=== PATIENT | female | born 1940 | race Caucasian/White ===

== ENCOUNTER 2018-02-08 08:47 | Inpatient (IN) | payer MEDICARE ==
[~2018-02-08] VITALS: Ht 157.5 cm; Wt 78.5 kg
--- NOTE | 2018-02-08 09:11 | EKG ---
[address] [address] Test Date: 2018-02-08 Test Time: 09:04:34 Pat Name: ZAKI EGAN Department: Room: Gender: F [employer] Machine Operator: : [id number] Requested By: GERARD MCCLELLAND Order Number: [id number] Reading MD: Merritt Adam MD Measurements Intervals [place] Rate: 75 P: [place]: QRS: 18 QRSD: 86 T: 48 QT: 402 QTc: 452 Interpretive Statements SR NON-SPECIFIC ST/T CHANGES INFERIOR INFARCT Electronically Signed On 02-11-2018 11:39:59 CDT by Merritt Adam MD
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
[2018-02-08 09:49] LABS: BASO % 0 % (0-3); EOS # 0.1 x10^3/uL (0.0-0.7); EOS % 1 % (0-3); HEMATOCRIT 45.3 % (36.0-47.0); HEMOGLOBIN 15.2 g/dL (12.0-15.5); LYMPH # 1.4 x10^3/uL (1.0-4.8); LYMPH % 15 % (24-48); MEAN CORPUSCULAR HEMOGLOBIN 31 pg (25-35); MEAN CORPUSCULAR HGB CONC 34 g/dL (31-37); MEAN CORPUSCULAR VOLUME 92 fL (79-100); MONO # 0.6 x10^3/uL (0.0-1.1); MONO % 6 % (0-9); NEUT # 7.4 x10^3uL (1.8-7.7); NEUT % 78 % (31-73); PLATELET COUNT 235 x10^3/uL (140-400); RED BLOOD COUNT 4.95 x10^6/uL (3.50-5.40); RED CELL DISTRIBUTION WIDTH 13.4 % (11.5-14.5); WHITE BLOOD COUNT 9.4 x10^3/uL (4.0-11.0)
[2018-02-08 09:57] LABS: ALBUMIN 3.4 g/dL (3.4-5.0); ALBUMIN/GLOBULIN RATIO 0.9 (1.0-1.7); CALCIUM 9.3 mg/dL (8.5-10.1); CREATININE 1.1 mg/dL (0.6-1.0); GFR 48.3; MAGNESIUM 1.9 mg/dL (1.8-2.4); POTASSIUM 3.1 mmol/L (3.5-5.1); TOTAL BILIRUBIN 0.4 mg/dL (0.2-1.0); TOTAL PROTEIN 7.3 g/dL (6.4-8.2)
[2018-02-08 10:08] LABS: AMORPHOUS SEDIMENT,UR PRESENT /HPF; BACTERIA,URINE FEW /HPF (0-FEW); BILIRUBIN,URINE NEG (NEG); CLARITY,URINE CLEAR; COLOR,URINE YELLOW; GLUCOSE,URINE NEG (NEG); NITRITE,URINE NEG (NEG); RBC,URINE OCC /HPF (0-2); SQUAMOUS EPITHELIAL CELL,UR OCC /LPF; UROBILINOGEN,URINE 0.2 mg/dL (0.2 mg/dL); WBC,URINE 0 /HPF (0-4)
[2018-02-08] MEDS ORDERED: POTASSIUM CHLORIDE 20 MEQ TABLET.ER. PO ONE (10:15)
[2018-02-08 11:33] VITALS: BP 124/63
[2018-02-08] MEDS ORDERED: POTA10TA10 PO (13:50)
[2018-02-08] MEDS ORDERED: DULO20CA50 PO (13:50)
[2018-02-08] MEDS ORDERED: ASPI81TA50 PO (13:50)
[2018-02-08] MEDS ORDERED: DONE10TA7 PO (13:50)
[2018-02-08] MEDS ORDERED: FURO40TA4 PO (13:50)
[2018-02-08] MEDS ORDERED: ZINC56CR2 TP ×2 (13:50)
[2018-02-08] MEDS ORDERED: ATOR20TA58 PO (13:50)
[2018-02-08] MEDS ORDERED: MEMA10TA PO (13:50)
[2018-02-08] MEDS ORDERED: HYDR12.58 PO (13:50)
[2018-02-08] MEDS ORDERED: ACET325T9 PO (13:50)
[2018-02-08] MEDS ORDERED: ACET500T68 PO ×2 (13:50→14:20)
[2018-02-08] MEDS ORDERED: RANI150C PO (13:50)
[2018-02-08] MEDS ORDERED: METO50TA29 PO (13:50)
[2018-02-08] MEDS ORDERED: CETI10TA16 PO (13:50)
[2018-02-08] MEDS ORDERED: SERT50TA PO (13:50)
[2018-02-08] MEDS ORDERED: ACETAMINOPHEN 325 MG TABLET PO PRN (14:30)
[2018-02-08] MEDS ORDERED: MAG HYDROX/AL HYDROX/SIMETH 30 ML ORAL.SUSP PO PRN (14:30)
[2018-02-08] MEDS ORDERED: METHYL SALICYLATE/MENTHOL TOPICAL OINTMENT 29GM TUBE. TP PRN (14:30)
[2018-02-08] MEDS ORDERED: ACETAMINOPHEN 500 MG TABLET PO PRN (15:00)
[2018-02-08] MEDS ORDERED: ZINC OXIDE TP PRN (15:00)
[2018-02-08 16:37] VITALS: BP 132/66
--- NOTE | 2018-02-08 18:59 | PDOC ---
Exam Note: Kobe Note: Please also refer to the separate dictated note~for this date of service dictated separately.~Patient seen individually. Discussed the patient with Nursing staff reviewed the chart.~Reviewed interim history and current functioning. Reviewed vital signs,~Labs/ Radiology~and current medications noted below. Continue current treatment with the changes noted in the dictated addendum note Assessment: Vital Signs: Vital Signs Date Time Temp Pulse Resp B/P (MAP) Pulse Ox O2 Delivery O2 Flow Rate FiO2 02/08/18 16:37 97.3 67 20 132/66 (88) 95 Room Air Labs: Laboratory Tests Test 02/08/18 09:25 02/08/18 09:40 White Blood Count 9.4 x10^3/uL (4.0-11.0) Red Blood Count 4.95 x10^6/uL (3.50-5.40) Hemoglobin 15.2 g/dL (12.0-15.5) Hematocrit 45.3 % (36.0-47.0) Mean Corpuscular Volume 92 fL (79-100) Mean Corpuscular Hemoglobin 31 pg (25-35) Mean Corpuscular Hemoglobin Concent 34 g/dL (31-37) Red Cell Distribution Width 13.4 % (11.5-14.5) Platelet Count 235 x10^3/uL (140-400) Neutrophils (%) (Auto) 78 % (31-73) H Lymphocytes (%) (Auto) 15 % (24-48) L Monocytes (%) (Auto) 6 % (0-9) Eosinophils (%) (Auto) 1 % (0-3) Basophils (%) (Auto) 0 % (0-3) Neutrophils # (Auto) 7.4 x10^3uL (1.8-7.7) Lymphocytes # (Auto) 1.4 x10^3/uL (1.0-4.8) Monocytes # (Auto) 0.6 x10^3/uL (0.0-1.1) Eosinophils # (Auto) 0.1 x10^3/uL (0.0-0.7) Basophils # (Auto) 0.0 x10^3/uL (0.0-0.2) Sodium Level 143 mmol/L (136-145) Potassium Level 3.1 mmol/L (3.5-5.1) L Chloride Level 104 mmol/L (98-107) Carbon Dioxide Level 29 mmol/L (21-32) Anion Gap 10 (6-14) Blood Urea Nitrogen 23 mg/dL (7-20) H Creatinine 1.1 mg/dL (0.6-1.0) H Estimated GFR (Cockcroft-Gault) 48.3 BUN/Creatinine Ratio 21 (6-20) H Glucose Level 111 mg/dL (70-99) H Calcium Level 9.3 mg/dL (8.5-10.1) Magnesium Level 1.9 mg/dL (1.8-2.4) Iron Level 66 ug/dL (50-170) Total Iron Binding Capacity 314 ug/dL (250-450) Iron Saturation 21 % (15-34) Total Bilirubin 0.4 mg/dL (0.2-1.0) Aspartate Amino Transferase (AST) 19 U/L (15-37) Alanine Aminotransferase (ALT) 21 U/L (14-59) Alkaline Phosphatase 132 U/L (46-116) H Total Protein 7.3 g/dL (6.4-8.2) Albumin 3.4 g/dL (3.4-5.0) Albumin/Globulin Ratio 0.9 (1.0-1.7) L Vitamin B12 Level 291 pg/mL (247-911) Urine Collection Type U cath Urine Color Yellow Urine Clarity Clear Urine pH 7.0 Urine Specific [place] 1.020 Urine Protein 30 mg/dl (NEG-TRACE) Urine Glucose (UA) Neg mg/dL (NEG) Urine Ketones (Stick) Trace mg/dL (NEG) Urine Blood Neg (NEG) Urine Nitrite Neg (NEG) Urine Bilirubin Neg (NEG) Urine Urobilinogen Dipstick 0.2 mg/dL (0.2 mg/dL) Urine Leukocyte Esterase Neg (NEG) Urine RBC Occ /HPF (0-2) Urine WBC 0 /HPF (0-4) Urine Squamous Epithelial Cells Occ /LPF Urine Amorphous Sediment Present /HPF Urine Bacteria Few /HPF (0-FEW) Urine Mucus Mod /LPF Current Medications: Meds: Current Medications Potassium Chloride (Klor-Con) 40 meq 1X ONCE PO Last administered on at 10:13; Start 02/08/18 at 10:15; Stop 02/08/18 at 10:16; Status DC Acetaminophen (Tylenol) 650 mg PRN Q6HRS PRN PO PAIN / TEMP; Start 02/08/18 at 14:30; Status Cancel Multi-Ingredient Ointment (Analgesic [place]) 1 savanah PRN QID PRN TP MUSCLE PAIN; Start 02/08/18 at 14:30 Al Hydroxide/Mg Hydroxide (Mylanta Plus Xs) 15 ml PRN AFTMEALHC PRN PO DYSPEPSIA; Start 02/08/18 at 14:30 Magnesium Hydroxide (Milk Of Magnesia) 2,400 mg PRN QHS PRN PO CONSTIPATION; Start 02/08/18 at 14:30 Atorvastatin Calcium (Lipitor) 20 mg QHS PO ; Start 02/08/18 at 21:00 Sertraline HCl (Zoloft) 50 mg DAILY PO ; Start 02/09/18 at 09:00 Acetaminophen (Tylenol) 500 mg BID PO ; Start 02/08/18 at 21:00 Acetaminophen (Tylenol) 500 mg PRN Q8HRS PRN PO PAIN / TEMP; Start 02/08/18 at 15:00 Aspirin (Aspirin Enteric Coated) 81 mg DAILY PO ; Start 02/09/18 at 09:00 Cetirizine HCl (ZyrTEC) 10 mg DAILY PO ; Start 02/09/18 at 09:00 Donepezil HCl (Aricept) 10 mg DAILY PO ; Start 02/09/18 at 09:00 Duloxetine HCl (Cymbalta) 20 mg DAILY PO ; Start 02/09/18 at 09:00 Furosemide (Lasix) 40 mg PRN DAILY PRN PO FOR EDEMA; Start 02/09/18 at 09:00 Hydrochlorothiazide (Microzide) 12.5 mg DAILY PO ; Start 02/09/18 at 09:00 Memantine (Namenda) 10 mg DAILY PO ; Start 02/09/18 at 09:00 Metoprolol Succinate (Toprol Xl) 50 mg DAILY PO ; Start 02/09/18 at 09:00 Potassium Chloride (Klor-Con) 10 meq DAILY PO ; Start 02/09/18 at 09:00 Famotidine (Pepcid) 20 mg QHS PO ; Start 02/08/18 at 21:00 Zinc Oxide (Desitin Diaper Rash 40%) 1 savanah BID TP ; Start 02/08/18 at 21:00 Non-Formulary Medication (Zinc Oxide (Desitin)) 1 applic PRN PRN TP irritation; Start 02/08/18 at 15:00; Status UNV Active Scripts Active Reported Acetaminophen 500 Mg Tablet 500 Mg PO BID Desitin (Zinc Oxide) 57 Gm Cream..g. 1 Applic TP PRN PRN Acetaminophen 500 Mg Tablet 500 Mg PO PRN Q8HRS PRN Furosemide 40 Mg Tablet 40 Mg PO PRN DAILY PRN Zoloft (Sertraline Hcl) 50 Mg Tablet 50 Mg PO DAILY Ranitidine Hcl 150 Mg Capsule 150 Mg PO HS Potassium Chloride 10 Meq Tablet.er 10 Meq PO DAILY Metoprolol Succinate ( Xl ) (Metoprolol Succinate) 50 Mg Tab.er.24h 50 Mg PO DAILY Namenda (Memantine Hcl) 10 Mg Tablet 10 Mg PO DAILY Hydrochlorothiazide Tablet (Hydrochlorothiazide) 12.5 Mg Tablet 12.5 Mg PO DAILY Cymbalta (Duloxetine Hcl) 20 Mg Capsule.dr 20 Mg PO DAILY 26 Days Donepezil Hcl 10 Mg Tablet 10 Mg PO DAILY Desitin (Zinc Oxide) 57 Gm Cream..g. 1 Appful TP BID Cetirizine Hcl 10 Mg Tablet 10 Mg PO DAILY Atorvastatin Calcium 20 Mg Tablet 20 Mg PO QHS Aspir-Low (Aspirin) 81 Mg Tablet. 81 Mg PO DAILY I have reviewed the current psychotropics carefully including drug interactions. Risk benefit ratio favors no change other than as noted in my dictated progress note. Diagnosis: Problems: (1) Anxiety disorder (2) Dementia in Alzheimer's disease with delusions (3) Dementia in Alzheimer's disease with depression (4) Impulse control disorder (5) Dementia, vascular, with delusions (6) Dementia, vascular, with depression (7) Dementia with behavioral disturbance LIANA MCKENZIE MD Feb 08, 2018 18:59
[2018-02-08] MEDS: FAMOTIDINE 20 MG TABLET PO SCH (20:32)
[2018-02-08] MEDS: ATORVASTATIN CALCIUM 20 MG TABLET PO SCH (20:32)
[2018-02-08] MEDS: ACETAMINOPHEN 500 MG TABLET PO SCH (20:32)
[2018-02-08] MEDS: ZINC OXIDE/COD LIVER OIL 40% TOPICAL OINTMENT 56GM TUBE. TP SCH (20:51)
--- NOTE | 2018-02-08 22:30 | PDOC ---
Exam Note: Kobe Note: Please also refer to the separate dictated note~for this date of service dictated separately.~Patient seen individually. Discussed the patient with Nursing staff reviewed the chart.~Reviewed interim history and current functioning. Reviewed vital signs,~Labs/ Radiology~and current medications noted below. Continue current treatment with the changes noted in the dictated addendum note Assessment: Vital Signs: Vital Signs Date Time Temp Pulse Resp B/P (MAP) Pulse Ox O2 Delivery O2 Flow Rate FiO2 02/08/18 16:37 97.3 67 20 132/66 (88) 95 Room Air Labs: Laboratory Tests Test 02/08/18 09:25 02/08/18 09:40 White Blood Count 9.4 x10^3/uL (4.0-11.0) Red Blood Count 4.95 x10^6/uL (3.50-5.40) Hemoglobin 15.2 g/dL (12.0-15.5) Hematocrit 45.3 % (36.0-47.0) Mean Corpuscular Volume 92 fL (79-100) Mean Corpuscular Hemoglobin 31 pg (25-35) Mean Corpuscular Hemoglobin Concent 34 g/dL (31-37) Red Cell Distribution Width 13.4 % (11.5-14.5) Platelet Count 235 x10^3/uL (140-400) Neutrophils (%) (Auto) 78 % (31-73) H Lymphocytes (%) (Auto) 15 % (24-48) L Monocytes (%) (Auto) 6 % (0-9) Eosinophils (%) (Auto) 1 % (0-3) Basophils (%) (Auto) 0 % (0-3) Neutrophils # (Auto) 7.4 x10^3uL (1.8-7.7) Lymphocytes # (Auto) 1.4 x10^3/uL (1.0-4.8) Monocytes # (Auto) 0.6 x10^3/uL (0.0-1.1) Eosinophils # (Auto) 0.1 x10^3/uL (0.0-0.7) Basophils # (Auto) 0.0 x10^3/uL (0.0-0.2) Sodium Level 143 mmol/L (136-145) Potassium Level 3.1 mmol/L (3.5-5.1) L Chloride Level 104 mmol/L (98-107) Carbon Dioxide Level 29 mmol/L (21-32) Anion Gap 10 (6-14) Blood Urea Nitrogen 23 mg/dL (7-20) H Creatinine 1.1 mg/dL (0.6-1.0) H Estimated GFR (Cockcroft-Gault) 48.3 BUN/Creatinine Ratio 21 (6-20) H Glucose Level 111 mg/dL (70-99) H Calcium Level 9.3 mg/dL (8.5-10.1) Magnesium Level 1.9 mg/dL (1.8-2.4) Iron Level 66 ug/dL (50-170) Total Iron Binding Capacity 314 ug/dL (250-450) Iron Saturation 21 % (15-34) Total Bilirubin 0.4 mg/dL (0.2-1.0) Aspartate Amino Transferase (AST) 19 U/L (15-37) Alanine Aminotransferase (ALT) 21 U/L (14-59) Alkaline Phosphatase 132 U/L (46-116) H Total Protein 7.3 g/dL (6.4-8.2) Albumin 3.4 g/dL (3.4-5.0) Albumin/Globulin Ratio 0.9 (1.0-1.7) L Vitamin B12 Level 291 pg/mL (247-911) Urine Collection Type U cath Urine Color Yellow Urine Clarity Clear Urine pH 7.0 Urine Specific [place] 1.020 Urine Protein 30 mg/dl (NEG-TRACE) Urine Glucose (UA) Neg mg/dL (NEG) Urine Ketones (Stick) Trace mg/dL (NEG) Urine Blood Neg (NEG) Urine Nitrite Neg (NEG) Urine Bilirubin Neg (NEG) Urine Urobilinogen Dipstick 0.2 mg/dL (0.2 mg/dL) Urine Leukocyte Esterase Neg (NEG) Urine RBC Occ /HPF (0-2) Urine WBC 0 /HPF (0-4) Urine Squamous Epithelial Cells Occ /LPF Urine Amorphous Sediment Present /HPF Urine Bacteria Few /HPF (0-FEW) Urine Mucus Mod /LPF Current Medications: Meds: Current Medications Potassium Chloride (Klor-Con) 40 meq 1X ONCE PO Last administered on at 10:13; Start 02/08/18 at 10:15; Stop 02/08/18 at 10:16; Status DC Acetaminophen (Tylenol) 650 mg PRN Q6HRS PRN PO PAIN / TEMP; Start 02/08/18 at 14:30; Status Cancel Multi-Ingredient Ointment (Analgesic [place]) 1 savanah PRN QID PRN TP MUSCLE PAIN; Start 02/08/18 at 14:30 Al Hydroxide/Mg Hydroxide (Mylanta Plus Xs) 15 ml PRN AFTMEALHC PRN PO DYSPEPSIA; Start 02/08/18 at 14:30 Magnesium Hydroxide (Milk Of Magnesia) 2,400 mg PRN QHS PRN PO CONSTIPATION; Start 02/08/18 at 14:30 Atorvastatin Calcium (Lipitor) 20 mg QHS PO Last administered on 02/08/18at 20: 32; Start 02/08/18 at 21:00 Sertraline HCl (Zoloft) 50 mg DAILY PO ; Start 02/09/18 at 09:00; Stop 02/09/18 at 09:00; Status DC Acetaminophen (Tylenol) 500 mg BID PO Last administered on 02/08/18at 20:32; Start 02/08/18 at 21:00 Acetaminophen (Tylenol) 500 mg PRN Q8HRS PRN PO PAIN / TEMP; Start 02/08/18 at 15:00 Aspirin (Aspirin Enteric Coated) 81 mg DAILY PO ; Start 02/09/18 at 09:00 Cetirizine HCl (ZyrTEC) 10 mg DAILY PO ; Start 02/09/18 at 09:00 Donepezil HCl (Aricept) 10 mg DAILY PO ; Start 02/09/18 at 09:00 Duloxetine HCl (Cymbalta) 20 mg DAILY PO ; Start 02/09/18 at 09:00; Stop at 09:00; Status DC Furosemide (Lasix) 40 mg PRN DAILY PRN PO FOR EDEMA; Start 02/09/18 at 09:00 Hydrochlorothiazide (Microzide) 12.5 mg DAILY PO ; Start 02/09/18 at 09:00 Memantine (Namenda) 10 mg DAILY PO ; Start 02/09/18 at 09:00 Metoprolol Succinate (Toprol Xl) 50 mg DAILY PO ; Start 02/09/18 at 09:00 Potassium Chloride (Klor-Con) 10 meq DAILY PO ; Start 02/09/18 at 09:00 Famotidine (Pepcid) 20 mg QHS PO Last administered on 02/08/18at 20:32; Start at 21:00 Zinc Oxide (Desitin Diaper Rash 40%) 1 savanah BID TP ; Start 02/08/18 at 21:00 Non-Formulary Medication (Zinc Oxide (Desitin)) 1 applic PRN PRN TP irritation; Start 02/08/18 at 15:00; Status UNV Sertraline HCl (Zoloft) 75 mg DAILY PO ; Start 02/09/18 at 09:00 Trazodone HCl (Desyrel) 25 mg PRN QHS PRN PO INSOMNIA, MAY REPEAT X2; Start at 19:30 Active Scripts Active Reported Acetaminophen 500 Mg Tablet 500 Mg PO BID Desitin (Zinc Oxide) 57 Gm Cream..g. 1 Applic TP PRN PRN Acetaminophen 500 Mg Tablet 500 Mg PO PRN Q8HRS PRN Furosemide 40 Mg Tablet 40 Mg PO PRN DAILY PRN Zoloft (Sertraline Hcl) 50 Mg Tablet 50 Mg PO DAILY Ranitidine Hcl 150 Mg Capsule 150 Mg PO HS Potassium Chloride 10 Meq Tablet.er 10 Meq PO DAILY Metoprolol Succinate ( Xl ) (Metoprolol Succinate) 50 Mg Tab.er.24h 50 Mg PO DAILY Namenda (Memantine Hcl) 10 Mg Tablet 10 Mg PO DAILY Hydrochlorothiazide Tablet (Hydrochlorothiazide) 12.5 Mg Tablet 12.5 Mg PO DAILY Cymbalta (Duloxetine Hcl) 20 Mg Capsule.dr 20 Mg PO DAILY 26 Days Donepezil Hcl 10 Mg Tablet 10 Mg PO DAILY Desitin (Zinc Oxide) 57 Gm Cream..g. 1 Appful TP BID Cetirizine Hcl 10 Mg Tablet 10 Mg PO DAILY Atorvastatin Calcium 20 Mg Tablet 20 Mg PO QHS Aspir-Low (Aspirin) 81 Mg Tablet.dr 81 Mg PO DAILY I have reviewed the current psychotropics carefully including drug interactions. Risk benefit ratio favors no change other than as noted in my dictated progress note. Diagnosis: Problems: (1) Anxiety disorder (2) Impulse control disorder (3) Dementia, vascular, with depression (4) Dementia, vascular, with delusions (5) Dementia with behavioral disturbance (6) Dementia in Alzheimer's disease with depression (7) Dementia in Alzheimer's disease with delusions LIANA MCKENZIE MD Feb 08, 2018 22:30
[2018-02-09 00:09] LABS: HEMOGLOBIN A1C 5.2 % (4.8-5.6); THYROXINE 6.9 ug/dL (4.5-12.0)
[2018-02-09 06:35] VITALS: BP 125/43
[2018-02-09] MEDS: ASPIRIN ENTERIC COATED 81 MG TABLET.DR. PO SCH (07:42)
[2018-02-09] MEDS: MEMANTINE 10 MG TABLET. PO SCH (07:42)
[2018-02-09] MEDS: DONEPEZIL HCL 10 MG TABLET PO SCH (07:42)
[2018-02-09] MEDS: CETIRIZINE HCL 10 MG TABLET PO SCH (07:43)
[2018-02-09] MEDS: ACETAMINOPHEN 500 MG TABLET PO SCH ×2 (07:43→19:47)
[2018-02-09] MEDS: SERTRALINE 50 MG TABLET. PO SCH (07:50)
[2018-02-09] MEDS: ZINC OXIDE/COD LIVER OIL 40% TOPICAL OINTMENT 56GM TUBE. TP SCH ×2 (07:51→19:48)
[2018-02-09] MEDS: METOPROLOL SUCC 24HR ER 50 MG TAB.ER.24H. PO SCH (07:59)
[2018-02-09] MEDS ORDERED: hydroCHLOROthiazide 12.5 MG CAPSULE PO SCH (09:00)
[2018-02-09] MEDS ORDERED: POTASSIUM CHLORIDE 10 MEQ TABLET.ER. PO SCH (09:00)
[2018-02-09] MEDS ORDERED: SERTRALINE 50 MG TABLET. PO SCH (09:00)
[2018-02-09] MEDS ORDERED: DULoxetine HCL 20 MG CAPSULE.DR PO SCH (09:00)
[2018-02-09] MEDS ORDERED: FUROSEMIDE 40 MG TABLET PO PRN (09:00)
[2018-02-09 10:54] LABS: THYROID STIM HORMONE (TSH) 4.548 uIU/mL (0.358-3.740)
[2018-02-09 16:16] VITALS: BP 121/82
[2018-02-09] MEDS ORDERED: POTASSIUM CHLORIDE 20 MEQ TABLET.ER. PO ONE (16:30)
--- NOTE | 2018-02-09 18:51 | HP ---
ADMIT DATE: 02/08/2018 PSYCHIATRIC ADMISSION HISTORY/EVALUATION This is a late entry, date of service 02/08/2018, covers elements, not covered in my initial note of 02/08/2018. The patient is being admitted by her DPOA. I met with the patient evening of 02/08/2018. Discussed with nursing staff and previously discussed with nursing staff on 2 or 3 occasions including prior to the patient's admission to review her history and referral information from [facility] and the patient's primary care physician referring for inpatient psychiatric stabilization. IDENTIFYING DATA: The patient is a 78-year-old female referred from [facility] by her primary care physician on account of refusing to walk, lying herself on the floor, refusing ADLs, combative with cares, slapping and pinching staff and others around her. The patient is severely demented, increasingly paranoid, agitated. She had failed outpatient psychiatric interventions resulting in this referral for inpatient psychiatric stabilization. CHIEF COMPLAINT: "No." The patient is in her wheelchair, smiling, oriented just to herself. HISTORY OF PRESENT ILLNESS: The patient has a history of dementia, Alzheimer's vascular type. She has been residing at the [facility] for some time, but over the last several days, she has been increasingly paranoid, psychotic, agitated, having sleep and appetite changes. She has been extremely aggressive, disruptive as noted above, slapping and punching staff, lying herself on the floor, deemed a potential danger to herself and others around her, unmanageable at the [facility], resulting in this referral. No clear history of bipolar disorder. PAST PSYCHIATRIC HISTORY: As above for progressive dementia with delusions, behavioral disturbance. PAST MEDICAL HISTORY: Positive for hypertension, atherosclerotic heart disease, hyperlipidemia, GERD. ACCU-CHEKS: None. DIET: Regular. CURRENT PSYCHOTROPICS: Aricept 10 mg a day, Cymbalta 30 mg a day, Namenda 10 mg daily, Zoloft 50 mg a day. FAMILY HISTORY: Noncontributory. SOCIAL HISTORY: No history of alcohol, drug abuse, physical, sexual or elder abuse. She is not known to be a perpetrator. REACTION TO HOSPITALIZATION: The patient is oblivious of this. ASSETS: Supportive living at the [facility], supportive family. MENTAL STATUS EXAM: The patient was seen individually evening of 02/08/2018. She has been in a wheelchair, oriented to herself, pleasant, smiling, but irritable, labile at other times. Insight, judgment, recent and remote memory, attention, concentration, fund of knowledge poor, consistent with her diagnosis. She is quite disorganized, does respond to her name, but unaware of anything else around her. LABORATORY DATA: Reviewed. IMPRESSION: Major neurocognitive disorder, Alzheimer, vascular with delusion, depression, behavioral disturbance; anxiety disorder, unspecified; impulse control disorder, unspecified. Rest as above. PLAN: Admit to geropsychiatry unit at [facility]. I will see the patient daily individually from a psychiatric standpoint, medical followup per Dr. Sun/Dr. Richards. The patient is on 2 antidepressants, Cymbalta and Zoloft, it is best not to combine the 2 and we will go ahead and stop the Cymbalta. Increase the Zoloft to 75 mg a day. Add trazodone 25 mg at bedtime p.r.n., may repeat x 2 for her insomnia, which has been quite problematic. Estimated length of stay 10-12 days. DISCHARGE DISPOSITION: Back to [facility]. LIANA MCKENZIE MD DR: REMINGTON/brad JOB#: [id number] / [id number]
[2018-02-09] MEDS: ATORVASTATIN CALCIUM 20 MG TABLET PO SCH (19:47)
[2018-02-09] MEDS: FAMOTIDINE 20 MG TABLET PO SCH (19:47)
[2018-02-09] MEDS: POTASSIUM CHLORIDE 10 MEQ TABLET.ER. PO SCH (19:49)
--- NOTE | 2018-02-09 22:33 | PDOC ---
Exam Note: Kobe Note: Please also refer to the separate dictated note~for this date of service dictated separately.~Patient seen individually. Discussed the patient with Nursing staff reviewed the chart.~Reviewed interim history and current functioning. Reviewed vital signs,~Labs/ Radiology~and current medications noted below. Continue current treatment with the changes noted in the dictated addendum note Assessment: Vital Signs: Vital Signs Date Time Temp Pulse Resp B/P (MAP) Pulse Ox O2 Delivery O2 Flow Rate FiO2 02/09/18 16:16 98.3 82 20 121/82 (95) 94 Room Air I&O Intake and Output 02/09/18 07:01 Intake Total 0 ml Balance 0 ml Intake Oral 0 ml # Bowel Movements 1 Current Medications: Meds: Current Medications Potassium Chloride (Klor-Con) 40 meq 1X ONCE PO Last administered on at 10:13; Start 02/08/18 at 10:15; Stop 02/08/18 at 10:16; Status DC Acetaminophen (Tylenol) 650 mg PRN Q6HRS PRN PO PAIN / TEMP; Start 02/08/18 at 14:30; Status Cancel Multi-Ingredient Ointment (Analgesic [place]) 1 savanah PRN QID PRN TP MUSCLE PAIN; Start 02/08/18 at 14:30 Al Hydroxide/Mg Hydroxide (Mylanta Plus Xs) 15 ml PRN AFTMEALHC PRN PO DYSPEPSIA; Start 02/08/18 at 14:30 Magnesium Hydroxide (Milk Of Magnesia) 2,400 mg PRN QHS PRN PO CONSTIPATION; Start 02/08/18 at 14:30 Atorvastatin Calcium (Lipitor) 20 mg QHS PO Last administered on 02/09/18at 19: 47; Start 02/08/18 at 21:00 Sertraline HCl (Zoloft) 50 mg DAILY PO ; Start 02/09/18 at 09:00; Stop 02/09/18 at 09:00; Status DC Acetaminophen (Tylenol) 500 mg BID PO Last administered on 02/09/18at 19:47; Start 02/08/18 at 21:00 Acetaminophen (Tylenol) 500 mg PRN Q8HRS PRN PO PAIN / TEMP; Start 02/08/18 at 15:00 Aspirin (Aspirin Enteric Coated) 81 mg DAILY PO Last administered on 02/09/18at 07:42; Start 02/09/18 at 09:00 Cetirizine HCl (ZyrTEC) 10 mg DAILY PO Last administered on 02/09/18at 07:43; Start 02/09/18 at 09:00 Donepezil HCl (Aricept) 10 mg DAILY PO Last administered on 02/09/18at 07:42; Start 02/09/18 at 09:00 Duloxetine HCl (Cymbalta) 20 mg DAILY PO ; Start 02/09/18 at 09:00; Stop at 09:00; Status DC Furosemide (Lasix) 40 mg PRN DAILY PRN PO FOR EDEMA; Start 02/09/18 at 09:00; Stop 02/09/18 at 16:07; Status DC Hydrochlorothiazide (Microzide) 12.5 mg DAILY PO Last administered on at 07:50; Start 02/09/18 at 09:00; Stop 02/09/18 at 16:03; Status DC Memantine (Namenda) 10 mg DAILY PO Last administered on 02/09/18at 07:42; Start 02/09/18 at 09:00 Metoprolol Succinate (Toprol Xl) 50 mg DAILY PO Last administered on 02/09/18at 07:59; Start 02/09/18 at 09:00 Potassium Chloride (Klor-Con) 10 meq DAILY PO Last administered on 02/09/18at 07 :43; Start 02/09/18 at 09:00; Stop 02/09/18 at 16:07; Status DC Famotidine (Pepcid) 20 mg QHS PO Last administered on 02/09/18at 19:47; Start at 21:00 Zinc Oxide (Desitin Diaper Rash 40%) 1 savanah BID TP Last administered on at 19:48; Start 02/08/18 at 21:00 Non-Formulary Medication (Zinc Oxide (Desitin)) 1 applic PRN PRN TP irritation; Start 02/08/18 at 15:00; Status UNV Sertraline HCl (Zoloft) 75 mg DAILY PO Last administered on 02/09/18at 07:50; Start 02/09/18 at 09:00 Trazodone HCl (Desyrel) 25 mg PRN QHS PRN PO INSOMNIA, MAY REPEAT X2; Start at 19:30 Potassium Chloride (Klor-Con) 40 meq 1X ONCE PO Last administered on at 17:50; Start 02/09/18 at 16:30; Stop 02/09/18 at 16:31; Status DC Furosemide (Lasix) 40 mg DAILY PO ; Start 02/10/18 at 09:00 Potassium Chloride (Klor-Con) 20 meq BID PO Last administered on 02/09/18at 19: 49; Start 02/09/18 at 21:00 Active Scripts Active Reported Acetaminophen 500 Mg Tablet 500 Mg PO BID Desitin (Zinc Oxide) 57 Gm Cream..g. 1 Applic TP PRN PRN Acetaminophen 500 Mg Tablet 500 Mg PO PRN Q8HRS PRN Furosemide 40 Mg Tablet 40 Mg PO PRN DAILY PRN Zoloft (Sertraline Hcl) 50 Mg Tablet 50 Mg PO DAILY Ranitidine Hcl 150 Mg Capsule 150 Mg PO HS Potassium Chloride 10 Meq Tablet.er 10 Meq PO DAILY Metoprolol Succinate ( Xl ) (Metoprolol Succinate) 50 Mg Tab.er.24h 50 Mg PO DAILY Namenda (Memantine Hcl) 10 Mg Tablet 10 Mg PO DAILY Hydrochlorothiazide Tablet (Hydrochlorothiazide) 12.5 Mg Tablet 12.5 Mg PO DAILY Cymbalta (Duloxetine Hcl) 20 Mg Capsule.dr 20 Mg PO DAILY 26 Days Donepezil Hcl 10 Mg Tablet 10 Mg PO DAILY Desitin (Zinc Oxide) 57 Gm Cream..g. 1 Appful TP BID Cetirizine Hcl 10 Mg Tablet 10 Mg PO DAILY Atorvastatin Calcium 20 Mg Tablet 20 Mg PO QHS Aspir-Low (Aspirin) 81 Mg Tablet.dr 81 Mg PO DAILY I have reviewed the current psychotropics carefully including drug interactions. Risk benefit ratio favors no change other than as noted in my dictated progress note. Diagnosis: Problems: (1) Anxiety disorder (2) Impulse control disorder (3) Dementia, vascular, with depression (4) Dementia, vascular, with delusions (5) Dementia with behavioral disturbance (6) Dementia in Alzheimer's disease with depression (7) Dementia in Alzheimer's disease with delusions LIANA MCKENZIE MD Feb 09, 2018 22:33
[2018-02-10 06:19] VITALS: BP 105/67
[2018-02-10] MEDS: SERTRALINE 50 MG TABLET. PO SCH (07:44)
[2018-02-10] MEDS: MEMANTINE 10 MG TABLET. PO SCH (07:44)
[2018-02-10] MEDS: ASPIRIN ENTERIC COATED 81 MG TABLET.DR. PO SCH (07:44)
[2018-02-10] MEDS: DONEPEZIL HCL 10 MG TABLET PO SCH (07:44)
[2018-02-10] MEDS: POTASSIUM CHLORIDE 10 MEQ TABLET.ER. PO SCH ×2 (07:44→19:37)
[2018-02-10] MEDS: ACETAMINOPHEN 500 MG TABLET PO SCH ×2 (07:44→19:37)
[2018-02-10] MEDS: METOPROLOL SUCC 24HR ER 50 MG TAB.ER.24H. PO SCH (07:45)
[2018-02-10] MEDS: CETIRIZINE HCL 10 MG TABLET PO SCH (07:45)
[2018-02-10] MEDS: ZINC OXIDE/COD LIVER OIL 40% TOPICAL OINTMENT 56GM TUBE. TP SCH (07:45)
[2018-02-10] MEDS: FUROSEMIDE 40 MG TABLET PO SCH (07:46)
[2018-02-10] MEDS: NYSTATIN TOPICAL POWDER 15GM BOTTLE. TP SCH ×2 (09:00→19:37)
--- NOTE | 2018-02-10 13:04 | CONS ---
DATE OF CONSULTATION: 02/08/2018 REASON FOR CONSULTATION: Medical management. HISTORY OF PRESENT ILLNESS: The patient is a 78-year-old female patient, resident at [facility], who was admitted on the account of refusing to walk, lying self on the floor, refusing ADL, combative with care, slapping and pinching. All this in a background of dementia with depression. PAST MEDICAL HISTORY: Significant for hypertension, atherosclerotic heart disease, hyperlipidemia, gastroesophageal reflux disease. PAST PSYCHIATRIC HISTORY: Significant for dementia and depression. PAST SURGICAL HISTORY: Significant for breast cancer surgery without mastectomy. ALLERGIES: She is allergic to TETANUS VACCINE, TOXOID, PNEUMOCOCCAL VACCINE, ZOSTER VACCINE. MEDICATIONS: She is currently on following medications: She is on cetirizine 10 mg once a day, Aricept 10 mg once a day, atorvastatin calcium 20 mg at bedtime, metoprolol succinate 50 mg once a day, aspirin 81 mg once a day, Tylenol 650 mg every 8 hours, duloxetine for Cymbalta 20 mg daily, sertraline 50 mg daily, Namenda 10 mg once a day, potassium chloride 10 mEq once a day, furosemide 40 mg once a day and hydrochlorothiazide 12.5 mg once a day, ranitidine 150 mg once a day, zinc oxide applied topically as needed for irritation. FAMILY HISTORY: Unremarkable. SOCIAL HISTORY: She is a resident at [facility]. She claims that she has never smoked, does not drink alcohol or recreational drugs. 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 REVIEW OF SYSTEMS: As per history of present illness. PHYSICAL EXAMINATION GENERAL: When I examined her, she was sitting in her wheelchair comfortably, in no apparent distress. No pallor, jaundice, cyanosis, or thyromegaly. No jugular venous distension. No lower limb edema. VITAL SIGNS: Her heart rate was 93, blood pressure 125/43, temperature was 97.7, respiratory rate was 16, and oxygen saturation was 95%. HEAD, EYES, EARS, NOSE AND THROAT: Showed normocephalic, atraumatic. NECK: Supple. HEART: Showed normal first and second heart sounds with no gallop, rub or murmur. CHEST: Clear to auscultation. No crepitation or rhonchi. ABDOMEN: Distended, soft, nontender. NEUROLOGIC: She was awake, alert, responding appropriately at times. All her cranial nerves intact. EXTREMITIES: She moves upper extremities to much good extent and lower extremities. She is mostly bedbound, although typically she is able to walk. LABORATORY DATA: Showed a white cell count of 9400, hemoglobin 15, hematocrit 45, MCV 92, and platelet count 235,000 with normal manual differential. Her chemistry showed a serum sodium 143, potassium 3.1, chloride 104, bicarbonate 29, anion gap of 23, BUN 23, creatinine 1.1, estimated GFR was 48 mL per minute. Her glucose was 111, calcium was 9.3, magnesium was 1.9. Serum iron was 66, TIBC was 314 and iron saturation was 21. Total bilirubin, AST, ALT normal. Alkaline phosphatase slightly elevated. Total protein was 7.3, albumin 3.4. Her hemoglobin A1c was 5.2%. Vitamin B12 was 291 pg/mL. A 25-hydroxy vitamin D was 31.8. TSH was slightly elevated at 4.548. Her T4 was 6.9 and total T3 was 122. Her serum triglycerides were 224. Total cholesterol was 191, LDL cholesterol was 95, VLDL was 44, HDL was 52 and the ratio was 3. Urinalysis was unremarkable and her treponema pallidum antibodies were nonreactive. IMPRESSION: In summary, this is a 78-year-old female patient, who was admitted on account of refusing to walk, lying self on the floor, refusing ADLs, combative with care, slapping and pinching. This is in the background of dementia with depression and behavioral disturbances. Medically, she seems to be stable. She carries a diagnosis of hypertension, hyperlipidemia, gastroesophageal reflux disease. Her vital signs are within acceptable range. Her blood count was normal. She has compensated hypothyroidism. TSH was slightly elevated. The total T4 and total T3 were normal. She has evidence of iron deficiency, although her hemoglobin and hematocrit was 15 and 45. All in all, she seemed to be stable medically. Thank you, Dr. Garcia for allowing me to participate in the care of this patient. ANDREEA RAMIRES MD DR: LUCHO/brad JOB#: [id number] / [id number]
[2018-02-10 15:53] VITALS: BP 131/78
[2018-02-10] MEDS: FAMOTIDINE 20 MG TABLET PO SCH (19:37)
[2018-02-10] MEDS: ATORVASTATIN CALCIUM 20 MG TABLET PO SCH (19:37)
--- NOTE | 2018-02-10 21:04 | PDOC ---
Exam Note: Kobe Note: Please also refer to the separate dictated note~for this date of service dictated separately.~Patient seen individually. Discussed the patient with Nursing staff reviewed the chart.~Reviewed interim history and current functioning. Reviewed vital signs,~Labs/ Radiology~and current medications noted below. Continue current treatment with the changes noted in the dictated addendum note Assessment: Vital Signs: Vital Signs Date Time Temp Pulse Resp B/P (MAP) Pulse Ox O2 Delivery O2 Flow Rate FiO2 02/10/18 15:53 97.6 73 18 131/78 (95) 92 02/09/18 16:16 Room Air I&O Intake and Output 02/10/18 07:01 Intake Total 725 ml Balance 725 ml Intake Oral 725 ml # Bowel Movements 1 Current Medications: Meds: Current Medications Potassium Chloride (Klor-Con) 40 meq 1X ONCE PO Last administered on at 10:13; Start 02/08/18 at 10:15; Stop 02/08/18 at 10:16; Status DC Acetaminophen (Tylenol) 650 mg PRN Q6HRS PRN PO PAIN / TEMP; Start 02/08/18 at 14:30; Status Cancel Multi-Ingredient Ointment (Analgesic [place]) 1 savanah PRN QID PRN TP MUSCLE PAIN; Start 02/08/18 at 14:30 Al Hydroxide/Mg Hydroxide (Mylanta Plus Xs) 15 ml PRN AFTMEALHC PRN PO DYSPEPSIA; Start 02/08/18 at 14:30 Magnesium Hydroxide (Milk Of Magnesia) 2,400 mg PRN QHS PRN PO CONSTIPATION; Start 02/08/18 at 14:30 Atorvastatin Calcium (Lipitor) 20 mg QHS PO Last administered on 02/10/18at 19: 37; Start 02/08/18 at 21:00 Sertraline HCl (Zoloft) 50 mg DAILY PO ; Start 02/09/18 at 09:00; Stop 02/09/18 at 09:00; Status DC Acetaminophen (Tylenol) 500 mg BID PO Last administered on 02/10/18at 19:37; Start 02/08/18 at 21:00 Acetaminophen (Tylenol) 500 mg PRN Q8HRS PRN PO PAIN / TEMP; Start 02/08/18 at 15:00 Aspirin (Aspirin Enteric Coated) 81 mg DAILY PO Last administered on 02/10/18at 07:44; Start 02/09/18 at 09:00 Cetirizine HCl (ZyrTEC) 10 mg DAILY PO Last administered on 02/10/18at 07:45; Start 02/09/18 at 09:00 Donepezil HCl (Aricept) 10 mg DAILY PO Last administered on 02/10/18at 07:44; Start 02/09/18 at 09:00 Duloxetine HCl (Cymbalta) 20 mg DAILY PO ; Start 02/09/18 at 09:00; Stop at 09:00; Status DC Furosemide (Lasix) 40 mg PRN DAILY PRN PO FOR EDEMA; Start 02/09/18 at 09:00; Stop 02/09/18 at 16:07; Status DC Hydrochlorothiazide (Microzide) 12.5 mg DAILY PO Last administered on at 07:50; Start 02/09/18 at 09:00; Stop 02/09/18 at 16:03; Status DC Memantine (Namenda) 10 mg DAILY PO Last administered on 02/10/18at 07:44; Start 02/09/18 at 09:00 Metoprolol Succinate (Toprol Xl) 50 mg DAILY PO Last administered on 02/10/18at 07:45; Start 02/09/18 at 09:00 Potassium Chloride (Klor-Con) 10 meq DAILY PO Last administered on 02/09/18at 07 :43; Start 02/09/18 at 09:00; Stop 02/09/18 at 16:07; Status DC Famotidine (Pepcid) 20 mg QHS PO Last administered on 02/10/18at 19:37; Start at 21:00 Zinc Oxide (Desitin Diaper Rash 40%) 1 savanah BID TP Last administered on at 19:48; Start 02/08/18 at 21:00; Stop 02/10/18 at 07:47; Status DC Non-Formulary Medication (Zinc Oxide (Desitin)) 1 applic PRN PRN TP irritation; Start 02/08/18 at 15:00; Status UNV Sertraline HCl (Zoloft) 75 mg DAILY PO Last administered on 02/10/18at 07:44; Start 02/09/18 at 09:00 Trazodone HCl (Desyrel) 25 mg PRN QHS PRN PO INSOMNIA, MAY REPEAT X2; Start at 19:30 Potassium Chloride (Klor-Con) 40 meq 1X ONCE PO Last administered on at 17:50; Start 02/09/18 at 16:30; Stop 02/09/18 at 16:31; Status DC Furosemide (Lasix) 40 mg DAILY PO Last administered on 02/10/18at 07:46; Start 02/10/18 at 09:00 Potassium Chloride (Klor-Con) 20 meq BID PO Last administered on 02/10/18at 19: 37; Start 02/09/18 at 21:00 Nystatin (Nystop) 1 savanah BID TP Last administered on 02/10/18at 19:37; Start at 09:00 Active Scripts Active Reported Acetaminophen 500 Mg Tablet 500 Mg PO BID Desitin (Zinc Oxide) 57 Gm Cream..g. 1 Applic TP PRN PRN Acetaminophen 500 Mg Tablet 500 Mg PO PRN Q8HRS PRN Furosemide 40 Mg Tablet 40 Mg PO PRN DAILY PRN Zoloft (Sertraline Hcl) 50 Mg Tablet 50 Mg PO DAILY Ranitidine Hcl 150 Mg Capsule 150 Mg PO HS Potassium Chloride 10 Meq Tablet.er 10 Meq PO DAILY Metoprolol Succinate ( Xl ) (Metoprolol Succinate) 50 Mg Tab.er.24h 50 Mg PO DAILY Namenda (Memantine Hcl) 10 Mg Tablet 10 Mg PO DAILY Hydrochlorothiazide Tablet (Hydrochlorothiazide) 12.5 Mg Tablet 12.5 Mg PO DAILY Cymbalta (Duloxetine Hcl) 20 Mg Capsule.dr 20 Mg PO DAILY 26 Days Donepezil Hcl 10 Mg Tablet 10 Mg PO DAILY Desitin (Zinc Oxide) 57 Gm Cream..g. 1 Appful TP BID Cetirizine Hcl 10 Mg Tablet 10 Mg PO DAILY Atorvastatin Calcium 20 Mg Tablet 20 Mg PO QHS Aspir-Low (Aspirin) 81 Mg Tablet. 81 Mg PO DAILY I have reviewed the current psychotropics carefully including drug interactions. Risk benefit ratio favors no change other than as noted in my dictated progress note. Diagnosis: Problems: (1) Anxiety disorder (2) Impulse control disorder (3) Dementia, vascular, with depression (4) Dementia, vascular, with delusions (5) Dementia with behavioral disturbance (6) Dementia in Alzheimer's disease with depression (7) Dementia in Alzheimer's disease with delusions LIANA MCKENZIE MD Feb 10, 2018 21:04
--- NOTE | 2018-02-11 02:38 | PN ---
DATE: 02/08/2018 NO DICTATION. MAN Tracie MCKENZIE MD DR: Krystal JOB#: [id number] / [id number]
[2018-02-11 06:25] VITALS: BP 143/69
[2018-02-11] MEDS: ACETAMINOPHEN 500 MG TABLET PO SCH ×2 (07:54→20:17)
[2018-02-11] MEDS: MEMANTINE 10 MG TABLET. PO SCH (07:54)
[2018-02-11] MEDS: CETIRIZINE HCL 10 MG TABLET PO SCH (07:54)
[2018-02-11] MEDS: FUROSEMIDE 40 MG TABLET PO SCH (07:54)
[2018-02-11] MEDS: DONEPEZIL HCL 10 MG TABLET PO SCH (07:54)
[2018-02-11] MEDS: SERTRALINE 50 MG TABLET. PO SCH (07:54)
[2018-02-11] MEDS: METOPROLOL SUCC 24HR ER 50 MG TAB.ER.24H. PO SCH (07:54)
[2018-02-11] MEDS: ASPIRIN ENTERIC COATED 81 MG TABLET.DR. PO SCH (07:55)
[2018-02-11] MEDS: POTASSIUM CHLORIDE 10 MEQ TABLET.ER. PO SCH ×2 (07:55→20:17)
[2018-02-11] MEDS: NYSTATIN TOPICAL POWDER 15GM BOTTLE. TP SCH ×2 (10:15→20:17)
[2018-02-11 16:21] VITALS: BP 147/77
[2018-02-11] MEDS: ATORVASTATIN CALCIUM 20 MG TABLET PO SCH (20:17)
[2018-02-11] MEDS: FAMOTIDINE 20 MG TABLET PO SCH (20:17)
--- NOTE | 2018-02-11 21:06 | PDOC ---
Exam Note: Kobe Note: Please also refer to the separate dictated note~for this date of service dictated separately.~Patient seen individually. Discussed the patient with Nursing staff reviewed the chart.~Reviewed interim history and current functioning. Reviewed vital signs,~Labs/ Radiology~and current medications noted below. Continue current treatment with the changes noted in the dictated addendum note Assessment: Vital Signs: Vital Signs Date Time Temp Pulse Resp B/P (MAP) Pulse Ox O2 Delivery O2 Flow Rate FiO2 02/11/18 16:21 98.2 92 16 147/77 (100) 94 Room Air I&O Intake and Output 02/11/18 07:01 Intake Total 720 ml Balance 720 ml Intake Oral 720 ml # Bowel Movements 1 Current Medications: Meds: Current Medications Potassium Chloride (Klor-Con) 40 meq 1X ONCE PO Last administered on at 10:13; Start 02/08/18 at 10:15; Stop 02/08/18 at 10:16; Status DC Acetaminophen (Tylenol) 650 mg PRN Q6HRS PRN PO PAIN / TEMP; Start 02/08/18 at 14:30; Status Cancel Multi-Ingredient Ointment (Analgesic [place]) 1 savanah PRN QID PRN TP MUSCLE PAIN; Start 02/08/18 at 14:30 Al Hydroxide/Mg Hydroxide (Mylanta Plus Xs) 15 ml PRN AFTMEALHC PRN PO DYSPEPSIA; Start 02/08/18 at 14:30 Magnesium Hydroxide (Milk Of Magnesia) 2,400 mg PRN QHS PRN PO CONSTIPATION; Start 02/08/18 at 14:30 Atorvastatin Calcium (Lipitor) 20 mg QHS PO Last administered on 02/11/18at 20: 17; Start 02/08/18 at 21:00 Sertraline HCl (Zoloft) 50 mg DAILY PO ; Start 02/09/18 at 09:00; Stop 02/09/18 at 09:00; Status DC Acetaminophen (Tylenol) 500 mg BID PO Last administered on 02/11/18at 20:17; Start 02/08/18 at 21:00 Acetaminophen (Tylenol) 500 mg PRN Q8HRS PRN PO PAIN / TEMP; Start 02/08/18 at 15:00 Aspirin (Aspirin Enteric Coated) 81 mg DAILY PO Last administered on 02/11/18at 07:55; Start 02/09/18 at 09:00 Cetirizine HCl (ZyrTEC) 10 mg DAILY PO Last administered on 02/11/18at 07:54; Start 02/09/18 at 09:00 Donepezil HCl (Aricept) 10 mg DAILY PO Last administered on 02/11/18at 07:54; Start 02/09/18 at 09:00 Duloxetine HCl (Cymbalta) 20 mg DAILY PO ; Start 02/09/18 at 09:00; Stop at 09:00; Status DC Furosemide (Lasix) 40 mg PRN DAILY PRN PO FOR EDEMA; Start 02/09/18 at 09:00; Stop 02/09/18 at 16:07; Status DC Hydrochlorothiazide (Microzide) 12.5 mg DAILY PO Last administered on at 07:50; Start 02/09/18 at 09:00; Stop 02/09/18 at 16:03; Status DC Memantine (Namenda) 10 mg DAILY PO Last administered on 02/11/18at 07:54; Start 02/09/18 at 09:00 Metoprolol Succinate (Toprol Xl) 50 mg DAILY PO Last administered on 02/11/18at 07:54; Start 02/09/18 at 09:00 Potassium Chloride (Klor-Con) 10 meq DAILY PO Last administered on 02/09/18at 07 :43; Start 02/09/18 at 09:00; Stop 02/09/18 at 16:07; Status DC Famotidine (Pepcid) 20 mg QHS PO Last administered on 02/11/18at 20:17; Start at 21:00 Zinc Oxide (Desitin Diaper Rash 40%) 1 savanah BID TP Last administered on at 19:48; Start 02/08/18 at 21:00; Stop 02/10/18 at 07:47; Status DC Non-Formulary Medication (Zinc Oxide (Desitin)) 1 applic PRN PRN TP irritation; Start 02/08/18 at 15:00; Status UNV Sertraline HCl (Zoloft) 75 mg DAILY PO Last administered on 02/11/18at 07:54; Start 02/09/18 at 09:00; Stop 02/13/18 at 21:00 Trazodone HCl (Desyrel) 25 mg PRN QHS PRN PO INSOMNIA, MAY REPEAT X2; Start at 19:30 Potassium Chloride (Klor-Con) 40 meq 1X ONCE PO Last administered on at 17:50; Start 02/09/18 at 16:30; Stop 02/09/18 at 16:31; Status DC Furosemide (Lasix) 40 mg DAILY PO Last administered on 02/11/18at 07:54; Start 02/10/18 at 09:00 Potassium Chloride (Klor-Con) 20 meq BID PO Last administered on 02/11/18at 20: 17; Start 02/09/18 at 21:00 Nystatin (Nystop) 1 savanah BID TP Last administered on 02/11/18at 20:17; Start at 09:00 Sertraline HCl (Zoloft) 100 mg DAILY PO ; Start 02/14/18 at 09:00 Active Scripts Active Reported Acetaminophen 500 Mg Tablet 500 Mg PO BID Desitin (Zinc Oxide) 57 Gm Cream..g. 1 Applic TP PRN PRN Acetaminophen 500 Mg Tablet 500 Mg PO PRN Q8HRS PRN Furosemide 40 Mg Tablet 40 Mg PO PRN DAILY PRN Zoloft (Sertraline Hcl) 50 Mg Tablet 50 Mg PO DAILY Ranitidine Hcl 150 Mg Capsule 150 Mg PO HS Potassium Chloride 10 Meq Tablet.er 10 Meq PO DAILY Metoprolol Succinate ( Xl ) (Metoprolol Succinate) 50 Mg Tab.er.24h 50 Mg PO DAILY Namenda (Memantine Hcl) 10 Mg Tablet 10 Mg PO DAILY Hydrochlorothiazide Tablet (Hydrochlorothiazide) 12.5 Mg Tablet 12.5 Mg PO DAILY Cymbalta (Duloxetine Hcl) 20 Mg Capsule.dr 20 Mg PO DAILY 26 Days Donepezil Hcl 10 Mg Tablet 10 Mg PO DAILY Desitin (Zinc Oxide) 57 Gm Cream..g. 1 Appful TP BID Cetirizine Hcl 10 Mg Tablet 10 Mg PO DAILY Atorvastatin Calcium 20 Mg Tablet 20 Mg PO QHS Aspir-Low (Aspirin) 81 Mg Tablet.dr 81 Mg PO DAILY I have reviewed the current psychotropics carefully including drug interactions. Risk benefit ratio favors no change other than as noted in my dictated progress note. Diagnosis: Problems: (1) Anxiety disorder (2) Impulse control disorder (3) Dementia, vascular, with depression (4) Dementia, vascular, with delusions (5) Dementia with behavioral disturbance (6) Dementia in Alzheimer's disease with depression (7) Dementia in Alzheimer's disease with delusions LIANA MCKENZIE MD Feb 11, 2018 21:06
[2018-02-12 06:09] VITALS: BP 141/75
[2018-02-12] MEDS: ASPIRIN ENTERIC COATED 81 MG TABLET.DR. PO SCH (08:00)
[2018-02-12] MEDS: CETIRIZINE HCL 10 MG TABLET PO SCH (08:00)
[2018-02-12] MEDS: DONEPEZIL HCL 10 MG TABLET PO SCH (08:00)
[2018-02-12] MEDS: METOPROLOL SUCC 24HR ER 50 MG TAB.ER.24H. PO SCH (08:01)
[2018-02-12] MEDS: POTASSIUM CHLORIDE 10 MEQ TABLET.ER. PO SCH ×2 (08:02→20:00)
[2018-02-12] MEDS: FUROSEMIDE 40 MG TABLET PO SCH (08:02)
[2018-02-12] MEDS: MEMANTINE 10 MG TABLET. PO SCH ×2 (08:03→20:01)
[2018-02-12] MEDS: SERTRALINE 50 MG TABLET. PO SCH (08:03)
[2018-02-12] MEDS: NYSTATIN TOPICAL POWDER 15GM BOTTLE. TP SCH ×2 (08:07→20:01)
[2018-02-12] MEDS: ACETAMINOPHEN 500 MG TABLET PO SCH ×2 (08:07→20:00)
--- NOTE | 2018-02-12 08:13 | PN ---
DATE: 02/10/2018 PSYCHIATRIC PROGRESS NOTE This late entry 02/10/2018 covers elements, not covered in my initial note. SUBJECTIVE: I met with the patient in the evening. Overall, the patient remains quite confused, slept 6-3/4 hours previous evening, which is quite an improvement for her. She acts helpless, but can do more for herself. Noncompliant with medications. REVIEW OF SYSTEMS: Ambulation impaired, in wheelchair. No CV, , pulmonary, eye, ENT system symptoms on review. Reliability poor. MENTAL STATUS EXAMINATION: Oriented to herself. Insight, judgment, recent and remote memory, attention, concentration, fund of knowledge poor, consistent with her diagnosis mentioned in my initial note. IMPRESSION: Major neurocognitive disorder, Alzheimer, vascular with delusion, depression, behavioral disturbance; anxiety disorder, unspecified; impulse control disorder, unspecified. PLAN: Continue current psychotropics with the increased Zoloft and trazodone, latter for insomnia, Namenda and Aricept. Adjust further as clinically indicated. MAN Tracie MCKENZIE MD DR: REMINGTON/brad JOB#: [id number] / [id number]
--- NOTE | 2018-02-12 08:31 | PN ---
DATE: 02/09/2018 PSYCHIATRIC PROGRESS NOTE This is a late entry for 02/09/2018, covers elements not covered in my initial note of 02/09/2018. SUBJECTIVE: I met with the patient in the evening. The patient remains quite confused, anxious, slides herself onto the floor at times. No injury noted. REVIEW OF SYSTEMS: Ambulation impaired, in wheelchair. No CV, , pulmonary, eye, ENT system symptoms on review. Reliability poor. MENTAL STATUS EXAMINATION: Oriented to herself. Insight, judgment, recent and remote memory, attention, concentration, fund of knowledge poor, consistent with her diagnosis. IMPRESSION: Major neurocognitive disorder, Alzheimer, vascular with delusion, depression, behavioral disturbance; anxiety disorder, unspecified; impulse control disorder, unspecified. PLAN: The patient slept better with the trazodone and is tolerating the increased Zoloft 75 mg a day and Cymbalta was stopped. Continue current psychotropics with the changes noted along with the trazodone. Adjust further as clinically indicated. MAN Tracie MCKENZIE MD DR: REMINGTON/brad JOB#: [id number] / [id number]
[2018-02-12 13:20] LABS: BASO # 0.1 x10^3/uL (0.0-0.2); BASO % 1 % (0-3); EOS # 0.2 x10^3/uL (0.0-0.7); EOS % 3 % (0-3); HEMOGLOBIN 15.8 g/dL (12.0-15.5); LYMPH # 1.5 x10^3/uL (1.0-4.8); LYMPH % 21 % (24-48); MEAN CORPUSCULAR HEMOGLOBIN 31 pg (25-35); MEAN CORPUSCULAR HGB CONC 34 g/dL (31-37); MEAN CORPUSCULAR VOLUME 93 fL (79-100); MONO # 0.5 x10^3/uL (0.0-1.1); MONO % 8 % (0-9); NEUT # 4.7 x10^3uL (1.8-7.7); NEUT % 67 % (31-73); PLATELET COUNT 239 x10^3/uL (140-400); RED BLOOD COUNT 5.05 x10^6/uL (3.50-5.40); RED CELL DISTRIBUTION WIDTH 13.7 % (11.5-14.5)
[2018-02-12 13:34] LABS: ALBUMIN 3.6 g/dL (3.4-5.0); ALBUMIN/GLOBULIN RATIO 0.9 (1.0-1.7); CREATININE 0.8 mg/dL (0.6-1.0); GFR 69.7; POTASSIUM 5.1 mmol/L (3.5-5.1); TOTAL BILIRUBIN 0.4 mg/dL (0.2-1.0); TOTAL PROTEIN 7.6 g/dL (6.4-8.2)
--- NOTE | 2018-02-12 15:45 | RAD ---
EXAM: Abdomen, single view. HISTORY: Pain and distention. COMPARISON: None. FINDINGS: Frontal views of the abdomen and pelvis are obtained. There is gas within nondistended loops of bowel throughout the abdomen. There is a small amount of colonic stool. There is no evidence of bowel obstruction. IMPRESSION: Nonspecific bowel gas pattern, without evidence of obstruction. Electronically signed by: Cathy Hammond MD (02/12/2018 3:41 PM) [facility]
[2018-02-12 15:54] VITALS: BP 125/69
[2018-02-12] MEDS: ATORVASTATIN CALCIUM 20 MG TABLET PO SCH (20:00)
[2018-02-12] MEDS: FAMOTIDINE 20 MG TABLET PO SCH (20:00)
--- NOTE | 2018-02-12 21:05 | PDOC ---
Exam Note: Kobe Note: Please also refer to the separate dictated note~for this date of service dictated separately.~Patient seen individually. Discussed the patient with Nursing staff reviewed the chart.~Reviewed interim history and current functioning. Reviewed vital signs,~Labs/ Radiology~and current medications noted below. Continue current treatment with the changes noted in the dictated addendum note Assessment: Vital Signs: Vital Signs Date Time Temp Pulse Resp B/P (MAP) Pulse Ox O2 Delivery O2 Flow Rate FiO2 02/12/18 15:54 97.6 84 19 125/69 (87) 94 02/11/18 16:21 Room Air I&O Intake and Output 02/12/18 07:00 Intake Total 720 ml Balance 720 ml Intake Oral 720 ml Labs: Laboratory Tests Test 02/12/18 13:12 White Blood Count 7.0 x10^3/uL (4.0-11.0) Red Blood Count 5.05 x10^6/uL (3.50-5.40) Hemoglobin 15.8 g/dL (12.0-15.5) H Hematocrit 47.0 % (36.0-47.0) Mean Corpuscular Volume 93 fL (79-100) Mean Corpuscular Hemoglobin 31 pg (25-35) Mean Corpuscular Hemoglobin Concent 34 g/dL (31-37) Red Cell Distribution Width 13.7 % (11.5-14.5) Platelet Count 239 x10^3/uL (140-400) Neutrophils (%) (Auto) 67 % (31-73) Lymphocytes (%) (Auto) 21 % (24-48) L Monocytes (%) (Auto) 8 % (0-9) Eosinophils (%) (Auto) 3 % (0-3) Basophils (%) (Auto) 1 % (0-3) Neutrophils # (Auto) 4.7 x10^3uL (1.8-7.7) Lymphocytes # (Auto) 1.5 x10^3/uL (1.0-4.8) Monocytes # (Auto) 0.5 x10^3/uL (0.0-1.1) Eosinophils # (Auto) 0.2 x10^3/uL (0.0-0.7) Basophils # (Auto) 0.1 x10^3/uL (0.0-0.2) Sodium Level 146 mmol/L (136-145) H Potassium Level 5.1 mmol/L (3.5-5.1) Chloride Level 107 mmol/L (98-107) Carbon Dioxide Level 25 mmol/L (21-32) Anion Gap 14 (6-14) Blood Urea Nitrogen 30 mg/dL (7-20) H Creatinine 0.8 mg/dL (0.6-1.0) Estimated GFR (Cockcroft-Gault) 69.7 BUN/Creatinine Ratio 38 (6-20) H Glucose Level 100 mg/dL (70-99) H Calcium Level 10.0 mg/dL (8.5-10.1) Total Bilirubin 0.4 mg/dL (0.2-1.0) Aspartate Amino Transferase (AST) 30 U/L (15-37) Alanine Aminotransferase (ALT) 28 U/L (14-59) Alkaline Phosphatase 139 U/L (46-116) H Lactate Dehydrogenase 317 U/L (81-234) H Total Protein 7.6 g/dL (6.4-8.2) Albumin 3.6 g/dL (3.4-5.0) Albumin/Globulin Ratio 0.9 (1.0-1.7) L Lipase 162 U/L (73-393) Current Medications: Meds: Current Medications Potassium Chloride (Klor-Con) 40 meq 1X ONCE PO Last administered on at 10:13; Start 02/08/18 at 10:15; Stop 02/08/18 at 10:16; Status DC Acetaminophen (Tylenol) 650 mg PRN Q6HRS PRN PO PAIN / TEMP; Start 02/08/18 at 14:30; Status Cancel Multi-Ingredient Ointment (Analgesic [place]) 1 savanah PRN QID PRN TP MUSCLE PAIN; Start 02/08/18 at 14:30 Al Hydroxide/Mg Hydroxide (Mylanta Plus Xs) 15 ml PRN AFTMEALHC PRN PO DYSPEPSIA; Start 02/08/18 at 14:30 Magnesium Hydroxide (Milk Of Magnesia) 2,400 mg PRN QHS PRN PO CONSTIPATION; Start 02/08/18 at 14:30 Atorvastatin Calcium (Lipitor) 20 mg QHS PO Last administered on 02/12/18at 20: 00; Start 02/08/18 at 21:00 Sertraline HCl (Zoloft) 50 mg DAILY PO ; Start 02/09/18 at 09:00; Stop 02/09/18 at 09:00; Status DC Acetaminophen (Tylenol) 500 mg BID PO Last administered on 02/12/18at 20:00; Start 02/08/18 at 21:00 Acetaminophen (Tylenol) 500 mg PRN Q8HRS PRN PO PAIN / TEMP; Start 02/08/18 at 15:00 Aspirin (Aspirin Enteric Coated) 81 mg DAILY PO Last administered on 02/12/18at 08:00; Start 02/09/18 at 09:00 Cetirizine HCl (ZyrTEC) 10 mg DAILY PO Last administered on 02/12/18at 08:00; Start 02/09/18 at 09:00 Donepezil HCl (Aricept) 10 mg DAILY PO Last administered on 02/12/18at 08:00; Start 02/09/18 at 09:00 Duloxetine HCl (Cymbalta) 20 mg DAILY PO ; Start 02/09/18 at 09:00; Stop at 09:00; Status DC Furosemide (Lasix) 40 mg PRN DAILY PRN PO FOR EDEMA; Start 02/09/18 at 09:00; Stop 02/09/18 at 16:07; Status DC Hydrochlorothiazide (Microzide) 12.5 mg DAILY PO Last administered on at 07:50; Start 02/09/18 at 09:00; Stop 02/09/18 at 16:03; Status DC Memantine (Namenda) 10 mg DAILY PO Last administered on 02/12/18at 08:03; Start 02/09/18 at 09:00; Stop 02/12/18 at 18:40; Status DC Metoprolol Succinate (Toprol Xl) 50 mg DAILY PO Last administered on 02/12/18at 08:01; Start 02/09/18 at 09:00 Potassium Chloride (Klor-Con) 10 meq DAILY PO Last administered on 02/09/18at 07 :43; Start 02/09/18 at 09:00; Stop 02/09/18 at 16:07; Status DC Famotidine (Pepcid) 20 mg QHS PO Last administered on 02/12/18at 20:00; Start at 21:00 Zinc Oxide (Desitin Diaper Rash 40%) 1 savanah BID TP Last administered on at 19:48; Start 02/08/18 at 21:00; Stop 02/10/18 at 07:47; Status DC Non-Formulary Medication (Zinc Oxide (Desitin)) 1 applic PRN PRN TP irritation; Start 02/08/18 at 15:00; Status UNV Sertraline HCl (Zoloft) 75 mg DAILY PO Last administered on 02/12/18at 08:03; Start 02/09/18 at 09:00; Stop 02/12/18 at 18:40; Status DC Trazodone HCl (Desyrel) 25 mg PRN QHS PRN PO INSOMNIA, MAY REPEAT X2; Start at 19:30 Potassium Chloride (Klor-Con) 40 meq 1X ONCE PO Last administered on at 17:50; Start 02/09/18 at 16:30; Stop 02/09/18 at 16:31; Status DC Furosemide (Lasix) 40 mg DAILY PO Last administered on 02/12/18at 08:02; Start 02/10/18 at 09:00 Potassium Chloride (Klor-Con) 20 meq BID PO Last administered on 02/12/18at 20: 00; Start 02/09/18 at 21:00 Nystatin (Nystop) 1 savanah BID TP Last administered on 02/12/18at 20:01; Start at 09:00 Sertraline HCl (Zoloft) 100 mg DAILY PO ; Start 02/14/18 at 09:00; Stop at 09:00; Status DC Memantine (Namenda) 10 mg HS PO Last administered on 02/12/18at 20:01; Start at 21:00 Sertraline HCl (Zoloft) 100 mg DAILY10 PO ; Start 02/14/18 at 10:00 Sertraline HCl (Zoloft) 75 mg DAILY10 PO ; Start 02/13/18 at 10:00; Stop at 11:00 Memantine (Namenda) 5 mg DAILY PO ; Start 02/13/18 at 09:00 Active Scripts Active Reported Acetaminophen 500 Mg Tablet 500 Mg PO BID Desitin (Zinc Oxide) 57 Gm Cream..g. 1 Applic TP PRN PRN Acetaminophen 500 Mg Tablet 500 Mg PO PRN Q8HRS PRN Furosemide 40 Mg Tablet 40 Mg PO PRN DAILY PRN Zoloft (Sertraline Hcl) 50 Mg Tablet 50 Mg PO DAILY Ranitidine Hcl 150 Mg Capsule 150 Mg PO HS Potassium Chloride 10 Meq Tablet.er 10 Meq PO DAILY Metoprolol Succinate ( Xl ) (Metoprolol Succinate) 50 Mg Tab.er.24h 50 Mg PO DAILY Namenda (Memantine Hcl) 10 Mg Tablet 10 Mg PO DAILY Hydrochlorothiazide Tablet (Hydrochlorothiazide) 12.5 Mg Tablet 12.5 Mg PO DAILY Cymbalta (Duloxetine Hcl) 20 Mg Capsule.dr 20 Mg PO DAILY 26 Days Donepezil Hcl 10 Mg Tablet 10 Mg PO DAILY Desitin (Zinc Oxide) 57 Gm Cream..g. 1 Appful TP BID Cetirizine Hcl 10 Mg Tablet 10 Mg PO DAILY Atorvastatin Calcium 20 Mg Tablet 20 Mg PO QHS Aspir-Low (Aspirin) 81 Mg Tablet.dr 81 Mg PO DAILY I have reviewed the current psychotropics carefully including drug interactions. Risk benefit ratio favors no change other than as noted in my dictated progress note. Diagnosis: Problems: (1) Anxiety disorder (2) Impulse control disorder (3) Dementia, vascular, with depression (4) Dementia, vascular, with delusions (5) Dementia with behavioral disturbance (6) Dementia in Alzheimer's disease with depression (7) Dementia in Alzheimer's disease with delusions LIANA MCKENZIE MD Feb 12, 2018 21:04
--- NOTE | 2018-02-12 21:06 | PN ---
DATE: 02/11/2018 PSYCHIATRIC PROGRESS NOTE This is a late entry 02/11/2018, covers elements not covered in my initial note. SUBJECTIVE: I met with the patient in the evening. The patient remains confused, compliant with her medications, not aggressive. REVIEW OF SYSTEMS: No sliding out of the wheelchair, which is an improvement. REVIEW OF SYSTEMS: No CV, , pulmonary, eye, ENT system symptoms on review. Reliability poor. MENTAL STATUS EXAM: Oriented to herself. Insight, judgment, recent and remote memory, attention, concentration, fund of knowledge poor, consistent with her diagnoses mentioned in my initial note. PLAN: Increase Zoloft from 75 mg a day up to 100 mg a day after she has been on 75 for 5 days. Continue rest unchanged Namenda, Aricept along with trazodone p.r.n. MAN Tracie MCKENZIE MD DR: REMINGTON/brad JOB#: [id number] / [id number]
[2018-02-13 06:07] VITALS: BP 136/77
[2018-02-13] MEDS: METOPROLOL SUCC 24HR ER 50 MG TAB.ER.24H. PO SCH (09:37)
[2018-02-13] MEDS: ACETAMINOPHEN 500 MG TABLET PO SCH ×2 (09:38→19:50)
[2018-02-13] MEDS: DONEPEZIL HCL 10 MG TABLET PO SCH (09:38)
[2018-02-13] MEDS: CETIRIZINE HCL 10 MG TABLET PO SCH (09:38)
[2018-02-13] MEDS: FUROSEMIDE 40 MG TABLET PO SCH (09:38)
[2018-02-13] MEDS: POTASSIUM CHLORIDE 10 MEQ TABLET.ER. PO SCH ×2 (09:38→19:49)
[2018-02-13] MEDS: ASPIRIN ENTERIC COATED 81 MG TABLET.DR. PO SCH (09:39)
[2018-02-13] MEDS: MEMANTINE 5 MG TABLET. PO SCH (09:41)
[2018-02-13] MEDS ORDERED: SERTRALINE 50 MG TABLET. PO SCH (10:00)
[2018-02-13] MEDS: NYSTATIN TOPICAL POWDER 15GM BOTTLE. TP SCH ×2 (10:59→19:50)
--- NOTE | 2018-02-13 13:59 | PN ---
DATE: 02/12/2018 PSYCHIATRIC PROGRESS NOTE This is a late entry 02/12/2018, covers elements not covered in my initial note. SUBJECTIVE: I met with the patient in the evening. The patient slept 7-1/4 hours previous evening. Apparently, she is able to ambulate, but does not do so and prefers to stay in the wheelchair. She has been somewhat withdrawn, ate nothing for breakfast and lunch. Complains of GI symptoms . Dr. Sun evaluated this. Labs are unremarkable. KUB has been done. REVIEW OF SYSTEMS: Ambulation impaired, in wheelchair. No CV, , pulmonary, eye system symptoms on review. MENTAL STATUS EXAM: Oriented to herself. Insight, judgment, recent and remote memory, attention, concentration, fund of knowledge poor, consistent with her diagnoses. She has not been lying herself on the floor. LABORATORY DATA: Reviewed. IMPRESSION: Unchanged from initial note. PLAN: Currently she is on Namenda 10 mg daily, we will increase to 5 mg in the a.m., 10 mg in the p.m., get the Zoloft after breakfast, so that she has some food in her stomach before she takes it. Maintain Aricept along with trazodone. Adjust further as clinically indicated. LINAA MCKENZIE MD DR: REMINGTON/brad JOB#: [id number] / [id number]
[2018-02-13 17:12] VITALS: BP 110/71
[2018-02-13] MEDS: ATORVASTATIN CALCIUM 20 MG TABLET PO SCH (19:49)
[2018-02-13] MEDS: MEMANTINE 10 MG TABLET. PO SCH (19:49)
[2018-02-13] MEDS: FAMOTIDINE 20 MG TABLET PO SCH (19:50)
--- NOTE | 2018-02-13 20:54 | PDOC ---
Exam Note: Kobe Note: Please also refer to the separate dictated note~for this date of service dictated separately.~Patient seen individually. Discussed the patient with Nursing staff reviewed the chart.~Reviewed interim history and current functioning. Reviewed vital signs,~Labs/ Radiology~and current medications noted below. Continue current treatment with the changes noted in the dictated addendum note Assessment: Vital Signs: Vital Signs Date Time Temp Pulse Resp B/P (MAP) Pulse Ox O2 Delivery O2 Flow Rate FiO2 02/13/18 17:12 97.2 89 20 110/71 (84) 96 02/11/18 16:21 Room Air I&O Intake and Output 02/13/18 07:00 Intake Total 300 ml Balance 300 ml Intake Oral 300 ml # Voids 1 Current Medications: Meds: Current Medications Potassium Chloride (Klor-Con) 40 meq 1X ONCE PO Last administered on at 10:13; Start 02/08/18 at 10:15; Stop 02/08/18 at 10:16; Status DC Acetaminophen (Tylenol) 650 mg PRN Q6HRS PRN PO PAIN / TEMP; Start 02/08/18 at 14:30; Status Cancel Multi-Ingredient Ointment (Analgesic [place]) 1 savanah PRN QID PRN TP MUSCLE PAIN; Start 02/08/18 at 14:30 Al Hydroxide/Mg Hydroxide (Mylanta Plus Xs) 15 ml PRN AFTMEALHC PRN PO DYSPEPSIA; Start 02/08/18 at 14:30 Magnesium Hydroxide (Milk Of Magnesia) 2,400 mg PRN QHS PRN PO CONSTIPATION; Start 02/08/18 at 14:30 Atorvastatin Calcium (Lipitor) 20 mg QHS PO Last administered on 02/13/18at 19: 49; Start 02/08/18 at 21:00 Sertraline HCl (Zoloft) 50 mg DAILY PO ; Start 02/09/18 at 09:00; Stop 02/09/18 at 09:00; Status DC Acetaminophen (Tylenol) 500 mg BID PO Last administered on 02/13/18at 19:50; Start 02/08/18 at 21:00 Acetaminophen (Tylenol) 500 mg PRN Q8HRS PRN PO PAIN / TEMP; Start 02/08/18 at 15:00 Aspirin (Aspirin Enteric Coated) 81 mg DAILY PO Last administered on 02/13/18at 09:39; Start 02/09/18 at 09:00 Cetirizine HCl (ZyrTEC) 10 mg DAILY PO Last administered on 02/13/18at 09:38; Start 02/09/18 at 09:00 Donepezil HCl (Aricept) 10 mg DAILY PO Last administered on 02/13/18at 09:38; Start 02/09/18 at 09:00 Duloxetine HCl (Cymbalta) 20 mg DAILY PO ; Start 02/09/18 at 09:00; Stop at 09:00; Status DC Furosemide (Lasix) 40 mg PRN DAILY PRN PO FOR EDEMA; Start 02/09/18 at 09:00; Stop 02/09/18 at 16:07; Status DC Hydrochlorothiazide (Microzide) 12.5 mg DAILY PO Last administered on at 07:50; Start 02/09/18 at 09:00; Stop 02/09/18 at 16:03; Status DC Memantine (Namenda) 10 mg DAILY PO Last administered on 02/12/18at 08:03; Start 02/09/18 at 09:00; Stop 02/12/18 at 18:40; Status DC Metoprolol Succinate (Toprol Xl) 50 mg DAILY PO Last administered on 02/13/18at 09:37; Start 02/09/18 at 09:00 Potassium Chloride (Klor-Con) 10 meq DAILY PO Last administered on 02/09/18at 07 :43; Start 02/09/18 at 09:00; Stop 02/09/18 at 16:07; Status DC Famotidine (Pepcid) 20 mg QHS PO Last administered on 02/13/18at 19:50; Start at 21:00 Zinc Oxide (Desitin Diaper Rash 40%) 1 savanah BID TP Last administered on at 19:48; Start 02/08/18 at 21:00; Stop 02/10/18 at 07:47; Status DC Non-Formulary Medication (Zinc Oxide (Desitin)) 1 applic PRN PRN TP irritation; Start 02/08/18 at 15:00; Status UNV Sertraline HCl (Zoloft) 75 mg DAILY PO Last administered on 02/12/18at 08:03; Start 02/09/18 at 09:00; Stop 02/12/18 at 18:40; Status DC Trazodone HCl (Desyrel) 25 mg PRN QHS PRN PO INSOMNIA, MAY REPEAT X2; Start at 19:30 Potassium Chloride (Klor-Con) 40 meq 1X ONCE PO Last administered on at 17:50; Start 02/09/18 at 16:30; Stop 02/09/18 at 16:31; Status DC Furosemide (Lasix) 40 mg DAILY PO Last administered on 02/13/18at 09:38; Start 02/10/18 at 09:00 Potassium Chloride (Klor-Con) 20 meq BID PO Last administered on 02/13/18at 19: 49; Start 02/09/18 at 21:00 Nystatin (Nystop) 1 savanah BID TP Last administered on 02/13/18at 19:50; Start at 09:00 Sertraline HCl (Zoloft) 100 mg DAILY PO ; Start 02/14/18 at 09:00; Stop at 09:00; Status DC Memantine (Namenda) 10 mg HS PO Last administered on 02/13/18at 19:49; Start at 21:00 Sertraline HCl (Zoloft) 100 mg DAILY10 PO ; Start 02/14/18 at 10:00 Sertraline HCl (Zoloft) 75 mg DAILY10 PO Last administered on 02/13/18at 10:58; Start 02/13/18 at 10:00; Stop 02/13/18 at 11:00; Status DC Memantine (Namenda) 5 mg DAILY PO Last administered on 02/13/18at 09:41; Start 02/13/18 at 09:00 Active Scripts Active Reported Acetaminophen 500 Mg Tablet 500 Mg PO BID Desitin (Zinc Oxide) 57 Gm Cream..g. 1 Applic TP PRN PRN Acetaminophen 500 Mg Tablet 500 Mg PO PRN Q8HRS PRN Furosemide 40 Mg Tablet 40 Mg PO PRN DAILY PRN Zoloft (Sertraline Hcl) 50 Mg Tablet 50 Mg PO DAILY Ranitidine Hcl 150 Mg Capsule 150 Mg PO HS Potassium Chloride 10 Meq Tablet.er 10 Meq PO DAILY Metoprolol Succinate ( Xl ) (Metoprolol Succinate) 50 Mg Tab.er.24h 50 Mg PO DAILY Namenda (Memantine Hcl) 10 Mg Tablet 10 Mg PO DAILY Hydrochlorothiazide Tablet (Hydrochlorothiazide) 12.5 Mg Tablet 12.5 Mg PO DAILY Cymbalta (Duloxetine Hcl) 20 Mg Capsule.dr 20 Mg PO DAILY 26 Days Donepezil Hcl 10 Mg Tablet 10 Mg PO DAILY Desitin (Zinc Oxide) 57 Gm Cream..g. 1 Appful TP BID Cetirizine Hcl 10 Mg Tablet 10 Mg PO DAILY Atorvastatin Calcium 20 Mg Tablet 20 Mg PO QHS Aspir-Low (Aspirin) 81 Mg Tablet.dr 81 Mg PO DAILY I have reviewed the current psychotropics carefully including drug interactions. Risk benefit ratio favors no change other than as noted in my dictated progress note. Diagnosis: Problems: (1) Anxiety disorder (2) Impulse control disorder (3) Dementia, vascular, with depression (4) Dementia, vascular, with delusions (5) Dementia with behavioral disturbance (6) Dementia in Alzheimer's disease with depression (7) Dementia in Alzheimer's disease with delusions LIANA MCKENZIE MD Feb 13, 2018 20:54
[2018-02-14 05:58] VITALS: BP 123/62
[2018-02-14] MEDS: FUROSEMIDE 40 MG TABLET PO SCH (08:32)
[2018-02-14] MEDS: ACETAMINOPHEN 500 MG TABLET PO SCH ×2 (08:32→19:54)
[2018-02-14] MEDS: DONEPEZIL HCL 10 MG TABLET PO SCH (08:32)
[2018-02-14] MEDS: CETIRIZINE HCL 10 MG TABLET PO SCH (08:32)
[2018-02-14] MEDS: METOPROLOL SUCC 24HR ER 50 MG TAB.ER.24H. PO SCH (08:32)
[2018-02-14] MEDS: NYSTATIN TOPICAL POWDER 15GM BOTTLE. TP SCH ×2 (08:33→19:54)
[2018-02-14] MEDS: MEMANTINE 5 MG TABLET. PO SCH (08:33)
[2018-02-14] MEDS: POTASSIUM CHLORIDE 10 MEQ TABLET.ER. PO SCH ×2 (08:33→19:54)
[2018-02-14] MEDS: ASPIRIN ENTERIC COATED 81 MG TABLET.DR. PO SCH (08:33)
[2018-02-14] MEDS ORDERED: SERTRALINE 100 MG TABLET. PO SCH (09:00)
[2018-02-14] MEDS: SERTRALINE 100 MG TABLET. PO SCH (10:56)
[2018-02-14 16:07] VITALS: BP 119/83
[2018-02-14] MEDS: FAMOTIDINE 20 MG TABLET PO SCH (19:53)
[2018-02-14] MEDS: MEMANTINE 10 MG TABLET. PO SCH (19:53)
[2018-02-14] MEDS: ATORVASTATIN CALCIUM 20 MG TABLET PO SCH (19:53)
--- NOTE | 2018-02-14 20:53 | PDOC ---
Exam Note: Kobe Note: Please also refer to the separate dictated note~for this date of service dictated separately.~Patient seen individually. Discussed the patient with Nursing staff reviewed the chart.~Reviewed interim history and current functioning. Reviewed vital signs,~Labs/ Radiology~and current medications noted below. Continue current treatment with the changes noted in the dictated addendum note Assessment: Vital Signs: Vital Signs Date Time Temp Pulse Resp B/P (MAP) Pulse Ox O2 Delivery O2 Flow Rate FiO2 02/14/18 16:07 97.8 73 20 119/83 (95) 95 02/11/18 16:21 Room Air I&O Intake and Output 02/14/18 07:00 Intake Total 330 ml Balance 330 ml Intake Oral 330 ml Current Medications: Meds: Current Medications Potassium Chloride (Klor-Con) 40 meq 1X ONCE PO Last administered on at 10:13; Start 02/08/18 at 10:15; Stop 02/08/18 at 10:16; Status DC Acetaminophen (Tylenol) 650 mg PRN Q6HRS PRN PO PAIN / TEMP; Start 02/08/18 at 14:30; Status Cancel Multi-Ingredient Ointment (Analgesic [place]) 1 savanah PRN QID PRN TP MUSCLE PAIN; Start 02/08/18 at 14:30 Al Hydroxide/Mg Hydroxide (Mylanta Plus Xs) 15 ml PRN AFTMEALHC PRN PO DYSPEPSIA; Start 02/08/18 at 14:30 Magnesium Hydroxide (Milk Of Magnesia) 2,400 mg PRN QHS PRN PO CONSTIPATION; Start 02/08/18 at 14:30 Atorvastatin Calcium (Lipitor) 20 mg QHS PO Last administered on 02/14/18at 19: 53; Start 02/08/18 at 21:00 Sertraline HCl (Zoloft) 50 mg DAILY PO ; Start 02/09/18 at 09:00; Stop 02/09/18 at 09:00; Status DC Acetaminophen (Tylenol) 500 mg BID PO Last administered on 02/14/18at 19:54; Start 02/08/18 at 21:00 Acetaminophen (Tylenol) 500 mg PRN Q8HRS PRN PO PAIN / TEMP; Start 02/08/18 at 15:00 Aspirin (Aspirin Enteric Coated) 81 mg DAILY PO Last administered on 02/14/18at 08:33; Start 02/09/18 at 09:00 Cetirizine HCl (ZyrTEC) 10 mg DAILY PO Last administered on 02/14/18at 08:32; Start 02/09/18 at 09:00 Donepezil HCl (Aricept) 10 mg DAILY PO Last administered on 02/14/18at 08:32; Start 02/09/18 at 09:00 Duloxetine HCl (Cymbalta) 20 mg DAILY PO ; Start 02/09/18 at 09:00; Stop at 09:00; Status DC Furosemide (Lasix) 40 mg PRN DAILY PRN PO FOR EDEMA; Start 02/09/18 at 09:00; Stop 02/09/18 at 16:07; Status DC Hydrochlorothiazide (Microzide) 12.5 mg DAILY PO Last administered on at 07:50; Start 02/09/18 at 09:00; Stop 02/09/18 at 16:03; Status DC Memantine (Namenda) 10 mg DAILY PO Last administered on 02/12/18at 08:03; Start 02/09/18 at 09:00; Stop 02/12/18 at 18:40; Status DC Metoprolol Succinate (Toprol Xl) 50 mg DAILY PO Last administered on 02/14/18at 08:32; Start 02/09/18 at 09:00 Potassium Chloride (Klor-Con) 10 meq DAILY PO Last administered on 02/09/18at 07 :43; Start 02/09/18 at 09:00; Stop 02/09/18 at 16:07; Status DC Famotidine (Pepcid) 20 mg QHS PO Last administered on 02/14/18at 19:53; Start at 21:00 Zinc Oxide (Desitin Diaper Rash 40%) 1 savanah BID TP Last administered on 19:48; Start 02/08/18 at 21:00; Stop 02/10/18 at 07:47; Status DC Non-Formulary Medication (Zinc Oxide (Desitin)) 1 applic PRN PRN TP irritation; Start 02/08/18 at 15:00; Status UNV Sertraline HCl (Zoloft) 75 mg DAILY PO Last administered on 02/12/18at 08:03; Start 02/09/18 at 09:00; Stop 02/12/18 at 18:40; Status DC Trazodone HCl (Desyrel) 25 mg PRN QHS PRN PO INSOMNIA, MAY REPEAT X2; Start at 19:30 Potassium Chloride (Klor-Con) 40 meq 1X ONCE PO Last administered on at 17:50; Start 02/09/18 at 16:30; Stop 02/09/18 at 16:31; Status DC Furosemide (Lasix) 40 mg DAILY PO Last administered on 02/14/18at 08:32; Start 02/10/18 at 09:00 Potassium Chloride (Klor-Con) 20 meq BID PO Last administered on 02/14/18at 19: 54; Start 02/09/18 at 21:00 Nystatin (Nystop) 1 savanah BID TP Last administered on 02/14/18at 19:54; Start at 09:00 Sertraline HCl (Zoloft) 100 mg DAILY PO ; Start 02/14/18 at 09:00; Stop at 09:00; Status DC Memantine (Namenda) 10 mg HS PO Last administered on 02/14/18at 19:53; Start at 21:00 Sertraline HCl (Zoloft) 100 mg DAILY10 PO Last administered on 02/14/18at 10:56 ; Start 02/14/18 at 10:00 Sertraline HCl (Zoloft) 75 mg DAILY10 PO Last administered on 02/13/18at 10:58; Start 02/13/18 at 10:00; Stop 02/13/18 at 11:00; Status DC Memantine (Namenda) 5 mg DAILY PO Last administered on 02/14/18at 08:33; Start 02/13/18 at 09:00 Bupropion HCl (Wellbutrin Xl) 150 mg DAILY PO ; Start 02/15/18 at 09:00 Active Scripts Active Reported Acetaminophen 500 Mg Tablet 500 Mg PO BID Desitin (Zinc Oxide) 57 Gm Cream..g. 1 Applic TP PRN PRN Acetaminophen 500 Mg Tablet 500 Mg PO PRN Q8HRS PRN Furosemide 40 Mg Tablet 40 Mg PO PRN DAILY PRN Zoloft (Sertraline Hcl) 50 Mg Tablet 50 Mg PO DAILY Ranitidine Hcl 150 Mg Capsule 150 Mg PO HS Potassium Chloride 10 Meq Tablet.er 10 Meq PO DAILY Metoprolol Succinate ( Xl ) (Metoprolol Succinate) 50 Mg Tab.er.24h 50 Mg PO DAILY Namenda (Memantine Hcl) 10 Mg Tablet 10 Mg PO DAILY Hydrochlorothiazide Tablet (Hydrochlorothiazide) 12.5 Mg Tablet 12.5 Mg PO DAILY Cymbalta (Duloxetine Hcl) 20 Mg Capsule.dr 20 Mg PO DAILY 26 Days Donepezil Hcl 10 Mg Tablet 10 Mg PO DAILY Desitin (Zinc Oxide) 57 Gm Cream..g. 1 Appful TP BID Cetirizine Hcl 10 Mg Tablet 10 Mg PO DAILY Atorvastatin Calcium 20 Mg Tablet 20 Mg PO QHS Aspir-Low (Aspirin) 81 Mg Tablet.dr 81 Mg PO DAILY I have reviewed the current psychotropics carefully including drug interactions. Risk benefit ratio favors no change other than as noted in my dictated progress note. Diagnosis: Problems: (1) Anxiety disorder (2) Impulse control disorder (3) Dementia, vascular, with depression (4) Dementia, vascular, with delusions (5) Dementia with behavioral disturbance (6) Dementia in Alzheimer's disease with depression (7) Dementia in Alzheimer's disease with delusions LIANA MCKENZIE MD Feb 14, 2018 20:53
[2018-02-15 05:52] VITALS: BP 134/68
[2018-02-15] MEDS: FUROSEMIDE 40 MG TABLET PO SCH (07:32)
[2018-02-15] MEDS: ACETAMINOPHEN 500 MG TABLET PO SCH ×2 (07:32→20:13)
[2018-02-15] MEDS: METOPROLOL SUCC 24HR ER 50 MG TAB.ER.24H. PO SCH (07:32)
[2018-02-15] MEDS: POTASSIUM CHLORIDE 10 MEQ TABLET.ER. PO SCH ×2 (07:32→20:13)
[2018-02-15] MEDS: DONEPEZIL HCL 10 MG TABLET PO SCH (07:33)
[2018-02-15] MEDS: MEMANTINE 5 MG TABLET. PO SCH (07:33)
[2018-02-15] MEDS: ASPIRIN ENTERIC COATED 81 MG TABLET.DR. PO SCH (07:33)
[2018-02-15] MEDS: CETIRIZINE HCL 10 MG TABLET PO SCH (07:33)
[2018-02-15] MEDS: buPROPion XL 150 MG TAB.ER.24H PO SCH (07:35)
[2018-02-15] MEDS: SERTRALINE 100 MG TABLET. PO SCH (07:36)
[2018-02-15] MEDS: NYSTATIN TOPICAL POWDER 15GM BOTTLE. TP SCH ×2 (07:36→20:13)
[2018-02-15 16:16] VITALS: BP 117/72
--- NOTE | 2018-02-15 18:45 | PN ---
DATE: 02/14/2018 PSYCHIATRIC PROGRESS NOTE This is a late entry, 02/14/2018, covers elements not covered in my initial note of 02/14/2018. SUBJECTIVE: I met with the patient in the evening. The patient slept 7-3/4 hours previous night. She often refuses to do things for herself that she can do. She was evaluated by Physical Therapy and Occupational Therapy and they have advised she needs to propels herself in the wheelchair and feed herself. Nursing staff encouraging her to do this. REVIEW OF SYSTEMS: Ambulation impaired, in wheelchair. No CV, , pulmonary, eye, ENT system symptoms on review. MENTAL STATUS EXAM: Oriented to herself. Insight, judgment, recent and remote memory, attention, concentration, fund of knowledge poor, consistent with her diagnosis mentioned in my initial note. PLAN: Start Wellbutrin-XL 150 mg in the morning, rest unchanged. Hopefully, the augmentation with Wellbutrin will help her mood symptoms and help her do more for herself including the ambulation and feeding herself and with the irritability. MAN Tracie MCKENZIE MD DR: REMINGTON/brad JOB#: [id number] / [id number]
[2018-02-15] MEDS: ATORVASTATIN CALCIUM 20 MG TABLET PO SCH (20:01)
[2018-02-15] MEDS: MEMANTINE 10 MG TABLET. PO SCH (20:12)
[2018-02-15] MEDS: FAMOTIDINE 20 MG TABLET PO SCH (20:12)
[2018-02-15] MEDS: traZODone 50 MG TABLET. PO PRN (20:13)
--- NOTE | 2018-02-15 20:53 | PDOC ---
Exam Note: Kobe Note: Please also refer to the separate dictated note~for this date of service dictated separately.~Patient seen individually. Discussed the patient with Nursing staff reviewed the chart.~Reviewed interim history and current functioning. Reviewed vital signs,~Labs/ Radiology~and current medications noted below. Continue current treatment with the changes noted in the dictated addendum note Assessment: Vital Signs: Vital Signs Date Time Temp Pulse Resp B/P (MAP) Pulse Ox O2 Delivery O2 Flow Rate FiO2 02/15/18 16:16 97.5 68 22 117/72 (87) 98 02/11/18 16:21 Room Air I&O Intake and Output 02/15/18 07:00 Intake Total 800 ml Balance 800 ml Intake Oral 800 ml Current Medications: Meds: Current Medications Potassium Chloride (Klor-Con) 40 meq 1X ONCE PO Last administered on at 10:13; Start 02/08/18 at 10:15; Stop 02/08/18 at 10:16; Status DC Acetaminophen (Tylenol) 650 mg PRN Q6HRS PRN PO PAIN / TEMP; Start 02/08/18 at 14:30; Status Cancel Multi-Ingredient Ointment (Analgesic [place]) 1 savanah PRN QID PRN TP MUSCLE PAIN; Start 02/08/18 at 14:30 Al Hydroxide/Mg Hydroxide (Mylanta Plus Xs) 15 ml PRN AFTMEALHC PRN PO DYSPEPSIA; Start 02/08/18 at 14:30 Magnesium Hydroxide (Milk Of Magnesia) 2,400 mg PRN QHS PRN PO CONSTIPATION; Start 02/08/18 at 14:30 Atorvastatin Calcium (Lipitor) 20 mg QHS PO Last administered on 02/15/18at 20: 01; Start 02/08/18 at 21:00 Sertraline HCl (Zoloft) 50 mg DAILY PO ; Start 02/09/18 at 09:00; Stop 02/09/18 at 09:00; Status DC Acetaminophen (Tylenol) 500 mg BID PO Last administered on 02/15/18at 20:13; Start 02/08/18 at 21:00 Acetaminophen (Tylenol) 500 mg PRN Q8HRS PRN PO PAIN / TEMP; Start 02/08/18 at 15:00 Aspirin (Aspirin Enteric Coated) 81 mg DAILY PO Last administered on 02/15/18at 07:33; Start 02/09/18 at 09:00 Cetirizine HCl (ZyrTEC) 10 mg DAILY PO Last administered on 02/15/18at 07:33; Start 02/09/18 at 09:00 Donepezil HCl (Aricept) 10 mg DAILY PO Last administered on 02/15/18at 07:33; Start 02/09/18 at 09:00 Duloxetine HCl (Cymbalta) 20 mg DAILY PO ; Start 02/09/18 at 09:00; Stop at 09:00; Status DC Furosemide (Lasix) 40 mg PRN DAILY PRN PO FOR EDEMA; Start 02/09/18 at 09:00; Stop 02/09/18 at 16:07; Status DC Hydrochlorothiazide (Microzide) 12.5 mg DAILY PO Last administered on at 07:50; Start 02/09/18 at 09:00; Stop 02/09/18 at 16:03; Status DC Memantine (Namenda) 10 mg DAILY PO Last administered on 02/12/18at 08:03; Start 02/09/18 at 09:00; Stop 02/12/18 at 18:40; Status DC Metoprolol Succinate (Toprol Xl) 50 mg DAILY PO Last administered on 02/15/18at 07:32; Start 02/09/18 at 09:00 Potassium Chloride (Klor-Con) 10 meq DAILY PO Last administered on 02/09/18at 07 :43; Start 02/09/18 at 09:00; Stop 02/09/18 at 16:07; Status DC Famotidine (Pepcid) 20 mg QHS PO Last administered on 02/15/18at 20:12; Start at 21:00 Zinc Oxide (Desitin Diaper Rash 40%) 1 savanah BID TP Last administered on 19:48; Start 02/08/18 at 21:00; Stop 02/10/18 at 07:47; Status DC Non-Formulary Medication (Zinc Oxide (Desitin)) 1 applic PRN PRN TP irritation; Start 02/08/18 at 15:00; Status UNV Sertraline HCl (Zoloft) 75 mg DAILY PO Last administered on 02/12/18at 08:03; Start 02/09/18 at 09:00; Stop 02/12/18 at 18:40; Status DC Trazodone HCl (Desyrel) 25 mg PRN QHS PRN PO INSOMNIA, MAY REPEAT X2 Last administered on 02/15/18at 20:13; Start 02/08/18 at 19:30 Potassium Chloride (Klor-Con) 40 meq 1X ONCE PO Last administered on at 17:50; Start 02/09/18 at 16:30; Stop 02/09/18 at 16:31; Status DC Furosemide (Lasix) 40 mg DAILY PO Last administered on 02/15/18at 07:32; Start 02/10/18 at 09:00 Potassium Chloride (Klor-Con) 20 meq BID PO Last administered on 02/15/18at 20: 13; Start 02/09/18 at 21:00 Nystatin (Nystop) 1 savanah BID TP Last administered on 02/15/18at 20:13; Start at 09:00 Sertraline HCl (Zoloft) 100 mg DAILY PO ; Start 02/14/18 at 09:00; Stop at 09:00; Status DC Memantine (Namenda) 10 mg HS PO Last administered on 02/15/18at 20:12; Start at 21:00 Sertraline HCl (Zoloft) 100 mg DAILY10 PO Last administered on 02/15/18at 07:36 ; Start 02/14/18 at 10:00 Sertraline HCl (Zoloft) 75 mg DAILY10 PO Last administered on 02/13/18at 10:58; Start 02/13/18 at 10:00; Stop 02/13/18 at 11:00; Status DC Memantine (Namenda) 5 mg DAILY PO Last administered on 02/15/18at 07:33; Start 02/13/18 at 09:00 Bupropion HCl (Wellbutrin Xl) 150 mg DAILY PO Last administered on 02/15/18at 07 :35; Start 02/15/18 at 09:00 Active Scripts Active Reported Acetaminophen 500 Mg Tablet 500 Mg PO BID Desitin (Zinc Oxide) 57 Gm Cream..g. 1 Applic TP PRN PRN Acetaminophen 500 Mg Tablet 500 Mg PO PRN Q8HRS PRN Furosemide 40 Mg Tablet 40 Mg PO PRN DAILY PRN Zoloft (Sertraline Hcl) 50 Mg Tablet 50 Mg PO DAILY Ranitidine Hcl 150 Mg Capsule 150 Mg PO HS Potassium Chloride 10 Meq Tablet.er 10 Meq PO DAILY Metoprolol Succinate ( Xl ) (Metoprolol Succinate) 50 Mg Tab.er.24h 50 Mg PO DAILY Namenda (Memantine Hcl) 10 Mg Tablet 10 Mg PO DAILY Hydrochlorothiazide Tablet (Hydrochlorothiazide) 12.5 Mg Tablet 12.5 Mg PO DAILY Cymbalta (Duloxetine Hcl) 20 Mg Capsule.dr 20 Mg PO DAILY 26 Days Donepezil Hcl 10 Mg Tablet 10 Mg PO DAILY Desitin (Zinc Oxide) 57 Gm Cream..g. 1 Appful TP BID Cetirizine Hcl 10 Mg Tablet 10 Mg PO DAILY Atorvastatin Calcium 20 Mg Tablet 20 Mg PO QHS Aspir-Low (Aspirin) 81 Mg Tablet.dr 81 Mg PO DAILY I have reviewed the current psychotropics carefully including drug interactions. Risk benefit ratio favors no change other than as noted in my dictated progress note. Diagnosis: Problems: (1) Anxiety disorder (2) Impulse control disorder (3) Dementia, vascular, with depression (4) Dementia, vascular, with delusions (5) Dementia with behavioral disturbance (6) Dementia in Alzheimer's disease with depression (7) Dementia in Alzheimer's disease with delusions LIANA MCKENZIE MD Feb 15, 2018 20:53
--- NOTE | 2018-02-16 02:08 | PN ---
DATE: 02/13/2018 PSYCHIATRIC PROGRESS NOTE This is a late entry 02/13/2018, covers the elements not covered in my initial note. SUBJECTIVE: I met with the patient in the evening, staffed at a treatment team meeting with the entire team in the afternoon. The patient's daughter, Luis Antonio, attended the conference. The patient is sleeping about 6-1/2 hours. Appetite is 50%, takes her meds and pudding, anxious, swatting and hitting out at staff. KUB is positive, we will defer to Dr. Sun. She has been quite irritable with staff members. Daughter remarked that the patient has been noted to ambulate in the past, even though during the day at times, she said she cannot ambulate whatsoever, remained in a wheelchair and then was walking by herself at night. We will have a physical therapy evaluation for this. REVIEW OF SYSTEMS: Ambulation impaired, in wheelchair. No CV, , pulmonary, eye system symptoms on review. Reliability poor. MENTAL STATUS EXAM: Oriented to herself. Insight, judgment, recent and remote memory, attention, concentration, fund of knowledge poor, consistent with her diagnosis mentioned in my initial note. PLAN: Continue current psychotropics from initial note. Adjust further as clinically indicated. LIANA MCKENZIE MD DR: REMINGTON/brad JOB#: [id number] / [id number]
[2018-02-16] MEDS: buPROPion XL 150 MG TAB.ER.24H PO SCH (07:07)
[2018-02-16] MEDS: METOPROLOL SUCC 24HR ER 50 MG TAB.ER.24H. PO SCH (07:07)
[2018-02-16] MEDS: FUROSEMIDE 40 MG TABLET PO SCH (07:07)
[2018-02-16] MEDS: ACETAMINOPHEN 500 MG TABLET PO SCH ×2 (07:07→18:32)
[2018-02-16] MEDS: ASPIRIN ENTERIC COATED 81 MG TABLET.DR. PO SCH (07:08)
[2018-02-16] MEDS: MEMANTINE 5 MG TABLET. PO SCH (07:08)
[2018-02-16] MEDS: CETIRIZINE HCL 10 MG TABLET PO SCH (07:08)
[2018-02-16] MEDS: POTASSIUM CHLORIDE 10 MEQ TABLET.ER. PO SCH ×2 (07:08→18:33)
[2018-02-16] MEDS: DONEPEZIL HCL 10 MG TABLET PO SCH (07:08)
[2018-02-16] MEDS: NYSTATIN TOPICAL POWDER 15GM BOTTLE. TP SCH ×2 (07:10→18:33)
[2018-02-16] MEDS: SERTRALINE 100 MG TABLET. PO SCH (07:14)
[2018-02-16 16:03] VITALS: BP 114/65
[2018-02-16] MEDS: MEMANTINE 10 MG TABLET. PO SCH (18:32)
[2018-02-16] MEDS: FAMOTIDINE 20 MG TABLET PO SCH (18:32)
[2018-02-16] MEDS: traZODone 50 MG TABLET. PO PRN (18:32)
[2018-02-16] MEDS: ATORVASTATIN CALCIUM 20 MG TABLET PO SCH (18:33)
--- NOTE | 2018-02-16 22:51 | PDOC ---
Exam Note: Kobe Note: Please also refer to the separate dictated note~for this date of service dictated separately.~Patient seen individually. Discussed the patient with Nursing staff reviewed the chart.~Reviewed interim history and current functioning. Reviewed vital signs,~Labs/ Radiology~and current medications noted below. Continue current treatment with the changes noted in the dictated addendum note Assessment: Vital Signs: Vital Signs Date Time Temp Pulse Resp B/P (MAP) Pulse Ox O2 Delivery O2 Flow Rate FiO2 02/16/18 16:03 97.9 76 20 114/65 (81) 97 02/11/18 16:21 Room Air I&O Intake and Output 02/16/18 07:00 Intake Total 300 ml Balance 300 ml Intake Oral 300 ml Current Medications: Meds: Current Medications Potassium Chloride (Klor-Con) 40 meq 1X ONCE PO Last administered on at 10:13; Start 02/08/18 at 10:15; Stop 02/08/18 at 10:16; Status DC Acetaminophen (Tylenol) 650 mg PRN Q6HRS PRN PO PAIN / TEMP; Start 02/08/18 at 14:30; Status Cancel Multi-Ingredient Ointment (Analgesic [place]) 1 savanah PRN QID PRN TP MUSCLE PAIN; Start 02/08/18 at 14:30 Al Hydroxide/Mg Hydroxide (Mylanta Plus Xs) 15 ml PRN AFTMEALHC PRN PO DYSPEPSIA; Start 02/08/18 at 14:30 Magnesium Hydroxide (Milk Of Magnesia) 2,400 mg PRN QHS PRN PO CONSTIPATION; Start 02/08/18 at 14:30 Atorvastatin Calcium (Lipitor) 20 mg QHS PO Last administered on 02/16/18at 18: 33; Start 02/08/18 at 21:00 Sertraline HCl (Zoloft) 50 mg DAILY PO ; Start 02/09/18 at 09:00; Stop 02/09/18 at 09:00; Status DC Acetaminophen (Tylenol) 500 mg BID PO Last administered on 02/16/18at 18:32; Start 02/08/18 at 21:00 Acetaminophen (Tylenol) 500 mg PRN Q8HRS PRN PO PAIN / TEMP; Start 02/08/18 at 15:00 Aspirin (Aspirin Enteric Coated) 81 mg DAILY PO Last administered on 6/23/18at 07:08; Start 02/09/18 at 09:00 Cetirizine HCl (ZyrTEC) 10 mg DAILY PO Last administered on 02/16/18 07:08; Start 02/09/18 at 09:00 Donepezil HCl (Aricept) 10 mg DAILY PO Last administered on 02/16/18at 07:08; Start 02/09/18 at 09:00 Duloxetine HCl (Cymbalta) 20 mg DAILY PO ; Start 02/09/18 at 09:00; Stop at 09:00; Status DC Furosemide (Lasix) 40 mg PRN DAILY PRN PO FOR EDEMA; Start 02/09/18 at 09:00; Stop 02/09/18 at 16:07; Status DC Hydrochlorothiazide (Microzide) 12.5 mg DAILY PO Last administered on at 07:50; Start 02/09/18 at 09:00; Stop 02/09/18 at 16:03; Status DC Memantine (Namenda) 10 mg DAILY PO Last administered on 02/12/18at 08:03; Start 02/09/18 at 09:00; Stop 02/12/18 at 18:40; Status DC Metoprolol Succinate (Toprol Xl) 50 mg DAILY PO Last administered on 02/16/18at 07:07; Start 02/09/18 at 09:00 Potassium Chloride (Klor-Con) 10 meq DAILY PO Last administered on 02/09/18at 07 :43; Start 02/09/18 at 09:00; Stop 02/09/18 at 16:07; Status DC Famotidine (Pepcid) 20 mg QHS PO Last administered on 02/16/18at 18:32; Start at 21:00 Zinc Oxide (Desitin Diaper Rash 40%) 1 savanah BID TP Last administered on 19:48; Start 02/08/18 at 21:00; Stop 02/10/18 at 07:47; Status DC Non-Formulary Medication (Zinc Oxide (Desitin)) 1 applic PRN PRN TP irritation; Start 02/08/18 at 15:00; Status UNV Sertraline HCl (Zoloft) 75 mg DAILY PO Last administered on 02/12/18at 08:03; Start 02/09/18 at 09:00; Stop 02/12/18 at 18:40; Status DC Trazodone HCl (Desyrel) 25 mg PRN QHS PRN PO INSOMNIA, MAY REPEAT X2 Last administered on 02/16/18at 18:32; Start 02/08/18 at 19:30 Potassium Chloride (Klor-Con) 40 meq 1X ONCE PO Last administered on at 17:50; Start 02/09/18 at 16:30; Stop 02/09/18 at 16:31; Status DC Furosemide (Lasix) 40 mg DAILY PO Last administered on 02/16/18 07:07; Start 02/10/18 at 09:00 Potassium Chloride (Klor-Con) 20 meq BID PO Last administered on 02/16/18 18: 33; Start 02/09/18 at 21:00 Nystatin (Nystop) 1 savanah BID TP Last administered on 02/16/18 18:33; Start at 09:00 Sertraline HCl (Zoloft) 100 mg DAILY PO ; Start 02/14/18 at 09:00; Stop at 09:00; Status DC Memantine (Namenda) 10 mg HS PO Last administered on 02/16/18at 18:32; Start at 21:00 Sertraline HCl (Zoloft) 100 mg DAILY10 PO Last administered on 02/16/18at 07:14 ; Start 02/14/18 at 10:00; Stop 02/16/18 at 07:16; Status DC Sertraline HCl (Zoloft) 75 mg DAILY10 PO Last administered on 02/13/18at 10:58; Start 02/13/18 at 10:00; Stop 02/13/18 at 11:00; Status DC Memantine (Namenda) 5 mg DAILY PO Last administered on 02/16/18at 07:08; Start 02/13/18 at 09:00 Bupropion HCl (Wellbutrin Xl) 150 mg DAILY PO Last administered on 02/16/18at 07 :07; Start 02/15/18 at 09:00 Sertraline HCl (Zoloft) 100 mg DAILY PO ; Start 02/17/18 at 09:00 Active Scripts Active Reported Acetaminophen 500 Mg Tablet 500 Mg PO BID Desitin (Zinc Oxide) 57 Gm Cream..g. 1 Applic TP PRN PRN Acetaminophen 500 Mg Tablet 500 Mg PO PRN Q8HRS PRN Furosemide 40 Mg Tablet 40 Mg PO PRN DAILY PRN Zoloft (Sertraline Hcl) 50 Mg Tablet 50 Mg PO DAILY Ranitidine Hcl 150 Mg Capsule 150 Mg PO HS Potassium Chloride 10 Meq Tablet.er 10 Meq PO DAILY Metoprolol Succinate ( Xl ) (Metoprolol Succinate) 50 Mg Tab.er.24h 50 Mg PO DAILY Namenda (Memantine Hcl) 10 Mg Tablet 10 Mg PO DAILY Hydrochlorothiazide Tablet (Hydrochlorothiazide) 12.5 Mg Tablet 12.5 Mg PO DAILY Cymbalta (Duloxetine Hcl) 20 Mg Capsule.dr 20 Mg PO DAILY 26 Days Donepezil Hcl 10 Mg Tablet 10 Mg PO DAILY Desitin (Zinc Oxide) 57 Gm Cream..g. 1 Appful TP BID Cetirizine Hcl 10 Mg Tablet 10 Mg PO DAILY Atorvastatin Calcium 20 Mg Tablet 20 Mg PO QHS Aspir-Low (Aspirin) 81 Mg Tablet.dr 81 Mg PO DAILY I have reviewed the current psychotropics carefully including drug interactions. Risk benefit ratio favors no change other than as noted in my dictated progress note. Diagnosis: Problems: (1) Anxiety disorder (2) Impulse control disorder (3) Dementia, vascular, with depression (4) Dementia, vascular, with delusions (5) Dementia with behavioral disturbance (6) Dementia in Alzheimer's disease with depression (7) Dementia in Alzheimer's disease with delusions LIANA MCKENZIE MD Feb 16, 2018 22:50
[2018-02-17 06:50] VITALS: BP 118/56
[2018-02-17] MEDS: DONEPEZIL HCL 10 MG TABLET PO SCH (07:18)
[2018-02-17] MEDS: METOPROLOL SUCC 24HR ER 50 MG TAB.ER.24H. PO SCH (07:18)
[2018-02-17] MEDS: NYSTATIN TOPICAL POWDER 15GM BOTTLE. TP SCH ×2 (07:18→21:00)
[2018-02-17] MEDS: CETIRIZINE HCL 10 MG TABLET PO SCH (07:20)
[2018-02-17] MEDS: ACETAMINOPHEN 500 MG TABLET PO SCH ×2 (07:21→20:51)
[2018-02-17] MEDS: POTASSIUM CHLORIDE 10 MEQ TABLET.ER. PO SCH ×2 (07:21→20:49)
[2018-02-17] MEDS: MEMANTINE 5 MG TABLET. PO SCH (07:21)
[2018-02-17] MEDS: buPROPion XL 150 MG TAB.ER.24H PO SCH (07:21)
[2018-02-17] MEDS: FUROSEMIDE 40 MG TABLET PO SCH (07:21)
[2018-02-17] MEDS: ASPIRIN ENTERIC COATED 81 MG TABLET.DR. PO SCH (07:21)
[2018-02-17] MEDS: SERTRALINE 25 MG TABLET. PO SCH (07:44)
[2018-02-17] MEDS: SERTRALINE 100 MG TABLET. PO SCH (07:44)
[2018-02-17] MEDS ORDERED: SERTRALINE 100 MG TABLET. PO SCH (09:00)
[2018-02-17 16:19] VITALS: BP 114/75
[2018-02-17] MEDS: traZODone 50 MG TABLET. PO PRN (20:49)
[2018-02-17] MEDS: MEMANTINE 10 MG TABLET. PO SCH (20:50)
[2018-02-17] MEDS: FAMOTIDINE 20 MG TABLET PO SCH (20:51)
--- NOTE | 2018-02-17 20:59 | PDOC ---
Exam Note: Kobe Note: Please also refer to the separate dictated note~for this date of service dictated separately.~Patient seen individually. Discussed the patient with Nursing staff reviewed the chart.~Reviewed interim history and current functioning. Reviewed vital signs,~Labs/ Radiology~and current medications noted below. Continue current treatment with the changes noted in the dictated addendum note Assessment: Vital Signs: Vital Signs Date Time Temp Pulse Resp B/P (MAP) Pulse Ox O2 Delivery O2 Flow Rate FiO2 02/17/18 16:19 97.4 84 20 114/75 (88) 96 02/11/18 16:21 Room Air I&O Intake and Output 02/17/18 07:00 Intake Total 260 ml Balance 260 ml Intake Oral 260 ml # Voids 1 Current Medications: Meds: Current Medications Potassium Chloride (Klor-Con) 40 meq 1X ONCE PO Last administered on at 10:13; Start 02/08/18 at 10:15; Stop 02/08/18 at 10:16; Status DC Acetaminophen (Tylenol) 650 mg PRN Q6HRS PRN PO PAIN / TEMP; Start 02/08/18 at 14:30; Status Cancel Multi-Ingredient Ointment (Analgesic [place]) 1 savanah PRN QID PRN TP MUSCLE PAIN; Start 02/08/18 at 14:30 Al Hydroxide/Mg Hydroxide (Mylanta Plus Xs) 15 ml PRN AFTMEALHC PRN PO DYSPEPSIA; Start 02/08/18 at 14:30 Magnesium Hydroxide (Milk Of Magnesia) 2,400 mg PRN QHS PRN PO CONSTIPATION; Start 02/08/18 at 14:30 Atorvastatin Calcium (Lipitor) 20 mg QHS PO Last administered on 02/16/18at 18: 33; Start 02/08/18 at 21:00 Sertraline HCl (Zoloft) 50 mg DAILY PO ; Start 02/09/18 at 09:00; Stop 02/09/18 at 09:00; Status DC Acetaminophen (Tylenol) 500 mg BID PO Last administered on 02/17/18at 20:51; Start 02/08/18 at 21:00 Acetaminophen (Tylenol) 500 mg PRN Q8HRS PRN PO PAIN / TEMP; Start 02/08/18 at 15:00 Aspirin (Aspirin Enteric Coated) 81 mg DAILY PO Last administered on 02/17/18at 07:21; Start 02/09/18 at 09:00 Cetirizine HCl (ZyrTEC) 10 mg DAILY PO Last administered on 02/17/18at 07:20; Start 02/09/18 at 09:00 Donepezil HCl (Aricept) 10 mg DAILY PO Last administered on 02/17/18at 07:18; Start 02/09/18 at 09:00 Duloxetine HCl (Cymbalta) 20 mg DAILY PO ; Start 02/09/18 at 09:00; Stop at 09:00; Status DC Furosemide (Lasix) 40 mg PRN DAILY PRN PO FOR EDEMA; Start 02/09/18 at 09:00; Stop 02/09/18 at 16:07; Status DC Hydrochlorothiazide (Microzide) 12.5 mg DAILY PO Last administered on at 07:50; Start 02/09/18 at 09:00; Stop 02/09/18 at 16:03; Status DC Memantine (Namenda) 10 mg DAILY PO Last administered on 02/12/18at 08:03; Start 02/09/18 at 09:00; Stop 02/12/18 at 18:40; Status DC Metoprolol Succinate (Toprol Xl) 50 mg DAILY PO Last administered on 02/17/18at 07:18; Start 02/09/18 at 09:00 Potassium Chloride (Klor-Con) 10 meq DAILY PO Last administered on 02/09/18at 07 :43; Start 02/09/18 at 09:00; Stop 02/09/18 at 16:07; Status DC Famotidine (Pepcid) 20 mg QHS PO Last administered on 02/17/18at 20:51; Start at 21:00 Zinc Oxide (Desitin Diaper Rash 40%) 1 savanah BID TP Last administered on at 19:48; Start 02/08/18 at 21:00; Stop 02/10/18 at 07:47; Status DC Non-Formulary Medication (Zinc Oxide (Desitin)) 1 applic PRN PRN TP irritation; Start 02/08/18 at 15:00; Status UNV Sertraline HCl (Zoloft) 75 mg DAILY PO Last administered on 02/12/18at 08:03; Start 02/09/18 at 09:00; Stop 02/12/18 at 18:40; Status DC Trazodone HCl (Desyrel) 25 mg PRN QHS PRN PO INSOMNIA, MAY REPEAT X2 Last administered on 02/17/18at 20:49; Start 02/08/18 at 19:30 Potassium Chloride (Klor-Con) 40 meq 1X ONCE PO Last administered on at 17:50; Start 02/09/18 at 16:30; Stop 02/09/18 at 16:31; Status DC Furosemide (Lasix) 40 mg DAILY PO Last administered on 02/17/18at 07:21; Start 02/10/18 at 09:00 Potassium Chloride (Klor-Con) 20 meq BID PO Last administered on 02/17/18at 07: 21; Start 02/09/18 at 21:00 Nystatin (Nystop) 1 savanah BID TP Last administered on 02/17/18at 07:18; Start at 09:00 Sertraline HCl (Zoloft) 100 mg DAILY PO ; Start 02/14/18 at 09:00; Stop at 09:00; Status DC Memantine (Namenda) 10 mg HS PO Last administered on 02/17/18at 20:50; Start at 21:00 Sertraline HCl (Zoloft) 100 mg DAILY10 PO Last administered on 02/16/18at 07:14 ; Start 02/14/18 at 10:00; Stop 02/16/18 at 07:16; Status DC Sertraline HCl (Zoloft) 75 mg DAILY10 PO Last administered on 02/13/18at 10:58; Start 02/13/18 at 10:00; Stop 02/13/18 at 11:00; Status DC Memantine (Namenda) 5 mg DAILY PO Last administered on 02/17/18at 07:21; Start 02/13/18 at 09:00 Bupropion HCl (Wellbutrin Xl) 150 mg DAILY PO Last administered on 02/17/18at 07 :21; Start 02/15/18 at 09:00 Sertraline HCl (Zoloft) 100 mg DAILY PO ; Start 02/17/18 at 09:00; Stop at 09:00; Status DC Sertraline HCl (Zoloft) 100 mg DAILY PO Last administered on 02/17/18at 07:44; Start 02/17/18 at 09:00 Sertraline HCl (Zoloft) 25 mg DAILY PO Last administered on 02/17/18at 07:44; Start 02/17/18 at 09:00 Active Scripts Active Reported Acetaminophen 500 Mg Tablet 500 Mg PO BID Desitin (Zinc Oxide) 57 Gm Cream..g. 1 Applic TP PRN PRN Acetaminophen 500 Mg Tablet 500 Mg PO PRN Q8HRS PRN Furosemide 40 Mg Tablet 40 Mg PO PRN DAILY PRN Zoloft (Sertraline Hcl) 50 Mg Tablet 50 Mg PO DAILY Ranitidine Hcl 150 Mg Capsule 150 Mg PO HS Potassium Chloride 10 Meq Tablet.er 10 Meq PO DAILY Metoprolol Succinate ( Xl ) (Metoprolol Succinate) 50 Mg Tab.er.24h 50 Mg PO DAILY Namenda (Memantine Hcl) 10 Mg Tablet 10 Mg PO DAILY Hydrochlorothiazide Tablet (Hydrochlorothiazide) 12.5 Mg Tablet 12.5 Mg PO DAILY Cymbalta (Duloxetine Hcl) 20 Mg Capsule.dr 20 Mg PO DAILY 26 Days Donepezil Hcl 10 Mg Tablet 10 Mg PO DAILY Desitin (Zinc Oxide) 57 Gm Cream..g. 1 Appful TP BID Cetirizine Hcl 10 Mg Tablet 10 Mg PO DAILY Atorvastatin Calcium 20 Mg Tablet 20 Mg PO QHS Aspir-Low (Aspirin) 81 Mg Tablet.dr 81 Mg PO DAILY I have reviewed the current psychotropics carefully including drug interactions. Risk benefit ratio favors no change other than as noted in my dictated progress note. Diagnosis: Problems: (1) Anxiety disorder (2) Impulse control disorder (3) Dementia, vascular, with depression (4) Dementia, vascular, with delusions (5) Dementia with behavioral disturbance (6) Dementia in Alzheimer's disease with depression (7) Dementia in Alzheimer's disease with delusions LIANA MCKENZIE MD Feb 17, 2018 20:59
[2018-02-17] MEDS: ATORVASTATIN CALCIUM 20 MG TABLET PO SCH (22:41)
--- NOTE | 2018-02-17 22:57 | PN ---
DATE: 02/16/2018 This is a late entry 02/16/2018 covers elements not covered in my initial note. SUBJECTIVE: I met with the patient in the evening. Overall, the patient was aggressive with showers previous night, grabbing at the private parts of the female and male nursing staff, quite labile, impulsive, explosive. REVIEW OF SYSTEMS: No CV, , pulmonary, eye, ENT system symptoms on review. Gait unsteady, in wheelchair. MENTAL STATUS EXAM: Oriented to herself. Insight, judgment, recent and remote memory, attention, concentration, fund of knowledge poor, consistent with her diagnosis from initial note. PLAN: Increase Zoloft to 125 mg a day. Rest unchanged from initial note. MAN Tracie MCKENZIE MD DR: REMINGTON/brad JOB#: [id number] / [id number]
--- NOTE | 2018-02-18 01:41 | PN ---
DATE: 02/15/2018 This is a late entry, 02/15/2018, covers the elements not covered in my initial note. SUBJECTIVE: I met with the patient in the evening. The patient slept 6 hours, takes her medications in Boost. Resistive to medications. However, she is not putting herself on the floor, but not wheeling herself in the wheelchair or attempting to ambulate like she is able to. REVIEW OF SYSTEMS: No CV, , pulmonary, eye, ENT system symptoms on review. Reliability poor. MENTAL STATUS EXAM: Oriented to herself. Insight, judgment, recent and remote memory, attention, concentration, fund of knowledge poor, consistent with her diagnosis as mentioned in my initial note. PLAN: Continue psychotropics from my initial note. MAN Tracie MCKENZIE MD DR: REMINGTON/brad JOB#: [id number] / [id number]
--- NOTE | 2018-02-18 04:29 | PN ---
DATE: 02/17/2018 PSYCHIATRIC PROGRESS NOTE This late entry 02/17/2018 covers elements, not covered in my initial note. SUBJECTIVE: I met with the patient in the evening. The patient slept 8 hours previous evening. REVIEW OF SYSTEMS: No CV, , pulmonary, eye, ENT system symptoms on review. Reliability poor. MENTAL STATUS EXAM: Oriented to herself. Insight, judgment, recent and remote memory, attention, concentration, fund of knowledge poor, consistent with her diagnosis. She is in a wheelchair. Does not try to propel herself or makes no effort to walk even though she was ambulating in the recent past. PLAN: Continue current psychotropics. MAN Tracie MCKENZIE MD DR: REMINGTON/brad JOB#: [id number] / [id number]
[2018-02-18 06:05] VITALS: BP 99/59
[2018-02-18] MEDS: buPROPion XL 150 MG TAB.ER.24H PO SCH (08:44)
[2018-02-18] MEDS: ACETAMINOPHEN 500 MG TABLET PO SCH ×2 (08:44→20:26)
[2018-02-18] MEDS: POTASSIUM CHLORIDE 10 MEQ TABLET.ER. PO SCH ×2 (08:44→20:25)
[2018-02-18] MEDS: FUROSEMIDE 40 MG TABLET PO SCH (08:45)
[2018-02-18] MEDS: SERTRALINE 25 MG TABLET. PO SCH (08:45)
[2018-02-18] MEDS: MEMANTINE 5 MG TABLET. PO SCH (08:45)
[2018-02-18] MEDS: METOPROLOL SUCC 24HR ER 50 MG TAB.ER.24H. PO SCH (08:45)
[2018-02-18] MEDS: SERTRALINE 100 MG TABLET. PO SCH (08:45)
[2018-02-18] MEDS: CETIRIZINE HCL 10 MG TABLET PO SCH (08:46)
[2018-02-18] MEDS: DONEPEZIL HCL 10 MG TABLET PO SCH (08:46)
[2018-02-18] MEDS: ASPIRIN ENTERIC COATED 81 MG TABLET.DR. PO SCH (08:46)
[2018-02-18] MEDS: NYSTATIN TOPICAL POWDER 15GM BOTTLE. TP SCH ×2 (08:50→20:26)
[2018-02-18 09:21] LABS: ALBUMIN 3.5 g/dL (3.4-5.0); ALBUMIN/GLOBULIN RATIO 0.9 (1.0-1.7); CALCIUM 9.8 mg/dL (8.5-10.1); CREATININE 1.2 mg/dL (0.6-1.0); GFR 43.7; POTASSIUM 4.1 mmol/L (3.5-5.1); TOTAL BILIRUBIN 0.4 mg/dL (0.2-1.0); TOTAL PROTEIN 7.6 g/dL (6.4-8.2)
[2018-02-18 16:29] VITALS: BP 102/76
[2018-02-18] MEDS: FAMOTIDINE 20 MG TABLET PO SCH (20:25)
[2018-02-18] MEDS: ATORVASTATIN CALCIUM 20 MG TABLET PO SCH (20:25)
[2018-02-18] MEDS: MEMANTINE 10 MG TABLET. PO SCH (20:26)
--- NOTE | 2018-02-18 20:56 | PDOC ---
Exam Note: Kobe Note: Please also refer to the separate dictated note~for this date of service dictated separately.~Patient seen individually. Discussed the patient with Nursing staff reviewed the chart.~Reviewed interim history and current functioning. Reviewed vital signs,~Labs/ Radiology~and current medications noted below. Continue current treatment with the changes noted in the dictated addendum note Assessment: Vital Signs: Vital Signs Date Time Temp Pulse Resp B/P (MAP) Pulse Ox O2 Delivery O2 Flow Rate FiO2 02/18/18 16:29 97.6 83 18 102/76 (85) 98 Room Air I&O Intake and Output 02/18/18 07:01 Intake Total 580 ml Balance 580 ml Intake Oral 580 ml # Bowel Movements 2 Labs: Laboratory Tests Test 02/18/18 08:57 Sodium Level 143 mmol/L (136-145) Potassium Level 4.1 mmol/L (3.5-5.1) Chloride Level 108 mmol/L (98-107) H Carbon Dioxide Level 29 mmol/L (21-32) Anion Gap 6 (6-14) Blood Urea Nitrogen 27 mg/dL (7-20) H Creatinine 1.2 mg/dL (0.6-1.0) H Estimated GFR (Cockcroft-Gault) 43.7 BUN/Creatinine Ratio 23 (6-20) H Glucose Level 105 mg/dL (70-99) H Calcium Level 9.8 mg/dL (8.5-10.1) Total Bilirubin 0.4 mg/dL (0.2-1.0) Aspartate Amino Transferase (AST) 22 U/L (15-37) Alanine Aminotransferase (ALT) 29 U/L (14-59) Alkaline Phosphatase 140 U/L (46-116) H Total Protein 7.6 g/dL (6.4-8.2) Albumin 3.5 g/dL (3.4-5.0) Albumin/Globulin Ratio 0.9 (1.0-1.7) L Current Medications: Meds: Current Medications Potassium Chloride (Klor-Con) 40 meq 1X ONCE PO Last administered on at 10:13; Start 02/08/18 at 10:15; Stop 02/08/18 at 10:16; Status DC Acetaminophen (Tylenol) 650 mg PRN Q6HRS PRN PO PAIN / TEMP; Start 02/08/18 at 14:30; Status Cancel Multi-Ingredient Ointment (Analgesic [place]) 1 savanah PRN QID PRN TP MUSCLE PAIN; Start 02/08/18 at 14:30 Al Hydroxide/Mg Hydroxide (Mylanta Plus Xs) 15 ml PRN AFTMEALHC PRN PO DYSPEPSIA; Start 02/08/18 at 14:30 Magnesium Hydroxide (Milk Of Magnesia) 2,400 mg PRN QHS PRN PO CONSTIPATION; Start 02/08/18 at 14:30 Atorvastatin Calcium (Lipitor) 20 mg QHS PO Last administered on 02/18/18at 20: 25; Start 02/08/18 at 21:00 Sertraline HCl (Zoloft) 50 mg DAILY PO ; Start 02/09/18 at 09:00; Stop 02/09/18 at 09:00; Status DC Acetaminophen (Tylenol) 500 mg BID PO Last administered on 02/18/18at 20:26; Start 02/08/18 at 21:00 Acetaminophen (Tylenol) 500 mg PRN Q8HRS PRN PO PAIN / TEMP; Start 02/08/18 at 15:00 Aspirin (Aspirin Enteric Coated) 81 mg DAILY PO Last administered on 02/18/18at 08:46; Start 02/09/18 at 09:00 Cetirizine HCl (ZyrTEC) 10 mg DAILY PO Last administered on 02/18/18at 08:46; Start 02/09/18 at 09:00 Donepezil HCl (Aricept) 10 mg DAILY PO Last administered on 02/18/18at 08:46; Start 02/09/18 at 09:00 Duloxetine HCl (Cymbalta) 20 mg DAILY PO ; Start 02/09/18 at 09:00; Stop at 09:00; Status DC Furosemide (Lasix) 40 mg PRN DAILY PRN PO FOR EDEMA; Start 02/09/18 at 09:00; Stop 02/09/18 at 16:07; Status DC Hydrochlorothiazide (Microzide) 12.5 mg DAILY PO Last administered on at 07:50; Start 02/09/18 at 09:00; Stop 02/09/18 at 16:03; Status DC Memantine (Namenda) 10 mg DAILY PO Last administered on 02/12/18at 08:03; Start 02/09/18 at 09:00; Stop 02/12/18 at 18:40; Status DC Metoprolol Succinate (Toprol Xl) 50 mg DAILY PO Last administered on 02/18/18 08:45; Start 02/09/18 at 09:00 Potassium Chloride (Klor-Con) 10 meq DAILY PO Last administered on 02/09/18at 07 :43; Start 02/09/18 at 09:00; Stop 02/09/18 at 16:07; Status DC Famotidine (Pepcid) 20 mg QHS PO Last administered on 02/18/18 20:25; Start at 21:00 Zinc Oxide (Desitin Diaper Rash 40%) 1 savanah BID TP Last administered on 19:48; Start 02/08/18 at 21:00; Stop 02/10/18 at 07:47; Status DC Non-Formulary Medication (Zinc Oxide (Desitin)) 1 applic PRN PRN TP irritation; Start 02/08/18 at 15:00; Status UNV Sertraline HCl (Zoloft) 75 mg DAILY PO Last administered on 02/12/18 08:03; Start 02/09/18 at 09:00; Stop 02/12/18 at 18:40; Status DC Trazodone HCl (Desyrel) 25 mg PRN QHS PRN PO INSOMNIA, MAY REPEAT X2 Last administered on 02/17/18at 20:49; Start 02/08/18 at 19:30 Potassium Chloride (Klor-Con) 40 meq 1X ONCE PO Last administered on at 17:50; Start 02/09/18 at 16:30; Stop 02/09/18 at 16:31; Status DC Furosemide (Lasix) 40 mg DAILY PO Last administered on 02/18/18 08:45; Start 02/10/18 at 09:00 Potassium Chloride (Klor-Con) 20 meq BID PO Last administered on 02/18/18at 20: 25; Start 02/09/18 at 21:00 Nystatin (Nystop) 1 savanah BID TP Last administered on 02/18/18 20:26; Start at 09:00 Sertraline HCl (Zoloft) 100 mg DAILY PO ; Start 02/14/18 at 09:00; Stop at 09:00; Status DC Memantine (Namenda) 10 mg HS PO Last administered on 02/18/18at 20:26; Start at 21:00 Sertraline HCl (Zoloft) 100 mg DAILY10 PO Last administered on 02/16/18at 07:14 ; Start 02/14/18 at 10:00; Stop 02/16/18 at 07:16; Status DC Sertraline HCl (Zoloft) 75 mg DAILY10 PO Last administered on 02/13/18at 10:58; Start 02/13/18 at 10:00; Stop 02/13/18 at 11:00; Status DC Memantine (Namenda) 5 mg DAILY PO Last administered on 02/18/18at 08:45; Start 02/13/18 at 09:00; Stop 02/18/18 at 18:43; Status DC Bupropion HCl (Wellbutrin Xl) 150 mg DAILY PO Last administered on 02/18/18at 08 :44; Start 02/15/18 at 09:00; Stop 02/18/18 at 18:43; Status DC Sertraline HCl (Zoloft) 100 mg DAILY PO ; Start 02/17/18 at 09:00; Stop at 09:00; Status DC Sertraline HCl (Zoloft) 100 mg DAILY PO Last administered on 02/18/18at 08:45; Start 02/17/18 at 09:00; Stop 02/18/18 at 18:43; Status DC Sertraline HCl (Zoloft) 25 mg DAILY PO Last administered on 02/18/18at 08:45; Start 02/17/18 at 09:00; Stop 02/18/18 at 18:43; Status DC Bupropion HCl (Wellbutrin Xl) 300 mg DAILY PO ; Start 02/19/18 at 09:00 Memantine (Namenda) 10 mg DAILY PO ; Start 02/19/18 at 09:00 Sertraline HCl (Zoloft) 100 mg DAILYWSUP PO ; Start 02/19/18 at 17:00 Active Scripts Active Reported Acetaminophen 500 Mg Tablet 500 Mg PO BID Desitin (Zinc Oxide) 57 Gm Cream..g. 1 Applic TP PRN PRN Acetaminophen 500 Mg Tablet 500 Mg PO PRN Q8HRS PRN Furosemide 40 Mg Tablet 40 Mg PO PRN DAILY PRN Zoloft (Sertraline Hcl) 50 Mg Tablet 50 Mg PO DAILY Ranitidine Hcl 150 Mg Capsule 150 Mg PO HS Potassium Chloride 10 Meq Tablet.er 10 Meq PO DAILY Metoprolol Succinate ( Xl ) (Metoprolol Succinate) 50 Mg Tab.er.24h 50 Mg PO DAILY Namenda (Memantine Hcl) 10 Mg Tablet 10 Mg PO DAILY Hydrochlorothiazide Tablet (Hydrochlorothiazide) 12.5 Mg Tablet 12.5 Mg PO DAILY Cymbalta (Duloxetine Hcl) 20 Mg Capsule.dr 20 Mg PO DAILY 26 Days Donepezil Hcl 10 Mg Tablet 10 Mg PO DAILY Desitin (Zinc Oxide) 57 Gm Cream..g. 1 Appful TP BID Cetirizine Hcl 10 Mg Tablet 10 Mg PO DAILY Atorvastatin Calcium 20 Mg Tablet 20 Mg PO QHS Aspir-Low (Aspirin) 81 Mg Tablet.dr 81 Mg PO DAILY I have reviewed the current psychotropics carefully including drug interactions. Risk benefit ratio favors no change other than as noted in my dictated progress note. Diagnosis: Problems: (1) Anxiety disorder (2) Impulse control disorder (3) Dementia, vascular, with depression (4) Dementia, vascular, with delusions (5) Dementia with behavioral disturbance (6) Dementia in Alzheimer's disease with depression (7) Dementia in Alzheimer's disease with delusions LIANA MCKENZIE MD Feb 18, 2018 20:56
[2018-02-19] MEDS: ASPIRIN ENTERIC COATED 81 MG TABLET.DR. PO SCH (08:50)
[2018-02-19] MEDS: POTASSIUM CHLORIDE 10 MEQ TABLET.ER. PO SCH ×2 (08:50→20:24)
[2018-02-19] MEDS: FUROSEMIDE 40 MG TABLET PO SCH (08:50)
[2018-02-19] MEDS: METOPROLOL SUCC 24HR ER 50 MG TAB.ER.24H. PO SCH (08:50)
[2018-02-19] MEDS: NYSTATIN TOPICAL POWDER 15GM BOTTLE. TP SCH ×2 (08:51→20:24)
[2018-02-19] MEDS: CETIRIZINE HCL 10 MG TABLET PO SCH (08:51)
[2018-02-19] MEDS: ACETAMINOPHEN 500 MG TABLET PO SCH ×2 (08:51→20:24)
[2018-02-19] MEDS: DONEPEZIL HCL 10 MG TABLET PO SCH (08:51)
[2018-02-19] MEDS: buPROPion XL 300 MG TAB.ER.24H. PO SCH (08:53)
[2018-02-19] MEDS: MEMANTINE 10 MG TABLET. PO SCH ×2 (08:54→20:24)
[2018-02-19 16:41] VITALS: BP 109/64
[2018-02-19] MEDS: SERTRALINE 100 MG TABLET. PO SCH (16:58)
[2018-02-19] MEDS ORDERED: SERTRALINE 100 MG TABLET. PO SCH (17:00)
--- NOTE | 2018-02-19 20:16 | PN ---
DATE: 02/18/2018 This is a late entry for 02/18/2018 and covers the elements not covered in my initial note. SUBJECTIVE: I met with the patient in the evening of 02/18/2018. She slept 7 hours previous evening, has been somewhat sedated, withdrawn, slept all day per nursing report. Creatinine 1.2. She refused to eat, has some hand tremors, anxious at times. REVIEW OF SYSTEMS: Ambulation impaired, in wheelchair. No CV, , pulmonary, eye, ENT system symptoms on review. Reliability poor. MENTAL STATUS EXAM: Oriented to herself. Insight, judgment, recent and remote memory, attention, concentration, fund of knowledge poor, consistent with her diagnosis mentioned in my initial note. PLAN: Reduce Zoloft to 100 mg a day and increase the Wellbutrin-XL to 300 mg in the morning to help with her tiredness and wakefulness and an augmentation of Zoloft with the Wellbutrin. Increase Namenda to 10 mg twice a day. Continue rest unchanged. MAN Tracie MCKENZIE MD DR: REMINGTON/brad JOB#: [id number] / [id number]
[2018-02-19] MEDS: FAMOTIDINE 20 MG TABLET PO SCH (20:23)
[2018-02-19] MEDS: ATORVASTATIN CALCIUM 20 MG TABLET PO SCH (20:24)
[2018-02-19] MEDS: QUEtiapine 25 MG TABLET. PO SCH (20:25)
[2018-02-20 05:40] VITALS: BP 136/78
[2018-02-20] MEDS: FUROSEMIDE 40 MG TABLET PO SCH (08:27)
[2018-02-20] MEDS: POTASSIUM CHLORIDE 10 MEQ TABLET.ER. PO SCH ×2 (08:27→19:50)
[2018-02-20] MEDS: METOPROLOL SUCC 24HR ER 50 MG TAB.ER.24H. PO SCH (08:28)
[2018-02-20] MEDS: CETIRIZINE HCL 10 MG TABLET PO SCH (08:28)
[2018-02-20] MEDS: ACETAMINOPHEN 500 MG TABLET PO SCH ×2 (08:28→19:50)
[2018-02-20] MEDS: buPROPion XL 300 MG TAB.ER.24H. PO SCH (08:28)
[2018-02-20] MEDS: ASPIRIN ENTERIC COATED 81 MG TABLET.DR. PO SCH (08:29)
[2018-02-20] MEDS: QUEtiapine 25 MG TABLET. PO SCH ×2 (08:29→19:50)
[2018-02-20] MEDS: DONEPEZIL HCL 10 MG TABLET PO SCH (08:29)
[2018-02-20] MEDS: NYSTATIN TOPICAL POWDER 15GM BOTTLE. TP SCH ×2 (08:29→19:55)
[2018-02-20] MEDS: MEMANTINE 10 MG TABLET. PO SCH ×2 (08:29→19:51)
[2018-02-20 15:59] VITALS: BP 136/88
[2018-02-20] MEDS: SERTRALINE 100 MG TABLET. PO SCH (17:08)
[2018-02-20] MEDS: FAMOTIDINE 20 MG TABLET PO SCH (19:49)
[2018-02-20] MEDS: ATORVASTATIN CALCIUM 20 MG TABLET PO SCH (19:50)
--- NOTE | 2018-02-20 20:16 | PDOC ---
Exam Note: Kobe Note: Please also refer to the separate dictated note~for this date of service dictated separately.~Patient seen individually. Discussed the patient with Nursing staff reviewed the chart.~Reviewed interim history and current functioning. Reviewed vital signs,~Labs/ Radiology~and current medications noted below. Continue current treatment with the changes noted in the dictated addendum note Assessment: Vital Signs: Vital Signs Date Time Temp Pulse Resp B/P (MAP) Pulse Ox O2 Delivery O2 Flow Rate FiO2 02/20/18 15:59 98.0 79 16 136/88 (104) 93 Room Air I&O Intake and Output 02/20/18 07:00 Intake Total 480 ml Balance 480 ml Intake Oral 480 ml # Bowel Movements 1 Current Medications: Meds: Current Medications Potassium Chloride (Klor-Con) 40 meq 1X ONCE PO Last administered on at 10:13; Start 02/08/18 at 10:15; Stop 02/08/18 at 10:16; Status DC Acetaminophen (Tylenol) 650 mg PRN Q6HRS PRN PO PAIN / TEMP; Start 02/08/18 at 14:30; Status Cancel Multi-Ingredient Ointment (Analgesic [place]) 1 savanah PRN QID PRN TP MUSCLE PAIN; Start 02/08/18 at 14:30 Al Hydroxide/Mg Hydroxide (Mylanta Plus Xs) 15 ml PRN AFTMEALHC PRN PO DYSPEPSIA; Start 02/08/18 at 14:30 Magnesium Hydroxide (Milk Of Magnesia) 2,400 mg PRN QHS PRN PO CONSTIPATION; Start 02/08/18 at 14:30 Atorvastatin Calcium (Lipitor) 20 mg QHS PO Last administered on 02/20/18at 19: 50; Start 02/08/18 at 21:00 Sertraline HCl (Zoloft) 50 mg DAILY PO ; Start 02/09/18 at 09:00; Stop 02/09/18 at 09:00; Status DC Acetaminophen (Tylenol) 500 mg BID PO Last administered on 02/20/18at 19:50; Start 02/08/18 at 21:00 Acetaminophen (Tylenol) 500 mg PRN Q8HRS PRN PO PAIN / TEMP; Start 02/08/18 at 15:00 Aspirin (Aspirin Enteric Coated) 81 mg DAILY PO Last administered on 02/20/18at 08:29; Start 02/09/18 at 09:00 Cetirizine HCl (ZyrTEC) 10 mg DAILY PO Last administered on 02/20/18at 08:28; Start 02/09/18 at 09:00 Donepezil HCl (Aricept) 10 mg DAILY PO Last administered on 02/20/18at 08:29; Start 02/09/18 at 09:00 Duloxetine HCl (Cymbalta) 20 mg DAILY PO ; Start 02/09/18 at 09:00; Stop at 09:00; Status DC Furosemide (Lasix) 40 mg PRN DAILY PRN PO FOR EDEMA; Start 02/09/18 at 09:00; Stop 02/09/18 at 16:07; Status DC Hydrochlorothiazide (Microzide) 12.5 mg DAILY PO Last administered on at 07:50; Start 02/09/18 at 09:00; Stop 02/09/18 at 16:03; Status DC Memantine (Namenda) 10 mg DAILY PO Last administered on 02/12/18at 08:03; Start 02/09/18 at 09:00; Stop 02/12/18 at 18:40; Status DC Metoprolol Succinate (Toprol Xl) 50 mg DAILY PO Last administered on 02/20/18at 08:28; Start 02/09/18 at 09:00 Potassium Chloride (Klor-Con) 10 meq DAILY PO Last administered on 02/09/18at 07 :43; Start 02/09/18 at 09:00; Stop 02/09/18 at 16:07; Status DC Famotidine (Pepcid) 20 mg QHS PO Last administered on 02/20/18at 19:49; Start at 21:00 Zinc Oxide (Desitin Diaper Rash 40%) 1 savanah BID TP Last administered on 19:48; Start 02/08/18 at 21:00; Stop 02/10/18 at 07:47; Status DC Non-Formulary Medication (Zinc Oxide (Desitin)) 1 applic PRN PRN TP irritation; Start 02/08/18 at 15:00; Status UNV Sertraline HCl (Zoloft) 75 mg DAILY PO Last administered on 02/12/18at 08:03; Start 02/09/18 at 09:00; Stop 02/12/18 at 18:40; Status DC Trazodone HCl (Desyrel) 25 mg PRN QHS PRN PO INSOMNIA, MAY REPEAT X2 Last administered on 02/17/18at 20:49; Start 02/08/18 at 19:30 Potassium Chloride (Klor-Con) 40 meq 1X ONCE PO Last administered on at 17:50; Start 02/09/18 at 16:30; Stop 02/09/18 at 16:31; Status DC Furosemide (Lasix) 40 mg DAILY PO Last administered on 02/20/18at 08:27; Start 02/10/18 at 09:00 Potassium Chloride (Klor-Con) 20 meq BID PO Last administered on 02/20/18at 19: 50; Start 02/09/18 at 21:00 Nystatin (Nystop) 1 savanah BID TP Last administered on 02/20/18at 19:55; Start at 09:00 Sertraline HCl (Zoloft) 100 mg DAILY PO ; Start 02/14/18 at 09:00; Stop at 09:00; Status DC Memantine (Namenda) 10 mg HS PO Last administered on 02/20/18at 19:51; Start at 21:00 Sertraline HCl (Zoloft) 100 mg DAILY10 PO Last administered on 02/16/18at 07:14 ; Start 02/14/18 at 10:00; Stop 02/16/18 at 07:16; Status DC Sertraline HCl (Zoloft) 75 mg DAILY10 PO Last administered on 02/13/18at 10:58; Start 02/13/18 at 10:00; Stop 02/13/18 at 11:00; Status DC Memantine (Namenda) 5 mg DAILY PO Last administered on 02/18/18at 08:45; Start 02/13/18 at 09:00; Stop 02/18/18 at 18:43; Status DC Bupropion HCl (Wellbutrin Xl) 150 mg DAILY PO Last administered on 02/18/18at 08 :44; Start 02/15/18 at 09:00; Stop 02/18/18 at 18:43; Status DC Sertraline HCl (Zoloft) 100 mg DAILY PO ; Start 02/17/18 at 09:00; Stop at 09:00; Status DC Sertraline HCl (Zoloft) 100 mg DAILY PO Last administered on 02/18/18at 08:45; Start 02/17/18 at 09:00; Stop 02/18/18 at 18:43; Status DC Sertraline HCl (Zoloft) 25 mg DAILY PO Last administered on 02/18/18at 08:45; Start 02/17/18 at 09:00; Stop 02/18/18 at 18:43; Status DC Bupropion HCl (Wellbutrin Xl) 300 mg DAILY PO Last administered on 02/20/18at 08 :28; Start 02/19/18 at 09:00 Memantine (Namenda) 10 mg DAILY PO Last administered on 02/20/18at 08:29; Start 02/19/18 at 09:00 Sertraline HCl (Zoloft) 100 mg DAILYWSUP PO ; Start 02/19/18 at 17:00; Stop at 17:00; Status DC Sertraline HCl (Zoloft) 100 mg DAILYWSUP PO Last administered on 02/20/18at 17: 08; Start 02/19/18 at 17:00 Quetiapine Fumarate (SEROquel) 12.5 mg BID PO Last administered on 02/20/18at 19 :50; Start 02/19/18 at 21:00 Active Scripts Active Reported Acetaminophen 500 Mg Tablet 500 Mg PO BID Desitin (Zinc Oxide) 57 Gm Cream..g. 1 Applic TP PRN PRN Acetaminophen 500 Mg Tablet 500 Mg PO PRN Q8HRS PRN Furosemide 40 Mg Tablet 40 Mg PO PRN DAILY PRN Zoloft (Sertraline Hcl) 50 Mg Tablet 50 Mg PO DAILY Ranitidine Hcl 150 Mg Capsule 150 Mg PO HS Potassium Chloride 10 Meq Tablet.er 10 Meq PO DAILY Metoprolol Succinate ( Xl ) (Metoprolol Succinate) 50 Mg Tab.er.24h 50 Mg PO DAILY Namenda (Memantine Hcl) 10 Mg Tablet 10 Mg PO DAILY Hydrochlorothiazide Tablet (Hydrochlorothiazide) 12.5 Mg Tablet 12.5 Mg PO DAILY Cymbalta (Duloxetine Hcl) 20 Mg Capsule.dr 20 Mg PO DAILY 26 Days Donepezil Hcl 10 Mg Tablet 10 Mg PO DAILY Desitin (Zinc Oxide) 57 Gm Cream..g. 1 Appful TP BID Cetirizine Hcl 10 Mg Tablet 10 Mg PO DAILY Atorvastatin Calcium 20 Mg Tablet 20 Mg PO QHS Aspir-Low (Aspirin) 81 Mg Tablet.dr 81 Mg PO DAILY I have reviewed the current psychotropics carefully including drug interactions. Risk benefit ratio favors no change other than as noted in my dictated progress note. Diagnosis: Problems: (1) Anxiety disorder (2) Impulse control disorder (3) Dementia, vascular, with depression (4) Dementia, vascular, with delusions (5) Dementia with behavioral disturbance (6) Dementia in Alzheimer's disease with depression (7) Dementia in Alzheimer's disease with delusions LIANA MCKENZIE MD Feb 20, 2018 20:16
--- NOTE | 2018-02-20 20:16 | PDOC ---
Exam Note: Kobe Note: Late entry for date of service 19 February 2018. Please also refer to the separate dictated note~for this date of service dictated separately.~Patient seen individually. Discussed the patient with Nursing staff reviewed the chart.~ Reviewed interim history and current functioning. Reviewed vital signs,~Labs/ Radiology~and current medications noted below. Continue current treatment with the changes noted in the dictated addendum note Assessment: Vital Signs: VS - Last 72 Hours, by Label Date Time Temp Pulse Resp B/P (MAP) Pulse Ox O2 Delivery O2 Flow Rate FiO2 02/20/18 15:59 98.0 79 16 136/88 (104) 93 Room Air 02/20/18 08:28 82 136/78 02/20/18 05:40 98.2 82 22 136/78 (97) 93 Room Air 02/19/18 16:41 98.4 63 16 109/64 (79) 100 02/19/18 08:50 83 102/76 02/18/18 16:29 97.6 83 18 102/76 (85) 98 Room Air 02/18/18 08:45 66 99/59 02/18/18 06:05 98.1 66 24 99/59 (72) 91 Room Air Vital Signs Date Time Temp Pulse Resp B/P (MAP) Pulse Ox O2 Delivery O2 Flow Rate FiO2 02/20/18 15:59 98.0 79 16 136/88 (104) 93 Room Air I&O Intake and Output 02/20/18 07:00 Intake Total 480 ml Balance 480 ml Intake Oral 480 ml # Bowel Movements 1 Current Medications: Meds: Current Medications Potassium Chloride (Klor-Con) 40 meq 1X ONCE PO Last administered on at 10:13; Start 02/08/18 at 10:15; Stop 02/08/18 at 10:16; Status DC Acetaminophen (Tylenol) 650 mg PRN Q6HRS PRN PO PAIN / TEMP; Start 02/08/18 at 14:30; Status Cancel Multi-Ingredient Ointment (Analgesic [place]) 1 savanah PRN QID PRN TP MUSCLE PAIN; Start 02/08/18 at 14:30 Al Hydroxide/Mg Hydroxide (Mylanta Plus Xs) 15 ml PRN AFTMEALHC PRN PO DYSPEPSIA; Start 02/08/18 at 14:30 Magnesium Hydroxide (Milk Of Magnesia) 2,400 mg PRN QHS PRN PO CONSTIPATION; Start 02/08/18 at 14:30 Atorvastatin Calcium (Lipitor) 20 mg QHS PO Last administered on 02/20/18 19: 50; Start 02/08/18 at 21:00 Sertraline HCl (Zoloft) 50 mg DAILY PO ; Start 02/09/18 at 09:00; Stop 02/09/18 at 09:00; Status DC Acetaminophen (Tylenol) 500 mg BID PO Last administered on 02/20/18at 19:50; Start 02/08/18 at 21:00 Acetaminophen (Tylenol) 500 mg PRN Q8HRS PRN PO PAIN / TEMP; Start 02/08/18 at 15:00 Aspirin (Aspirin Enteric Coated) 81 mg DAILY PO Last administered on 02/20/18at 08:29; Start 02/09/18 at 09:00 Cetirizine HCl (ZyrTEC) 10 mg DAILY PO Last administered on 02/20/18at 08:28; Start 02/09/18 at 09:00 Donepezil HCl (Aricept) 10 mg DAILY PO Last administered on 02/20/18at 08:29; Start 02/09/18 at 09:00 Duloxetine HCl (Cymbalta) 20 mg DAILY PO ; Start 02/09/18 at 09:00; Stop at 09:00; Status DC Furosemide (Lasix) 40 mg PRN DAILY PRN PO FOR EDEMA; Start 02/09/18 at 09:00; Stop 02/09/18 at 16:07; Status DC Hydrochlorothiazide (Microzide) 12.5 mg DAILY PO Last administered on at 07:50; Start 02/09/18 at 09:00; Stop 02/09/18 at 16:03; Status DC Memantine (Namenda) 10 mg DAILY PO Last administered on 02/12/18at 08:03; Start 02/09/18 at 09:00; Stop 02/12/18 at 18:40; Status DC Metoprolol Succinate (Toprol Xl) 50 mg DAILY PO Last administered on 02/20/18at 08:28; Start 02/09/18 at 09:00 Potassium Chloride (Klor-Con) 10 meq DAILY PO Last administered on 02/09/18at 07 :43; Start 02/09/18 at 09:00; Stop 02/09/18 at 16:07; Status DC Famotidine (Pepcid) 20 mg QHS PO Last administered on 02/20/18 19:49; Start at 21:00 Zinc Oxide (Desitin Diaper Rash 40%) 1 savanah BID TP Last administered on 19:48; Start 02/08/18 at 21:00; Stop 02/10/18 at 07:47; Status DC Non-Formulary Medication (Zinc Oxide (Desitin)) 1 applic PRN PRN TP irritation; Start 02/08/18 at 15:00; Status UNV Sertraline HCl (Zoloft) 75 mg DAILY PO Last administered on 02/12/18 08:03; Start 02/09/18 at 09:00; Stop 02/12/18 at 18:40; Status DC Trazodone HCl (Desyrel) 25 mg PRN QHS PRN PO INSOMNIA, MAY REPEAT X2 Last administered on 02/17/18at 20:49; Start 02/08/18 at 19:30 Potassium Chloride (Klor-Con) 40 meq 1X ONCE PO Last administered on 17:50; Start 02/09/18 at 16:30; Stop 02/09/18 at 16:31; Status DC Furosemide (Lasix) 40 mg DAILY PO Last administered on 02/20/18at 08:27; Start 02/10/18 at 09:00 Potassium Chloride (Klor-Con) 20 meq BID PO Last administered on 02/20/18 19: 50; Start 02/09/18 at 21:00 Nystatin (Nystop) 1 savanah BID TP Last administered on 02/20/18 19:55; Start at 09:00 Sertraline HCl (Zoloft) 100 mg DAILY PO ; Start 02/14/18 at 09:00; Stop at 09:00; Status DC Memantine (Namenda) 10 mg HS PO Last administered on 02/20/18at 19:51; Start at 21:00 Sertraline HCl (Zoloft) 100 mg DAILY10 PO Last administered on 02/16/18at 07:14 ; Start 02/14/18 at 10:00; Stop 02/16/18 at 07:16; Status DC Sertraline HCl (Zoloft) 75 mg DAILY10 PO Last administered on 02/13/18at 10:58; Start 02/13/18 at 10:00; Stop 02/13/18 at 11:00; Status DC Memantine (Namenda) 5 mg DAILY PO Last administered on 02/18/18at 08:45; Start 02/13/18 at 09:00; Stop 02/18/18 at 18:43; Status DC Bupropion HCl (Wellbutrin Xl) 150 mg DAILY PO Last administered on 02/18/18at 08 :44; Start 02/15/18 at 09:00; Stop 02/18/18 at 18:43; Status DC Sertraline HCl (Zoloft) 100 mg DAILY PO ; Start 02/17/18 at 09:00; Stop at 09:00; Status DC Sertraline HCl (Zoloft) 100 mg DAILY PO Last administered on 02/18/18at 08:45; Start 02/17/18 at 09:00; Stop 02/18/18 at 18:43; Status DC Sertraline HCl (Zoloft) 25 mg DAILY PO Last administered on 02/18/18at 08:45; Start 02/17/18 at 09:00; Stop 02/18/18 at 18:43; Status DC Bupropion HCl (Wellbutrin Xl) 300 mg DAILY PO Last administered on 02/20/18at 08 :28; Start 02/19/18 at 09:00 Memantine (Namenda) 10 mg DAILY PO Last administered on 02/20/18at 08:29; Start 02/19/18 at 09:00 Sertraline HCl (Zoloft) 100 mg DAILYWSUP PO ; Start 02/19/18 at 17:00; Stop at 17:00; Status DC Sertraline HCl (Zoloft) 100 mg DAILYWSUP PO Last administered on 02/20/18at 17: 08; Start 02/19/18 at 17:00 Quetiapine Fumarate (SEROquel) 12.5 mg BID PO Last administered on 02/20/18at 19 :50; Start 6/26/18 at 21:00 Active Scripts Active Reported Acetaminophen 500 Mg Tablet 500 Mg PO BID Desitin (Zinc Oxide) 57 Gm Cream..g. 1 Applic TP PRN PRN Acetaminophen 500 Mg Tablet 500 Mg PO PRN Q8HRS PRN Furosemide 40 Mg Tablet 40 Mg PO PRN DAILY PRN Zoloft (Sertraline Hcl) 50 Mg Tablet 50 Mg PO DAILY Ranitidine Hcl 150 Mg Capsule 150 Mg PO HS Potassium Chloride 10 Meq Tablet.er 10 Meq PO DAILY Metoprolol Succinate ( Xl ) (Metoprolol Succinate) 50 Mg Tab.er.24h 50 Mg PO DAILY Namenda (Memantine Hcl) 10 Mg Tablet 10 Mg PO DAILY Hydrochlorothiazide Tablet (Hydrochlorothiazide) 12.5 Mg Tablet 12.5 Mg PO DAILY Cymbalta (Duloxetine Hcl) 20 Mg Capsule.dr 20 Mg PO DAILY 26 Days Donepezil Hcl 10 Mg Tablet 10 Mg PO DAILY Desitin (Zinc Oxide) 57 Gm Cream..g. 1 Appful TP BID Cetirizine Hcl 10 Mg Tablet 10 Mg PO DAILY Atorvastatin Calcium 20 Mg Tablet 20 Mg PO QHS Aspir-Low (Aspirin) 81 Mg Tablet.dr 81 Mg PO DAILY I have reviewed the current psychotropics carefully including drug interactions. Risk benefit ratio favors no change other than as noted in my dictated progress note. Diagnosis: Problems: (1) Anxiety disorder (2) Impulse control disorder (3) Dementia, vascular, with depression (4) Dementia, vascular, with delusions (5) Dementia with behavioral disturbance (6) Dementia in Alzheimer's disease with depression (7) Dementia in Alzheimer's disease with delusions LIANA MCKENZIE MD Feb 20, 2018 20:15
--- NOTE | 2018-02-20 22:35 | PN ---
DATE: 02/19/2018 This late entry of 02/19/2018 covers elements not covered in my initial note. SUBJECTIVE: I met with the patient in the evening. The patient remains confused, has some tremors that are quite impairing her from feeding herself and staff having to assist her. Appetite is poor. We will consult Dr. Young, Neurology, for this. REVIEW OF SYSTEMS: No CV, , pulmonary, eye system symptoms on review. Reliability poor. Gait unsteady, in wheelchair. MENTAL STATUS EXAM: Oriented to herself. Insight, judgment, recent and remote memory, attention, concentration, fund of knowledge poor, consistent with her diagnosis mentioned in my initial note. PLAN: Neurology consult as above. Start Seroquel 12.5 mg at 9:00 a.m. and at 1:00 p.m. Continue rest unchanged. MAN CarsonLevar MCKENZIE MD DR: REMINGTON/brad JOB#: [id number] / [id number]
[2018-02-21 05:34] VITALS: BP 126/76
[2018-02-21] MEDS: FUROSEMIDE 40 MG TABLET PO SCH (09:36)
[2018-02-21] MEDS: POTASSIUM CHLORIDE 10 MEQ TABLET.ER. PO SCH ×2 (09:36→19:30)
[2018-02-21] MEDS: ASPIRIN ENTERIC COATED 81 MG TABLET.DR. PO SCH (09:36)
[2018-02-21] MEDS: MEMANTINE 10 MG TABLET. PO SCH ×2 (09:36→19:29)
[2018-02-21] MEDS: METOPROLOL SUCC 24HR ER 50 MG TAB.ER.24H. PO SCH (09:36)
[2018-02-21] MEDS: ACETAMINOPHEN 500 MG TABLET PO SCH ×2 (09:37→19:31)
[2018-02-21] MEDS: QUEtiapine 25 MG TABLET. PO SCH (09:37)
[2018-02-21] MEDS: buPROPion XL 300 MG TAB.ER.24H. PO SCH (09:37)
[2018-02-21] MEDS: CETIRIZINE HCL 10 MG TABLET PO SCH (09:38)
[2018-02-21] MEDS: DONEPEZIL HCL 10 MG TABLET PO SCH (09:38)
[2018-02-21] MEDS: NYSTATIN TOPICAL POWDER 15GM BOTTLE. TP SCH ×2 (09:38→19:31)
[2018-02-21 16:04] VITALS: BP 129/86
[2018-02-21] MEDS: SERTRALINE 100 MG TABLET. PO SCH (16:52)
[2018-02-21] MEDS: ATORVASTATIN CALCIUM 20 MG TABLET PO SCH (19:29)
[2018-02-21] MEDS: FAMOTIDINE 20 MG TABLET PO SCH (19:30)
[2018-02-21] MEDS: PRIMIDONE 50 MG TABLET PO SCH (19:32)
--- NOTE | 2018-02-21 20:53 | PDOC ---
Exam Note: Kobe Note: Please also refer to the separate dictated note~for this date of service dictated separately.~Patient seen individually. Discussed the patient with Nursing staff reviewed the chart.~Reviewed interim history and current functioning. Reviewed vital signs,~Labs/ Radiology~and current medications noted below. Continue current treatment with the changes noted in the dictated addendum note Assessment: Vital Signs: Vital Signs Date Time Temp Pulse Resp B/P (MAP) Pulse Ox O2 Delivery O2 Flow Rate FiO2 02/21/18 16:04 97.8 84 16 129/86 (100) 94 Room Air I&O Intake and Output 02/21/18 06:59 Intake Total 360 ml Balance 360 ml Intake Oral 360 ml # Voids 1 Current Medications: Meds: Current Medications Potassium Chloride (Klor-Con) 40 meq 1X ONCE PO Last administered on at 10:13; Start 02/08/18 at 10:15; Stop 02/08/18 at 10:16; Status DC Acetaminophen (Tylenol) 650 mg PRN Q6HRS PRN PO PAIN / TEMP; Start 02/08/18 at 14:30; Status Cancel Multi-Ingredient Ointment (Analgesic [place]) 1 savanah PRN QID PRN TP MUSCLE PAIN; Start 02/08/18 at 14:30 Al Hydroxide/Mg Hydroxide (Mylanta Plus Xs) 15 ml PRN AFTMEALHC PRN PO DYSPEPSIA; Start 02/08/18 at 14:30 Magnesium Hydroxide (Milk Of Magnesia) 2,400 mg PRN QHS PRN PO CONSTIPATION; Start 02/08/18 at 14:30 Atorvastatin Calcium (Lipitor) 20 mg QHS PO Last administered on 02/21/18at 19: 29; Start 02/08/18 at 21:00 Sertraline HCl (Zoloft) 50 mg DAILY PO ; Start 02/09/18 at 09:00; Stop 02/09/18 at 09:00; Status DC Acetaminophen (Tylenol) 500 mg BID PO Last administered on 02/21/18at 19:31; Start 02/08/18 at 21:00 Acetaminophen (Tylenol) 500 mg PRN Q8HRS PRN PO PAIN / TEMP; Start 02/08/18 at 15:00 Aspirin (Aspirin Enteric Coated) 81 mg DAILY PO Last administered on 02/21/18at 09:36; Start 02/09/18 at 09:00 Cetirizine HCl (ZyrTEC) 10 mg DAILY PO Last administered on 02/21/18at 09:38; Start 02/09/18 at 09:00 Donepezil HCl (Aricept) 10 mg DAILY PO Last administered on 02/21/18at 09:38; Start 02/09/18 at 09:00 Duloxetine HCl (Cymbalta) 20 mg DAILY PO ; Start 02/09/18 at 09:00; Stop at 09:00; Status DC Furosemide (Lasix) 40 mg PRN DAILY PRN PO FOR EDEMA; Start 02/09/18 at 09:00; Stop 02/09/18 at 16:07; Status DC Hydrochlorothiazide (Microzide) 12.5 mg DAILY PO Last administered on at 07:50; Start 02/09/18 at 09:00; Stop 02/09/18 at 16:03; Status DC Memantine (Namenda) 10 mg DAILY PO Last administered on 02/12/18at 08:03; Start 02/09/18 at 09:00; Stop 02/12/18 at 18:40; Status DC Metoprolol Succinate (Toprol Xl) 50 mg DAILY PO Last administered on 02/21/18at 09:36; Start 02/09/18 at 09:00 Potassium Chloride (Klor-Con) 10 meq DAILY PO Last administered on 02/09/18at 07 :43; Start 02/09/18 at 09:00; Stop 02/09/18 at 16:07; Status DC Famotidine (Pepcid) 20 mg QHS PO Last administered on 02/21/18at 19:30; Start at 21:00 Zinc Oxide (Desitin Diaper Rash 40%) 1 savanah BID TP Last administered on 19:48; Start 02/08/18 at 21:00; Stop 02/10/18 at 07:47; Status DC Non-Formulary Medication (Zinc Oxide (Desitin)) 1 applic PRN PRN TP irritation; Start 02/08/18 at 15:00; Status UNV Sertraline HCl (Zoloft) 75 mg DAILY PO Last administered on 02/12/18at 08:03; Start 02/09/18 at 09:00; Stop 02/12/18 at 18:40; Status DC Trazodone HCl (Desyrel) 25 mg PRN QHS PRN PO INSOMNIA, MAY REPEAT X2 Last administered on 02/17/18at 20:49; Start 02/08/18 at 19:30 Potassium Chloride (Klor-Con) 40 meq 1X ONCE PO Last administered on at 17:50; Start 02/09/18 at 16:30; Stop 02/09/18 at 16:31; Status DC Furosemide (Lasix) 40 mg DAILY PO Last administered on 02/21/18at 09:36; Start 02/10/18 at 09:00 Potassium Chloride (Klor-Con) 20 meq BID PO Last administered on 02/21/18at 19: 30; Start 02/09/18 at 21:00 Nystatin (Nystop) 1 savanah BID TP Last administered on 02/21/18at 19:31; Start at 09:00 Sertraline HCl (Zoloft) 100 mg DAILY PO ; Start 02/14/18 at 09:00; Stop at 09:00; Status DC Memantine (Namenda) 10 mg HS PO Last administered on 02/21/18at 19:29; Start at 21:00 Sertraline HCl (Zoloft) 100 mg DAILY10 PO Last administered on 02/16/18at 07:14 ; Start 02/14/18 at 10:00; Stop 02/16/18 at 07:16; Status DC Sertraline HCl (Zoloft) 75 mg DAILY10 PO Last administered on 02/13/18at 10:58; Start 02/13/18 at 10:00; Stop 02/13/18 at 11:00; Status DC Memantine (Namenda) 5 mg DAILY PO Last administered on 02/18/18at 08:45; Start 02/13/18 at 09:00; Stop 02/18/18 at 18:43; Status DC Bupropion HCl (Wellbutrin Xl) 150 mg DAILY PO Last administered on 02/18/18at 08 :44; Start 02/15/18 at 09:00; Stop 02/18/18 at 18:43; Status DC Sertraline HCl (Zoloft) 100 mg DAILY PO ; Start 02/17/18 at 09:00; Stop at 09:00; Status DC Sertraline HCl (Zoloft) 100 mg DAILY PO Last administered on 02/18/18at 08:45; Start 02/17/18 at 09:00; Stop 02/18/18 at 18:43; Status DC Sertraline HCl (Zoloft) 25 mg DAILY PO Last administered on 02/18/18at 08:45; Start 02/17/18 at 09:00; Stop 02/18/18 at 18:43; Status DC Bupropion HCl (Wellbutrin Xl) 300 mg DAILY PO Last administered on 02/21/18at 09 :37; Start 02/19/18 at 09:00 Memantine (Namenda) 10 mg DAILY PO Last administered on 02/21/18at 09:36; Start 02/19/18 at 09:00 Sertraline HCl (Zoloft) 100 mg DAILYWSUP PO ; Start 02/19/18 at 17:00; Stop at 17:00; Status DC Sertraline HCl (Zoloft) 100 mg DAILYWSUP PO Last administered on 02/21/18at 16: 52; Start 02/19/18 at 17:00; Stop 02/21/18 at 18:33; Status DC Quetiapine Fumarate (SEROquel) 12.5 mg BID PO Last administered on 02/21/18at 09 :37; Start 02/19/18 at 21:00; Stop 02/21/18 at 18:33; Status DC Quetiapine Fumarate (SEROquel) 12.5 mg QHS PO Last administered on 02/21/18at 19 :29; Start 02/21/18 at 21:00 Sertraline HCl (Zoloft) 50 mg DAILYWSUP PO ; Start 02/22/18 at 17:00 Primidone (Mysoline) 25 mg QHS PO Last administered on 02/21/18at 19:32; Start 02/21/18 at 21:00 Active Scripts Active Reported Acetaminophen 500 Mg Tablet 500 Mg PO BID Desitin (Zinc Oxide) 57 Gm Cream..g. 1 Applic TP PRN PRN Acetaminophen 500 Mg Tablet 500 Mg PO PRN Q8HRS PRN Furosemide 40 Mg Tablet 40 Mg PO PRN DAILY PRN Zoloft (Sertraline Hcl) 50 Mg Tablet 50 Mg PO DAILY Ranitidine Hcl 150 Mg Capsule 150 Mg PO HS Potassium Chloride 10 Meq Tablet.er 10 Meq PO DAILY Metoprolol Succinate ( Xl ) (Metoprolol Succinate) 50 Mg Tab.er.24h 50 Mg PO DAILY Namenda (Memantine Hcl) 10 Mg Tablet 10 Mg PO DAILY Hydrochlorothiazide Tablet (Hydrochlorothiazide) 12.5 Mg Tablet 12.5 Mg PO DAILY Cymbalta (Duloxetine Hcl) 20 Mg Capsule.dr 20 Mg PO DAILY 26 Days Donepezil Hcl 10 Mg Tablet 10 Mg PO DAILY Desitin (Zinc Oxide) 57 Gm Cream..g. 1 Appful TP BID Cetirizine Hcl 10 Mg Tablet 10 Mg PO DAILY Atorvastatin Calcium 20 Mg Tablet 20 Mg PO QHS Aspir-Low (Aspirin) 81 Mg Tablet.dr 81 Mg PO DAILY I have reviewed the current psychotropics carefully including drug interactions. Risk benefit ratio favors no change other than as noted in my dictated progress note. Diagnosis: Problems: (1) Anxiety disorder (2) Impulse control disorder (3) Dementia, vascular, with depression (4) Dementia, vascular, with delusions (5) Dementia with behavioral disturbance (6) Dementia in Alzheimer's disease with depression (7) Dementia in Alzheimer's disease with delusions LIANA MCKENZIE MD Feb 21, 2018 20:53
[2018-02-21] MEDS ORDERED: QUEtiapine 25 MG TABLET. PO SCH (21:00)
[2018-02-22 05:54] VITALS: BP 122/69
[2018-02-22] MEDS: ACETAMINOPHEN 500 MG TABLET PO SCH ×2 (08:52→19:11)
[2018-02-22] MEDS: MEMANTINE 10 MG TABLET. PO SCH ×2 (08:53→19:11)
[2018-02-22] MEDS: METOPROLOL SUCC 24HR ER 50 MG TAB.ER.24H. PO SCH (08:53)
[2018-02-22] MEDS: ASPIRIN ENTERIC COATED 81 MG TABLET.DR. PO SCH (08:53)
[2018-02-22] MEDS: FUROSEMIDE 40 MG TABLET PO SCH (08:53)
[2018-02-22] MEDS: buPROPion XL 300 MG TAB.ER.24H. PO SCH (08:53)
[2018-02-22] MEDS: DONEPEZIL HCL 10 MG TABLET PO SCH (08:53)
[2018-02-22] MEDS: CETIRIZINE HCL 10 MG TABLET PO SCH (08:53)
[2018-02-22] MEDS: POTASSIUM CHLORIDE 10 MEQ TABLET.ER. PO SCH ×2 (08:54→19:11)
[2018-02-22] MEDS: NYSTATIN TOPICAL POWDER 15GM BOTTLE. TP SCH (09:00)
--- NOTE | 2018-02-22 14:26 | PN ---
DATE: 02/20/2018 SUBJECTIVE: The patient continues to have a mild resting, but more postural and kinetic tremors, more prominent when she uses her upper extremity during feeding herself. She denies any new neurological complaints. OBJECTIVE: GENERAL: Well-developed, well-nourished white female, not in acute distress. VITAL SIGNS: Blood pressure 136/88, respiratory rate 16, pulse is 79, temperature 98, oxygen saturation 93% on room air. HEENT: Normocephalic, atraumatic, otherwise unremarkable. NECK: Supple. Negative for carotid bruit, lymphadenopathy or thyromegaly. LUNGS: Clear to A and P. CARDIOVASCULAR: Regular rhythm, normal S1, S2. ABDOMEN: Soft. Bowel sounds positive. EXTREMITIES: Negative for cyanosis, clubbing, or pitting edema. NEUROLOGICAL EXAM: Mental Status: The patient is alert to herself. She is disoriented to time and place. Speech is fluent. There is no language dysfunction. Memory, judgment, and abstract thinking are fair. The patient denies hallucination or delusion. Cranial nerves are grossly intact. Motor Examination: No focal muscle bulk was seen. The tone is normal. The strength is 4/5 throughout. The patient continues to have postural and kinetic tremors of the upper extremities, more prominent on the right side. Sensory examination: Normal pinprick and light touch senses throughout. Deep tendon reflexes were symmetric and hypoactive with absent Achilles responses. Gait: The patient is confined to wheelchair and unable to stand and walk. IMPRESSION: 1. Postural and kinetic tremors of the upper extremity, more prominent on the right side, probably multifactorial; however, anxiety may aggravate the symptoms. 2. Multiple psychiatric problems including anxiety disorders, depressions, dementia, and intermittent violent behavior disturbances. 3. Multiple medical problems include hypertension, hyperlipidemia and GERD. RECOMMENDATIONS: 1. If the patient continues to have tremor, we will start the patient on primidone at 25 mg at bedtime and increase it gradually as needed. 2. We will continue with current medical and psychiatric care. M Candelaria DEAN MD DR: BELEM/brad JOB#: [id number] / [id number]
[2018-02-22 15:56] VITALS: BP 120/60
[2018-02-22] MEDS: SERTRALINE 50 MG TABLET. PO SCH (18:00)
[2018-02-22] MEDS: ATORVASTATIN CALCIUM 20 MG TABLET PO SCH (19:11)
[2018-02-22] MEDS: FAMOTIDINE 20 MG TABLET PO SCH (19:11)
[2018-02-22] MEDS: PRIMIDONE 50 MG TABLET PO SCH (19:12)
--- NOTE | 2018-02-22 20:00 | PDOC ---
Exam Note: Kobe Note: Please also refer to the separate dictated note~for this date of service dictated separately.~Patient seen individually. Discussed the patient with Nursing staff reviewed the chart.~Reviewed interim history and current functioning. Reviewed vital signs,~Labs/ Radiology~and current medications noted below. Continue current treatment with the changes noted in the dictated addendum note Assessment: Vital Signs: Vital Signs Date Time Temp Pulse Resp B/P (MAP) Pulse Ox O2 Delivery O2 Flow Rate FiO2 02/22/18 15:56 97.8 90 16 120/60 (80) 93 02/21/18 16:04 Room Air I&O Intake and Output 02/22/18 06:59 Intake Total 85 ml Balance 85 ml Intake Oral 85 ml Current Medications: Meds: Current Medications Potassium Chloride (Klor-Con) 40 meq 1X ONCE PO Last administered on at 10:13; Start 02/08/18 at 10:15; Stop 02/08/18 at 10:16; Status DC Acetaminophen (Tylenol) 650 mg PRN Q6HRS PRN PO PAIN / TEMP; Start 02/08/18 at 14:30; Status Cancel Multi-Ingredient Ointment (Analgesic [place]) 1 savanah PRN QID PRN TP MUSCLE PAIN; Start 02/08/18 at 14:30 Al Hydroxide/Mg Hydroxide (Mylanta Plus Xs) 15 ml PRN AFTMEALHC PRN PO DYSPEPSIA; Start 02/08/18 at 14:30 Magnesium Hydroxide (Milk Of Magnesia) 2,400 mg PRN QHS PRN PO CONSTIPATION; Start 02/08/18 at 14:30 Atorvastatin Calcium (Lipitor) 20 mg QHS PO Last administered on 02/22/18at 19: 11; Start 02/08/18 at 21:00 Sertraline HCl (Zoloft) 50 mg DAILY PO ; Start 02/09/18 at 09:00; Stop 02/09/18 at 09:00; Status DC Acetaminophen (Tylenol) 500 mg BID PO Last administered on 02/22/18at 19:11; Start 02/08/18 at 21:00 Acetaminophen (Tylenol) 500 mg PRN Q8HRS PRN PO PAIN / TEMP; Start 02/08/18 at 15:00 Aspirin (Aspirin Enteric Coated) 81 mg DAILY PO Last administered on 6/29/18at 08:53; Start 02/09/18 at 09:00 Cetirizine HCl (ZyrTEC) 10 mg DAILY PO Last administered on 02/22/18 08:53; Start 02/09/18 at 09:00 Donepezil HCl (Aricept) 10 mg DAILY PO Last administered on 02/22/18 08:53; Start 02/09/18 at 09:00 Duloxetine HCl (Cymbalta) 20 mg DAILY PO ; Start 02/09/18 at 09:00; Stop at 09:00; Status DC Furosemide (Lasix) 40 mg PRN DAILY PRN PO FOR EDEMA; Start 02/09/18 at 09:00; Stop 02/09/18 at 16:07; Status DC Hydrochlorothiazide (Microzide) 12.5 mg DAILY PO Last administered on at 07:50; Start 02/09/18 at 09:00; Stop 02/09/18 at 16:03; Status DC Memantine (Namenda) 10 mg DAILY PO Last administered on 02/12/18at 08:03; Start 02/09/18 at 09:00; Stop 02/12/18 at 18:40; Status DC Metoprolol Succinate (Toprol Xl) 50 mg DAILY PO Last administered on 02/22/18 08:53; Start 02/09/18 at 09:00 Potassium Chloride (Klor-Con) 10 meq DAILY PO Last administered on 02/09/18at 07 :43; Start 02/09/18 at 09:00; Stop 02/09/18 at 16:07; Status DC Famotidine (Pepcid) 20 mg QHS PO Last administered on 02/22/18 19:11; Start at 21:00 Zinc Oxide (Desitin Diaper Rash 40%) 1 savanah BID TP Last administered on 19:48; Start 02/08/18 at 21:00; Stop 02/10/18 at 07:47; Status DC Non-Formulary Medication (Zinc Oxide (Desitin)) 1 applic PRN PRN TP irritation; Start 02/08/18 at 15:00; Status UNV Sertraline HCl (Zoloft) 75 mg DAILY PO Last administered on 02/12/18at 08:03; Start 02/09/18 at 09:00; Stop 02/12/18 at 18:40; Status DC Trazodone HCl (Desyrel) 25 mg PRN QHS PRN PO INSOMNIA, MAY REPEAT X2 Last administered on 02/17/18at 20:49; Start 02/08/18 at 19:30 Potassium Chloride (Klor-Con) 40 meq 1X ONCE PO Last administered on at 17:50; Start 02/09/18 at 16:30; Stop 02/09/18 at 16:31; Status DC Furosemide (Lasix) 40 mg DAILY PO Last administered on 02/22/18at 08:53; Start 02/10/18 at 09:00 Potassium Chloride (Klor-Con) 20 meq BID PO Last administered on 02/22/18at 19: 11; Start 02/09/18 at 21:00 Nystatin (Nystop) 1 savanah BID TP Last administered on 02/22/18at 09:00; Start at 09:00 Sertraline HCl (Zoloft) 100 mg DAILY PO ; Start 02/14/18 at 09:00; Stop at 09:00; Status DC Memantine (Namenda) 10 mg HS PO Last administered on 02/22/18at 19:11; Start at 21:00 Sertraline HCl (Zoloft) 100 mg DAILY10 PO Last administered on 02/16/18at 07:14 ; Start 02/14/18 at 10:00; Stop 02/16/18 at 07:16; Status DC Sertraline HCl (Zoloft) 75 mg DAILY10 PO Last administered on 02/13/18at 10:58; Start 02/13/18 at 10:00; Stop 02/13/18 at 11:00; Status DC Memantine (Namenda) 5 mg DAILY PO Last administered on 02/18/18at 08:45; Start 02/13/18 at 09:00; Stop 02/18/18 at 18:43; Status DC Bupropion HCl (Wellbutrin Xl) 150 mg DAILY PO Last administered on 02/18/18at 08 :44; Start 02/15/18 at 09:00; Stop 02/18/18 at 18:43; Status DC Sertraline HCl (Zoloft) 100 mg DAILY PO ; Start 02/17/18 at 09:00; Stop at 09:00; Status DC Sertraline HCl (Zoloft) 100 mg DAILY PO Last administered on 02/18/18at 08:45; Start 02/17/18 at 09:00; Stop 02/18/18 at 18:43; Status DC Sertraline HCl (Zoloft) 25 mg DAILY PO Last administered on 02/18/18at 08:45; Start 02/17/18 at 09:00; Stop 02/18/18 at 18:43; Status DC Bupropion HCl (Wellbutrin Xl) 300 mg DAILY PO Last administered on 02/22/18at 08 :53; Start 02/19/18 at 09:00 Memantine (Namenda) 10 mg DAILY PO Last administered on 02/22/18at 08:53; Start 02/19/18 at 09:00 Sertraline HCl (Zoloft) 100 mg DAILYWSUP PO ; Start 02/19/18 at 17:00; Stop at 17:00; Status DC Sertraline HCl (Zoloft) 100 mg DAILYWSUP PO Last administered on 02/21/18at 16: 52; Start 02/19/18 at 17:00; Stop 02/21/18 at 18:33; Status DC Quetiapine Fumarate (SEROquel) 12.5 mg BID PO Last administered on 02/21/18at 09 :37; Start 02/19/18 at 21:00; Stop 02/21/18 at 18:33; Status DC Quetiapine Fumarate (SEROquel) 12.5 mg QHS PO Last administered on 02/21/18at 19 :29; Start 02/21/18 at 21:00; Stop 02/22/18 at 18:23; Status DC Sertraline HCl (Zoloft) 50 mg DAILYWSUP PO Last administered on 02/22/18at 18:00 ; Start 02/22/18 at 17:00 Primidone (Mysoline) 25 mg QHS PO Last administered on 02/22/18at 19:12; Start 02/21/18 at 21:00 Quetiapine Fumarate (SEROquel) 12.5 mg DAILY@1700 PO ; Start 02/23/18 at 17:00 Active Scripts Active Reported Acetaminophen 500 Mg Tablet 500 Mg PO BID Desitin (Zinc Oxide) 57 Gm Cream..g. 1 Applic TP PRN PRN Acetaminophen 500 Mg Tablet 500 Mg PO PRN Q8HRS PRN Furosemide 40 Mg Tablet 40 Mg PO PRN DAILY PRN Zoloft (Sertraline Hcl) 50 Mg Tablet 50 Mg PO DAILY Ranitidine Hcl 150 Mg Capsule 150 Mg PO HS Potassium Chloride 10 Meq Tablet.er 10 Meq PO DAILY Metoprolol Succinate ( Xl ) (Metoprolol Succinate) 50 Mg Tab.er.24h 50 Mg PO DAILY Namenda (Memantine Hcl) 10 Mg Tablet 10 Mg PO DAILY Hydrochlorothiazide Tablet (Hydrochlorothiazide) 12.5 Mg Tablet 12.5 Mg PO DAILY Cymbalta (Duloxetine Hcl) 20 Mg Capsule.dr 20 Mg PO DAILY 26 Days Donepezil Hcl 10 Mg Tablet 10 Mg PO DAILY Desitin (Zinc Oxide) 57 Gm Cream..g. 1 Appful TP BID Cetirizine Hcl 10 Mg Tablet 10 Mg PO DAILY Atorvastatin Calcium 20 Mg Tablet 20 Mg PO QHS Aspir-Low (Aspirin) 81 Mg Tablet.dr 81 Mg PO DAILY I have reviewed the current psychotropics carefully including drug interactions. Risk benefit ratio favors no change other than as noted in my dictated progress note. Diagnosis: Problems: (1) Anxiety disorder (2) Impulse control disorder (3) Dementia, vascular, with depression (4) Dementia, vascular, with delusions (5) Dementia with behavioral disturbance (6) Dementia in Alzheimer's disease with depression (7) Dementia in Alzheimer's disease with delusions LIANA MCKENZIE MD Feb 22, 2018 20:00
--- NOTE | 2018-02-23 00:04 | PN ---
DATE: 02/21/2018 PSYCHIATRIC PROGRESS NOTE This is a late entry 02/21/2018, covers elements not covered in my initial note. SUBJECTIVE: I met with the patient in the evening, staffed at treatment team meeting with the entire team in the morning and the patient's daughter, Luis Antonio attended this conference. Reviewed the patient's history, diagnoses, progress, attempts to encourage the patient to do things for herself including ambulation and feeding herself. She is withdrawn, sort of slumped in the chair, slept 7 hours. Appetite 25%, resistive to cares. REVIEW OF SYSTEMS: Ambulation impaired, in wheelchair. No CV, , pulmonary, eye, ENT system symptoms on review. MENTAL STATUS EXAM: Oriented to herself. Insight, judgment, recent and remote memory, attention, concentration, fund of knowledge poor, consistent with her diagnoses from initial note. PLAN: Discontinue the 12.5 mg Seroquel at 0900. Reduce the Zoloft from 100 mg a day down to 50 mg a day. Maintain Namenda 10 b.i.d., Aricept 10 mg a day, Wellbutrin-XL 300 mg a day. Continue rest unchanged from initial note. LIANA MCKENZIE MD DR: REMINGTON/brad JOB#: [id number] / [id number]
[2018-02-23] MEDS: NYSTATIN TOPICAL POWDER 15GM BOTTLE. TP SCH ×3 (04:30→20:10)
[2018-02-23 05:57] VITALS: BP 139/77
[2018-02-23 07:42] LABS: BASO # 0.1 x10^3/uL (0.0-0.2); BASO % 1 % (0-3); EOS % 0 % (0-3); HEMATOCRIT 47.2 % (36.0-47.0); HEMOGLOBIN 15.6 g/dL (12.0-15.5); LYMPH # 1.1 x10^3/uL (1.0-4.8); LYMPH % 8 % (24-48); MEAN CORPUSCULAR HEMOGLOBIN 31 pg (25-35); MEAN CORPUSCULAR HGB CONC 33 g/dL (31-37); MEAN CORPUSCULAR VOLUME 93 fL (79-100); MONO # 0.9 x10^3/uL (0.0-1.1); MONO % 6 % (0-9); NEUT # 11.6 x10^3uL (1.8-7.7); NEUT % 85 % (31-73); PLATELET COUNT 245 x10^3/uL (140-400); RED BLOOD COUNT 5.09 x10^6/uL (3.50-5.40); RED CELL DISTRIBUTION WIDTH 13.5 % (11.5-14.5); WHITE BLOOD COUNT 13.7 x10^3/uL (4.0-11.0)
[2018-02-23] MEDS: DONEPEZIL HCL 10 MG TABLET PO SCH (07:49)
[2018-02-23] MEDS: ASPIRIN ENTERIC COATED 81 MG TABLET.DR. PO SCH (07:49)
[2018-02-23] MEDS: ACETAMINOPHEN 500 MG TABLET PO SCH ×2 (07:49→20:08)
[2018-02-23] MEDS: POTASSIUM CHLORIDE 10 MEQ TABLET.ER. PO SCH (07:49)
[2018-02-23] MEDS: buPROPion XL 300 MG TAB.ER.24H. PO SCH (07:50)
[2018-02-23] MEDS: METOPROLOL SUCC 24HR ER 50 MG TAB.ER.24H. PO SCH (07:50)
[2018-02-23] MEDS: CETIRIZINE HCL 10 MG TABLET PO SCH (07:50)
[2018-02-23] MEDS: MEMANTINE 10 MG TABLET. PO SCH ×2 (07:50→20:08)
[2018-02-23] MEDS: FUROSEMIDE 40 MG TABLET PO SCH (07:50)
[2018-02-23 08:21] LABS: ALBUMIN 3.6 g/dL (3.4-5.0); ALBUMIN/GLOBULIN RATIO 0.8 (1.0-1.7); CREATININE 1.2 mg/dL (0.6-1.0); GFR 43.7; POTASSIUM 3.8 mmol/L (3.5-5.1); TOTAL BILIRUBIN 0.4 mg/dL (0.2-1.0); TOTAL PROTEIN 8.1 g/dL (6.4-8.2)
[2018-02-23 16:17] VITALS: BP 134/99
--- NOTE | 2018-02-23 16:25 | PN ---
DATE: 02/20/2018 PSYCHIATRIC PROGRESS NOTE This is a late entry 02/20/2018 covers elements not covered in my initial note. SUBJECTIVE: I met with the patient in the evening of 02/20/2018. The patient slept 7-1/2 hours, refused physical therapy, has to be forced to eat. Appetite is poor. REVIEW OF SYSTEMS: Ambulation impaired, in wheelchair, somewhat withdrawn, but anxiety and tremors are better since Seroquel was started. No CV, , pulmonary, eye system symptoms on review. Reliability poor. MENTAL STATUS EXAM: Oriented to herself. Insight, judgment, recent and remote memory, attention, concentration, fund of knowledge poor, consistent with her diagnosis mentioned in my initial note. She is in a wheelchair. PLAN: Continue psychotropics from my initial note. MAN Tracie MCKENZIE MD DR: REMINGTON/brad JOB#: [id number] / [id number]
[2018-02-23] MEDS: QUEtiapine 25 MG TABLET. PO SCH (18:35)
[2018-02-23] MEDS: SERTRALINE 50 MG TABLET. PO SCH (18:35)
[2018-02-23] MEDS: ATORVASTATIN CALCIUM 20 MG TABLET PO SCH (20:07)
[2018-02-23] MEDS: FAMOTIDINE 20 MG TABLET PO SCH (20:07)
[2018-02-23] MEDS: PRIMIDONE 50 MG TABLET PO SCH (20:08)
--- NOTE | 2018-02-23 22:28 | PDOC ---
Exam Note: Kobe Note: Please also refer to the separate dictated note~for this date of service dictated separately.~Patient seen individually. Discussed the patient with Nursing staff reviewed the chart.~Reviewed interim history and current functioning. Reviewed vital signs,~Labs/ Radiology~and current medications noted below. Continue current treatment with the changes noted in the dictated addendum note Assessment: Vital Signs: Vital Signs Date Time Temp Pulse Resp B/P (MAP) Pulse Ox O2 Delivery O2 Flow Rate FiO2 02/23/18 16:17 98.2 83 20 134/99 (111) 93 02/21/18 16:04 Room Air I&O Intake and Output 02/23/18 06:59 Intake Total 150 ml Balance 150 ml Intake Oral 150 ml Labs: Laboratory Tests Test 02/23/18 07:14 White Blood Count 13.7 x10^3/uL (4.0-11.0) H Red Blood Count 5.09 x10^6/uL (3.50-5.40) Hemoglobin 15.6 g/dL (12.0-15.5) H Hematocrit 47.2 % (36.0-47.0) H Mean Corpuscular Volume 93 fL (79-100) Mean Corpuscular Hemoglobin 31 pg (25-35) Mean Corpuscular Hemoglobin Concent 33 g/dL (31-37) Red Cell Distribution Width 13.5 % (11.5-14.5) Platelet Count 245 x10^3/uL (140-400) Neutrophils (%) (Auto) 85 % (31-73) H Lymphocytes (%) (Auto) 8 % (24-48) L Monocytes (%) (Auto) 6 % (0-9) Eosinophils (%) (Auto) 0 % (0-3) Basophils (%) (Auto) 1 % (0-3) Neutrophils # (Auto) 11.6 x10^3uL (1.8-7.7) H Lymphocytes # (Auto) 1.1 x10^3/uL (1.0-4.8) Monocytes # (Auto) 0.9 x10^3/uL (0.0-1.1) Eosinophils # (Auto) 0.0 x10^3/uL (0.0-0.7) Basophils # (Auto) 0.1 x10^3/uL (0.0-0.2) Sodium Level 150 mmol/L (136-145) H Potassium Level 3.8 mmol/L (3.5-5.1) Chloride Level 112 mmol/L (98-107) H Carbon Dioxide Level 29 mmol/L (21-32) Anion Gap 9 (6-14) Blood Urea Nitrogen 37 mg/dL (7-20) H Creatinine 1.2 mg/dL (0.6-1.0) H Estimated GFR (Cockcroft-Gault) 43.7 BUN/Creatinine Ratio 31 (6-20) H Glucose Level 107 mg/dL (70-99) H Calcium Level 10.0 mg/dL (8.5-10.1) Total Bilirubin 0.4 mg/dL (0.2-1.0) Aspartate Amino Transferase (AST) 19 U/L (15-37) Alanine Aminotransferase (ALT) 27 U/L (14-59) Alkaline Phosphatase 158 U/L (46-116) H Total Protein 8.1 g/dL (6.4-8.2) Albumin 3.6 g/dL (3.4-5.0) Albumin/Globulin Ratio 0.8 (1.0-1.7) L Current Medications: Meds: Current Medications Potassium Chloride (Klor-Con) 40 meq 1X ONCE PO Last administered on at 10:13; Start 02/08/18 at 10:15; Stop 02/08/18 at 10:16; Status DC Acetaminophen (Tylenol) 650 mg PRN Q6HRS PRN PO PAIN / TEMP; Start 02/08/18 at 14:30; Status Cancel Multi-Ingredient Ointment (Analgesic [place]) 1 savanah PRN QID PRN TP MUSCLE PAIN; Start 02/08/18 at 14:30 Al Hydroxide/Mg Hydroxide (Mylanta Plus Xs) 15 ml PRN AFTMEALHC PRN PO DYSPEPSIA; Start 02/08/18 at 14:30 Magnesium Hydroxide (Milk Of Magnesia) 2,400 mg PRN QHS PRN PO CONSTIPATION; Start 02/08/18 at 14:30 Atorvastatin Calcium (Lipitor) 20 mg QHS PO Last administered on 02/23/18at 20: 07; Start 02/08/18 at 21:00 Sertraline HCl (Zoloft) 50 mg DAILY PO ; Start 02/09/18 at 09:00; Stop 02/09/18 at 09:00; Status DC Acetaminophen (Tylenol) 500 mg BID PO Last administered on 02/23/18at 20:08; Start 02/08/18 at 21:00 Acetaminophen (Tylenol) 500 mg PRN Q8HRS PRN PO PAIN / TEMP; Start 02/08/18 at 15:00 Aspirin (Aspirin Enteric Coated) 81 mg DAILY PO Last administered on 02/23/18at 07:49; Start 02/09/18 at 09:00 Cetirizine HCl (ZyrTEC) 10 mg DAILY PO Last administered on 02/23/18at 07:50; Start 02/09/18 at 09:00 Donepezil HCl (Aricept) 10 mg DAILY PO Last administered on 02/23/18 07:49; Start 02/09/18 at 09:00 Duloxetine HCl (Cymbalta) 20 mg DAILY PO ; Start 02/09/18 at 09:00; Stop at 09:00; Status DC Furosemide (Lasix) 40 mg PRN DAILY PRN PO FOR EDEMA; Start 02/09/18 at 09:00; Stop 02/09/18 at 16:07; Status DC Hydrochlorothiazide (Microzide) 12.5 mg DAILY PO Last administered on at 07:50; Start 02/09/18 at 09:00; Stop 02/09/18 at 16:03; Status DC Memantine (Namenda) 10 mg DAILY PO Last administered on 02/12/18at 08:03; Start 02/09/18 at 09:00; Stop 02/12/18 at 18:40; Status DC Metoprolol Succinate (Toprol Xl) 50 mg DAILY PO Last administered on 02/23/18at 07:50; Start 02/09/18 at 09:00 Potassium Chloride (Klor-Con) 10 meq DAILY PO Last administered on 02/09/18at 07 :43; Start 02/09/18 at 09:00; Stop 02/09/18 at 16:07; Status DC Famotidine (Pepcid) 20 mg QHS PO Last administered on 02/23/18at 20:07; Start at 21:00 Zinc Oxide (Desitin Diaper Rash 40%) 1 savanah BID TP Last administered on at 19:48; Start 02/08/18 at 21:00; Stop 02/10/18 at 07:47; Status DC Non-Formulary Medication (Zinc Oxide (Desitin)) 1 applic PRN PRN TP irritation; Start 02/08/18 at 15:00; Status UNV Sertraline HCl (Zoloft) 75 mg DAILY PO Last administered on 02/12/18at 08:03; Start 02/09/18 at 09:00; Stop 02/12/18 at 18:40; Status DC Trazodone HCl (Desyrel) 25 mg PRN QHS PRN PO INSOMNIA, MAY REPEAT X2 Last administered on 02/17/18at 20:49; Start 02/08/18 at 19:30 Potassium Chloride (Klor-Con) 40 meq 1X ONCE PO Last administered on at 17:50; Start 02/09/18 at 16:30; Stop 02/09/18 at 16:31; Status DC Furosemide (Lasix) 40 mg DAILY PO Last administered on 02/23/18at 07:50; Start 02/10/18 at 09:00; Stop 02/23/18 at 13:24; Status DC Potassium Chloride (Klor-Con) 20 meq BID PO Last administered on 02/23/18at 07: 49; Start 02/09/18 at 21:00; Stop 02/23/18 at 13:24; Status DC Nystatin (Nystop) 1 savanah BID TP Last administered on 02/23/18at 20:10; Start at 09:00 Sertraline HCl (Zoloft) 100 mg DAILY PO ; Start 02/14/18 at 09:00; Stop at 09:00; Status DC Memantine (Namenda) 10 mg HS PO Last administered on 02/23/18at 20:08; Start at 21:00 Sertraline HCl (Zoloft) 100 mg DAILY10 PO Last administered on 02/16/18at 07:14 ; Start 02/14/18 at 10:00; Stop 02/16/18 at 07:16; Status DC Sertraline HCl (Zoloft) 75 mg DAILY10 PO Last administered on 02/13/18at 10:58; Start 02/13/18 at 10:00; Stop 02/13/18 at 11:00; Status DC Memantine (Namenda) 5 mg DAILY PO Last administered on 02/18/18at 08:45; Start 02/13/18 at 09:00; Stop 02/18/18 at 18:43; Status DC Bupropion HCl (Wellbutrin Xl) 150 mg DAILY PO Last administered on 02/18/18at 08 :44; Start 02/15/18 at 09:00; Stop 02/18/18 at 18:43; Status DC Sertraline HCl (Zoloft) 100 mg DAILY PO ; Start 02/17/18 at 09:00; Stop at 09:00; Status DC Sertraline HCl (Zoloft) 100 mg DAILY PO Last administered on 02/18/18at 08:45; Start 02/17/18 at 09:00; Stop 02/18/18 at 18:43; Status DC Sertraline HCl (Zoloft) 25 mg DAILY PO Last administered on 02/18/18at 08:45; Start 02/17/18 at 09:00; Stop 02/18/18 at 18:43; Status DC Bupropion HCl (Wellbutrin Xl) 300 mg DAILY PO Last administered on 02/23/18at 07 :50; Start 02/19/18 at 09:00 Memantine (Namenda) 10 mg DAILY PO Last administered on 02/23/18at 07:50; Start 02/19/18 at 09:00 Sertraline HCl (Zoloft) 100 mg DAILYWSUP PO ; Start 02/19/18 at 17:00; Stop at 17:00; Status DC Sertraline HCl (Zoloft) 100 mg DAILYWSUP PO Last administered on 02/21/18at 16: 52; Start 02/19/18 at 17:00; Stop 02/21/18 at 18:33; Status DC Quetiapine Fumarate (SEROquel) 12.5 mg BID PO Last administered on 02/21/18at 09 :37; Start 02/19/18 at 21:00; Stop 02/21/18 at 18:33; Status DC Quetiapine Fumarate (SEROquel) 12.5 mg QHS PO Last administered on 02/21/18at 19 :29; Start 02/21/18 at 21:00; Stop 02/22/18 at 18:23; Status DC Sertraline HCl (Zoloft) 50 mg DAILYWSUP PO Last administered on 02/23/18at 18:35 ; Start 02/22/18 at 17:00 Primidone (Mysoline) 25 mg QHS PO Last administered on 02/23/18at 20:08; Start 02/21/18 at 21:00 Quetiapine Fumarate (SEROquel) 12.5 mg DAILY@1700 PO Last administered on at 18:35; Start 02/23/18 at 17:00 Megestrol Acetate (Megace) 40 mg TIDAC PO ; Start 02/24/18 at 07:30 Active Scripts Active Reported Acetaminophen 500 Mg Tablet 500 Mg PO BID Desitin (Zinc Oxide) 57 Gm Cream..g. 1 Applic TP PRN PRN Acetaminophen 500 Mg Tablet 500 Mg PO PRN Q8HRS PRN Furosemide 40 Mg Tablet 40 Mg PO PRN DAILY PRN Zoloft (Sertraline Hcl) 50 Mg Tablet 50 Mg PO DAILY Ranitidine Hcl 150 Mg Capsule 150 Mg PO HS Potassium Chloride 10 Meq Tablet.er 10 Meq PO DAILY Metoprolol Succinate ( Xl ) (Metoprolol Succinate) 50 Mg Tab.er.24h 50 Mg PO DAILY Namenda (Memantine Hcl) 10 Mg Tablet 10 Mg PO DAILY Hydrochlorothiazide Tablet (Hydrochlorothiazide) 12.5 Mg Tablet 12.5 Mg PO DAILY Cymbalta (Duloxetine Hcl) 20 Mg Capsule. 20 Mg PO DAILY 26 Days Donepezil Hcl 10 Mg Tablet 10 Mg PO DAILY Desitin (Zinc Oxide) 57 Gm Cream..g. 1 Appful TP BID Cetirizine Hcl 10 Mg Tablet 10 Mg PO DAILY Atorvastatin Calcium 20 Mg Tablet 20 Mg PO QHS Aspir-Low (Aspirin) 81 Mg Tablet. 81 Mg PO DAILY I have reviewed the current psychotropics carefully including drug interactions. Risk benefit ratio favors no change other than as noted in my dictated progress note. Diagnosis: Problems: (1) Anxiety disorder (2) Impulse control disorder (3) Dementia, vascular, with depression (4) Dementia, vascular, with delusions (5) Dementia with behavioral disturbance (6) Dementia in Alzheimer's disease with depression (7) Dementia in Alzheimer's disease with delusions LIANA MCKENZIE MD Feb 23, 2018 22:28
[2018-02-24 06:43] VITALS: BP 140/91
[2018-02-24] MEDS: MEGESTROL 40 MG TABLET. PO SCH ×4 (07:30→16:30)
[2018-02-24] MEDS: CETIRIZINE HCL 10 MG TABLET PO SCH ×2 (07:34→08:44)
[2018-02-24] MEDS: ACETAMINOPHEN 500 MG TABLET PO SCH ×3 (07:34→21:40)
[2018-02-24] MEDS: DONEPEZIL HCL 10 MG TABLET PO SCH ×2 (07:34→08:42)
[2018-02-24] MEDS: ASPIRIN ENTERIC COATED 81 MG TABLET.DR. PO SCH ×2 (07:34→08:43)
[2018-02-24] MEDS: buPROPion XL 300 MG TAB.ER.24H. PO SCH ×2 (07:34→08:43)
[2018-02-24] MEDS: MEMANTINE 10 MG TABLET. PO SCH ×3 (07:34→21:00)
[2018-02-24] MEDS: METOPROLOL SUCC 24HR ER 50 MG TAB.ER.24H. PO SCH ×2 (07:34→08:43)
[2018-02-24] MEDS: NYSTATIN TOPICAL POWDER 15GM BOTTLE. TP SCH ×2 (07:35→21:00)
[2018-02-24] MEDS: IV DEXTROSE 5% 1,000 ML IV SCH ×2 (09:00→21:25)
[2018-02-24 15:01] LABS: BASO # 0.2 x10^3/uL (0.0-0.2); BASO % 1 % (0-3); EOS % 0 % (0-3); HEMATOCRIT 49.1 % (36.0-47.0); HEMOGLOBIN 16.2 g/dL (12.0-15.5); LYMPH # 1.5 x10^3/uL (1.0-4.8); LYMPH % 13 % (24-48); MEAN CORPUSCULAR HEMOGLOBIN 31 pg (25-35); MEAN CORPUSCULAR HGB CONC 33 g/dL (31-37); MEAN CORPUSCULAR VOLUME 93 fL (79-100); MONO # 0.9 x10^3/uL (0.0-1.1); MONO % 7 % (0-9); NEUT # 9.4 x10^3uL (1.8-7.7); NEUT % 78 % (31-73); PLATELET COUNT 265 x10^3/uL (140-400)
[2018-02-24 15:24] LABS: ALBUMIN 3.7 g/dL (3.4-5.0); ALBUMIN/GLOBULIN RATIO 0.8 (1.0-1.7); CALCIUM 10.2 mg/dL (8.5-10.1); CREATININE 1.5 mg/dL (0.6-1.0); GFR 33.8; POTASSIUM 3.8 mmol/L (3.5-5.1); TOTAL BILIRUBIN 0.5 mg/dL (0.2-1.0); TOTAL PROTEIN 8.5 g/dL (6.4-8.2)
--- NOTE | 2018-02-24 15:54 | PN ---
DATE: 02/24/2018 SUBJECTIVE: The patient was seen today at the request the nursing staff as the patient continued to have leukocytosis. She was dehydrated, her serum sodium has been trending upward. When I saw her this afternoon, she was sitting in her chair, clearly somewhat tachypneic, shivering, although there was a fan that blowing cold air on her. OBJECTIVE: GENERAL: When I examined her, she was pale, but no jaundice, cyanosis, lymphadenopathy or thyromegaly. No jugular venous distension. No lower limb edema. VITAL SIGNS: Her heart rate was 71, blood pressure was 140/91, temperature was 98.3, respiratory rate 20, and oxygen saturation was 93%. HEAD, EYES, EARS, NOSE AND THROAT: Normocephalic, atraumatic. NECK: Supple. HEART: Showed normal first and second heart sounds with no gallop, rub or murmur. CHEST: Shows central trachea, equally expansion, reduced air entry, vesicular breath sounds, few crepitation bilaterally posteriorly. I could not appreciate any rhonchi. ABDOMEN: Distended, soft, nontender. NEUROLOGIC: She is demented without any lateralizing sign. NEUROLOGIC: Cranial nerves intact. She moves extremities without difficulty, although she is mostly bed bound. Examination of the extremities showed no clubbing, cyanosis or edema. LABORATORY DATA: As of yesterday, her serum sodium was 150, potassium 3.8, chloride 112, bicarbonate 29, anion gap of 9, BUN 37, creatinine 1.2, estimated GFR was 44 mL per minute. Her glucose 107, calcium was 10. Total bilirubin, AST, ALT normal. Alkaline phosphatase slightly elevated and rising. Total protein was 8.1, albumin was 3.6. Serum lipase was 162 and vitamin B12 was 291 pg/mL. ASSESSMENT: The patient has leukocytosis. She is dehydrated, tachypneic, although the patient is known to have anxiety, I am concerned that she might be septic. PLAN: To repeat all her labs including CBC, CMP, lactic acid, urinalysis and urine for culture and sensitivity and a chest x-ray. Once the labs are available, we will decide on further management. Meanwhile, we will continue with D5W as she is clearly dehydrated with rising serum sodium. ANDREEA RAMIRES MD DR: LUCHO/brad JOB#: [id number] / [id number]
--- NOTE | 2018-02-24 16:20 | RAD ---
EXAM: Chest, single view. HISTORY: Leukocytosis. COMPARISON: None. FINDINGS: A frontal view of the chest is obtained. There is left lower lobe atelectasis or interstitial infiltrate. There is no pleural effusion or pneumothorax. The heart is normal in size. IMPRESSION: Left lower lobe atelectasis or interstitial infiltrate. Electronically signed by: Cathy Hammond MD (02/24/2018 4:17 PM) [facility]
[2018-02-24 16:21] VITALS: BP 97/54
[2018-02-24 16:55] LABS: CLARITY,URINE HAZY; COLOR,URINE STRAW
[2018-02-24 16:56] LABS: BACTERIA,URINE MANY /HPF (0-FEW); BILIRUBIN,URINE NEG (NEG); GLUCOSE,URINE NEG (NEG); NITRITE,URINE NEG (NEG); RBC,URINE OCC /HPF (0-2); SQUAMOUS EPITHELIAL CELL,UR FEW /LPF; UROBILINOGEN,URINE 0.2 mg/dL (0.2 mg/dL); WBC,URINE OCC /HPF (0-4)
[2018-02-24] MEDS: SERTRALINE 50 MG TABLET. PO SCH (17:00)
[2018-02-24] MEDS: QUEtiapine 25 MG TABLET. PO SCH (17:00)
[2018-02-24] MEDS: ATORVASTATIN CALCIUM 20 MG TABLET PO SCH (21:00)
[2018-02-24] MEDS: FAMOTIDINE 20 MG TABLET PO SCH (21:00)
--- NOTE | 2018-02-24 21:00 | PDOC ---
Exam Note: Kobe Note: Please also refer to the separate dictated note~for this date of service dictated separately.~Patient seen individually. Discussed the patient with Nursing staff reviewed the chart.~Reviewed interim history and current functioning. Reviewed vital signs,~Labs/ Radiology~and current medications noted below. Continue current treatment with the changes noted in the dictated addendum note Assessment: Vital Signs: Vital Signs Date Time Temp Pulse Resp B/P (MAP) Pulse Ox O2 Delivery O2 Flow Rate FiO2 02/24/18 16:21 97.6 105 18 97/54 (68) 96 02/21/18 16:04 Room Air I&O Intake and Output 02/24/18 07:00 Intake Total 120 ml Balance 120 ml Intake Oral 120 ml Labs: Laboratory Tests Test 02/24/18 14:50 02/24/18 15:50 02/24/18 19:00 White Blood Count 12.0 x10^3/uL (4.0-11.0) H Red Blood Count 5.30 x10^6/uL (3.50-5.40) Hemoglobin 16.2 g/dL (12.0-15.5) H Hematocrit 49.1 % (36.0-47.0) H Mean Corpuscular Volume 93 fL (79-100) Mean Corpuscular Hemoglobin 31 pg (25-35) Mean Corpuscular Hemoglobin Concent 33 g/dL (31-37) Red Cell Distribution Width 14.0 % (11.5-14.5) Platelet Count 265 x10^3/uL (140-400) Neutrophils (%) (Auto) 78 % (31-73) H Lymphocytes (%) (Auto) 13 % (24-48) L Monocytes (%) (Auto) 7 % (0-9) Eosinophils (%) (Auto) 0 % (0-3) Basophils (%) (Auto) 1 % (0-3) Neutrophils # (Auto) 9.4 x10^3uL (1.8-7.7) H Lymphocytes # (Auto) 1.5 x10^3/uL (1.0-4.8) Monocytes # (Auto) 0.9 x10^3/uL (0.0-1.1) Eosinophils # (Auto) 0.0 x10^3/uL (0.0-0.7) Basophils # (Auto) 0.2 x10^3/uL (0.0-0.2) Sodium Level 148 mmol/L (136-145) H Potassium Level 3.8 mmol/L (3.5-5.1) Chloride Level 110 mmol/L (98-107) H Carbon Dioxide Level 25 mmol/L (21-32) Anion Gap 13 (6-14) Blood Urea Nitrogen 41 mg/dL (7-20) H Creatinine 1.5 mg/dL (0.6-1.0) H Estimated GFR (Cockcroft-Gault) 33.8 BUN/Creatinine Ratio 27 (6-20) H Glucose Level 113 mg/dL (70-99) H Lactic Acid Level 2.7 mmol/L (0.4-2.0) H 1.5 mmol/L (0.4-2.0) Calcium Level 10.2 mg/dL (8.5-10.1) H Total Bilirubin 0.5 mg/dL (0.2-1.0) Aspartate Amino Transferase (AST) 23 U/L (15-37) Alanine Aminotransferase (ALT) 29 U/L (14-59) Alkaline Phosphatase 164 U/L (46-116) H Total Protein 8.5 g/dL (6.4-8.2) H Albumin 3.7 g/dL (3.4-5.0) Albumin/Globulin Ratio 0.8 (1.0-1.7) L Urine Collection Type U cath Urine Color Straw Urine Clarity Hazy Urine pH 5.5 Urine Specific [place] >=1.030 Urine Protein 30 mg/dl (NEG-TRACE) Urine Glucose (UA) Neg mg/dL (NEG) Urine Ketones (Stick) Trace mg/dL (NEG) Urine Blood Neg (NEG) Urine Nitrite Neg (NEG) Urine Bilirubin Neg (NEG) Urine Urobilinogen Dipstick 0.2 mg/dL (0.2 mg/dL) Urine Leukocyte Esterase Neg (NEG) Urine RBC Occ /HPF (0-2) Urine WBC Occ /HPF (0-4) Urine Squamous Epithelial Cells Few /LPF Urine Bacteria Many /HPF (0-FEW) Urine Mucus Slight /LPF Current Medications: Meds: Current Medications Potassium Chloride (Klor-Con) 40 meq 1X ONCE PO Last administered on at 10:13; Start 02/08/18 at 10:15; Stop 02/08/18 at 10:16; Status DC Acetaminophen (Tylenol) 650 mg PRN Q6HRS PRN PO PAIN / TEMP; Start 02/08/18 at 14:30; Status Cancel Multi-Ingredient Ointment (Analgesic [place]) 1 savanah PRN QID PRN TP MUSCLE PAIN; Start 02/08/18 at 14:30 Al Hydroxide/Mg Hydroxide (Mylanta Plus Xs) 15 ml PRN AFTMEALHC PRN PO DYSPEPSIA; Start 02/08/18 at 14:30 Magnesium Hydroxide (Milk Of Magnesia) 2,400 mg PRN QHS PRN PO CONSTIPATION; Start 02/08/18 at 14:30 Atorvastatin Calcium (Lipitor) 20 mg QHS PO Last administered on 02/23/18at 20: 07; Start 02/08/18 at 21:00 Sertraline HCl (Zoloft) 50 mg DAILY PO ; Start 02/09/18 at 09:00; Stop 02/09/18 at 09:00; Status DC Acetaminophen (Tylenol) 500 mg BID PO Last administered on 02/23/18at 20:08; Start 02/08/18 at 21:00 Acetaminophen (Tylenol) 500 mg PRN Q8HRS PRN PO PAIN / TEMP; Start 02/08/18 at 15:00 Aspirin (Aspirin Enteric Coated) 81 mg DAILY PO Last administered on 02/23/18at 07:49; Start 02/09/18 at 09:00 Cetirizine HCl (ZyrTEC) 10 mg DAILY PO Last administered on 02/23/18at 07:50; Start 02/09/18 at 09:00 Donepezil HCl (Aricept) 10 mg DAILY PO Last administered on 02/23/18at 07:49; Start 02/09/18 at 09:00 Duloxetine HCl (Cymbalta) 20 mg DAILY PO ; Start 02/09/18 at 09:00; Stop at 09:00; Status DC Furosemide (Lasix) 40 mg PRN DAILY PRN PO FOR EDEMA; Start 02/09/18 at 09:00; Stop 02/09/18 at 16:07; Status DC Hydrochlorothiazide (Microzide) 12.5 mg DAILY PO Last administered on at 07:50; Start 02/09/18 at 09:00; Stop 02/09/18 at 16:03; Status DC Memantine (Namenda) 10 mg DAILY PO Last administered on 02/12/18at 08:03; Start 02/09/18 at 09:00; Stop 02/12/18 at 18:40; Status DC Metoprolol Succinate (Toprol Xl) 50 mg DAILY PO Last administered on 02/23/18at 07:50; Start 02/09/18 at 09:00 Potassium Chloride (Klor-Con) 10 meq DAILY PO Last administered on 02/09/18at 07 :43; Start 02/09/18 at 09:00; Stop 02/09/18 at 16:07; Status DC Famotidine (Pepcid) 20 mg QHS PO Last administered on 02/23/18at 20:07; Start at 21:00 Zinc Oxide (Desitin Diaper Rash 40%) 1 savanah BID TP Last administered on at 19:48; Start 02/08/18 at 21:00; Stop 02/10/18 at 07:47; Status DC Non-Formulary Medication (Zinc Oxide (Desitin)) 1 applic PRN PRN TP irritation; Start 02/08/18 at 15:00; Status UNV Sertraline HCl (Zoloft) 75 mg DAILY PO Last administered on 02/12/18at 08:03; Start 02/09/18 at 09:00; Stop 02/12/18 at 18:40; Status DC Trazodone HCl (Desyrel) 25 mg PRN QHS PRN PO INSOMNIA, MAY REPEAT X2 Last administered on 02/17/18at 20:49; Start 02/08/18 at 19:30 Potassium Chloride (Klor-Con) 40 meq 1X ONCE PO Last administered on at 17:50; Start 02/09/18 at 16:30; Stop 02/09/18 at 16:31; Status DC Furosemide (Lasix) 40 mg DAILY PO Last administered on 02/23/18at 07:50; Start 02/10/18 at 09:00; Stop 02/23/18 at 13:24; Status DC Potassium Chloride (Klor-Con) 20 meq BID PO Last administered on 02/23/18 07: 49; Start 02/09/18 at 21:00; Stop 02/23/18 at 13:24; Status DC Nystatin (Nystop) 1 savanah BID TP Last administered on 02/24/18at 07:35; Start 02/10 at 09:00 Sertraline HCl (Zoloft) 100 mg DAILY PO ; Start 02/14/18 at 09:00; Stop at 09:00; Status DC Memantine (Namenda) 10 mg HS PO Last administered on 02/23/18at 20:08; Start at 21:00 Sertraline HCl (Zoloft) 100 mg DAILY10 PO Last administered on 02/16/18at 07:14 ; Start 02/14/18 at 10:00; Stop 02/16/18 at 07:16; Status DC Sertraline HCl (Zoloft) 75 mg DAILY10 PO Last administered on 02/13/18at 10:58; Start 02/13/18 at 10:00; Stop 02/13/18 at 11:00; Status DC Memantine (Namenda) 5 mg DAILY PO Last administered on 02/18/18at 08:45; Start 02/13/18 at 09:00; Stop 02/18/18 at 18:43; Status DC Bupropion HCl (Wellbutrin Xl) 150 mg DAILY PO Last administered on 02/18/18at 08 :44; Start 02/15/18 at 09:00; Stop 02/18/18 at 18:43; Status DC Sertraline HCl (Zoloft) 100 mg DAILY PO ; Start 02/17/18 at 09:00; Stop at 09:00; Status DC Sertraline HCl (Zoloft) 100 mg DAILY PO Last administered on 02/18/18at 08:45; Start 02/17/18 at 09:00; Stop 02/18/18 at 18:43; Status DC Sertraline HCl (Zoloft) 25 mg DAILY PO Last administered on 02/18/18at 08:45; Start 02/17/18 at 09:00; Stop 02/18/18 at 18:43; Status DC Bupropion HCl (Wellbutrin Xl) 300 mg DAILY PO Last administered on 02/23/18at 07 :50; Start 02/19/18 at 09:00 Memantine (Namenda) 10 mg DAILY PO Last administered on 02/23/18at 07:50; Start 02/19/18 at 09:00 Sertraline HCl (Zoloft) 100 mg DAILYWSUP PO ; Start 02/19/18 at 17:00; Stop at 17:00; Status DC Sertraline HCl (Zoloft) 100 mg DAILYWSUP PO Last administered on 02/21/18at 16: 52; Start 02/19/18 at 17:00; Stop 02/21/18 at 18:33; Status DC Quetiapine Fumarate (SEROquel) 12.5 mg BID PO Last administered on 02/21/18at 09 :37; Start 02/19/18 at 21:00; Stop 02/21/18 at 18:33; Status DC Quetiapine Fumarate (SEROquel) 12.5 mg QHS PO Last administered on 02/21/18at 19 :29; Start 02/21/18 at 21:00; Stop 02/22/18 at 18:23; Status DC Sertraline HCl (Zoloft) 50 mg DAILYWSUP PO Last administered on 02/23/18at 18:35 ; Start 02/22/18 at 17:00 Primidone (Mysoline) 25 mg QHS PO Last administered on 02/23/18at 20:08; Start 02/21/18 at 21:00; Stop 02/24/18 at 15:09; Status DC Quetiapine Fumarate (SEROquel) 12.5 mg DAILY@1700 PO Last administered on at 18:35; Start 02/23/18 at 17:00 Megestrol Acetate (Megace) 40 mg TIDAC PO Last administered on 02/24/18at 15:08; Start 02/24/18 at 07:30 Dextrose 1,000 ml @ 100 mls/hr Q10H IV Last administered on 02/24/18at 09:00; Start 02/24/18 at 09:00 Primidone (Mysoline) 50 mg QHS PO ; Start 02/24/18 at 21:00 Active Scripts Active Reported Acetaminophen 500 Mg Tablet 500 Mg PO BID Desitin (Zinc Oxide) 57 Gm Cream..g. 1 Applic TP PRN PRN Acetaminophen 500 Mg Tablet 500 Mg PO PRN Q8HRS PRN Furosemide 40 Mg Tablet 40 Mg PO PRN DAILY PRN Zoloft (Sertraline Hcl) 50 Mg Tablet 50 Mg PO DAILY Ranitidine Hcl 150 Mg Capsule 150 Mg PO HS Potassium Chloride 10 Meq Tablet.er 10 Meq PO DAILY Metoprolol Succinate ( Xl ) (Metoprolol Succinate) 50 Mg Tab.er.24h 50 Mg PO DAILY Namenda (Memantine Hcl) 10 Mg Tablet 10 Mg PO DAILY Hydrochlorothiazide Tablet (Hydrochlorothiazide) 12.5 Mg Tablet 12.5 Mg PO DAILY Cymbalta (Duloxetine Hcl) 20 Mg Capsule.dr 20 Mg PO DAILY 26 Days Donepezil Hcl 10 Mg Tablet 10 Mg PO DAILY Desitin (Zinc Oxide) 57 Gm Cream..g. 1 Appful TP BID Cetirizine Hcl 10 Mg Tablet 10 Mg PO DAILY Atorvastatin Calcium 20 Mg Tablet 20 Mg PO QHS Aspir-Low (Aspirin) 81 Mg Tablet.dr 81 Mg PO DAILY I have reviewed the current psychotropics carefully including drug interactions. Risk benefit ratio favors no change other than as noted in my dictated progress note. Diagnosis: Problems: (1) Anxiety disorder (2) Impulse control disorder (3) Dementia, vascular, with depression (4) Dementia, vascular, with delusions (5) Dementia with behavioral disturbance (6) Dementia in Alzheimer's disease with depression (7) Dementia in Alzheimer's disease with delusions LIANA MCKENZIE MD Feb 24, 2018 21:00
[2018-02-24] MEDS: PRIMIDONE 50 MG TABLET PO SCH (21:41)
--- NOTE | 2018-02-25 00:30 | PN ---
DATE: 02/22/2018 PSYCHIATRIC PROGRESS NOTE This late entry 02/22/2018 covers elements not covered in my initial note. SUBJECTIVE: Met with the patient in the evening of 02/22/2018. The patient slept 9 hours previous evening. She is resistive to medications. Oral intake is poor. REVIEW OF SYSTEMS: No CV, , pulmonary, eye, ENT system symptoms on review. Ambulation is impaired, in wheelchair. MENTAL STATUS EXAM: Oriented to herself. Insight, judgment, recent, remote memory, attention, concentration, fund of knowledge is poor, consistent with her diagnoses from initial note. PLAN: Continue current psychotropics mentioned in my initial note, encourage oral intake, otherwise she will need IV fluids. We will defer to Dr. Sun. MAN Tracie MCKENZIE MD DR: REMINGTON/brad JOB#: [id number] / [id number]
--- NOTE | 2018-02-25 00:34 | PN ---
DATE: 02/24/2018 PSYCHIATRIC PROGRESS NOTE This note covers elements not covered in my initial note of 02/24/2018. SUBJECTIVE: The patient is on IV fluids but has a possible upper lobe infiltrate versus atelectasis. Labs to be repeated in the morning. Lactic acid today is 2.7, to be repeated at 1900, deferred to Dr. Sun. She is on D5W at 100 mL. We have held her medications today since BP was low at 90/50. She has been resistive with cares, biting, pinching, kicking at times. REVIEW OF SYSTEMS: Ambulation is impaired, lying in bed with IV fluids. No CV, , pulmonary, eye, ENT system symptoms on review. Reliability is poor. MENTAL STATUS EXAM: Oriented to herself. Insight, judgment, recent, remote memory, attention, concentration, fund of knowledge is poor, consistent with her diagnoses mentioned in my initial note. PLAN: Continue current psychotropics and these are being held due to her general medical condition, defer IV fluids and medical management to Dr. Sun. MAN Tracie MCEKNZIE MD DR: REMINGTON/brad JOB#: [id number] / [id number]
--- NOTE | 2018-02-25 00:36 | PN ---
DATE: 02/23/2018 PSYCHIATRIC PROGRESS NOTE This note covers elements not covered in my initial note 02/23/2018. SUBJECTIVE: Per nursing report, the patient is somewhat dehydrated. Oral intake, fluid intake is poor. WBC has increased to 13. We will defer to Dr. Sun/ . REVIEW OF SYSTEMS: Ambulation impaired, in wheelchair. No CV, , pulmonary, eye, ENT system symptoms on review. MENTAL STATUS EXAM: Oriented to herself. Insight, judgment, recent and remote memory, attention, concentration, fund of knowledge poor, consistent with her diagnoses mentioned in my initial note. PLAN: Start Megace 40 mg t.i.d. a.c., defer rest medically to Dr. Sun. Continue Wellbutrin, Aricept and Zoloft together with trazodone and Seroquel 12.5 mg daily at 1700. Adjust further as clinically indicated. Consider IV fluids for dehydration. LIANA MCKENZIE MD DR: REMINGTON/brad JOB#: [id number] / [id number]
[2018-02-25 05:00] VITALS: BP 146/76
[2018-02-25 07:29] LABS: BASO # 0.1 x10^3/uL (0.0-0.2); BASO % 1 % (0-3); EOS # 0.1 x10^3/uL (0.0-0.7); EOS % 2 % (0-3); HEMATOCRIT 42.3 % (36.0-47.0); HEMOGLOBIN 14.3 g/dL (12.0-15.5); LYMPH # 1.2 x10^3/uL (1.0-4.8); LYMPH % 16 % (24-48); MEAN CORPUSCULAR HEMOGLOBIN 31 pg (25-35); MEAN CORPUSCULAR HGB CONC 34 g/dL (31-37); MEAN CORPUSCULAR VOLUME 92 fL (79-100); MONO # 0.9 x10^3/uL (0.0-1.1); MONO % 11 % (0-9); NEUT # 5.4 x10^3uL (1.8-7.7); NEUT % 71 % (31-73); PLATELET COUNT 204 x10^3/uL (140-400); RED BLOOD COUNT 4.59 x10^6/uL (3.50-5.40); RED CELL DISTRIBUTION WIDTH 13.4 % (11.5-14.5); WHITE BLOOD COUNT 7.7 x10^3/uL (4.0-11.0)
[2018-02-25 07:36] LABS: ALBUMIN 2.9 g/dL (3.4-5.0); ALBUMIN/GLOBULIN RATIO 0.7 (1.0-1.7); CALCIUM 9.1 mg/dL (8.5-10.1); CREATININE 1.1 mg/dL (0.6-1.0); GFR 48.3; POTASSIUM 3.1 mmol/L (3.5-5.1); TOTAL BILIRUBIN 0.5 mg/dL (0.2-1.0); TOTAL PROTEIN 6.9 g/dL (6.4-8.2)
[2018-02-25] MEDS: MEGESTROL 40 MG TABLET. PO SCH ×3 (08:15→16:53)
[2018-02-25] MEDS: MEMANTINE 10 MG TABLET. PO SCH ×2 (08:15→19:25)
[2018-02-25] MEDS: METOPROLOL SUCC 24HR ER 50 MG TAB.ER.24H. PO SCH (08:15)
[2018-02-25] MEDS: ACETAMINOPHEN 500 MG TABLET PO SCH ×2 (08:15→19:25)
[2018-02-25] MEDS: buPROPion XL 300 MG TAB.ER.24H. PO SCH (08:15)
[2018-02-25] MEDS: ASPIRIN ENTERIC COATED 81 MG TABLET.DR. PO SCH (08:16)
[2018-02-25] MEDS: CETIRIZINE HCL 10 MG TABLET PO SCH (08:16)
[2018-02-25] MEDS: NYSTATIN TOPICAL POWDER 15GM BOTTLE. TP SCH ×2 (08:16→21:00)
[2018-02-25] MEDS: DONEPEZIL HCL 10 MG TABLET PO SCH (08:16)
[2018-02-25] MEDS: MAGNESIUM HYDROXIDE 2,400 MG/30 ML ORAL.SUSP. PO PRN (08:26)
[2018-02-25] MEDS: IV DEXTROSE 5% 1,000 ML IV SCH (08:42)
[2018-02-25 16:04] VITALS: BP 134/91
[2018-02-25] MEDS: POTASSIUM CL 20MEQ IN D5W 1,000 ML IV SCH (16:50)
[2018-02-25] MEDS: QUEtiapine 25 MG TABLET. PO SCH (16:54)
[2018-02-25] MEDS: SERTRALINE 50 MG TABLET. PO SCH (16:54)
[2018-02-25] MEDS: ATORVASTATIN CALCIUM 20 MG TABLET PO SCH (19:24)
[2018-02-25] MEDS: PRIMIDONE 50 MG TABLET PO SCH (19:25)
[2018-02-25] MEDS: FAMOTIDINE 20 MG TABLET PO SCH (19:25)
[2018-02-25] MEDS: POTASSIUM CHLORIDE 20 MEQ TABLET.ER. PO SCH (19:32)
--- NOTE | 2018-02-25 21:02 | PDOC ---
Exam Note: Kobe Note: Please also refer to the separate dictated note~for this date of service dictated separately.~Patient seen individually. Discussed the patient with Nursing staff reviewed the chart.~Reviewed interim history and current functioning. Reviewed vital signs,~Labs/ Radiology~and current medications noted below. Continue current treatment with the changes noted in the dictated addendum note Assessment: Vital Signs: Vital Signs Date Time Temp Pulse Resp B/P (MAP) Pulse Ox O2 Delivery O2 Flow Rate FiO2 02/25/18 16:04 98.0 85 20 134/91 (105) 96 02/21/18 16:04 Room Air I&O Intake and Output 02/25/18 06:59 Intake Total 1265.23 ml Balance 1265.23 ml Intake Oral 120 ml IV Total 1145.23 ml Labs: Laboratory Tests Test 02/25/18 07:06 White Blood Count 7.7 x10^3/uL (4.0-11.0) Red Blood Count 4.59 x10^6/uL (3.50-5.40) Hemoglobin 14.3 g/dL (12.0-15.5) Hematocrit 42.3 % (36.0-47.0) Mean Corpuscular Volume 92 fL (79-100) Mean Corpuscular Hemoglobin 31 pg (25-35) Mean Corpuscular Hemoglobin Concent 34 g/dL (31-37) Red Cell Distribution Width 13.4 % (11.5-14.5) Platelet Count 204 x10^3/uL (140-400) Neutrophils (%) (Auto) 71 % (31-73) Lymphocytes (%) (Auto) 16 % (24-48) L Monocytes (%) (Auto) 11 % (0-9) H Eosinophils (%) (Auto) 2 % (0-3) Basophils (%) (Auto) 1 % (0-3) Neutrophils # (Auto) 5.4 x10^3uL (1.8-7.7) Lymphocytes # (Auto) 1.2 x10^3/uL (1.0-4.8) Monocytes # (Auto) 0.9 x10^3/uL (0.0-1.1) Eosinophils # (Auto) 0.1 x10^3/uL (0.0-0.7) Basophils # (Auto) 0.1 x10^3/uL (0.0-0.2) Sodium Level 141 mmol/L (136-145) Potassium Level 3.1 mmol/L (3.5-5.1) L Chloride Level 106 mmol/L (98-107) Carbon Dioxide Level 27 mmol/L (21-32) Anion Gap 8 (6-14) Blood Urea Nitrogen 33 mg/dL (7-20) H Creatinine 1.1 mg/dL (0.6-1.0) H Estimated GFR (Cockcroft-Gault) 48.3 BUN/Creatinine Ratio 30 (6-20) H Glucose Level 110 mg/dL (70-99) H Calcium Level 9.1 mg/dL (8.5-10.1) # Total Bilirubin 0.5 mg/dL (0.2-1.0) Aspartate Amino Transferase (AST) 21 U/L (15-37) Alanine Aminotransferase (ALT) 23 U/L (14-59) Alkaline Phosphatase 135 U/L (46-116) H Total Protein 6.9 g/dL (6.4-8.2) Albumin 2.9 g/dL (3.4-5.0) L Albumin/Globulin Ratio 0.7 (1.0-1.7) L Current Medications: Meds: Current Medications Potassium Chloride (Klor-Con) 40 meq 1X ONCE PO Last administered on at 10:13; Start 02/08/18 at 10:15; Stop 02/08/18 at 10:16; Status DC Acetaminophen (Tylenol) 650 mg PRN Q6HRS PRN PO PAIN / TEMP; Start 02/08/18 at 14:30; Status Cancel Multi-Ingredient Ointment (Analgesic [place]) 1 savanah PRN QID PRN TP MUSCLE PAIN; Start 02/08/18 at 14:30 Al Hydroxide/Mg Hydroxide (Mylanta Plus Xs) 15 ml PRN AFTMEALHC PRN PO DYSPEPSIA; Start 02/08/18 at 14:30 Magnesium Hydroxide (Milk Of Magnesia) 2,400 mg PRN QHS PRN PO CONSTIPATION Last administered on 02/25/18at 08:26; Start 02/08/18 at 14:30 Atorvastatin Calcium (Lipitor) 20 mg QHS PO Last administered on 02/25/18at 19:24 ; Start 02/08/18 at 21:00 Sertraline HCl (Zoloft) 50 mg DAILY PO ; Start 02/09/18 at 09:00; Stop 02/09/18 at 09:00; Status DC Acetaminophen (Tylenol) 500 mg BID PO Last administered on 02/25/18 19:25; Start 02/08/18 at 21:00 Acetaminophen (Tylenol) 500 mg PRN Q8HRS PRN PO PAIN / TEMP; Start 02/08/18 at 15:00 Aspirin (Aspirin Enteric Coated) 81 mg DAILY PO Last administered on 02/25/18at 08:16; Start 02/09/18 at 09:00 Cetirizine HCl (ZyrTEC) 10 mg DAILY PO Last administered on 02/25/18 08:16; Start 02/09/18 at 09:00 Donepezil HCl (Aricept) 10 mg DAILY PO Last administered on 02/25/18at 08:16; Start 02/09/18 at 09:00 Duloxetine HCl (Cymbalta) 20 mg DAILY PO ; Start 02/09/18 at 09:00; Stop at 09:00; Status DC Furosemide (Lasix) 40 mg PRN DAILY PRN PO FOR EDEMA; Start 02/09/18 at 09:00; Stop 02/09/18 at 16:07; Status DC Hydrochlorothiazide (Microzide) 12.5 mg DAILY PO Last administered on at 07:50; Start 02/09/18 at 09:00; Stop 02/09/18 at 16:03; Status DC Memantine (Namenda) 10 mg DAILY PO Last administered on 02/12/18at 08:03; Start 02/09/18 at 09:00; Stop 02/12/18 at 18:40; Status DC Metoprolol Succinate (Toprol Xl) 50 mg DAILY PO Last administered on 02/25/18 08:15; Start 02/09/18 at 09:00 Potassium Chloride (Klor-Con) 10 meq DAILY PO Last administered on 02/09/18at 07 :43; Start 02/09/18 at 09:00; Stop 02/09/18 at 16:07; Status DC Famotidine (Pepcid) 20 mg QHS PO Last administered on 7/2/18at 19:25; Start at 21:00 Zinc Oxide (Desitin Diaper Rash 40%) 1 savanah BID TP Last administered on at 19:48; Start 02/08/18 at 21:00; Stop 02/10/18 at 07:47; Status DC Non-Formulary Medication (Zinc Oxide (Desitin)) 1 applic PRN PRN TP irritation; Start 02/08/18 at 15:00; Status UNV Sertraline HCl (Zoloft) 75 mg DAILY PO Last administered on 02/12/18at 08:03; Start 02/09/18 at 09:00; Stop 02/12/18 at 18:40; Status DC Trazodone HCl (Desyrel) 25 mg PRN QHS PRN PO INSOMNIA, MAY REPEAT X2 Last administered on 02/17/18at 20:49; Start 02/08/18 at 19:30 Potassium Chloride (Klor-Con) 40 meq 1X ONCE PO Last administered on at 17:50; Start 02/09/18 at 16:30; Stop 02/09/18 at 16:31; Status DC Furosemide (Lasix) 40 mg DAILY PO Last administered on 02/23/18 07:50; Start 02/10/18 at 09:00; Stop 02/23/18 at 13:24; Status DC Potassium Chloride (Klor-Con) 20 meq BID PO Last administered on 02/23/18 07: 49; Start 02/09/18 at 21:00; Stop 02/23/18 at 13:24; Status DC Nystatin (Nystop) 1 savanah BID TP Last administered on 02/25/18at 08:16; Start 02/10 at 09:00 Sertraline HCl (Zoloft) 100 mg DAILY PO ; Start 02/14/18 at 09:00; Stop at 09:00; Status DC Memantine (Namenda) 10 mg HS PO Last administered on 02/25/18at 19:25; Start at 21:00 Sertraline HCl (Zoloft) 100 mg DAILY10 PO Last administered on 02/16/18at 07:14 ; Start 02/14/18 at 10:00; Stop 02/16/18 at 07:16; Status DC Sertraline HCl (Zoloft) 75 mg DAILY10 PO Last administered on 02/13/18at 10:58; Start 02/13/18 at 10:00; Stop 02/13/18 at 11:00; Status DC Memantine (Namenda) 5 mg DAILY PO Last administered on 02/18/18at 08:45; Start 02/13/18 at 09:00; Stop 02/18/18 at 18:43; Status DC Bupropion HCl (Wellbutrin Xl) 150 mg DAILY PO Last administered on 02/18/18at 08 :44; Start 02/15/18 at 09:00; Stop 02/18/18 at 18:43; Status DC Sertraline HCl (Zoloft) 100 mg DAILY PO ; Start 02/17/18 at 09:00; Stop at 09:00; Status DC Sertraline HCl (Zoloft) 100 mg DAILY PO Last administered on 02/18/18at 08:45; Start 02/17/18 at 09:00; Stop 02/18/18 at 18:43; Status DC Sertraline HCl (Zoloft) 25 mg DAILY PO Last administered on 02/18/18at 08:45; Start 02/17/18 at 09:00; Stop 02/18/18 at 18:43; Status DC Bupropion HCl (Wellbutrin Xl) 300 mg DAILY PO Last administered on 02/25/18at 08: 15; Start 02/19/18 at 09:00 Memantine (Namenda) 10 mg DAILY PO Last administered on 02/25/18at 08:15; Start 02/19/18 at 09:00 Sertraline HCl (Zoloft) 100 mg DAILYWSUP PO ; Start 02/19/18 at 17:00; Stop at 17:00; Status DC Sertraline HCl (Zoloft) 100 mg DAILYWSUP PO Last administered on 02/21/18at 16: 52; Start 02/19/18 at 17:00; Stop 02/21/18 at 18:33; Status DC Quetiapine Fumarate (SEROquel) 12.5 mg BID PO Last administered on 02/21/18at 09 :37; Start 02/19/18 at 21:00; Stop 02/21/18 at 18:33; Status DC Quetiapine Fumarate (SEROquel) 12.5 mg QHS PO Last administered on 02/21/18 19 :29; Start 02/21/18 at 21:00; Stop 02/22/18 at 18:23; Status DC Sertraline HCl (Zoloft) 50 mg DAILYWSUP PO Last administered on 02/25/18 16:54 ; Start 02/22/18 at 17:00 Primidone (Mysoline) 25 mg QHS PO Last administered on 02/23/18at 20:08; Start 02/21/18 at 21:00; Stop 02/24/18 at 15:09; Status DC Quetiapine Fumarate (SEROquel) 12.5 mg DAILY@1700 PO Last administered on 16:54; Start 02/23/18 at 17:00 Megestrol Acetate (Megace) 40 mg TIDAC PO Last administered on 02/25/18 16:53; Start 02/24/18 at 07:30 Dextrose 1,000 ml @ 100 mls/hr Q10H IV Last administered on 02/25/18at 08:42; Start 02/24/18 at 09:00; Stop 02/25/18 at 15:46; Status DC Primidone (Mysoline) 50 mg QHS PO Last administered on 02/25/18 19:25; Start at 21:00 Potassium Chloride/Dextrose 1,000 ml @ 100 mls/hr Q10H IV Last administered on 02/25/18at 16:50; Start 02/25/18 at 16:00 Potassium Chloride (Klor-Con) 20 meq TID PO Last administered on 02/25/18 19:32 ; Start 02/25/18 at 21:00 Active Scripts Active Reported Acetaminophen 500 Mg Tablet 500 Mg PO BID Desitin (Zinc Oxide) 57 Gm Cream..g. 1 Applic TP PRN PRN Acetaminophen 500 Mg Tablet 500 Mg PO PRN Q8HRS PRN Furosemide 40 Mg Tablet 40 Mg PO PRN DAILY PRN Zoloft (Sertraline Hcl) 50 Mg Tablet 50 Mg PO DAILY Ranitidine Hcl 150 Mg Capsule 150 Mg PO HS Potassium Chloride 10 Meq Tablet.er 10 Meq PO DAILY Metoprolol Succinate ( Xl ) (Metoprolol Succinate) 50 Mg Tab.er.24h 50 Mg PO DAILY Namenda (Memantine Hcl) 10 Mg Tablet 10 Mg PO DAILY Hydrochlorothiazide Tablet (Hydrochlorothiazide) 12.5 Mg Tablet 12.5 Mg PO DAILY Cymbalta (Duloxetine Hcl) 20 Mg Capsule.dr 20 Mg PO DAILY 26 Days Donepezil Hcl 10 Mg Tablet 10 Mg PO DAILY Desitin (Zinc Oxide) 57 Gm Cream..g. 1 Appful TP BID Cetirizine Hcl 10 Mg Tablet 10 Mg PO DAILY Atorvastatin Calcium 20 Mg Tablet 20 Mg PO QHS Aspir-Low (Aspirin) 81 Mg Tablet.dr 81 Mg PO DAILY I have reviewed the current psychotropics carefully including drug interactions. Risk benefit ratio favors no change other than as noted in my dictated progress note. Diagnosis: Problems: (1) Anxiety disorder (2) Impulse control disorder (3) Dementia, vascular, with depression (4) Dementia, vascular, with delusions (5) Dementia with behavioral disturbance (6) Dementia in Alzheimer's disease with depression (7) Dementia in Alzheimer's disease with delusions LIANA MCKENZIE MD Feb 25, 2018 21:02
[2018-02-26] MEDS: POTASSIUM CL 20MEQ IN D5W 1,000 ML IV SCH ×2 (03:09→12:31)
[2018-02-26 07:09] LABS: CALCIUM 9.1 mg/dL (8.5-10.1); CREATININE 1.1 mg/dL (0.6-1.0); GFR 48.3; POTASSIUM 4.2 mmol/L (3.5-5.1)
[2018-02-26 08:17] VITALS: BP 131/67
[2018-02-26] MEDS: MEMANTINE 10 MG TABLET. PO SCH ×2 (08:18→19:24)
[2018-02-26] MEDS: METOPROLOL SUCC 24HR ER 50 MG TAB.ER.24H. PO SCH (08:18)
[2018-02-26] MEDS: DONEPEZIL HCL 10 MG TABLET PO SCH (08:18)
[2018-02-26] MEDS: CETIRIZINE HCL 10 MG TABLET PO SCH (08:19)
[2018-02-26] MEDS: ASPIRIN ENTERIC COATED 81 MG TABLET.DR. PO SCH (08:19)
[2018-02-26] MEDS: MEGESTROL 40 MG TABLET. PO SCH ×3 (08:19→17:27)
[2018-02-26] MEDS: buPROPion XL 300 MG TAB.ER.24H. PO SCH (08:19)
[2018-02-26] MEDS: NYSTATIN TOPICAL POWDER 15GM BOTTLE. TP SCH (08:19)
[2018-02-26] MEDS: POTASSIUM CHLORIDE 20 MEQ TABLET.ER. PO SCH ×3 (08:19→19:25)
[2018-02-26] MEDS: ACETAMINOPHEN 500 MG TABLET PO SCH ×2 (08:19→19:24)
--- NOTE | 2018-02-26 09:30 | CONS ---
DATE OF CONSULTATION: 02/19/2018 NEUROLOGICAL CONSULTATION REFERRING PHYSICIAN: Dr. Garcia. REASON FOR CONSULTATION: Constant tremor of the arms and hands. HISTORY OF PRESENT ILLNESS: This is a 78-year-old right-handed female who was admitted on 02/08/2018 on account of mental status changes, refusing her medications, combative behaviors along with long history of dementia and depression. The patient was a resident at [facility]. A neuro consult was requested because the patient has had tremor of the upper extremities, which usually aggravated by using her extremities and if she is being under stress and severely anxious. The patient denies headaches, visual disturbances, chest pain, shortness of breath, or palpitation. She complains of unsteady gait and difficulty to walk. PAST MEDICAL HISTORY: Significant for gastroesophageal reflux disease, hypertension, hyperlipidemia. PAST SURGICAL HISTORY: Significant for breast cancer surgery. PAST PSYCHIATRIC HISTORY: Significant for anxiety, depressions, and dementia with intermittent behavior disturbances. SOCIAL HISTORY: The patient is a senior care resident. There is no history of smoking, alcohol drinking, or illicit drug use. CURRENT HOME MEDICATIONS: Aricept 10 mg daily, Lipitor 20 mg nightly, Tylenol p.r.n., Cymbalta 20 mg daily, Zoloft 50 mg daily, Namenda 10 mg once daily, potassium 10 mEq once daily, Lasix 40 mg daily, hydrochlorothiazide 12.5 mg daily, and ranitidine 150 mg daily. FAMILY HISTORY: None obtainable. REVIEW OF SYSTEMS: A 10-point review of system was performed and consistent with depression, anxiety, intermittent tremors of the upper extremities and behavior disturbances. PHYSICAL EXAMINATION: GENERAL: Well-developed, well-nourished female, not in acute distress. VITAL SIGNS: She weighs 171.5 pounds. Blood pressure 109/64, respiratory rate 16, pulse is 63, temperature is 98.4, oxygen saturation is 100% on room air. HEENT: Normocephalic, atraumatic, otherwise unremarkable. NECK: Supple. Negative for carotid bruit, lymphadenopathy, or thyromegaly. LUNGS: Clear to A and P. CARDIOVASCULAR: Regular rhythm, normal S1-S2. There is no S3, S4, or murmur. ABDOMEN: Soft. Bowel sounds positive. EXTREMITIES: Negative for cyanosis, clubbing, or pitting edema. NEUROLOGICAL EXAMINATION: 1. Mental Status: The patient is awake, but disoriented to time, place, and person. Speech is fluent. There are no apparent language dysfunctions. Memory, judgment, and abstract thinking are poor consistent with a diagnosis of dementia. 2. Cranial Nerves: The pupils are equal and reactive to light and accommodation. The extraocular movements are intact. There is no nystagmus. There is no facial motor or sensory deficit. Hearing is intact bilaterally. The palate is elevated symmetrically. Sternocleidomastoid muscles are powerful bilaterally. The patient shrugs her shoulders symmetrically and protrudes her tongue in the midline without fasciculation or atrophy. 3. Motor Examination: No focal muscle bulk was seen. The strength was 4/5 throughout. The patient has obvious postural and kinetic tremors of the upper extremities, more prominent on the right side. The tone is normal. 4. Sensory Examination: Revealed normal pinprick and light touch senses throughout. Deep tendon reflexes were symmetric and hypoactive with absent Achilles responses. 5. Gait: The patient has unsteady stance. She ambulates with a wheelchair. LABORATORY DATA: CBC from 02/12/2018 revealed white blood cells of 7000; hemoglobin 15.8; hematocrit 47; platelet count 239,000. Chemistry from 02/18/2018 revealed sodium of 143, potassium 4, chloride 108, CO2 of 29, BUN 27, creatinine 1.2, glucose 105, calcium 9.8. Liver enzymes are normal. Vitamin D is 31.8. Thyroid profile is normal. IMPRESSION: 1. Dementia, probably of Alzheimer's type. 2. Postural and kinetic tremors, may represent essential/senile tremor, aggravated by underlying anxiety. 3. Multiple psychiatric problems to include depression and anxiety disorders. 4. Multiple medical problems to include hypertension, hyperlipidemia, and gastroesophageal reflux disease. RECOMMENDATIONS: 1. We will check vitamin B12 as it is not available in the chart. 2. We will look for recent head CT scan. 3. Treat the underlying psychiatric problems with the help of Dr. Garcia who is going to adjust her psychiatric medications as needed. 4. If the patient continues to have progressive tremor of the upper extremity, we will start the patient on primidone 25 mg at bedtime and increasing gradually as needed. 5. Physical therapy evaluation. M F. HABIB, MD DR: BELEM/brad JOB#: [id number] / [id number]
[2018-02-26] MEDS: MAGNESIUM HYDROXIDE 2,400 MG/30 ML ORAL.SUSP. PO PRN (09:32)
[2018-02-26 16:26] VITALS: BP 104/63
[2018-02-26] MEDS: QUEtiapine 25 MG TABLET. PO SCH (17:27)
[2018-02-26] MEDS: SERTRALINE 50 MG TABLET. PO SCH (17:28)
[2018-02-26] MEDS: FAMOTIDINE 20 MG TABLET PO SCH (19:24)
[2018-02-26] MEDS: ATORVASTATIN CALCIUM 20 MG TABLET PO SCH (19:24)
[2018-02-26] MEDS: PRIMIDONE 50 MG TABLET PO SCH (19:24)
--- NOTE | 2018-02-26 20:42 | PDOC ---
Exam Note: Kobe Note: Please also refer to the separate dictated note~for this date of service dictated separately.~Patient seen individually. Discussed the patient with Nursing staff reviewed the chart.~Reviewed interim history and current functioning. Reviewed vital signs,~Labs/ Radiology~and current medications noted below. Continue current treatment with the changes noted in the dictated addendum note Assessment: Vital Signs: Vital Signs Date Time Temp Pulse Resp B/P (MAP) Pulse Ox O2 Delivery O2 Flow Rate FiO2 02/26/18 16:26 97.4 85 18 104/63 (77) 98 02/21/18 16:04 Room Air I&O Intake and Output 02/26/18 06:59 Intake Total 3800 ml Balance 3800 ml Intake Oral 240 ml IV Total 3560 ml Labs: Laboratory Tests Test 02/26/18 06:29 Sodium Level 136 mmol/L (136-145) Potassium Level 4.2 mmol/L (3.5-5.1) Chloride Level 101 mmol/L (98-107) Carbon Dioxide Level 28 mmol/L (21-32) Anion Gap 7 (6-14) Blood Urea Nitrogen 23 mg/dL (7-20) H Creatinine 1.1 mg/dL (0.6-1.0) H Estimated GFR (Cockcroft-Gault) 48.3 Glucose Level 90 mg/dL (70-99) Calcium Level 9.1 mg/dL (8.5-10.1) Current Medications: Meds: Current Medications Potassium Chloride (Klor-Con) 40 meq 1X ONCE PO Last administered on at 10:13; Start 02/08/18 at 10:15; Stop 02/08/18 at 10:16; Status DC Acetaminophen (Tylenol) 650 mg PRN Q6HRS PRN PO PAIN / TEMP; Start 02/08/18 at 14:30; Status Cancel Multi-Ingredient Ointment (Analgesic [place]) 1 savanah PRN QID PRN TP MUSCLE PAIN; Start 02/08/18 at 14:30 Al Hydroxide/Mg Hydroxide (Mylanta Plus Xs) 15 ml PRN AFTMEALHC PRN PO DYSPEPSIA; Start 02/08/18 at 14:30 Magnesium Hydroxide (Milk Of Magnesia) 2,400 mg PRN QHS PRN PO CONSTIPATION Last administered on 02/26/18at 09:32; Start 02/08/18 at 14:30 Atorvastatin Calcium (Lipitor) 20 mg QHS PO Last administered on 02/26/18 19:24 ; Start 02/08/18 at 21:00 Sertraline HCl (Zoloft) 50 mg DAILY PO ; Start 02/09/18 at 09:00; Stop 02/09/18 at 09:00; Status DC Acetaminophen (Tylenol) 500 mg BID PO Last administered on 02/26/18 19:24; Start 02/08/18 at 21:00 Acetaminophen (Tylenol) 500 mg PRN Q8HRS PRN PO PAIN / TEMP; Start 02/08/18 at 15:00 Aspirin (Aspirin Enteric Coated) 81 mg DAILY PO Last administered on 02/26/18 08:19; Start 02/09/18 at 09:00 Cetirizine HCl (ZyrTEC) 10 mg DAILY PO Last administered on 02/26/18 08:19; Start 02/09/18 at 09:00 Donepezil HCl (Aricept) 10 mg DAILY PO Last administered on 02/26/18 08:18; Start 02/09/18 at 09:00 Duloxetine HCl (Cymbalta) 20 mg DAILY PO ; Start 02/09/18 at 09:00; Stop at 09:00; Status DC Furosemide (Lasix) 40 mg PRN DAILY PRN PO FOR EDEMA; Start 02/09/18 at 09:00; Stop 02/09/18 at 16:07; Status DC Hydrochlorothiazide (Microzide) 12.5 mg DAILY PO Last administered on at 07:50; Start 02/09/18 at 09:00; Stop 02/09/18 at 16:03; Status DC Memantine (Namenda) 10 mg DAILY PO Last administered on 02/12/18at 08:03; Start 02/09/18 at 09:00; Stop 02/12/18 at 18:40; Status DC Metoprolol Succinate (Toprol Xl) 50 mg DAILY PO Last administered on 02/26/18at 08:18; Start 02/09/18 at 09:00 Potassium Chloride (Klor-Con) 10 meq DAILY PO Last administered on 02/09/18at 07 :43; Start 02/09/18 at 09:00; Stop 02/09/18 at 16:07; Status DC Famotidine (Pepcid) 20 mg QHS PO Last administered on 02/26/18 19:24; Start at 21:00 Zinc Oxide (Desitin Diaper Rash 40%) 1 savanah BID TP Last administered on at 19:48; Start 02/08/18 at 21:00; Stop 02/10/18 at 07:47; Status DC Non-Formulary Medication (Zinc Oxide (Desitin)) 1 applic PRN PRN TP irritation; Start 02/08/18 at 15:00; Status UNV Sertraline HCl (Zoloft) 75 mg DAILY PO Last administered on 02/12/18 08:03; Start 02/09/18 at 09:00; Stop 02/12/18 at 18:40; Status DC Trazodone HCl (Desyrel) 25 mg PRN QHS PRN PO INSOMNIA, MAY REPEAT X2 Last administered on 02/17/18at 20:49; Start 02/08/18 at 19:30 Potassium Chloride (Klor-Con) 40 meq 1X ONCE PO Last administered on at 17:50; Start 02/09/18 at 16:30; Stop 02/09/18 at 16:31; Status DC Furosemide (Lasix) 40 mg DAILY PO Last administered on 02/23/18 07:50; Start 02/10/18 at 09:00; Stop 02/23/18 at 13:24; Status DC Potassium Chloride (Klor-Con) 20 meq BID PO Last administered on 02/23/18at 07: 49; Start 02/09/18 at 21:00; Stop 02/23/18 at 13:24; Status DC Nystatin (Nystop) 1 savanah BID TP Last administered on 02/26/18 08:19; Start 02/10 at 09:00 Sertraline HCl (Zoloft) 100 mg DAILY PO ; Start 02/14/18 at 09:00; Stop at 09:00; Status DC Memantine (Namenda) 10 mg HS PO Last administered on 02/26/18 19:24; Start at 21:00 Sertraline HCl (Zoloft) 100 mg DAILY10 PO Last administered on 02/16/18at 07:14 ; Start 02/14/18 at 10:00; Stop 02/16/18 at 07:16; Status DC Sertraline HCl (Zoloft) 75 mg DAILY10 PO Last administered on 02/13/18at 10:58; Start 02/13/18 at 10:00; Stop 02/13/18 at 11:00; Status DC Memantine (Namenda) 5 mg DAILY PO Last administered on 02/18/18at 08:45; Start 02/13/18 at 09:00; Stop 02/18/18 at 18:43; Status DC Bupropion HCl (Wellbutrin Xl) 150 mg DAILY PO Last administered on 02/18/18at 08 :44; Start 02/15/18 at 09:00; Stop 02/18/18 at 18:43; Status DC Sertraline HCl (Zoloft) 100 mg DAILY PO ; Start 02/17/18 at 09:00; Stop at 09:00; Status DC Sertraline HCl (Zoloft) 100 mg DAILY PO Last administered on 02/18/18at 08:45; Start 02/17/18 at 09:00; Stop 02/18/18 at 18:43; Status DC Sertraline HCl (Zoloft) 25 mg DAILY PO Last administered on 02/18/18at 08:45; Start 02/17/18 at 09:00; Stop 02/18/18 at 18:43; Status DC Bupropion HCl (Wellbutrin Xl) 300 mg DAILY PO Last administered on 02/26/18at 08: 19; Start 02/19/18 at 09:00 Memantine (Namenda) 10 mg DAILY PO Last administered on 02/26/18at 08:18; Start 02/19/18 at 09:00 Sertraline HCl (Zoloft) 100 mg DAILYWSUP PO ; Start 02/19/18 at 17:00; Stop at 17:00; Status DC Sertraline HCl (Zoloft) 100 mg DAILYWSUP PO Last administered on 02/21/18at 16: 52; Start 02/19/18 at 17:00; Stop 02/21/18 at 18:33; Status DC Quetiapine Fumarate (SEROquel) 12.5 mg BID PO Last administered on 02/21/18 09 :37; Start 02/19/18 at 21:00; Stop 02/21/18 at 18:33; Status DC Quetiapine Fumarate (SEROquel) 12.5 mg QHS PO Last administered on 02/21/18 19 :29; Start 02/21/18 at 21:00; Stop 02/22/18 at 18:23; Status DC Sertraline HCl (Zoloft) 50 mg DAILYWSUP PO Last administered on 02/26/18 17:28 ; Start 02/22/18 at 17:00 Primidone (Mysoline) 25 mg QHS PO Last administered on 02/23/18 20:08; Start 02/21/18 at 21:00; Stop 02/24/18 at 15:09; Status DC Quetiapine Fumarate (SEROquel) 12.5 mg DAILY@1700 PO Last administered on 17:27; Start 02/23/18 at 17:00 Megestrol Acetate (Megace) 40 mg TIDAC PO Last administered on 02/26/18 17:27; Start 02/24/18 at 07:30 Dextrose 1,000 ml @ 100 mls/hr Q10H IV Last administered on 02/25/18at 08:42; Start 02/24/18 at 09:00; Stop 02/25/18 at 15:46; Status DC Primidone (Mysoline) 50 mg QHS PO Last administered on 02/26/18 19:24; Start at 21:00 Potassium Chloride/Dextrose 1,000 ml @ 100 mls/hr Q10H IV Last administered on 02/26/18 12:31; Start 02/25/18 at 16:00; Stop 02/26/18 at 14:32; Status DC Potassium Chloride (Klor-Con) 20 meq TID PO Last administered on 02/26/18 19:25 ; Start 02/25/18 at 21:00 Active Scripts Active Reported Acetaminophen 500 Mg Tablet 500 Mg PO BID Desitin (Zinc Oxide) 57 Gm Cream..g. 1 Applic TP PRN PRN Acetaminophen 500 Mg Tablet 500 Mg PO PRN Q8HRS PRN Furosemide 40 Mg Tablet 40 Mg PO PRN DAILY PRN Zoloft (Sertraline Hcl) 50 Mg Tablet 50 Mg PO DAILY Ranitidine Hcl 150 Mg Capsule 150 Mg PO HS Potassium Chloride 10 Meq Tablet.er 10 Meq PO DAILY Metoprolol Succinate ( Xl ) (Metoprolol Succinate) 50 Mg Tab.er.24h 50 Mg PO DAILY Namenda (Memantine Hcl) 10 Mg Tablet 10 Mg PO DAILY Hydrochlorothiazide Tablet (Hydrochlorothiazide) 12.5 Mg Tablet 12.5 Mg PO DAILY Cymbalta (Duloxetine Hcl) 20 Mg Capsule.dr 20 Mg PO DAILY 26 Days Donepezil Hcl 10 Mg Tablet 10 Mg PO DAILY Desitin (Zinc Oxide) 57 Gm Cream..g. 1 Appful TP BID Cetirizine Hcl 10 Mg Tablet 10 Mg PO DAILY Atorvastatin Calcium 20 Mg Tablet 20 Mg PO QHS Aspir-Low (Aspirin) 81 Mg Tablet.dr 81 Mg PO DAILY I have reviewed the current psychotropics carefully including drug interactions. Risk benefit ratio favors no change other than as noted in my dictated progress note. Diagnosis: Problems: (1) Anxiety disorder (2) Impulse control disorder (3) Dementia, vascular, with depression (4) Dementia, vascular, with delusions (5) Dementia with behavioral disturbance (6) Dementia in Alzheimer's disease with depression (7) Dementia in Alzheimer's disease with delusions LIANA MCKENZIE MD Feb 26, 2018 20:42
--- NOTE | 2018-02-26 21:42 | PN ---
DATE: 02/25/2018 This is a late entry for 02/25/2018 and covers the elements not covered in my initial note. SUBJECTIVE: I met with the patient in the evening. The patient slept 6-1/4 hours previous evening. She remains on IV fluids. Labs are improved. She is more "perked up" per nursing report. Appetite is better. REVIEW OF SYSTEMS: Ambulation impaired, in wheelchair. No CV, , pulmonary, eye, ENT system symptoms on review. Reliability poor. MENTAL STATUS EXAM: Oriented to herself. Insight, judgment, recent and remote memory, attention, concentration, fund of knowledge poor, consistent with her diagnosis mentioned in my initial note. PLAN: Continue psychotropics from initial note. Maintain IV fluids per Dr. Sun. MAN Tracie MCKENZIE MD DR: REMINGTON/brad JOB#: [id number] / [id number]
[2018-02-27] MEDS: NYSTATIN TOPICAL POWDER 15GM BOTTLE. TP SCH ×3 (04:15→21:00)
[2018-02-27 06:20] VITALS: BP 102/66
[2018-02-27] MEDS: CETIRIZINE HCL 10 MG TABLET PO SCH (07:45)
[2018-02-27] MEDS: ACETAMINOPHEN 500 MG TABLET PO SCH ×2 (07:45→20:18)
[2018-02-27] MEDS: ASPIRIN ENTERIC COATED 81 MG TABLET.DR. PO SCH (07:45)
[2018-02-27] MEDS: MEMANTINE 10 MG TABLET. PO SCH ×2 (07:45→20:17)
[2018-02-27] MEDS: DONEPEZIL HCL 10 MG TABLET PO SCH (07:46)
[2018-02-27] MEDS: buPROPion XL 300 MG TAB.ER.24H. PO SCH (07:46)
[2018-02-27] MEDS: MEGESTROL 40 MG TABLET. PO SCH ×3 (07:46→17:01)
[2018-02-27] MEDS: POTASSIUM CHLORIDE 20 MEQ TABLET.ER. PO SCH ×3 (07:46→20:17)
[2018-02-27 07:51] VITALS: BP 127/63
[2018-02-27] MEDS: METOPROLOL SUCC 24HR ER 50 MG TAB.ER.24H. PO SCH (07:51)
[2018-02-27 16:17] VITALS: BP 94/55
[2018-02-27] MEDS: QUEtiapine 25 MG TABLET. PO SCH (17:01)
[2018-02-27] MEDS: SERTRALINE 50 MG TABLET. PO SCH (17:01)
[2018-02-27] MEDS: PRIMIDONE 50 MG TABLET PO SCH (20:17)
[2018-02-27] MEDS: FAMOTIDINE 20 MG TABLET PO SCH (20:17)
[2018-02-27] MEDS: ATORVASTATIN CALCIUM 20 MG TABLET PO SCH (20:17)
--- NOTE | 2018-02-27 20:40 | PDOC ---
Exam Note: Kobe Note: Please also refer to the separate dictated note~for this date of service dictated separately.~Patient seen individually. Discussed the patient with Nursing staff reviewed the chart.~Reviewed interim history and current functioning. Reviewed vital signs,~Labs/ Radiology~and current medications noted below. Continue current treatment with the changes noted in the dictated addendum note Assessment: Vital Signs: Vital Signs Date Time Temp Pulse Resp B/P (MAP) Pulse Ox O2 Delivery O2 Flow Rate FiO2 02/27/18 16:17 97.9 80 18 94/55 (68) 96 02/21/18 16:04 Room Air I&O Intake and Output 02/27/18 07:00 Intake Total 720 ml Balance 720 ml Intake Oral 720 ml # Bowel Movements 2 Current Medications: Meds: Current Medications Potassium Chloride (Klor-Con) 40 meq 1X ONCE PO Last administered on at 10:13; Start 02/08/18 at 10:15; Stop 02/08/18 at 10:16; Status DC Acetaminophen (Tylenol) 650 mg PRN Q6HRS PRN PO PAIN / TEMP; Start 02/08/18 at 14:30; Status Cancel Multi-Ingredient Ointment (Analgesic [place]) 1 savanah PRN QID PRN TP MUSCLE PAIN; Start 02/08/18 at 14:30 Al Hydroxide/Mg Hydroxide (Mylanta Plus Xs) 15 ml PRN AFTMEALHC PRN PO DYSPEPSIA; Start 02/08/18 at 14:30 Magnesium Hydroxide (Milk Of Magnesia) 2,400 mg PRN QHS PRN PO CONSTIPATION Last administered on 02/26/18at 09:32; Start 02/08/18 at 14:30 Atorvastatin Calcium (Lipitor) 20 mg QHS PO Last administered on 02/27/18at 20:17 ; Start 02/08/18 at 21:00 Sertraline HCl (Zoloft) 50 mg DAILY PO ; Start 02/09/18 at 09:00; Stop 02/09/18 at 09:00; Status DC Acetaminophen (Tylenol) 500 mg BID PO Last administered on 02/27/18at 20:18; Start 02/08/18 at 21:00 Acetaminophen (Tylenol) 500 mg PRN Q8HRS PRN PO PAIN / TEMP; Start 02/08/18 at 15:00 Aspirin (Aspirin Enteric Coated) 81 mg DAILY PO Last administered on 02/27/18 07:45; Start 02/09/18 at 09:00 Cetirizine HCl (ZyrTEC) 10 mg DAILY PO Last administered on 02/27/18 07:45; Start 02/09/18 at 09:00 Donepezil HCl (Aricept) 10 mg DAILY PO Last administered on 02/27/18at 07:46; Start 02/09/18 at 09:00 Duloxetine HCl (Cymbalta) 20 mg DAILY PO ; Start 02/09/18 at 09:00; Stop at 09:00; Status DC Furosemide (Lasix) 40 mg PRN DAILY PRN PO FOR EDEMA; Start 02/09/18 at 09:00; Stop 02/09/18 at 16:07; Status DC Hydrochlorothiazide (Microzide) 12.5 mg DAILY PO Last administered on at 07:50; Start 02/09/18 at 09:00; Stop 02/09/18 at 16:03; Status DC Memantine (Namenda) 10 mg DAILY PO Last administered on 02/12/18at 08:03; Start 02/09/18 at 09:00; Stop 02/12/18 at 18:40; Status DC Metoprolol Succinate (Toprol Xl) 50 mg DAILY PO Last administered on 02/27/18at 07:51; Start 02/09/18 at 09:00 Potassium Chloride (Klor-Con) 10 meq DAILY PO Last administered on 02/09/18at 07 :43; Start 02/09/18 at 09:00; Stop 02/09/18 at 16:07; Status DC Famotidine (Pepcid) 20 mg QHS PO Last administered on 02/27/18 20:17; Start at 21:00 Zinc Oxide (Desitin Diaper Rash 40%) 1 savanah BID TP Last administered on at 19:48; Start 02/08/18 at 21:00; Stop 02/10/18 at 07:47; Status DC Non-Formulary Medication (Zinc Oxide (Desitin)) 1 applic PRN PRN TP irritation; Start 02/08/18 at 15:00; Status UNV Sertraline HCl (Zoloft) 75 mg DAILY PO Last administered on 02/12/18at 08:03; Start 02/09/18 at 09:00; Stop 02/12/18 at 18:40; Status DC Trazodone HCl (Desyrel) 25 mg PRN QHS PRN PO INSOMNIA, MAY REPEAT X2 Last administered on 02/17/18at 20:49; Start 02/08/18 at 19:30 Potassium Chloride (Klor-Con) 40 meq 1X ONCE PO Last administered on at 17:50; Start 02/09/18 at 16:30; Stop 02/09/18 at 16:31; Status DC Furosemide (Lasix) 40 mg DAILY PO Last administered on 02/23/18at 07:50; Start 02/10/18 at 09:00; Stop 02/23/18 at 13:24; Status DC Potassium Chloride (Klor-Con) 20 meq BID PO Last administered on 02/23/18at 07: 49; Start 02/09/18 at 21:00; Stop 02/23/18 at 13:24; Status DC Nystatin (Nystop) 1 savanah BID TP Last administered on 02/27/18at 07:46; Start 02/10 at 09:00 Sertraline HCl (Zoloft) 100 mg DAILY PO ; Start 02/14/18 at 09:00; Stop at 09:00; Status DC Memantine (Namenda) 10 mg HS PO Last administered on 02/27/18at 20:17; Start at 21:00 Sertraline HCl (Zoloft) 100 mg DAILY10 PO Last administered on 02/16/18at 07:14 ; Start 02/14/18 at 10:00; Stop 02/16/18 at 07:16; Status DC Sertraline HCl (Zoloft) 75 mg DAILY10 PO Last administered on 02/13/18at 10:58; Start 02/13/18 at 10:00; Stop 02/13/18 at 11:00; Status DC Memantine (Namenda) 5 mg DAILY PO Last administered on 02/18/18at 08:45; Start 02/13/18 at 09:00; Stop 02/18/18 at 18:43; Status DC Bupropion HCl (Wellbutrin Xl) 150 mg DAILY PO Last administered on 02/18/18at 08 :44; Start 02/15/18 at 09:00; Stop 02/18/18 at 18:43; Status DC Sertraline HCl (Zoloft) 100 mg DAILY PO ; Start 02/17/18 at 09:00; Stop at 09:00; Status DC Sertraline HCl (Zoloft) 100 mg DAILY PO Last administered on 02/18/18at 08:45; Start 02/17/18 at 09:00; Stop 02/18/18 at 18:43; Status DC Sertraline HCl (Zoloft) 25 mg DAILY PO Last administered on 02/18/18at 08:45; Start 02/17/18 at 09:00; Stop 02/18/18 at 18:43; Status DC Bupropion HCl (Wellbutrin Xl) 300 mg DAILY PO Last administered on 02/27/18at 07: 46; Start 02/19/18 at 09:00 Memantine (Namenda) 10 mg DAILY PO Last administered on 02/27/18at 07:45; Start 02/19/18 at 09:00 Sertraline HCl (Zoloft) 100 mg DAILYWSUP PO ; Start 02/19/18 at 17:00; Stop at 17:00; Status DC Sertraline HCl (Zoloft) 100 mg DAILYWSUP PO Last administered on 02/21/18at 16: 52; Start 02/19/18 at 17:00; Stop 02/21/18 at 18:33; Status DC Quetiapine Fumarate (SEROquel) 12.5 mg BID PO Last administered on 02/21/18at 09 :37; Start 02/19/18 at 21:00; Stop 02/21/18 at 18:33; Status DC Quetiapine Fumarate (SEROquel) 12.5 mg QHS PO Last administered on 02/21/18at 19 :29; Start 02/21/18 at 21:00; Stop 02/22/18 at 18:23; Status DC Sertraline HCl (Zoloft) 50 mg DAILYWSUP PO Last administered on 02/27/18at 17:01 ; Start 02/22/18 at 17:00 Primidone (Mysoline) 25 mg QHS PO Last administered on 02/23/18 20:08; Start 02/21/18 at 21:00; Stop 02/24/18 at 15:09; Status DC Quetiapine Fumarate (SEROquel) 12.5 mg DAILY@1700 PO Last administered on 17:01; Start 02/23/18 at 17:00 Megestrol Acetate (Megace) 40 mg TIDAC PO Last administered on 02/27/18 17:01; Start 02/24/18 at 07:30 Dextrose 1,000 ml @ 100 mls/hr Q10H IV Last administered on 02/25/18at 08:42; Start 02/24/18 at 09:00; Stop 02/25/18 at 15:46; Status DC Primidone (Mysoline) 50 mg QHS PO Last administered on 02/27/18 20:17; Start at 21:00 Potassium Chloride/Dextrose 1,000 ml @ 100 mls/hr Q10H IV Last administered on 02/26/18at 12:31; Start 02/25/18 at 16:00; Stop 02/26/18 at 14:32; Status DC Potassium Chloride (Klor-Con) 20 meq TID PO Last administered on 02/27/18 20:17 ; Start 02/25/18 at 21:00 Active Scripts Active Reported Acetaminophen 500 Mg Tablet 500 Mg PO BID Desitin (Zinc Oxide) 57 Gm Cream..g. 1 Applic TP PRN PRN Acetaminophen 500 Mg Tablet 500 Mg PO PRN Q8HRS PRN Furosemide 40 Mg Tablet 40 Mg PO PRN DAILY PRN Zoloft (Sertraline Hcl) 50 Mg Tablet 50 Mg PO DAILY Ranitidine Hcl 150 Mg Capsule 150 Mg PO HS Potassium Chloride 10 Meq Tablet.er 10 Meq PO DAILY Metoprolol Succinate ( Xl ) (Metoprolol Succinate) 50 Mg Tab.er.24h 50 Mg PO DAILY Namenda (Memantine Hcl) 10 Mg Tablet 10 Mg PO DAILY Hydrochlorothiazide Tablet (Hydrochlorothiazide) 12.5 Mg Tablet 12.5 Mg PO DAILY Cymbalta (Duloxetine Hcl) 20 Mg Capsule.dr 20 Mg PO DAILY 26 Days Donepezil Hcl 10 Mg Tablet 10 Mg PO DAILY Desitin (Zinc Oxide) 57 Gm Cream..g. 1 Appful TP BID Cetirizine Hcl 10 Mg Tablet 10 Mg PO DAILY Atorvastatin Calcium 20 Mg Tablet 20 Mg PO QHS Aspir-Low (Aspirin) 81 Mg Tablet. 81 Mg PO DAILY I have reviewed the current psychotropics carefully including drug interactions. Risk benefit ratio favors no change other than as noted in my dictated progress note. Diagnosis: Problems: (1) Anxiety disorder (2) Impulse control disorder (3) Dementia, vascular, with depression (4) Dementia, vascular, with delusions (5) Dementia with behavioral disturbance (6) Dementia in Alzheimer's disease with depression (7) Dementia in Alzheimer's disease with delusions LIANA MCKENZIE MD Feb 27, 2018 20:40
[2018-02-28 05:52] VITALS: BP 106/63
[2018-02-28] MEDS: MEMANTINE 10 MG TABLET. PO SCH ×2 (07:50→20:00)
[2018-02-28] MEDS: ACETAMINOPHEN 500 MG TABLET PO SCH ×2 (07:50→20:00)
[2018-02-28] MEDS: MEGESTROL 40 MG TABLET. PO SCH ×3 (07:51→17:17)
[2018-02-28] MEDS: DONEPEZIL HCL 10 MG TABLET PO SCH (07:51)
[2018-02-28] MEDS: POTASSIUM CHLORIDE 20 MEQ TABLET.ER. PO SCH ×3 (07:51→20:00)
[2018-02-28] MEDS: buPROPion XL 300 MG TAB.ER.24H. PO SCH (07:51)
[2018-02-28] MEDS: CETIRIZINE HCL 10 MG TABLET PO SCH (07:51)
[2018-02-28] MEDS: ASPIRIN ENTERIC COATED 81 MG TABLET.DR. PO SCH (07:51)
[2018-02-28] MEDS: NYSTATIN TOPICAL POWDER 15GM BOTTLE. TP SCH ×2 (07:52→20:00)
[2018-02-28] MEDS: METOPROLOL SUCC 24HR ER 50 MG TAB.ER.24H. PO SCH (07:53)
[2018-02-28 16:08] VITALS: BP 121/79
[2018-02-28] MEDS: SERTRALINE 50 MG TABLET. PO SCH (17:17)
[2018-02-28] MEDS: ATORVASTATIN CALCIUM 20 MG TABLET PO SCH (19:59)
[2018-02-28] MEDS: FAMOTIDINE 20 MG TABLET PO SCH (20:00)
[2018-02-28] MEDS: PRIMIDONE 50 MG TABLET PO SCH (20:00)
[2018-02-28] MEDS: LACTOBACILLUS RHAMNOSUS GG 1 CAPSULE. PO SCH (20:01)
[2018-02-28] MEDS: QUEtiapine 25 MG TABLET. PO SCH (20:02)
[2018-02-28] MEDS: AMOXICILLIN 250 MG CAPSULE PO SCH (20:02)
--- NOTE | 2018-02-28 20:59 | PDOC ---
Exam Note: Kobe Note: Please also refer to the separate dictated note~for this date of service dictated separately.~Patient seen individually. Discussed the patient with Nursing staff reviewed the chart.~Reviewed interim history and current functioning. Reviewed vital signs,~Labs/ Radiology~and current medications noted below. Continue current treatment with the changes noted in the dictated addendum note Assessment: Vital Signs: Vital Signs Date Time Temp Pulse Resp B/P (MAP) Pulse Ox O2 Delivery O2 Flow Rate FiO2 02/28/18 16:08 98.3 79 24 121/79 (93) 99 I&O Intake and Output 02/28/18 06:59 Intake Total 300 ml Balance 300 ml Intake Oral 300 ml Current Medications: Meds: Current Medications Potassium Chloride (Klor-Con) 40 meq 1X ONCE PO Last administered on at 10:13; Start 02/08/18 at 10:15; Stop 02/08/18 at 10:16; Status DC Acetaminophen (Tylenol) 650 mg PRN Q6HRS PRN PO PAIN / TEMP; Start 02/08/18 at 14:30; Status Cancel Multi-Ingredient Ointment (Analgesic [place]) 1 savanah PRN QID PRN TP MUSCLE PAIN; Start 02/08/18 at 14:30 Al Hydroxide/Mg Hydroxide (Mylanta Plus Xs) 15 ml PRN AFTMEALHC PRN PO DYSPEPSIA; Start 02/08/18 at 14:30 Magnesium Hydroxide (Milk Of Magnesia) 2,400 mg PRN QHS PRN PO CONSTIPATION Last administered on 02/26/18at 09:32; Start 02/08/18 at 14:30 Atorvastatin Calcium (Lipitor) 20 mg QHS PO Last administered on 02/28/18at 19:59 ; Start 02/08/18 at 21:00 Sertraline HCl (Zoloft) 50 mg DAILY PO ; Start 02/09/18 at 09:00; Stop 02/09/18 at 09:00; Status DC Acetaminophen (Tylenol) 500 mg BID PO Last administered on 02/28/18at 20:00; Start 02/08/18 at 21:00 Acetaminophen (Tylenol) 500 mg PRN Q8HRS PRN PO PAIN / TEMP; Start 02/08/18 at 15:00 Aspirin (Aspirin Enteric Coated) 81 mg DAILY PO Last administered on 02/28/18 07:51; Start 02/09/18 at 09:00 Cetirizine HCl (ZyrTEC) 10 mg DAILY PO Last administered on 02/28/18 07:51; Start 02/09/18 at 09:00 Donepezil HCl (Aricept) 10 mg DAILY PO Last administered on 02/28/18 07:51; Start 02/09/18 at 09:00 Duloxetine HCl (Cymbalta) 20 mg DAILY PO ; Start 02/09/18 at 09:00; Stop at 09:00; Status DC Furosemide (Lasix) 40 mg PRN DAILY PRN PO FOR EDEMA; Start 02/09/18 at 09:00; Stop 02/09/18 at 16:07; Status DC Hydrochlorothiazide (Microzide) 12.5 mg DAILY PO Last administered on 07:50; Start 02/09/18 at 09:00; Stop 02/09/18 at 16:03; Status DC Memantine (Namenda) 10 mg DAILY PO Last administered on 02/12/18at 08:03; Start 02/09/18 at 09:00; Stop 02/12/18 at 18:40; Status DC Metoprolol Succinate (Toprol Xl) 50 mg DAILY PO Last administered on 02/28/18 07:53; Start 02/09/18 at 09:00 Potassium Chloride (Klor-Con) 10 meq DAILY PO Last administered on 02/09/18at 07 :43; Start 02/09/18 at 09:00; Stop 02/09/18 at 16:07; Status DC Famotidine (Pepcid) 20 mg QHS PO Last administered on 02/28/18at 20:00; Start at 21:00 Zinc Oxide (Desitin Diaper Rash 40%) 1 savanah BID TP Last administered on 19:48; Start 02/08/18 at 21:00; Stop 02/10/18 at 07:47; Status DC Non-Formulary Medication (Zinc Oxide (Desitin)) 1 applic PRN PRN TP irritation; Start 02/08/18 at 15:00; Status UNV Sertraline HCl (Zoloft) 75 mg DAILY PO Last administered on 02/12/18at 08:03; Start 02/09/18 at 09:00; Stop 02/12/18 at 18:40; Status DC Trazodone HCl (Desyrel) 25 mg PRN QHS PRN PO INSOMNIA, MAY REPEAT X2 Last administered on 02/17/18at 20:49; Start 02/08/18 at 19:30 Potassium Chloride (Klor-Con) 40 meq 1X ONCE PO Last administered on 17:50; Start 02/09/18 at 16:30; Stop 02/09/18 at 16:31; Status DC Furosemide (Lasix) 40 mg DAILY PO Last administered on 02/23/18at 07:50; Start 02/10/18 at 09:00; Stop 02/23/18 at 13:24; Status DC Potassium Chloride (Klor-Con) 20 meq BID PO Last administered on 02/23/18 07: 49; Start 02/09/18 at 21:00; Stop 02/23/18 at 13:24; Status DC Nystatin (Nystop) 1 savanah BID TP Last administered on 02/28/18at 20:00; Start 02/10 at 09:00 Sertraline HCl (Zoloft) 100 mg DAILY PO ; Start 02/14/18 at 09:00; Stop at 09:00; Status DC Memantine (Namenda) 10 mg HS PO Last administered on 02/28/18at 20:00; Start at 21:00 Sertraline HCl (Zoloft) 100 mg DAILY10 PO Last administered on 02/16/18at 07:14 ; Start 02/14/18 at 10:00; Stop 02/16/18 at 07:16; Status DC Sertraline HCl (Zoloft) 75 mg DAILY10 PO Last administered on 02/13/18at 10:58; Start 02/13/18 at 10:00; Stop 02/13/18 at 11:00; Status DC Memantine (Namenda) 5 mg DAILY PO Last administered on 02/18/18at 08:45; Start 02/13/18 at 09:00; Stop 02/18/18 at 18:43; Status DC Bupropion HCl (Wellbutrin Xl) 150 mg DAILY PO Last administered on 02/18/18at 08 :44; Start 02/15/18 at 09:00; Stop 02/18/18 at 18:43; Status DC Sertraline HCl (Zoloft) 100 mg DAILY PO ; Start 02/17/18 at 09:00; Stop at 09:00; Status DC Sertraline HCl (Zoloft) 100 mg DAILY PO Last administered on 02/18/18at 08:45; Start 02/17/18 at 09:00; Stop 02/18/18 at 18:43; Status DC Sertraline HCl (Zoloft) 25 mg DAILY PO Last administered on 02/18/18at 08:45; Start 02/17/18 at 09:00; Stop 02/18/18 at 18:43; Status DC Bupropion HCl (Wellbutrin Xl) 300 mg DAILY PO Last administered on 02/28/18at 07: 51; Start 02/19/18 at 09:00 Memantine (Namenda) 10 mg DAILY PO Last administered on 02/28/18at 07:50; Start 02/19/18 at 09:00 Sertraline HCl (Zoloft) 100 mg DAILYWSUP PO ; Start 02/19/18 at 17:00; Stop at 17:00; Status DC Sertraline HCl (Zoloft) 100 mg DAILYWSUP PO Last administered on 02/21/18at 16: 52; Start 02/19/18 at 17:00; Stop 02/21/18 at 18:33; Status DC Quetiapine Fumarate (SEROquel) 12.5 mg BID PO Last administered on 02/21/18at 09 :37; Start 02/19/18 at 21:00; Stop 02/21/18 at 18:33; Status DC Quetiapine Fumarate (SEROquel) 12.5 mg QHS PO Last administered on 02/21/18at 19 :29; Start 02/21/18 at 21:00; Stop 02/22/18 at 18:23; Status DC Sertraline HCl (Zoloft) 50 mg DAILYWSUP PO Last administered on 02/28/18at 17:17 ; Start 02/22/18 at 17:00 Primidone (Mysoline) 25 mg QHS PO Last administered on 02/23/18at 20:08; Start 02/21/18 at 21:00; Stop 02/24/18 at 15:09; Status DC Quetiapine Fumarate (SEROquel) 12.5 mg DAILY@1700 PO Last administered on 17:01; Start 02/23/18 at 17:00; Stop 02/28/18 at 15:38; Status DC Megestrol Acetate (Megace) 40 mg TIDAC PO Last administered on 02/28/18 17:17; Start 02/24/18 at 07:30 Dextrose 1,000 ml @ 100 mls/hr Q10H IV Last administered on 02/25/18 08:42; Start 02/24/18 at 09:00; Stop 02/25/18 at 15:46; Status DC Primidone (Mysoline) 50 mg QHS PO Last administered on 02/28/18 20:00; Start at 21:00 Potassium Chloride/Dextrose 1,000 ml @ 100 mls/hr Q10H IV Last administered on 02/26/18 12:31; Start 02/25/18 at 16:00; Stop 02/26/18 at 14:32; Status DC Potassium Chloride (Klor-Con) 20 meq TID PO Last administered on 02/28/18 20:00 ; Start 02/25/18 at 21:00 Quetiapine Fumarate (SEROquel) 12.5 mg BID PO Last administered on 02/28/18 20: 02; Start 02/28/18 at 21:00 Amoxicillin (Amoxil) 250 mg [id number] PO ; Start 03/10/18 at 21:00; Stop 03/10/18 at 21:00; Status DC Amoxicillin (Amoxil) 250 mg [id number] PO Last administered on 02/28/18 20:02; Start 02/28/18 at 21:00; Stop 03/07/18 at 21:01 Lactobacillus Rhamnosus (Culturelle) 1 cap BID PO Last administered on 20:01; Start 02/28/18 at 21:00 Active Scripts Active Reported Acetaminophen 500 Mg Tablet 500 Mg PO BID Desitin (Zinc Oxide) 57 Gm Cream..g. 1 Applic TP PRN PRN Acetaminophen 500 Mg Tablet 500 Mg PO PRN Q8HRS PRN Furosemide 40 Mg Tablet 40 Mg PO PRN DAILY PRN Zoloft (Sertraline Hcl) 50 Mg Tablet 50 Mg PO DAILY Ranitidine Hcl 150 Mg Capsule 150 Mg PO HS Potassium Chloride 10 Meq Tablet.er 10 Meq PO DAILY Metoprolol Succinate ( Xl ) (Metoprolol Succinate) 50 Mg Tab.er.24h 50 Mg PO DAILY Namenda (Memantine Hcl) 10 Mg Tablet 10 Mg PO DAILY Hydrochlorothiazide Tablet (Hydrochlorothiazide) 12.5 Mg Tablet 12.5 Mg PO DAILY Cymbalta (Duloxetine Hcl) 20 Mg Capsule.dr 20 Mg PO DAILY 26 Days Donepezil Hcl 10 Mg Tablet 10 Mg PO DAILY Desitin (Zinc Oxide) 57 Gm Cream..g. 1 Appful TP BID Cetirizine Hcl 10 Mg Tablet 10 Mg PO DAILY Atorvastatin Calcium 20 Mg Tablet 20 Mg PO QHS Aspir-Low (Aspirin) 81 Mg Tablet.dr 81 Mg PO DAILY I have reviewed the current psychotropics carefully including drug interactions. Risk benefit ratio favors no change other than as noted in my dictated progress note. Diagnosis: Problems: (1) Anxiety disorder (2) Impulse control disorder (3) Dementia, vascular, with depression (4) Dementia, vascular, with delusions (5) Dementia with behavioral disturbance (6) Dementia in Alzheimer's disease with depression (7) Dementia in Alzheimer's disease with delusions LIANA MCKENZIE MD Feb 28, 2018 20:58
--- NOTE | 2018-02-28 22:15 | PN ---
DATE: 02/26/2018 PSYCHIATRIC PROGRESS NOTE This is a late entry 02/26/2018, covers elements not covered in my initial note. SUBJECTIVE: I met with the patient in the evening. The patient slept 6-3/4 hours. Appetite somewhat better. IV has been discontinued. REVIEW OF SYSTEMS: No CV, , pulmonary, eye, ENT system symptoms on review. Gait unsteady, in wheelchair. MENTAL STATUS EXAM: Oriented to herself. Insight, judgment, recent and remote memory, attention, concentration, fund of knowledge poor, consistent with her diagnoses mentioned in my initial note. PLAN: Continue psychotropics from initial note including Megace for appetite stimulation. LIANA MCKENZIE MD DR: REMINGTON/brad JOB#: [id number] / [id number]
[2018-03-01 05:54] VITALS: BP 126/66
--- NOTE | 2018-03-01 06:41 | PN ---
DATE: 02/27/2018 PSYCHIATRIC PROGRESS NOTE This is a late entry, date of service 02/27/2018, covers elements not covered in my initial note. SUBJECTIVE: I met with the patient in the afternoon. The patient slept 6-1/2 hours, remains withdrawn. Ambulation impaired, in wheelchair, resistive to medications previous night. Appetite better. REVIEW OF SYSTEMS: No CV, , pulmonary, eye, ENT system symptoms on review. Reliability poor. MENTAL STATUS EXAM: Oriented to herself. Insight, judgment, recent and remote memory, attention, concentration, fund of knowledge poor, consistent with her diagnosis from initial note. PLAN: Continue psychotropics from initial note. LIANA MCKENZIE MD DR: REMINGTON/brad JOB#: [id number] / [id number]
[2018-03-01] MEDS: CETIRIZINE HCL 10 MG TABLET PO SCH (07:47)
[2018-03-01] MEDS: DONEPEZIL HCL 10 MG TABLET PO SCH (07:48)
[2018-03-01] MEDS: ACETAMINOPHEN 500 MG TABLET PO SCH ×2 (07:48→20:08)
[2018-03-01] MEDS: ASPIRIN ENTERIC COATED 81 MG TABLET.DR. PO SCH (07:48)
[2018-03-01] MEDS: AMOXICILLIN 250 MG CAPSULE PO SCH ×3 (07:48→20:07)
[2018-03-01] MEDS: POTASSIUM CHLORIDE 20 MEQ TABLET.ER. PO SCH ×3 (07:49→20:08)
[2018-03-01] MEDS: LACTOBACILLUS RHAMNOSUS GG 1 CAPSULE. PO SCH ×2 (07:49→20:08)
[2018-03-01] MEDS: QUEtiapine 25 MG TABLET. PO SCH ×2 (07:49→20:07)
[2018-03-01] MEDS: METOPROLOL SUCC 24HR ER 50 MG TAB.ER.24H. PO SCH (07:50)
[2018-03-01] MEDS: buPROPion XL 300 MG TAB.ER.24H. PO SCH (07:50)
[2018-03-01] MEDS: NYSTATIN TOPICAL POWDER 15GM BOTTLE. TP SCH ×2 (07:51→20:11)
[2018-03-01] MEDS: MEGESTROL 40 MG TABLET. PO SCH ×3 (07:51→16:26)
[2018-03-01] MEDS: MEMANTINE 10 MG TABLET. PO SCH ×2 (07:51→20:08)
[2018-03-01] MEDS: SERTRALINE 50 MG TABLET. PO SCH (16:26)
[2018-03-01 16:40] VITALS: BP 126/74
[2018-03-01] MEDS: FAMOTIDINE 20 MG TABLET PO SCH (20:07)
[2018-03-01] MEDS: ATORVASTATIN CALCIUM 20 MG TABLET PO SCH (20:08)
[2018-03-01] MEDS: PRIMIDONE 50 MG TABLET PO SCH (20:08)
--- NOTE | 2018-03-01 23:07 | PDOC ---
Exam Note: Kobe Note: Please also refer to the separate dictated note~for this date of service dictated separately.~Patient seen individually. Discussed the patient with Nursing staff reviewed the chart.~Reviewed interim history and current functioning. Reviewed vital signs,~Labs/ Radiology~and current medications noted below. Continue current treatment with the changes noted in the dictated addendum note Assessment: Vital Signs: Vital Signs Date Time Temp Pulse Resp B/P (MAP) Pulse Ox O2 Delivery O2 Flow Rate FiO2 03/01/18 16:40 97.2 74 17 126/74 (91) 97 Room Air I&O Intake and Output 03/01/18 06:59 Intake Total 280 ml Balance 280 ml Intake Oral 280 ml # Bowel Movements 2 Current Medications: Meds: Current Medications Potassium Chloride (Klor-Con) 40 meq 1X ONCE PO Last administered on at 10:13; Start 02/08/18 at 10:15; Stop 02/08/18 at 10:16; Status DC Acetaminophen (Tylenol) 650 mg PRN Q6HRS PRN PO PAIN / TEMP; Start 02/08/18 at 14:30; Status Cancel Multi-Ingredient Ointment (Analgesic [place]) 1 savanah PRN QID PRN TP MUSCLE PAIN; Start 02/08/18 at 14:30 Al Hydroxide/Mg Hydroxide (Mylanta Plus Xs) 15 ml PRN AFTMEALHC PRN PO DYSPEPSIA; Start 02/08/18 at 14:30 Magnesium Hydroxide (Milk Of Magnesia) 2,400 mg PRN QHS PRN PO CONSTIPATION Last administered on 02/26/18at 09:32; Start 02/08/18 at 14:30 Atorvastatin Calcium (Lipitor) 20 mg QHS PO Last administered on 03/01/18at 20:08 ; Start 02/08/18 at 21:00 Sertraline HCl (Zoloft) 50 mg DAILY PO ; Start 02/09/18 at 09:00; Stop 02/09/18 at 09:00; Status DC Acetaminophen (Tylenol) 500 mg BID PO Last administered on 03/01/18at 20:08; Start 02/08/18 at 21:00 Acetaminophen (Tylenol) 500 mg PRN Q8HRS PRN PO PAIN / TEMP; Start 02/08/18 at 15:00 Aspirin (Aspirin Enteric Coated) 81 mg DAILY PO Last administered on 03/01/18 07:48; Start 02/09/18 at 09:00 Cetirizine HCl (ZyrTEC) 10 mg DAILY PO Last administered on 03/01/18 07:47; Start 02/09/18 at 09:00 Donepezil HCl (Aricept) 10 mg DAILY PO Last administered on 03/01/18 07:48; Start 02/09/18 at 09:00 Duloxetine HCl (Cymbalta) 20 mg DAILY PO ; Start 02/09/18 at 09:00; Stop at 09:00; Status DC Furosemide (Lasix) 40 mg PRN DAILY PRN PO FOR EDEMA; Start 02/09/18 at 09:00; Stop 02/09/18 at 16:07; Status DC Hydrochlorothiazide (Microzide) 12.5 mg DAILY PO Last administered on 07:50; Start 02/09/18 at 09:00; Stop 02/09/18 at 16:03; Status DC Memantine (Namenda) 10 mg DAILY PO Last administered on 02/12/18at 08:03; Start 02/09/18 at 09:00; Stop 02/12/18 at 18:40; Status DC Metoprolol Succinate (Toprol Xl) 50 mg DAILY PO Last administered on 03/01/18 07:50; Start 02/09/18 at 09:00 Potassium Chloride (Klor-Con) 10 meq DAILY PO Last administered on 02/09/18at 07 :43; Start 02/09/18 at 09:00; Stop 02/09/18 at 16:07; Status DC Famotidine (Pepcid) 20 mg QHS PO Last administered on 03/01/18 20:07; Start at 21:00 Zinc Oxide (Desitin Diaper Rash 40%) 1 savanah BID TP Last administered on 19:48; Start 02/08/18 at 21:00; Stop 02/10/18 at 07:47; Status DC Non-Formulary Medication (Zinc Oxide (Desitin)) 1 applic PRN PRN TP irritation; Start 02/08/18 at 15:00; Status UNV Sertraline HCl (Zoloft) 75 mg DAILY PO Last administered on 6/19/18at 08:03; Start 02/09/18 at 09:00; Stop 02/12/18 at 18:40; Status DC Trazodone HCl (Desyrel) 25 mg PRN QHS PRN PO INSOMNIA, MAY REPEAT X2 Last administered on 02/17/18at 20:49; Start 02/08/18 at 19:30 Potassium Chloride (Klor-Con) 40 meq 1X ONCE PO Last administered on at 17:50; Start 02/09/18 at 16:30; Stop 02/09/18 at 16:31; Status DC Furosemide (Lasix) 40 mg DAILY PO Last administered on 02/23/18at 07:50; Start 02/10/18 at 09:00; Stop 02/23/18 at 13:24; Status DC Potassium Chloride (Klor-Con) 20 meq BID PO Last administered on 02/23/18at 07: 49; Start 02/09/18 at 21:00; Stop 02/23/18 at 13:24; Status DC Nystatin (Nystop) 1 savanah BID TP Last administered on 03/01/18at 20:11; Start 02/10 at 09:00 Sertraline HCl (Zoloft) 100 mg DAILY PO ; Start 02/14/18 at 09:00; Stop at 09:00; Status DC Memantine (Namenda) 10 mg HS PO Last administered on 03/01/18at 20:08; Start at 21:00 Sertraline HCl (Zoloft) 100 mg DAILY10 PO Last administered on 02/16/18at 07:14 ; Start 02/14/18 at 10:00; Stop 02/16/18 at 07:16; Status DC Sertraline HCl (Zoloft) 75 mg DAILY10 PO Last administered on 02/13/18at 10:58; Start 02/13/18 at 10:00; Stop 02/13/18 at 11:00; Status DC Memantine (Namenda) 5 mg DAILY PO Last administered on 02/18/18at 08:45; Start 02/13/18 at 09:00; Stop 02/18/18 at 18:43; Status DC Bupropion HCl (Wellbutrin Xl) 150 mg DAILY PO Last administered on 6/25/18at 08 :44; Start 02/15/18 at 09:00; Stop 02/18/18 at 18:43; Status DC Sertraline HCl (Zoloft) 100 mg DAILY PO ; Start 02/17/18 at 09:00; Stop at 09:00; Status DC Sertraline HCl (Zoloft) 100 mg DAILY PO Last administered on 02/18/18at 08:45; Start 02/17/18 at 09:00; Stop 02/18/18 at 18:43; Status DC Sertraline HCl (Zoloft) 25 mg DAILY PO Last administered on 02/18/18at 08:45; Start 02/17/18 at 09:00; Stop 02/18/18 at 18:43; Status DC Bupropion HCl (Wellbutrin Xl) 300 mg DAILY PO Last administered on 03/01/18at 07: 50; Start 02/19/18 at 09:00 Memantine (Namenda) 10 mg DAILY PO Last administered on 03/01/18at 07:51; Start 02/19/18 at 09:00 Sertraline HCl (Zoloft) 100 mg DAILYWSUP PO ; Start 02/19/18 at 17:00; Stop at 17:00; Status DC Sertraline HCl (Zoloft) 100 mg DAILYWSUP PO Last administered on 02/21/18at 16: 52; Start 02/19/18 at 17:00; Stop 02/21/18 at 18:33; Status DC Quetiapine Fumarate (SEROquel) 12.5 mg BID PO Last administered on 02/21/18at 09 :37; Start 02/19/18 at 21:00; Stop 02/21/18 at 18:33; Status DC Quetiapine Fumarate (SEROquel) 12.5 mg QHS PO Last administered on 02/21/18at 19 :29; Start 02/21/18 at 21:00; Stop 02/22/18 at 18:23; Status DC Sertraline HCl (Zoloft) 50 mg DAILYWSUP PO Last administered on 02/28/18at 17:17 ; Start 02/22/18 at 17:00 Primidone (Mysoline) 25 mg QHS PO Last administered on 02/23/18at 20:08; Start 02/21/18 at 21:00; Stop 02/24/18 at 15:09; Status DC Quetiapine Fumarate (SEROquel) 12.5 mg DAILY@1700 PO Last administered on 17:01; Start 02/23/18 at 17:00; Stop 02/28/18 at 15:38; Status DC Megestrol Acetate (Megace) 40 mg TIDAC PO Last administered on 03/01/18 11:22; Start 02/24/18 at 07:30 Dextrose 1,000 ml @ 100 mls/hr Q10H IV Last administered on 02/25/18 08:42; Start 02/24/18 at 09:00; Stop 02/25/18 at 15:46; Status DC Primidone (Mysoline) 50 mg QHS PO Last administered on 03/01/18 20:08; Start at 21:00 Potassium Chloride/Dextrose 1,000 ml @ 100 mls/hr Q10H IV Last administered on 02/26/18 12:31; Start 02/25/18 at 16:00; Stop 02/26/18 at 14:32; Status DC Potassium Chloride (Klor-Con) 20 meq TID PO Last administered on 03/01/18 20:08 ; Start 02/25/18 at 21:00 Quetiapine Fumarate (SEROquel) 12.5 mg BID PO Last administered on 03/01/18 20: 07; Start 02/28/18 at 21:00 Amoxicillin (Amoxil) 250 mg [id number] PO ; Start 03/10/18 at 21:00; Stop 03/10/18 at 21:00; Status DC Amoxicillin (Amoxil) 250 mg [id number] PO Last administered on 03/01/18 20:07; Start 02/28/18 at 21:00; Stop 03/07/18 at 21:01 Lactobacillus Rhamnosus (Culturelle) 1 cap BID PO Last administered on 20:08; Start 02/28/18 at 21:00 Active Scripts Active Reported Acetaminophen 500 Mg Tablet 500 Mg PO BID Desitin (Zinc Oxide) 57 Gm Cream..g. 1 Applic TP PRN PRN Acetaminophen 500 Mg Tablet 500 Mg PO PRN Q8HRS PRN Furosemide 40 Mg Tablet 40 Mg PO PRN DAILY PRN Zoloft (Sertraline Hcl) 50 Mg Tablet 50 Mg PO DAILY Ranitidine Hcl 150 Mg Capsule 150 Mg PO HS Potassium Chloride 10 Meq Tablet.er 10 Meq PO DAILY Metoprolol Succinate ( Xl ) (Metoprolol Succinate) 50 Mg Tab.er.24h 50 Mg PO DAILY Namenda (Memantine Hcl) 10 Mg Tablet 10 Mg PO DAILY Hydrochlorothiazide Tablet (Hydrochlorothiazide) 12.5 Mg Tablet 12.5 Mg PO DAILY Cymbalta (Duloxetine Hcl) 20 Mg Capsule.dr 20 Mg PO DAILY 26 Days Donepezil Hcl 10 Mg Tablet 10 Mg PO DAILY Desitin (Zinc Oxide) 57 Gm Cream..g. 1 Appful TP BID Cetirizine Hcl 10 Mg Tablet 10 Mg PO DAILY Atorvastatin Calcium 20 Mg Tablet 20 Mg PO QHS Aspir-Low (Aspirin) 81 Mg Tablet.dr 81 Mg PO DAILY I have reviewed the current psychotropics carefully including drug interactions. Risk benefit ratio favors no change other than as noted in my dictated progress note. Diagnosis: Problems: (1) Anxiety disorder (2) Impulse control disorder (3) Dementia, vascular, with depression (4) Dementia, vascular, with delusions (5) Dementia with behavioral disturbance (6) Dementia in Alzheimer's disease with depression (7) Dementia in Alzheimer's disease with delusions LIANA MCKENZIE MD Mar 01, 2018 23:07
--- NOTE | 2018-03-02 05:56 | PN ---
DATE: 02/28/2018 PSYCHIATRIC PROGRESS NOTE This is a late entry for 02/28/2018, covers elements not covered in my initial note. SUBJECTIVE: I met with the patient in the evening, staffed at a treatment team meeting with the entire team in the morning. Reviewed the patient's history, diagnosis, discharge plans at length. The patient slept 7-1/4 hours, compliant with medications, confused, combative at times. She reviewed her living situation, which may be at the [facility]. REVIEW OF SYSTEMS: Ambulation impaired, in wheelchair. No CV, , pulmonary, eye, ENT system symptoms on review. MENTAL STATUS EXAM: Oriented to herself. Insight, judgment, recent and remote memory, attention, concentration, fund of knowledge poor, consistent with her diagnosis. She appears less tired. LABORATORY DATA: Reviewed. IMPRESSION: Unchanged from initial note. PLAN: Increase Seroquel to 12.5 mg at 1700 hours and at bedtime. Maintain rest of the psychotropics from initial note. MAN Tracie MCKENZIE MD DR: REMINGTON/brad JOB#: [id number] / [id number]
[2018-03-02 06:25] VITALS: BP 113/70
[2018-03-02] MEDS: buPROPion XL 300 MG TAB.ER.24H. PO SCH (07:52)
[2018-03-02] MEDS: MEGESTROL 40 MG TABLET. PO SCH ×3 (07:52→17:35)
[2018-03-02] MEDS: MEMANTINE 10 MG TABLET. PO SCH ×2 (07:52→20:04)
[2018-03-02] MEDS: AMOXICILLIN 250 MG CAPSULE PO SCH ×3 (07:52→20:03)
[2018-03-02] MEDS: METOPROLOL SUCC 24HR ER 50 MG TAB.ER.24H. PO SCH (07:52)
[2018-03-02] MEDS: ACETAMINOPHEN 500 MG TABLET PO SCH ×2 (07:53→20:03)
[2018-03-02] MEDS: LACTOBACILLUS RHAMNOSUS GG 1 CAPSULE. PO SCH ×2 (07:53→20:03)
[2018-03-02] MEDS: DONEPEZIL HCL 10 MG TABLET PO SCH (07:53)
[2018-03-02] MEDS: POTASSIUM CHLORIDE 20 MEQ TABLET.ER. PO SCH ×3 (07:53→20:03)
[2018-03-02] MEDS: CETIRIZINE HCL 10 MG TABLET PO SCH (07:53)
[2018-03-02] MEDS: ASPIRIN ENTERIC COATED 81 MG TABLET.DR. PO SCH (07:53)
[2018-03-02] MEDS: QUEtiapine 25 MG TABLET. PO SCH ×2 (07:53→20:05)
[2018-03-02] MEDS: NYSTATIN TOPICAL POWDER 15GM BOTTLE. TP SCH ×2 (07:56→20:05)
[2018-03-02 16:22] VITALS: BP 111/75
[2018-03-02] MEDS: SERTRALINE 50 MG TABLET. PO SCH (17:35)
[2018-03-02] MEDS: FAMOTIDINE 20 MG TABLET PO SCH (20:03)
[2018-03-02] MEDS: PRIMIDONE 50 MG TABLET PO SCH (20:04)
[2018-03-02] MEDS: ATORVASTATIN CALCIUM 20 MG TABLET PO SCH (20:04)
--- NOTE | 2018-03-02 22:38 | PDOC ---
Exam Note: Kobe Note: Please also refer to the separate dictated note~for this date of service dictated separately.~Patient seen individually. Discussed the patient with Nursing staff reviewed the chart.~Reviewed interim history and current functioning. Reviewed vital signs,~Labs/ Radiology~and current medications noted below. Continue current treatment with the changes noted in the dictated addendum note Assessment: Vital Signs: Vital Signs Date Time Temp Pulse Resp B/P (MAP) Pulse Ox O2 Delivery O2 Flow Rate FiO2 03/02/18 16:22 97.3 90 17 111/75 (87) 96 Room Air I&O Intake and Output 03/02/18 06:59 Intake Total 325 ml Balance 325 ml Intake Oral 325 ml # Voids 1 Current Medications: Meds: Current Medications Potassium Chloride (Klor-Con) 40 meq 1X ONCE PO Last administered on at 10:13; Start 02/08/18 at 10:15; Stop 02/08/18 at 10:16; Status DC Acetaminophen (Tylenol) 650 mg PRN Q6HRS PRN PO PAIN / TEMP; Start 02/08/18 at 14:30; Status Cancel Multi-Ingredient Ointment (Analgesic [place]) 1 savanah PRN QID PRN TP MUSCLE PAIN; Start 02/08/18 at 14:30 Al Hydroxide/Mg Hydroxide (Mylanta Plus Xs) 15 ml PRN AFTMEALHC PRN PO DYSPEPSIA; Start 02/08/18 at 14:30 Magnesium Hydroxide (Milk Of Magnesia) 2,400 mg PRN QHS PRN PO CONSTIPATION Last administered on 02/26/18at 09:32; Start 02/08/18 at 14:30 Atorvastatin Calcium (Lipitor) 20 mg QHS PO Last administered on 03/02/18at 20:04 ; Start 02/08/18 at 21:00 Sertraline HCl (Zoloft) 50 mg DAILY PO ; Start 02/09/18 at 09:00; Stop 02/09/18 at 09:00; Status DC Acetaminophen (Tylenol) 500 mg BID PO Last administered on 03/02/18at 20:03; Start 02/08/18 at 21:00 Acetaminophen (Tylenol) 500 mg PRN Q8HRS PRN PO PAIN / TEMP; Start 02/08/18 at 15:00 Aspirin (Aspirin Enteric Coated) 81 mg DAILY PO Last administered on 03/02/18 07:53; Start 02/09/18 at 09:00 Cetirizine HCl (ZyrTEC) 10 mg DAILY PO Last administered on 03/02/18 07:53; Start 02/09/18 at 09:00 Donepezil HCl (Aricept) 10 mg DAILY PO Last administered on 03/02/18 07:53; Start 02/09/18 at 09:00 Duloxetine HCl (Cymbalta) 20 mg DAILY PO ; Start 02/09/18 at 09:00; Stop at 09:00; Status DC Furosemide (Lasix) 40 mg PRN DAILY PRN PO FOR EDEMA; Start 02/09/18 at 09:00; Stop 02/09/18 at 16:07; Status DC Hydrochlorothiazide (Microzide) 12.5 mg DAILY PO Last administered on 07:50; Start 02/09/18 at 09:00; Stop 02/09/18 at 16:03; Status DC Memantine (Namenda) 10 mg DAILY PO Last administered on 02/12/18at 08:03; Start 02/09/18 at 09:00; Stop 02/12/18 at 18:40; Status DC Metoprolol Succinate (Toprol Xl) 50 mg DAILY PO Last administered on 03/02/18 07:52; Start 02/09/18 at 09:00 Potassium Chloride (Klor-Con) 10 meq DAILY PO Last administered on 02/09/18at 07 :43; Start 02/09/18 at 09:00; Stop 02/09/18 at 16:07; Status DC Famotidine (Pepcid) 20 mg QHS PO Last administered on 03/02/18 20:03; Start at 21:00 Zinc Oxide (Desitin Diaper Rash 40%) 1 savanah BID TP Last administered on 19:48; Start 02/08/18 at 21:00; Stop 02/10/18 at 07:47; Status DC Non-Formulary Medication (Zinc Oxide (Desitin)) 1 applic PRN PRN TP irritation; Start 02/08/18 at 15:00; Status UNV Sertraline HCl (Zoloft) 75 mg DAILY PO Last administered on 6/19/18at 08:03; Start 02/09/18 at 09:00; Stop 02/12/18 at 18:40; Status DC Trazodone HCl (Desyrel) 25 mg PRN QHS PRN PO INSOMNIA, MAY REPEAT X2 Last administered on 02/17/18at 20:49; Start 02/08/18 at 19:30 Potassium Chloride (Klor-Con) 40 meq 1X ONCE PO Last administered on at 17:50; Start 02/09/18 at 16:30; Stop 02/09/18 at 16:31; Status DC Furosemide (Lasix) 40 mg DAILY PO Last administered on 02/23/18at 07:50; Start 02/10/18 at 09:00; Stop 02/23/18 at 13:24; Status DC Potassium Chloride (Klor-Con) 20 meq BID PO Last administered on 02/23/18at 07: 49; Start 02/09/18 at 21:00; Stop 02/23/18 at 13:24; Status DC Nystatin (Nystop) 1 savanah BID TP Last administered on 03/02/18at 20:05; Start 02/10 at 09:00 Sertraline HCl (Zoloft) 100 mg DAILY PO ; Start 02/14/18 at 09:00; Stop at 09:00; Status DC Memantine (Namenda) 10 mg HS PO Last administered on 03/02/18at 20:04; Start at 21:00 Sertraline HCl (Zoloft) 100 mg DAILY10 PO Last administered on 02/16/18at 07:14 ; Start 02/14/18 at 10:00; Stop 02/16/18 at 07:16; Status DC Sertraline HCl (Zoloft) 75 mg DAILY10 PO Last administered on 02/13/18at 10:58; Start 02/13/18 at 10:00; Stop 02/13/18 at 11:00; Status DC Memantine (Namenda) 5 mg DAILY PO Last administered on 02/18/18at 08:45; Start 02/13/18 at 09:00; Stop 02/18/18 at 18:43; Status DC Bupropion HCl (Wellbutrin Xl) 150 mg DAILY PO Last administered on 6/25/18at 08 :44; Start 02/15/18 at 09:00; Stop 02/18/18 at 18:43; Status DC Sertraline HCl (Zoloft) 100 mg DAILY PO ; Start 02/17/18 at 09:00; Stop at 09:00; Status DC Sertraline HCl (Zoloft) 100 mg DAILY PO Last administered on 02/18/18at 08:45; Start 02/17/18 at 09:00; Stop 02/18/18 at 18:43; Status DC Sertraline HCl (Zoloft) 25 mg DAILY PO Last administered on 02/18/18at 08:45; Start 02/17/18 at 09:00; Stop 02/18/18 at 18:43; Status DC Bupropion HCl (Wellbutrin Xl) 300 mg DAILY PO Last administered on 03/02/18at 07: 52; Start 02/19/18 at 09:00 Memantine (Namenda) 10 mg DAILY PO Last administered on 03/02/18at 07:52; Start 02/19/18 at 09:00 Sertraline HCl (Zoloft) 100 mg DAILYWSUP PO ; Start 02/19/18 at 17:00; Stop at 17:00; Status DC Sertraline HCl (Zoloft) 100 mg DAILYWSUP PO Last administered on 02/21/18at 16: 52; Start 02/19/18 at 17:00; Stop 02/21/18 at 18:33; Status DC Quetiapine Fumarate (SEROquel) 12.5 mg BID PO Last administered on 02/21/18at 09 :37; Start 02/19/18 at 21:00; Stop 02/21/18 at 18:33; Status DC Quetiapine Fumarate (SEROquel) 12.5 mg QHS PO Last administered on 02/21/18at 19 :29; Start 02/21/18 at 21:00; Stop 02/22/18 at 18:23; Status DC Sertraline HCl (Zoloft) 50 mg DAILYWSUP PO Last administered on 03/02/18at 17:35 ; Start 02/22/18 at 17:00 Primidone (Mysoline) 25 mg QHS PO Last administered on 02/23/18at 20:08; Start 02/21/18 at 21:00; Stop 02/24/18 at 15:09; Status DC Quetiapine Fumarate (SEROquel) 12.5 mg DAILY@1700 PO Last administered on 17:01; Start 02/23/18 at 17:00; Stop 02/28/18 at 15:38; Status DC Megestrol Acetate (Megace) 40 mg TIDAC PO Last administered on 03/02/18 17:35; Start 02/24/18 at 07:30 Dextrose 1,000 ml @ 100 mls/hr Q10H IV Last administered on 02/25/18 08:42; Start 02/24/18 at 09:00; Stop 02/25/18 at 15:46; Status DC Primidone (Mysoline) 50 mg QHS PO Last administered on 03/02/18 20:04; Start at 21:00 Potassium Chloride/Dextrose 1,000 ml @ 100 mls/hr Q10H IV Last administered on 02/26/18 12:31; Start 02/25/18 at 16:00; Stop 02/26/18 at 14:32; Status DC Potassium Chloride (Klor-Con) 20 meq TID PO Last administered on 03/02/18 20:03 ; Start 02/25/18 at 21:00 Quetiapine Fumarate (SEROquel) 12.5 mg BID PO Last administered on 03/02/18 07: 53; Start 02/28/18 at 21:00; Stop 03/02/18 at 18:46; Status DC Amoxicillin (Amoxil) 250 mg [id number] PO ; Start 03/10/18 at 21:00; Stop 03/10/18 at 21:00; Status DC Amoxicillin (Amoxil) 250 mg [id number] PO Last administered on 03/02/18 20:03; Start 02/28/18 at 21:00; Stop 03/07/18 at 21:01 Lactobacillus Rhamnosus (Culturelle) 1 cap BID PO Last administered on 20:03; Start 02/28/18 at 21:00 Quetiapine Fumarate (SEROquel) 12.5 mg QHS PO Last administered on 03/02/18at 20: 05; Start 03/02/18 at 21:00 Active Scripts Active Reported Acetaminophen 500 Mg Tablet 500 Mg PO BID Desitin (Zinc Oxide) 57 Gm Cream..g. 1 Applic TP PRN PRN Acetaminophen 500 Mg Tablet 500 Mg PO PRN Q8HRS PRN Furosemide 40 Mg Tablet 40 Mg PO PRN DAILY PRN Zoloft (Sertraline Hcl) 50 Mg Tablet 50 Mg PO DAILY Ranitidine Hcl 150 Mg Capsule 150 Mg PO HS Potassium Chloride 10 Meq Tablet.er 10 Meq PO DAILY Metoprolol Succinate ( Xl ) (Metoprolol Succinate) 50 Mg Tab.er.24h 50 Mg PO DAILY Namenda (Memantine Hcl) 10 Mg Tablet 10 Mg PO DAILY Hydrochlorothiazide Tablet (Hydrochlorothiazide) 12.5 Mg Tablet 12.5 Mg PO DAILY Cymbalta (Duloxetine Hcl) 20 Mg Capsule.dr 20 Mg PO DAILY 26 Days Donepezil Hcl 10 Mg Tablet 10 Mg PO DAILY Desitin (Zinc Oxide) 57 Gm Cream..g. 1 Appful TP BID Cetirizine Hcl 10 Mg Tablet 10 Mg PO DAILY Atorvastatin Calcium 20 Mg Tablet 20 Mg PO QHS Aspir-Low (Aspirin) 81 Mg Tablet.dr 81 Mg PO DAILY I have reviewed the current psychotropics carefully including drug interactions. Risk benefit ratio favors no change other than as noted in my dictated progress note. Diagnosis: Problems: (1) Anxiety disorder (2) Impulse control disorder (3) Dementia, vascular, with depression (4) Dementia, vascular, with delusions (5) Dementia with behavioral disturbance (6) Dementia in Alzheimer's disease with depression (7) Dementia in Alzheimer's disease with delusions LIANA MCKENZIE MD Mar 02, 2018 22:38
[2018-03-03 06:12] VITALS: BP 114/66
[2018-03-03] MEDS: AMOXICILLIN 250 MG CAPSULE PO SCH ×3 (07:47→19:24)
[2018-03-03] MEDS: LACTOBACILLUS RHAMNOSUS GG 1 CAPSULE. PO SCH ×2 (07:48→19:26)
[2018-03-03] MEDS: POTASSIUM CHLORIDE 20 MEQ TABLET.ER. PO SCH ×3 (07:49→19:24)
[2018-03-03] MEDS: DONEPEZIL HCL 10 MG TABLET PO SCH (07:49)
[2018-03-03] MEDS: ACETAMINOPHEN 500 MG TABLET PO SCH ×2 (07:49→19:26)
[2018-03-03] MEDS: CETIRIZINE HCL 10 MG TABLET PO SCH (07:50)
[2018-03-03] MEDS: MEMANTINE 10 MG TABLET. PO SCH ×2 (07:50→19:26)
[2018-03-03] MEDS: ASPIRIN ENTERIC COATED 81 MG TABLET.DR. PO SCH (07:50)
[2018-03-03] MEDS: buPROPion XL 300 MG TAB.ER.24H. PO SCH (07:51)
[2018-03-03] MEDS: MEGESTROL 40 MG TABLET. PO SCH ×3 (07:57→16:23)
[2018-03-03] MEDS: METOPROLOL SUCC 24HR ER 50 MG TAB.ER.24H. PO SCH (07:57)
[2018-03-03 08:08] LABS: ALBUMIN/GLOBULIN RATIO 0.7 (1.0-1.7); CALCIUM 9.4 mg/dL (8.5-10.1); GFR 53.9; POTASSIUM 4.1 mmol/L (3.5-5.1); TOTAL BILIRUBIN 0.3 mg/dL (0.2-1.0); TOTAL PROTEIN 7.3 g/dL (6.4-8.2)
[2018-03-03 08:33] LABS: BASO % 0 % (0-3); EOS # 0.3 x10^3/uL (0.0-0.7); EOS % 3 % (0-3); HEMATOCRIT 43.1 % (36.0-47.0); HEMOGLOBIN 14.4 g/dL (12.0-15.5); LYMPH # 1.3 x10^3/uL (1.0-4.8); LYMPH % 15 % (24-48); MEAN CORPUSCULAR HEMOGLOBIN 31 pg (25-35); MEAN CORPUSCULAR HGB CONC 33 g/dL (31-37); MEAN CORPUSCULAR VOLUME 93 fL (79-100); MONO # 0.8 x10^3/uL (0.0-1.1); MONO % 9 % (0-9); NEUT # 6.3 x10^3uL (1.8-7.7); NEUT % 73 % (31-73); RED BLOOD COUNT 4.66 x10^6/uL (3.50-5.40); RED CELL DISTRIBUTION WIDTH 13.8 % (11.5-14.5); WHITE BLOOD COUNT 8.6 x10^3/uL (4.0-11.0)
[2018-03-03 09:15] LABS: PLATELET CLUMP PRESENT; PLT ESTIMATE ADEQUATE (ADEQUATE)
[2018-03-03] MEDS: NYSTATIN TOPICAL POWDER 15GM BOTTLE. TP SCH ×2 (09:50→19:27)
[2018-03-03 16:23] VITALS: BP 116/69
[2018-03-03] MEDS: SERTRALINE 50 MG TABLET. PO SCH (16:23)
[2018-03-03] MEDS: FAMOTIDINE 20 MG TABLET PO SCH (19:25)
[2018-03-03] MEDS: ATORVASTATIN CALCIUM 20 MG TABLET PO SCH (19:26)
[2018-03-03] MEDS: PRIMIDONE 50 MG TABLET PO SCH (19:26)
[2018-03-03] MEDS: QUEtiapine 25 MG TABLET. PO SCH (19:26)
--- NOTE | 2018-03-03 19:48 | PN ---
DATE: 03/02/2018 This late entry 03/02/2018 covers elements not covered in my initial note. SUBJECTIVE: I met with the patient in the evening. The patient slept 5-3/4 hours. We will check labs to check on dehydration. She did well in the morning, compliant with medications, withdrawn. Oral intake is poor and we will stop the a.m. Seroquel to help with the sedation. REVIEW OF SYSTEMS: No CV, , pulmonary, eye, ENT system symptoms on review. Reliability poor. Gait unsteady in wheelchair. MENTAL STATUS EXAM: Oriented to herself. Insight, judgment, recent and remote memory, attention, concentration, fund of knowledge poor, consistent with her diagnosis mentioned in my initial note. PLAN: No change from a psychiatric standpoint other than noted above. MAN Tracie MCKENZIE MD DR: REMINGTON/brad JOB#: [id number] / [id number]
--- NOTE | 2018-03-03 20:28 | PN ---
DATE: 03/01/2018 This is a late entry, 03/01/2018, covers the elements not covered in my initial note. SUBJECTIVE: I met with the patient in the evening. The patient slept 7-3/4 hours previous evening, sleeping much of the day, poor oral intake. REVIEW OF SYSTEMS: Ambulation impaired, in a wheelchair. No CV, , pulmonary, eye, ENT system symptoms on review. Reliability poor. MENTAL STATUS EXAM: Oriented to herself. Insight, judgment, recent and remote memory, attention, concentration, fund of knowledge poor, consistent with her diagnosis as mentioned in my initial note. PLAN: Continue current psychotropics. Encourage oral intake. LIANA MCKENZIE MD DR: REMINGTON/brad JOB#: [id number] / [id number]
--- NOTE | 2018-03-03 20:48 | PDOC ---
Exam Note: Kobe Note: Please also refer to the separate dictated note~for this date of service dictated separately.~Patient seen individually. Discussed the patient with Nursing staff reviewed the chart.~Reviewed interim history and current functioning. Reviewed vital signs,~Labs/ Radiology~and current medications noted below. Continue current treatment with the changes noted in the dictated addendum note Assessment: Vital Signs: Vital Signs Date Time Temp Pulse Resp B/P (MAP) Pulse Ox O2 Delivery O2 Flow Rate FiO2 03/03/18 16:23 97.7 81 18 116/69 (85) 95 03/03/18 06:12 Room Air I&O Intake and Output 03/03/18 06:59 Intake Total 815 ml Balance 815 ml Intake Oral 815 ml # Voids 1 # Bowel Movements 1 Labs: Laboratory Tests Test 03/03/18 07:32 White Blood Count 8.6 x10^3/uL (4.0-11.0) Red Blood Count 4.66 x10^6/uL (3.50-5.40) Hemoglobin 14.4 g/dL (12.0-15.5) Hematocrit 43.1 % (36.0-47.0) Mean Corpuscular Volume 93 fL (79-100) Mean Corpuscular Hemoglobin 31 pg (25-35) Mean Corpuscular Hemoglobin Concent 33 g/dL (31-37) Red Cell Distribution Width 13.8 % (11.5-14.5) Platelet Count x10^3/uL (140-400) Neutrophils (%) (Auto) 73 % (31-73) Lymphocytes (%) (Auto) 15 % (24-48) L Monocytes (%) (Auto) 9 % (0-9) Eosinophils (%) (Auto) 3 % (0-3) Basophils (%) (Auto) 0 % (0-3) Neutrophils # (Auto) 6.3 x10^3uL (1.8-7.7) Lymphocytes # (Auto) 1.3 x10^3/uL (1.0-4.8) Monocytes # (Auto) 0.8 x10^3/uL (0.0-1.1) Eosinophils # (Auto) 0.3 x10^3/uL (0.0-0.7) Basophils # (Auto) 0.0 x10^3/uL (0.0-0.2) Platelet Estimate Adequate (ADEQUATE) Platelet Clumps, EDTA Present Large Platelets Occ Sodium Level 142 mmol/L (136-145) Potassium Level 4.1 mmol/L (3.5-5.1) Chloride Level 110 mmol/L (98-107) H Carbon Dioxide Level 23 mmol/L (21-32) Anion Gap 9 (6-14) Blood Urea Nitrogen 23 mg/dL (7-20) H Creatinine 1.0 mg/dL (0.6-1.0) Estimated GFR (Cockcroft-Gault) 53.9 BUN/Creatinine Ratio 23 (6-20) H Glucose Level 92 mg/dL (70-99) Calcium Level 9.4 mg/dL (8.5-10.1) Total Bilirubin 0.3 mg/dL (0.2-1.0) Aspartate Amino Transferase (AST) 26 U/L (15-37) Alanine Aminotransferase (ALT) 30 U/L (14-59) Alkaline Phosphatase 136 U/L (46-116) H Total Protein 7.3 g/dL (6.4-8.2) Albumin 3.0 g/dL (3.4-5.0) L Albumin/Globulin Ratio 0.7 (1.0-1.7) L Current Medications: Meds: Current Medications Potassium Chloride (Klor-Con) 40 meq 1X ONCE PO Last administered on at 10:13; Start 02/08/18 at 10:15; Stop 02/08/18 at 10:16; Status DC Acetaminophen (Tylenol) 650 mg PRN Q6HRS PRN PO PAIN / TEMP; Start 02/08/18 at 14:30; Status Cancel Multi-Ingredient Ointment (Analgesic [place]) 1 savanah PRN QID PRN TP MUSCLE PAIN; Start 02/08/18 at 14:30 Al Hydroxide/Mg Hydroxide (Mylanta Plus Xs) 15 ml PRN AFTMEALHC PRN PO DYSPEPSIA; Start 02/08/18 at 14:30 Magnesium Hydroxide (Milk Of Magnesia) 2,400 mg PRN QHS PRN PO CONSTIPATION Last administered on 02/26/18at 09:32; Start 02/08/18 at 14:30 Atorvastatin Calcium (Lipitor) 20 mg QHS PO Last administered on 03/03/18at 19:26 ; Start 02/08/18 at 21:00 Sertraline HCl (Zoloft) 50 mg DAILY PO ; Start 02/09/18 at 09:00; Stop 02/09/18 at 09:00; Status DC Acetaminophen (Tylenol) 500 mg BID PO Last administered on 03/03/18 19:26; Start 02/08/18 at 21:00 Acetaminophen (Tylenol) 500 mg PRN Q8HRS PRN PO PAIN / TEMP; Start 02/08/18 at 15:00 Aspirin (Aspirin Enteric Coated) 81 mg DAILY PO Last administered on 03/03/18 07:50; Start 02/09/18 at 09:00 Cetirizine HCl (ZyrTEC) 10 mg DAILY PO Last administered on 03/03/18 07:50; Start 02/09/18 at 09:00 Donepezil HCl (Aricept) 10 mg DAILY PO Last administered on 03/03/18 07:49; Start 02/09/18 at 09:00 Duloxetine HCl (Cymbalta) 20 mg DAILY PO ; Start 02/09/18 at 09:00; Stop at 09:00; Status DC Furosemide (Lasix) 40 mg PRN DAILY PRN PO FOR EDEMA; Start 02/09/18 at 09:00; Stop 02/09/18 at 16:07; Status DC Hydrochlorothiazide (Microzide) 12.5 mg DAILY PO Last administered on at 07:50; Start 02/09/18 at 09:00; Stop 02/09/18 at 16:03; Status DC Memantine (Namenda) 10 mg DAILY PO Last administered on 02/12/18at 08:03; Start 02/09/18 at 09:00; Stop 02/12/18 at 18:40; Status DC Metoprolol Succinate (Toprol Xl) 50 mg DAILY PO Last administered on 03/03/18 07:57; Start 02/09/18 at 09:00 Potassium Chloride (Klor-Con) 10 meq DAILY PO Last administered on 02/09/18at 07 :43; Start 02/09/18 at 09:00; Stop 02/09/18 at 16:07; Status DC Famotidine (Pepcid) 20 mg QHS PO Last administered on 03/03/18 19:25; Start at 21:00 Zinc Oxide (Desitin Diaper Rash 40%) 1 savanah BID TP Last administered on at 19:48; Start 02/08/18 at 21:00; Stop 02/10/18 at 07:47; Status DC Non-Formulary Medication (Zinc Oxide (Desitin)) 1 applic PRN PRN TP irritation; Start 02/08/18 at 15:00; Status UNV Sertraline HCl (Zoloft) 75 mg DAILY PO Last administered on 02/12/18at 08:03; Start 02/09/18 at 09:00; Stop 02/12/18 at 18:40; Status DC Trazodone HCl (Desyrel) 25 mg PRN QHS PRN PO INSOMNIA, MAY REPEAT X2 Last administered on 02/17/18at 20:49; Start 02/08/18 at 19:30 Potassium Chloride (Klor-Con) 40 meq 1X ONCE PO Last administered on at 17:50; Start 02/09/18 at 16:30; Stop 02/09/18 at 16:31; Status DC Furosemide (Lasix) 40 mg DAILY PO Last administered on 02/23/18 07:50; Start 02/10/18 at 09:00; Stop 02/23/18 at 13:24; Status DC Potassium Chloride (Klor-Con) 20 meq BID PO Last administered on 02/23/18 07: 49; Start 02/09/18 at 21:00; Stop 02/23/18 at 13:24; Status DC Nystatin (Nystop) 1 savanah BID TP Last administered on 03/03/18at 19:27; Start 02/10 at 09:00 Sertraline HCl (Zoloft) 100 mg DAILY PO ; Start 02/14/18 at 09:00; Stop at 09:00; Status DC Memantine (Namenda) 10 mg HS PO Last administered on 03/03/18at 19:26; Start at 21:00 Sertraline HCl (Zoloft) 100 mg DAILY10 PO Last administered on 02/16/18at 07:14 ; Start 02/14/18 at 10:00; Stop 02/16/18 at 07:16; Status DC Sertraline HCl (Zoloft) 75 mg DAILY10 PO Last administered on 02/13/18at 10:58; Start 02/13/18 at 10:00; Stop 02/13/18 at 11:00; Status DC Memantine (Namenda) 5 mg DAILY PO Last administered on 02/18/18at 08:45; Start 02/13/18 at 09:00; Stop 02/18/18 at 18:43; Status DC Bupropion HCl (Wellbutrin Xl) 150 mg DAILY PO Last administered on 02/18/18at 08 :44; Start 02/15/18 at 09:00; Stop 02/18/18 at 18:43; Status DC Sertraline HCl (Zoloft) 100 mg DAILY PO ; Start 02/17/18 at 09:00; Stop at 09:00; Status DC Sertraline HCl (Zoloft) 100 mg DAILY PO Last administered on 02/18/18at 08:45; Start 02/17/18 at 09:00; Stop 02/18/18 at 18:43; Status DC Sertraline HCl (Zoloft) 25 mg DAILY PO Last administered on 02/18/18at 08:45; Start 02/17/18 at 09:00; Stop 02/18/18 at 18:43; Status DC Bupropion HCl (Wellbutrin Xl) 300 mg DAILY PO Last administered on 03/03/18at 07: 51; Start 02/19/18 at 09:00 Memantine (Namenda) 10 mg DAILY PO Last administered on 03/03/18at 07:50; Start 02/19/18 at 09:00 Sertraline HCl (Zoloft) 100 mg DAILYWSUP PO ; Start 02/19/18 at 17:00; Stop at 17:00; Status DC Sertraline HCl (Zoloft) 100 mg DAILYWSUP PO Last administered on 02/21/18at 16: 52; Start 02/19/18 at 17:00; Stop 02/21/18 at 18:33; Status DC Quetiapine Fumarate (SEROquel) 12.5 mg BID PO Last administered on 02/21/18at 09 :37; Start 02/19/18 at 21:00; Stop 02/21/18 at 18:33; Status DC Quetiapine Fumarate (SEROquel) 12.5 mg QHS PO Last administered on 02/21/18 19 :29; Start 02/21/18 at 21:00; Stop 02/22/18 at 18:23; Status DC Sertraline HCl (Zoloft) 50 mg DAILYWSUP PO Last administered on 03/03/18 16:23 ; Start 02/22/18 at 17:00 Primidone (Mysoline) 25 mg QHS PO Last administered on 02/23/18 20:08; Start 02/21/18 at 21:00; Stop 02/24/18 at 15:09; Status DC Quetiapine Fumarate (SEROquel) 12.5 mg DAILY@1700 PO Last administered on 17:01; Start 02/23/18 at 17:00; Stop 02/28/18 at 15:38; Status DC Megestrol Acetate (Megace) 40 mg TIDAC PO Last administered on 03/03/18 16:23; Start 02/24/18 at 07:30 Dextrose 1,000 ml @ 100 mls/hr Q10H IV Last administered on 02/25/18 08:42; Start 02/24/18 at 09:00; Stop 02/25/18 at 15:46; Status DC Primidone (Mysoline) 50 mg QHS PO Last administered on 03/03/18 19:26; Start at 21:00 Potassium Chloride/Dextrose 1,000 ml @ 100 mls/hr Q10H IV Last administered on 02/26/18 12:31; Start 02/25/18 at 16:00; Stop 02/26/18 at 14:32; Status DC Potassium Chloride (Klor-Con) 20 meq TID PO Last administered on 03/03/18 19:24 ; Start 02/25/18 at 21:00 Quetiapine Fumarate (SEROquel) 12.5 mg BID PO Last administered on 03/02/18 07: 53; Start 02/28/18 at 21:00; Stop 03/02/18 at 18:46; Status DC Amoxicillin (Amoxil) 250 mg [id number] PO ; Start 03/10/18 at 21:00; Stop 03/10/18 at 21:00; Status DC Amoxicillin (Amoxil) 250 mg [id number] PO Last administered on 03/03/18at 19:24; Start 02/28/18 at 21:00; Stop 03/07/18 at 21:01 Lactobacillus Rhamnosus (Culturelle) 1 cap BID PO Last administered on at 19:26; Start 02/28/18 at 21:00 Quetiapine Fumarate (SEROquel) 12.5 mg QHS PO Last administered on 03/03/18at 19: 26; Start 03/02/18 at 21:00 Active Scripts Active Reported Acetaminophen 500 Mg Tablet 500 Mg PO BID Desitin (Zinc Oxide) 57 Gm Cream..g. 1 Applic TP PRN PRN Acetaminophen 500 Mg Tablet 500 Mg PO PRN Q8HRS PRN Furosemide 40 Mg Tablet 40 Mg PO PRN DAILY PRN Zoloft (Sertraline Hcl) 50 Mg Tablet 50 Mg PO DAILY Ranitidine Hcl 150 Mg Capsule 150 Mg PO HS Potassium Chloride 10 Meq Tablet.er 10 Meq PO DAILY Metoprolol Succinate ( Xl ) (Metoprolol Succinate) 50 Mg Tab.er.24h 50 Mg PO DAILY Namenda (Memantine Hcl) 10 Mg Tablet 10 Mg PO DAILY Hydrochlorothiazide Tablet (Hydrochlorothiazide) 12.5 Mg Tablet 12.5 Mg PO DAILY Cymbalta (Duloxetine Hcl) 20 Mg Capsule.dr 20 Mg PO DAILY 26 Days Donepezil Hcl 10 Mg Tablet 10 Mg PO DAILY Desitin (Zinc Oxide) 57 Gm Cream..g. 1 Appful TP BID Cetirizine Hcl 10 Mg Tablet 10 Mg PO DAILY Atorvastatin Calcium 20 Mg Tablet 20 Mg PO QHS Aspir-Low (Aspirin) 81 Mg Tablet.dr 81 Mg PO DAILY I have reviewed the current psychotropics carefully including drug interactions. Risk benefit ratio favors no change other than as noted in my dictated progress note. Diagnosis: Problems: (1) Anxiety disorder (2) Impulse control disorder (3) Dementia, vascular, with depression (4) Dementia, vascular, with delusions (5) Dementia with behavioral disturbance (6) Dementia in Alzheimer's disease with depression (7) Dementia in Alzheimer's disease with delusions LIANA MCKENZIE MD Mar 03, 2018 20:48
--- NOTE | 2018-03-03 23:50 | PN ---
DATE: 02/22/2018 SUBJECTIVE: The patient denies any new medical or neurological complaints; however, she continues to have tremor of the hands induced by anxiety or by motion using both hands. The symptom is more prominent when she feeds herself. She has difficulty feeding herself without assistance. OBJECTIVE: GENERAL: Well-developed white female, not in acute distress. VITAL SIGNS: Blood pressure 120/60, respiratory rate 16, pulse is 90 and regular, temperature 97.8, oxygen saturation 93% on room air. HEENT: Normocephalic, atraumatic, otherwise unremarkable. NECK: Supple. Negative for carotid bruit, lymphadenopathy or thyromegaly. LUNGS: Clear to A and P. CARDIOVASCULAR: Regular rate and rhythm. Normal S1, S2. There is no S3, S4 or murmur. ABDOMEN: Soft. Bowel sounds positive. EXTREMITIES: Negative for cyanosis, clubbing, or pitting edema. NEUROLOGICAL: Mental Status: The patient is alert and oriented to herself. She is disoriented to time and place. Speech is fluent. There is no language dysfunction. Memory, judgment, and abstract thinking are fair. The patient denies hallucination or delusion. Cranial nerves are intact. Motor Examination: No focal muscle bulk was seen. The strength was 4/5 throughout. The patient has marking resting, postural and kinetic tremors of both hands. The tone is normal. Sensory examination: Normal pinprick and light touch senses throughout. Deep tendon reflexes were symmetric and hypoactive with absent Achilles responses. Gait: The patient cannot stand and she uses a wheelchair for ambulation. IMPRESSION: 1. Resting and postural and kinetic tremors of both upper extremities induced by anxiety and motion using both hands. 2. Multiple psychiatric problems include anxiety, depressions, behavior disturbances, and dementia. 3. Multiple medical problems include gastroesophageal reflux disease, hyperlipidemia and hypertension. RECOMMENDATIONS: 1. Continue with current management initiated by Dr. Garcia and Dr. Sun for underlying psychiatric and medical care. 2. We will increase primidone to 50 mg at bedtime. M Candelaria DEAN MD DR: BELEM/brad JOB#: [id number] / [id number]
[2018-03-04 06:11] VITALS: BP 110/68
[2018-03-04] MEDS: CETIRIZINE HCL 10 MG TABLET PO SCH (07:31)
[2018-03-04] MEDS: MEGESTROL 40 MG TABLET. PO SCH ×3 (07:32→16:47)
[2018-03-04] MEDS: buPROPion XL 300 MG TAB.ER.24H. PO SCH (07:32)
[2018-03-04] MEDS: LACTOBACILLUS RHAMNOSUS GG 1 CAPSULE. PO SCH ×2 (07:32→19:47)
[2018-03-04] MEDS: POTASSIUM CHLORIDE 20 MEQ TABLET.ER. PO SCH ×3 (07:32→19:46)
[2018-03-04] MEDS: METOPROLOL SUCC 24HR ER 50 MG TAB.ER.24H. PO SCH (07:33)
[2018-03-04] MEDS: MEMANTINE 10 MG TABLET. PO SCH ×2 (07:33→19:43)
[2018-03-04] MEDS: ACETAMINOPHEN 500 MG TABLET PO SCH ×2 (07:33→19:44)
[2018-03-04] MEDS: AMOXICILLIN 250 MG CAPSULE PO SCH ×3 (07:33→19:43)
[2018-03-04] MEDS: DONEPEZIL HCL 10 MG TABLET PO SCH (07:33)
[2018-03-04] MEDS: ASPIRIN ENTERIC COATED 81 MG TABLET.DR. PO SCH (07:33)
[2018-03-04] MEDS: NYSTATIN TOPICAL POWDER 15GM BOTTLE. TP SCH ×2 (07:34→19:48)
[2018-03-04 16:09] VITALS: BP 95/63
[2018-03-04] MEDS: SERTRALINE 50 MG TABLET. PO SCH (16:47)
[2018-03-04] MEDS: QUEtiapine 25 MG TABLET. PO SCH (19:44)
[2018-03-04] MEDS: FAMOTIDINE 20 MG TABLET PO SCH (19:45)
[2018-03-04] MEDS: PRIMIDONE 50 MG TABLET PO SCH (19:45)
[2018-03-04] MEDS: ATORVASTATIN CALCIUM 20 MG TABLET PO SCH (19:45)
--- NOTE | 2018-03-04 20:05 | PDOC ---
Exam Note: Kobe Note: Please also refer to the separate dictated note~for this date of service dictated separately.~Patient seen individually. Discussed the patient with Nursing staff reviewed the chart.~Reviewed interim history and current functioning. Reviewed vital signs,~Labs/ Radiology~and current medications noted below. Continue current treatment with the changes noted in the dictated addendum note Assessment: Vital Signs: Vital Signs Date Time Temp Pulse Resp B/P (MAP) Pulse Ox O2 Delivery O2 Flow Rate FiO2 03/04/18 16:09 98.1 62 18 95/63 (74) 99 03/03/18 06:12 Room Air I&O Intake and Output 03/04/18 06:59 Intake Total 50 ml Balance 50 ml Intake Oral 50 ml Current Medications: Meds: Current Medications Potassium Chloride (Klor-Con) 40 meq 1X ONCE PO Last administered on at 10:13; Start 02/08/18 at 10:15; Stop 02/08/18 at 10:16; Status DC Acetaminophen (Tylenol) 650 mg PRN Q6HRS PRN PO PAIN / TEMP; Start 02/08/18 at 14:30; Status Cancel Multi-Ingredient Ointment (Analgesic [place]) 1 savanah PRN QID PRN TP MUSCLE PAIN; Start 02/08/18 at 14:30 Al Hydroxide/Mg Hydroxide (Mylanta Plus Xs) 15 ml PRN AFTMEALHC PRN PO DYSPEPSIA; Start 02/08/18 at 14:30 Magnesium Hydroxide (Milk Of Magnesia) 2,400 mg PRN QHS PRN PO CONSTIPATION Last administered on 02/26/18at 09:32; Start 02/08/18 at 14:30 Atorvastatin Calcium (Lipitor) 20 mg QHS PO Last administered on 03/04/18at 19:45 ; Start 02/08/18 at 21:00 Sertraline HCl (Zoloft) 50 mg DAILY PO ; Start 02/09/18 at 09:00; Stop 02/09/18 at 09:00; Status DC Acetaminophen (Tylenol) 500 mg BID PO Last administered on 03/04/18at 19:44; Start 02/08/18 at 21:00 Acetaminophen (Tylenol) 500 mg PRN Q8HRS PRN PO PAIN / TEMP; Start 02/08/18 at 15:00 Aspirin (Aspirin Enteric Coated) 81 mg DAILY PO Last administered on 03/04/18 07:33; Start 02/09/18 at 09:00 Cetirizine HCl (ZyrTEC) 10 mg DAILY PO Last administered on 03/04/18at 07:31; Start 02/09/18 at 09:00 Donepezil HCl (Aricept) 10 mg DAILY PO Last administered on 03/04/18at 07:33; Start 02/09/18 at 09:00 Duloxetine HCl (Cymbalta) 20 mg DAILY PO ; Start 02/09/18 at 09:00; Stop at 09:00; Status DC Furosemide (Lasix) 40 mg PRN DAILY PRN PO FOR EDEMA; Start 02/09/18 at 09:00; Stop 02/09/18 at 16:07; Status DC Hydrochlorothiazide (Microzide) 12.5 mg DAILY PO Last administered on at 07:50; Start 02/09/18 at 09:00; Stop 02/09/18 at 16:03; Status DC Memantine (Namenda) 10 mg DAILY PO Last administered on 02/12/18at 08:03; Start 02/09/18 at 09:00; Stop 02/12/18 at 18:40; Status DC Metoprolol Succinate (Toprol Xl) 50 mg DAILY PO Last administered on 03/04/18at 07:33; Start 02/09/18 at 09:00 Potassium Chloride (Klor-Con) 10 meq DAILY PO Last administered on 02/09/18at 07 :43; Start 02/09/18 at 09:00; Stop 02/09/18 at 16:07; Status DC Famotidine (Pepcid) 20 mg QHS PO Last administered on 03/04/18 19:45; Start at 21:00 Zinc Oxide (Desitin Diaper Rash 40%) 1 savanah BID TP Last administered on at 19:48; Start 02/08/18 at 21:00; Stop 02/10/18 at 07:47; Status DC Non-Formulary Medication (Zinc Oxide (Desitin)) 1 applic PRN PRN TP irritation; Start 02/08/18 at 15:00; Status UNV Sertraline HCl (Zoloft) 75 mg DAILY PO Last administered on 02/12/18at 08:03; Start 02/09/18 at 09:00; Stop 02/12/18 at 18:40; Status DC Trazodone HCl (Desyrel) 25 mg PRN QHS PRN PO INSOMNIA, MAY REPEAT X2 Last administered on 02/17/18at 20:49; Start 02/08/18 at 19:30 Potassium Chloride (Klor-Con) 40 meq 1X ONCE PO Last administered on at 17:50; Start 02/09/18 at 16:30; Stop 02/09/18 at 16:31; Status DC Furosemide (Lasix) 40 mg DAILY PO Last administered on 02/23/18at 07:50; Start 02/10/18 at 09:00; Stop 02/23/18 at 13:24; Status DC Potassium Chloride (Klor-Con) 20 meq BID PO Last administered on 02/23/18at 07: 49; Start 02/09/18 at 21:00; Stop 02/23/18 at 13:24; Status DC Nystatin (Nystop) 1 savanah BID TP Last administered on 03/04/18at 19:48; Start 02/10 at 09:00 Sertraline HCl (Zoloft) 100 mg DAILY PO ; Start 02/14/18 at 09:00; Stop at 09:00; Status DC Memantine (Namenda) 10 mg HS PO Last administered on 03/04/18at 19:43; Start at 21:00 Sertraline HCl (Zoloft) 100 mg DAILY10 PO Last administered on 02/16/18at 07:14 ; Start 02/14/18 at 10:00; Stop 02/16/18 at 07:16; Status DC Sertraline HCl (Zoloft) 75 mg DAILY10 PO Last administered on 02/13/18at 10:58; Start 02/13/18 at 10:00; Stop 02/13/18 at 11:00; Status DC Memantine (Namenda) 5 mg DAILY PO Last administered on 02/18/18at 08:45; Start 02/13/18 at 09:00; Stop 02/18/18 at 18:43; Status DC Bupropion HCl (Wellbutrin Xl) 150 mg DAILY PO Last administered on 02/18/18at 08 :44; Start 02/15/18 at 09:00; Stop 02/18/18 at 18:43; Status DC Sertraline HCl (Zoloft) 100 mg DAILY PO ; Start 02/17/18 at 09:00; Stop at 09:00; Status DC Sertraline HCl (Zoloft) 100 mg DAILY PO Last administered on 02/18/18at 08:45; Start 02/17/18 at 09:00; Stop 02/18/18 at 18:43; Status DC Sertraline HCl (Zoloft) 25 mg DAILY PO Last administered on 02/18/18at 08:45; Start 02/17/18 at 09:00; Stop 02/18/18 at 18:43; Status DC Bupropion HCl (Wellbutrin Xl) 300 mg DAILY PO Last administered on 03/04/18at 07: 32; Start 02/19/18 at 09:00 Memantine (Namenda) 10 mg DAILY PO Last administered on 03/04/18at 07:33; Start 02/19/18 at 09:00 Sertraline HCl (Zoloft) 100 mg DAILYWSUP PO ; Start 02/19/18 at 17:00; Stop at 17:00; Status DC Sertraline HCl (Zoloft) 100 mg DAILYWSUP PO Last administered on 02/21/18at 16: 52; Start 02/19/18 at 17:00; Stop 02/21/18 at 18:33; Status DC Quetiapine Fumarate (SEROquel) 12.5 mg BID PO Last administered on 02/21/18at 09 :37; Start 02/19/18 at 21:00; Stop 02/21/18 at 18:33; Status DC Quetiapine Fumarate (SEROquel) 12.5 mg QHS PO Last administered on 02/21/18at 19 :29; Start 02/21/18 at 21:00; Stop 02/22/18 at 18:23; Status DC Sertraline HCl (Zoloft) 50 mg DAILYWSUP PO Last administered on 03/04/18at 16:47 ; Start 02/22/18 at 17:00 Primidone (Mysoline) 25 mg QHS PO Last administered on 02/23/18 20:08; Start 02/21/18 at 21:00; Stop 02/24/18 at 15:09; Status DC Quetiapine Fumarate (SEROquel) 12.5 mg DAILY@1700 PO Last administered on 17:01; Start 02/23/18 at 17:00; Stop 02/28/18 at 15:38; Status DC Megestrol Acetate (Megace) 40 mg TIDAC PO Last administered on 03/04/18 16:47; Start 02/24/18 at 07:30 Dextrose 1,000 ml @ 100 mls/hr Q10H IV Last administered on 02/25/18 08:42; Start 02/24/18 at 09:00; Stop 02/25/18 at 15:46; Status DC Primidone (Mysoline) 50 mg QHS PO Last administered on 03/04/18 19:45; Start at 21:00 Potassium Chloride/Dextrose 1,000 ml @ 100 mls/hr Q10H IV Last administered on 02/26/18 12:31; Start 02/25/18 at 16:00; Stop 02/26/18 at 14:32; Status DC Potassium Chloride (Klor-Con) 20 meq TID PO Last administered on 03/04/18 19:46 ; Start 02/25/18 at 21:00 Quetiapine Fumarate (SEROquel) 12.5 mg BID PO Last administered on 03/02/18 07: 53; Start 02/28/18 at 21:00; Stop 03/02/18 at 18:46; Status DC Amoxicillin (Amoxil) 250 mg [id number] PO ; Start 03/10/18 at 21:00; Stop 03/10/18 at 21:00; Status DC Amoxicillin (Amoxil) 250 mg [id number] PO Last administered on 03/04/18 19:43; Start 02/28/18 at 21:00; Stop 03/07/18 at 21:01 Lactobacillus Rhamnosus (Culturelle) 1 cap BID PO Last administered on 19:47; Start 02/28/18 at 21:00 Quetiapine Fumarate (SEROquel) 12.5 mg QHS PO Last administered on 7/9/18at 19: 44; Start 03/02/18 at 21:00 Active Scripts Active Reported Acetaminophen 500 Mg Tablet 500 Mg PO BID Desitin (Zinc Oxide) 57 Gm Cream..g. 1 Applic TP PRN PRN Acetaminophen 500 Mg Tablet 500 Mg PO PRN Q8HRS PRN Furosemide 40 Mg Tablet 40 Mg PO PRN DAILY PRN Zoloft (Sertraline Hcl) 50 Mg Tablet 50 Mg PO DAILY Ranitidine Hcl 150 Mg Capsule 150 Mg PO HS Potassium Chloride 10 Meq Tablet.er 10 Meq PO DAILY Metoprolol Succinate ( Xl ) (Metoprolol Succinate) 50 Mg Tab.er.24h 50 Mg PO DAILY Namenda (Memantine Hcl) 10 Mg Tablet 10 Mg PO DAILY Hydrochlorothiazide Tablet (Hydrochlorothiazide) 12.5 Mg Tablet 12.5 Mg PO DAILY Cymbalta (Duloxetine Hcl) 20 Mg Capsule.dr 20 Mg PO DAILY 26 Days Donepezil Hcl 10 Mg Tablet 10 Mg PO DAILY Desitin (Zinc Oxide) 57 Gm Cream..g. 1 Appful TP BID Cetirizine Hcl 10 Mg Tablet 10 Mg PO DAILY Atorvastatin Calcium 20 Mg Tablet 20 Mg PO QHS Aspir-Low (Aspirin) 81 Mg Tablet.dr 81 Mg PO DAILY I have reviewed the current psychotropics carefully including drug interactions. Risk benefit ratio favors no change other than as noted in my dictated progress note. Diagnosis: Problems: (1) Anxiety disorder (2) Impulse control disorder (3) Dementia, vascular, with depression (4) Dementia, vascular, with delusions (5) Dementia with behavioral disturbance (6) Dementia in Alzheimer's disease with depression (7) Dementia in Alzheimer's disease with delusions LIANA MCKENZIE MD Mar 04, 2018 20:05
--- NOTE | 2018-03-05 00:15 | PN ---
DATE: 03/03/2018 PSYCHIATRIC PROGRESS NOTE This is a late entry for 03/03/2018, covers elements not covered in my initial note. SUBJECTIVE: I met with the patient in the evening. The patient slept 9 hours previous evening, had a good day, remains confused. She did not have any urination at night, but normal during the day on 03/03/2018. Appetite still remains poor and she is withdrawn. REVIEW OF SYSTEMS: Ambulation impaired, in wheelchair. No CV, , pulmonary, eye, ENT system symptoms on review. MENTAL STATUS EXAM: Oriented to herself. Insight, judgment, recent and remote memory, attention, concentration, fund of knowledge poor, consistent with her diagnosis mentioned in my initial note. PLAN: No change from initial note. MAN Tracie MCKENZIE MD DR: REMINGTON/brad JOB#: [id number] / [id number]
[2018-03-05 06:16] VITALS: BP 135/75
[2018-03-05] MEDS: ASPIRIN ENTERIC COATED 81 MG TABLET.DR. PO SCH (07:59)
[2018-03-05] MEDS: AMOXICILLIN 250 MG CAPSULE PO SCH ×3 (08:00→19:25)
[2018-03-05] MEDS: ACETAMINOPHEN 500 MG TABLET PO SCH ×2 (08:00→19:25)
[2018-03-05] MEDS: buPROPion XL 300 MG TAB.ER.24H. PO SCH (08:00)
[2018-03-05] MEDS: CETIRIZINE HCL 10 MG TABLET PO SCH (08:00)
[2018-03-05] MEDS: MEMANTINE 10 MG TABLET. PO SCH ×2 (08:00→19:25)
[2018-03-05] MEDS: POTASSIUM CHLORIDE 20 MEQ TABLET.ER. PO SCH ×3 (08:01→19:25)
[2018-03-05] MEDS: MEGESTROL 40 MG TABLET. PO SCH ×3 (08:01→17:23)
[2018-03-05] MEDS: DONEPEZIL HCL 10 MG TABLET PO SCH (08:01)
[2018-03-05] MEDS: LACTOBACILLUS RHAMNOSUS GG 1 CAPSULE. PO SCH ×2 (08:01→19:24)
[2018-03-05] MEDS: METOPROLOL SUCC 24HR ER 50 MG TAB.ER.24H. PO SCH (08:04)
[2018-03-05] MEDS: NYSTATIN TOPICAL POWDER 15GM BOTTLE. TP SCH ×2 (08:05→19:26)
[2018-03-05 16:20] VITALS: BP 140/82
[2018-03-05] MEDS: SERTRALINE 50 MG TABLET. PO SCH (17:23)
[2018-03-05] MEDS: ATORVASTATIN CALCIUM 20 MG TABLET PO SCH (19:24)
[2018-03-05] MEDS: FAMOTIDINE 20 MG TABLET PO SCH (19:24)
[2018-03-05] MEDS: QUEtiapine 25 MG TABLET. PO SCH (19:25)
[2018-03-05] MEDS: PRIMIDONE 50 MG TABLET PO SCH (19:25)
--- NOTE | 2018-03-05 21:46 | PDOC ---
Exam Note: Kobe Note: Please also refer to the separate dictated note~for this date of service dictated separately.~Patient seen individually. Discussed the patient with Nursing staff reviewed the chart.~Reviewed interim history and current functioning. Reviewed vital signs,~Labs/ Radiology~and current medications noted below. Continue current treatment with the changes noted in the dictated addendum note Assessment: Vital Signs: Vital Signs Date Time Temp Pulse Resp B/P (MAP) Pulse Ox O2 Delivery O2 Flow Rate FiO2 03/05/18 16:20 98.3 87 16 140/82 (101) 95 Room Air I&O Intake and Output 03/05/18 07:00 Intake Total 840 ml Balance 840 ml Intake Oral 840 ml # Bowel Movements 1 Current Medications: Meds: Current Medications Potassium Chloride (Klor-Con) 40 meq 1X ONCE PO Last administered on at 10:13; Start 02/08/18 at 10:15; Stop 02/08/18 at 10:16; Status DC Acetaminophen (Tylenol) 650 mg PRN Q6HRS PRN PO PAIN / TEMP; Start 02/08/18 at 14:30; Status Cancel Multi-Ingredient Ointment (Analgesic [place]) 1 savanah PRN QID PRN TP MUSCLE PAIN; Start 02/08/18 at 14:30 Al Hydroxide/Mg Hydroxide (Mylanta Plus Xs) 15 ml PRN AFTMEALHC PRN PO DYSPEPSIA; Start 02/08/18 at 14:30 Magnesium Hydroxide (Milk Of Magnesia) 2,400 mg PRN QHS PRN PO CONSTIPATION Last administered on 02/26/18at 09:32; Start 02/08/18 at 14:30 Atorvastatin Calcium (Lipitor) 20 mg QHS PO Last administered on 03/05/18at 19: 24; Start 02/08/18 at 21:00 Sertraline HCl (Zoloft) 50 mg DAILY PO ; Start 02/09/18 at 09:00; Stop 02/09/18 at 09:00; Status DC Acetaminophen (Tylenol) 500 mg BID PO Last administered on 03/05/18at 19:25; Start 02/08/18 at 21:00 Acetaminophen (Tylenol) 500 mg PRN Q8HRS PRN PO PAIN / TEMP; Start 02/08/18 at 15:00 Aspirin (Aspirin Enteric Coated) 81 mg DAILY PO Last administered on 03/05/18at 07:59; Start 02/09/18 at 09:00 Cetirizine HCl (ZyrTEC) 10 mg DAILY PO Last administered on 03/05/18at 08:00; Start 02/09/18 at 09:00 Donepezil HCl (Aricept) 10 mg DAILY PO Last administered on 03/05/18at 08:01; Start 02/09/18 at 09:00 Duloxetine HCl (Cymbalta) 20 mg DAILY PO ; Start 02/09/18 at 09:00; Stop at 09:00; Status DC Furosemide (Lasix) 40 mg PRN DAILY PRN PO FOR EDEMA; Start 02/09/18 at 09:00; Stop 02/09/18 at 16:07; Status DC Hydrochlorothiazide (Microzide) 12.5 mg DAILY PO Last administered on at 07:50; Start 02/09/18 at 09:00; Stop 02/09/18 at 16:03; Status DC Memantine (Namenda) 10 mg DAILY PO Last administered on 02/12/18at 08:03; Start 02/09/18 at 09:00; Stop 02/12/18 at 18:40; Status DC Metoprolol Succinate (Toprol Xl) 50 mg DAILY PO Last administered on 03/05/18at 08:04; Start 02/09/18 at 09:00 Potassium Chloride (Klor-Con) 10 meq DAILY PO Last administered on 02/09/18at 07 :43; Start 02/09/18 at 09:00; Stop 02/09/18 at 16:07; Status DC Famotidine (Pepcid) 20 mg QHS PO Last administered on 03/05/18at 19:24; Start at 21:00 Zinc Oxide (Desitin Diaper Rash 40%) 1 savanah BID TP Last administered on at 19:48; Start 02/08/18 at 21:00; Stop 02/10/18 at 07:47; Status DC Non-Formulary Medication (Zinc Oxide (Desitin)) 1 applic PRN PRN TP irritation; Start 02/08/18 at 15:00; Status UNV Sertraline HCl (Zoloft) 75 mg DAILY PO Last administered on 02/12/18at 08:03; Start 02/09/18 at 09:00; Stop 02/12/18 at 18:40; Status DC Trazodone HCl (Desyrel) 25 mg PRN QHS PRN PO INSOMNIA, MAY REPEAT X2 Last administered on 02/17/18at 20:49; Start 02/08/18 at 19:30 Potassium Chloride (Klor-Con) 40 meq 1X ONCE PO Last administered on at 17:50; Start 02/09/18 at 16:30; Stop 02/09/18 at 16:31; Status DC Furosemide (Lasix) 40 mg DAILY PO Last administered on 02/23/18at 07:50; Start 02/10/18 at 09:00; Stop 02/23/18 at 13:24; Status DC Potassium Chloride (Klor-Con) 20 meq BID PO Last administered on 02/23/18at 07: 49; Start 02/09/18 at 21:00; Stop 02/23/18 at 13:24; Status DC Nystatin (Nystop) 1 savanah BID TP Last administered on 03/05/18at 19:26; Start at 09:00 Sertraline HCl (Zoloft) 100 mg DAILY PO ; Start 02/14/18 at 09:00; Stop at 09:00; Status DC Memantine (Namenda) 10 mg HS PO Last administered on 03/05/18at 19:25; Start at 21:00 Sertraline HCl (Zoloft) 100 mg DAILY10 PO Last administered on 02/16/18at 07:14 ; Start 02/14/18 at 10:00; Stop 02/16/18 at 07:16; Status DC Sertraline HCl (Zoloft) 75 mg DAILY10 PO Last administered on 02/13/18at 10:58; Start 02/13/18 at 10:00; Stop 02/13/18 at 11:00; Status DC Memantine (Namenda) 5 mg DAILY PO Last administered on 02/18/18at 08:45; Start 02/13/18 at 09:00; Stop 02/18/18 at 18:43; Status DC Bupropion HCl (Wellbutrin Xl) 150 mg DAILY PO Last administered on 02/18/18at 08 :44; Start 02/15/18 at 09:00; Stop 02/18/18 at 18:43; Status DC Sertraline HCl (Zoloft) 100 mg DAILY PO ; Start 02/17/18 at 09:00; Stop at 09:00; Status DC Sertraline HCl (Zoloft) 100 mg DAILY PO Last administered on 02/18/18at 08:45; Start 02/17/18 at 09:00; Stop 02/18/18 at 18:43; Status DC Sertraline HCl (Zoloft) 25 mg DAILY PO Last administered on 02/18/18at 08:45; Start 02/17/18 at 09:00; Stop 02/18/18 at 18:43; Status DC Bupropion HCl (Wellbutrin Xl) 300 mg DAILY PO Last administered on 03/05/18at 08 :00; Start 02/19/18 at 09:00 Memantine (Namenda) 10 mg DAILY PO Last administered on 03/05/18at 08:00; Start 02/19/18 at 09:00 Sertraline HCl (Zoloft) 100 mg DAILYWSUP PO ; Start 02/19/18 at 17:00; Stop at 17:00; Status DC Sertraline HCl (Zoloft) 100 mg DAILYWSUP PO Last administered on 02/21/18at 16: 52; Start 02/19/18 at 17:00; Stop 02/21/18 at 18:33; Status DC Quetiapine Fumarate (SEROquel) 12.5 mg BID PO Last administered on 02/21/18at 09 :37; Start 02/19/18 at 21:00; Stop 02/21/18 at 18:33; Status DC Quetiapine Fumarate (SEROquel) 12.5 mg QHS PO Last administered on 02/21/18at 19 :29; Start 02/21/18 at 21:00; Stop 02/22/18 at 18:23; Status DC Sertraline HCl (Zoloft) 50 mg DAILYWSUP PO Last administered on 03/05/18at 17:23 ; Start 02/22/18 at 17:00 Primidone (Mysoline) 25 mg QHS PO Last administered on 02/23/18at 20:08; Start 02/21/18 at 21:00; Stop 02/24/18 at 15:09; Status DC Quetiapine Fumarate (SEROquel) 12.5 mg DAILY@1700 PO Last administered on 17:01; Start 02/23/18 at 17:00; Stop 02/28/18 at 15:38; Status DC Megestrol Acetate (Megace) 40 mg TIDAC PO Last administered on 03/05/18 17:23 ; Start 02/24/18 at 07:30 Dextrose 1,000 ml @ 100 mls/hr Q10H IV Last administered on 02/25/18 08:42; Start 02/24/18 at 09:00; Stop 02/25/18 at 15:46; Status DC Primidone (Mysoline) 50 mg QHS PO Last administered on 03/05/18 19:25; Start 02/24/18 at 21:00 Potassium Chloride/Dextrose 1,000 ml @ 100 mls/hr Q10H IV Last administered on 02/26/18at 12:31; Start 02/25/18 at 16:00; Stop 02/26/18 at 14:32; Status DC Potassium Chloride (Klor-Con) 20 meq TID PO Last administered on 03/05/18 19: 25; Start 02/25/18 at 21:00 Quetiapine Fumarate (SEROquel) 12.5 mg BID PO Last administered on 03/02/18at 07: 53; Start 02/28/18 at 21:00; Stop 03/02/18 at 18:46; Status DC Amoxicillin (Amoxil) 250 mg [id number] PO ; Start 03/10/18 at 21:00; Stop 03/10/18 at 21:00; Status DC Amoxicillin (Amoxil) 250 mg [id number] PO Last administered on 03/05/18 19:25; Start 02/28/18 at 21:00; Stop 03/07/18 at 21:01 Lactobacillus Rhamnosus (Culturelle) 1 cap BID PO Last administered on 19:24; Start 02/28/18 at 21:00 Quetiapine Fumarate (SEROquel) 12.5 mg QHS PO Last administered on 03/05/18 19 :25; Start 03/02/18 at 21:00 Active Scripts Active Reported Acetaminophen 500 Mg Tablet 500 Mg PO BID Desitin (Zinc Oxide) 57 Gm Cream..g. 1 Applic TP PRN PRN Acetaminophen 500 Mg Tablet 500 Mg PO PRN Q8HRS PRN Furosemide 40 Mg Tablet 40 Mg PO PRN DAILY PRN Zoloft (Sertraline Hcl) 50 Mg Tablet 50 Mg PO DAILY Ranitidine Hcl 150 Mg Capsule 150 Mg PO HS Potassium Chloride 10 Meq Tablet.er 10 Meq PO DAILY Metoprolol Succinate ( Xl ) (Metoprolol Succinate) 50 Mg Tab.er.24h 50 Mg PO DAILY Namenda (Memantine Hcl) 10 Mg Tablet 10 Mg PO DAILY Hydrochlorothiazide Tablet (Hydrochlorothiazide) 12.5 Mg Tablet 12.5 Mg PO DAILY Cymbalta (Duloxetine Hcl) 20 Mg Capsule.dr 20 Mg PO DAILY 26 Days Donepezil Hcl 10 Mg Tablet 10 Mg PO DAILY Desitin (Zinc Oxide) 57 Gm Cream..g. 1 Appful TP BID Cetirizine Hcl 10 Mg Tablet 10 Mg PO DAILY Atorvastatin Calcium 20 Mg Tablet 20 Mg PO QHS Aspir-Low (Aspirin) 81 Mg Tablet.dr 81 Mg PO DAILY I have reviewed the current psychotropics carefully including drug interactions. Risk benefit ratio favors no change other than as noted in my dictated progress note. Diagnosis: Problems: (1) Anxiety disorder (2) Impulse control disorder (3) Dementia, vascular, with depression (4) Dementia, vascular, with delusions (5) Dementia with behavioral disturbance (6) Dementia in Alzheimer's disease with depression (7) Dementia in Alzheimer's disease with delusions LIANA MCKENZIE MD Mar 05, 2018 21:46
--- NOTE | 2018-03-06 01:28 | PN ---
DATE: 03/04/2018 This is a late entry for date of service 03/04/2018 and covers the elements not covered in my initial note of 03/04/2018. SUBJECTIVE: I met with the patient in the evening. The patient slept 7-1/2 hours previous evening. Her intake is a little better, but she remains quite confused, withdrawn. REVIEW OF SYSTEMS: Ambulation impaired, in wheelchair. I fed her much of her supper and she needs assistance for feeding. MENTAL STATUS EXAM: Oriented to herself. Insight, judgment, recent and remote memory, attention, concentration, fund of knowledge poor, consistent with her diagnosis mentioned in my initial note. PLAN: Continue psychotropics from initial note including Megace for appetite stimulation. LIANA MCKENZIE MD DR: REMINGTON/brad JOB#: [id number] / [id number]
[2018-03-06 06:09] VITALS: BP 144/84
[2018-03-06 07:08] LABS: BASO # 0.1 x10^3/uL (0.0-0.2); BASO % 1 % (0-3); EOS # 0.2 x10^3/uL (0.0-0.7); EOS % 2 % (0-3); HEMATOCRIT 44.6 % (36.0-47.0); HEMOGLOBIN 14.8 g/dL (12.0-15.5); LYMPH # 1.4 x10^3/uL (1.0-4.8); LYMPH % 14 % (24-48); MEAN CORPUSCULAR HEMOGLOBIN 31 pg (25-35); MEAN CORPUSCULAR HGB CONC 33 g/dL (31-37); MEAN CORPUSCULAR VOLUME 92 fL (79-100); MONO # 0.8 x10^3/uL (0.0-1.1); MONO % 8 % (0-9); NEUT # 7.6 x10^3uL (1.8-7.7); NEUT % 76 % (31-73); PLATELET COUNT 256 x10^3/uL (140-400); RED BLOOD COUNT 4.84 x10^6/uL (3.50-5.40); RED CELL DISTRIBUTION WIDTH 13.9 % (11.5-14.5); WHITE BLOOD COUNT 10.1 x10^3/uL (4.0-11.0)
[2018-03-06 07:20] LABS: ALBUMIN 3.2 g/dL (3.4-5.0); ALBUMIN/GLOBULIN RATIO 0.7 (1.0-1.7); CALCIUM 9.4 mg/dL (8.5-10.1); CREATININE 1.2 mg/dL (0.6-1.0); GFR 43.7; POTASSIUM 4.2 mmol/L (3.5-5.1); TOTAL BILIRUBIN 0.3 mg/dL (0.2-1.0); TOTAL PROTEIN 7.7 g/dL (6.4-8.2)
[2018-03-06] MEDS: POTASSIUM CHLORIDE 20 MEQ TABLET.ER. PO SCH ×3 (08:15→20:07)
[2018-03-06] MEDS: CETIRIZINE HCL 10 MG TABLET PO SCH (08:15)
[2018-03-06] MEDS: ACETAMINOPHEN 500 MG TABLET PO SCH ×2 (08:15→20:06)
[2018-03-06] MEDS: DONEPEZIL HCL 10 MG TABLET PO SCH (08:15)
[2018-03-06] MEDS: buPROPion XL 300 MG TAB.ER.24H. PO SCH (08:16)
[2018-03-06] MEDS: MEMANTINE 10 MG TABLET. PO SCH ×2 (08:16→20:07)
[2018-03-06] MEDS: AMOXICILLIN 250 MG CAPSULE PO SCH ×3 (08:16→20:09)
[2018-03-06] MEDS: LACTOBACILLUS RHAMNOSUS GG 1 CAPSULE. PO SCH ×2 (08:16→20:06)
[2018-03-06] MEDS: ASPIRIN ENTERIC COATED 81 MG TABLET.DR. PO SCH (08:16)
[2018-03-06] MEDS: METOPROLOL SUCC 24HR ER 50 MG TAB.ER.24H. PO SCH (08:16)
[2018-03-06] MEDS: MEGESTROL 40 MG TABLET. PO SCH ×3 (08:16→17:12)
[2018-03-06] MEDS: NYSTATIN TOPICAL POWDER 15GM BOTTLE. TP SCH ×2 (08:17→20:09)
[2018-03-06 16:32] VITALS: BP 106/80
[2018-03-06] MEDS: SERTRALINE 50 MG TABLET. PO SCH (17:12)
[2018-03-06] MEDS: FAMOTIDINE 20 MG TABLET PO SCH (20:06)
[2018-03-06] MEDS: ATORVASTATIN CALCIUM 20 MG TABLET PO SCH (20:07)
[2018-03-06] MEDS: QUEtiapine 25 MG TABLET. PO SCH (20:07)
[2018-03-06] MEDS: PRIMIDONE 50 MG TABLET PO SCH (20:07)
--- NOTE | 2018-03-06 20:58 | PDOC ---
Exam Note: Kobe Note: Please also refer to the separate dictated note~for this date of service dictated separately.~Patient seen individually. Discussed the patient with Nursing staff reviewed the chart.~Reviewed interim history and current functioning. Reviewed vital signs,~Labs/ Radiology~and current medications noted below. Continue current treatment with the changes noted in the dictated addendum note Assessment: Vital Signs: Vital Signs Date Time Temp Pulse Resp B/P (MAP) Pulse Ox O2 Delivery O2 Flow Rate FiO2 03/06/18 16:32 98.4 85 18 106/80 (89) 98 03/05/18 16:20 Room Air I&O Intake and Output 03/06/18 06:59 Intake Total 120 ml Balance 120 ml Intake Oral 120 ml Labs: Laboratory Tests Test 03/06/18 06:47 White Blood Count 10.1 x10^3/uL (4.0-11.0) Red Blood Count 4.84 x10^6/uL (3.50-5.40) Hemoglobin 14.8 g/dL (12.0-15.5) Hematocrit 44.6 % (36.0-47.0) Mean Corpuscular Volume 92 fL (79-100) Mean Corpuscular Hemoglobin 31 pg (25-35) Mean Corpuscular Hemoglobin Concent 33 g/dL (31-37) Red Cell Distribution Width 13.9 % (11.5-14.5) Platelet Count 256 x10^3/uL (140-400) Neutrophils (%) (Auto) 76 % (31-73) H Lymphocytes (%) (Auto) 14 % (24-48) L Monocytes (%) (Auto) 8 % (0-9) Eosinophils (%) (Auto) 2 % (0-3) Basophils (%) (Auto) 1 % (0-3) Neutrophils # (Auto) 7.6 x10^3uL (1.8-7.7) Lymphocytes # (Auto) 1.4 x10^3/uL (1.0-4.8) Monocytes # (Auto) 0.8 x10^3/uL (0.0-1.1) Eosinophils # (Auto) 0.2 x10^3/uL (0.0-0.7) Basophils # (Auto) 0.1 x10^3/uL (0.0-0.2) Sodium Level 148 mmol/L (136-145) H Potassium Level 4.2 mmol/L (3.5-5.1) Chloride Level 113 mmol/L (98-107) H Carbon Dioxide Level 25 mmol/L (21-32) Anion Gap 10 (6-14) Blood Urea Nitrogen 26 mg/dL (7-20) H Creatinine 1.2 mg/dL (0.6-1.0) H Estimated GFR (Cockcroft-Gault) 43.7 BUN/Creatinine Ratio 22 (6-20) H Glucose Level 95 mg/dL (70-99) Calcium Level 9.4 mg/dL (8.5-10.1) Total Bilirubin 0.3 mg/dL (0.2-1.0) Aspartate Amino Transferase (AST) 21 U/L (15-37) Alanine Aminotransferase (ALT) 28 U/L (14-59) Alkaline Phosphatase 138 U/L (46-116) H Total Protein 7.7 g/dL (6.4-8.2) Albumin 3.2 g/dL (3.4-5.0) L Albumin/Globulin Ratio 0.7 (1.0-1.7) L Current Medications: Meds: Current Medications Potassium Chloride (Klor-Con) 40 meq 1X ONCE PO Last administered on at 10:13; Start 02/08/18 at 10:15; Stop 02/08/18 at 10:16; Status DC Acetaminophen (Tylenol) 650 mg PRN Q6HRS PRN PO PAIN / TEMP; Start 02/08/18 at 14:30; Status Cancel Multi-Ingredient Ointment (Analgesic [place]) 1 savanah PRN QID PRN TP MUSCLE PAIN; Start 02/08/18 at 14:30 Al Hydroxide/Mg Hydroxide (Mylanta Plus Xs) 15 ml PRN AFTMEALHC PRN PO DYSPEPSIA; Start 02/08/18 at 14:30 Magnesium Hydroxide (Milk Of Magnesia) 2,400 mg PRN QHS PRN PO CONSTIPATION Last administered on 02/26/18at 09:32; Start 02/08/18 at 14:30 Atorvastatin Calcium (Lipitor) 20 mg QHS PO Last administered on 03/06/18at 20: 07; Start 02/08/18 at 21:00 Sertraline HCl (Zoloft) 50 mg DAILY PO ; Start 02/09/18 at 09:00; Stop 02/09/18 at 09:00; Status DC Acetaminophen (Tylenol) 500 mg BID PO Last administered on 03/06/18at 20:06; Start 02/08/18 at 21:00 Acetaminophen (Tylenol) 500 mg PRN Q8HRS PRN PO PAIN / TEMP; Start 02/08/18 at 15:00 Aspirin (Aspirin Enteric Coated) 81 mg DAILY PO Last administered on 03/06/18at 08:16; Start 02/09/18 at 09:00 Cetirizine HCl (ZyrTEC) 10 mg DAILY PO Last administered on 03/06/18at 08:15; Start 02/09/18 at 09:00 Donepezil HCl (Aricept) 10 mg DAILY PO Last administered on 03/06/18at 08:15; Start 02/09/18 at 09:00 Duloxetine HCl (Cymbalta) 20 mg DAILY PO ; Start 02/09/18 at 09:00; Stop at 09:00; Status DC Furosemide (Lasix) 40 mg PRN DAILY PRN PO FOR EDEMA; Start 02/09/18 at 09:00; Stop 02/09/18 at 16:07; Status DC Hydrochlorothiazide (Microzide) 12.5 mg DAILY PO Last administered on at 07:50; Start 02/09/18 at 09:00; Stop 02/09/18 at 16:03; Status DC Memantine (Namenda) 10 mg DAILY PO Last administered on 02/12/18at 08:03; Start 02/09/18 at 09:00; Stop 02/12/18 at 18:40; Status DC Metoprolol Succinate (Toprol Xl) 50 mg DAILY PO Last administered on 03/06/18at 08:16; Start 02/09/18 at 09:00 Potassium Chloride (Klor-Con) 10 meq DAILY PO Last administered on 02/09/18at 07 :43; Start 02/09/18 at 09:00; Stop 02/09/18 at 16:07; Status DC Famotidine (Pepcid) 20 mg QHS PO Last administered on 03/06/18at 20:06; Start at 21:00 Zinc Oxide (Desitin Diaper Rash 40%) 1 savanah BID TP Last administered on at 19:48; Start 02/08/18 at 21:00; Stop 02/10/18 at 07:47; Status DC Non-Formulary Medication (Zinc Oxide (Desitin)) 1 applic PRN PRN TP irritation; Start 02/08/18 at 15:00; Status UNV Sertraline HCl (Zoloft) 75 mg DAILY PO Last administered on 02/12/18at 08:03; Start 02/09/18 at 09:00; Stop 02/12/18 at 18:40; Status DC Trazodone HCl (Desyrel) 25 mg PRN QHS PRN PO INSOMNIA, MAY REPEAT X2 Last administered on 02/17/18at 20:49; Start 02/08/18 at 19:30 Potassium Chloride (Klor-Con) 40 meq 1X ONCE PO Last administered on at 17:50; Start 02/09/18 at 16:30; Stop 02/09/18 at 16:31; Status DC Furosemide (Lasix) 40 mg DAILY PO Last administered on 02/23/18at 07:50; Start 02/10/18 at 09:00; Stop 02/23/18 at 13:24; Status DC Potassium Chloride (Klor-Con) 20 meq BID PO Last administered on 02/23/18at 07: 49; Start 02/09/18 at 21:00; Stop 02/23/18 at 13:24; Status DC Nystatin (Nystop) 1 savanah BID TP Last administered on 03/06/18at 20:09; Start at 09:00 Sertraline HCl (Zoloft) 100 mg DAILY PO ; Start 02/14/18 at 09:00; Stop at 09:00; Status DC Memantine (Namenda) 10 mg HS PO Last administered on 03/06/18at 20:07; Start at 21:00 Sertraline HCl (Zoloft) 100 mg DAILY10 PO Last administered on 02/16/18at 07:14 ; Start 02/14/18 at 10:00; Stop 02/16/18 at 07:16; Status DC Sertraline HCl (Zoloft) 75 mg DAILY10 PO Last administered on 02/13/18at 10:58; Start 02/13/18 at 10:00; Stop 02/13/18 at 11:00; Status DC Memantine (Namenda) 5 mg DAILY PO Last administered on 02/18/18at 08:45; Start 02/13/18 at 09:00; Stop 02/18/18 at 18:43; Status DC Bupropion HCl (Wellbutrin Xl) 150 mg DAILY PO Last administered on 02/18/18at 08 :44; Start 02/15/18 at 09:00; Stop 02/18/18 at 18:43; Status DC Sertraline HCl (Zoloft) 100 mg DAILY PO ; Start 02/17/18 at 09:00; Stop at 09:00; Status DC Sertraline HCl (Zoloft) 100 mg DAILY PO Last administered on 02/18/18at 08:45; Start 02/17/18 at 09:00; Stop 02/18/18 at 18:43; Status DC Sertraline HCl (Zoloft) 25 mg DAILY PO Last administered on 02/18/18at 08:45; Start 02/17/18 at 09:00; Stop 02/18/18 at 18:43; Status DC Bupropion HCl (Wellbutrin Xl) 300 mg DAILY PO Last administered on 03/06/18at 08 :16; Start 02/19/18 at 09:00 Memantine (Namenda) 10 mg DAILY PO Last administered on 03/06/18at 08:16; Start 02/19/18 at 09:00 Sertraline HCl (Zoloft) 100 mg DAILYWSUP PO ; Start 02/19/18 at 17:00; Stop at 17:00; Status DC Sertraline HCl (Zoloft) 100 mg DAILYWSUP PO Last administered on 02/21/18at 16: 52; Start 02/19/18 at 17:00; Stop 02/21/18 at 18:33; Status DC Quetiapine Fumarate (SEROquel) 12.5 mg BID PO Last administered on 02/21/18at 09 :37; Start 02/19/18 at 21:00; Stop 02/21/18 at 18:33; Status DC Quetiapine Fumarate (SEROquel) 12.5 mg QHS PO Last administered on 02/21/18at 19 :29; Start 02/21/18 at 21:00; Stop 02/22/18 at 18:23; Status DC Sertraline HCl (Zoloft) 50 mg DAILYWSUP PO Last administered on 03/06/18at 17:12 ; Start 02/22/18 at 17:00 Primidone (Mysoline) 25 mg QHS PO Last administered on 02/23/18at 20:08; Start 02/21/18 at 21:00; Stop 02/24/18 at 15:09; Status DC Quetiapine Fumarate (SEROquel) 12.5 mg DAILY@1700 PO Last administered on at 17:01; Start 02/23/18 at 17:00; Stop 02/28/18 at 15:38; Status DC Megestrol Acetate (Megace) 40 mg TIDAC PO Last administered on 03/06/18at 17:12 ; Start 02/24/18 at 07:30 Dextrose 1,000 ml @ 100 mls/hr Q10H IV Last administered on 02/25/18at 08:42; Start 02/24/18 at 09:00; Stop 02/25/18 at 15:46; Status DC Primidone (Mysoline) 50 mg QHS PO Last administered on 03/06/18at 20:07; Start 02/24/18 at 21:00 Potassium Chloride/Dextrose 1,000 ml @ 100 mls/hr Q10H IV Last administered on 02/26/18at 12:31; Start 02/25/18 at 16:00; Stop 02/26/18 at 14:32; Status DC Potassium Chloride (Klor-Con) 20 meq TID PO Last administered on 03/06/18at 20: 07; Start 02/25/18 at 21:00 Quetiapine Fumarate (SEROquel) 12.5 mg BID PO Last administered on 03/02/18at 07: 53; Start 02/28/18 at 21:00; Stop 03/02/18 at 18:46; Status DC Amoxicillin (Amoxil) 250 mg [id number] PO ; Start 03/10/18 at 21:00; Stop 03/10/18 at 21:00; Status DC Amoxicillin (Amoxil) 250 mg [id number] PO Last administered on 03/06/18at 20:09; Start 02/28/18 at 21:00; Stop 03/07/18 at 21:01 Lactobacillus Rhamnosus (Culturelle) 1 cap BID PO Last administered on at 20:06; Start 02/28/18 at 21:00 Quetiapine Fumarate (SEROquel) 12.5 mg QHS PO Last administered on 03/06/18at 20 :07; Start 03/02/18 at 21:00 Active Scripts Active Reported Acetaminophen 500 Mg Tablet 500 Mg PO BID Desitin (Zinc Oxide) 57 Gm Cream..g. 1 Applic TP PRN PRN Acetaminophen 500 Mg Tablet 500 Mg PO PRN Q8HRS PRN Furosemide 40 Mg Tablet 40 Mg PO PRN DAILY PRN Zoloft (Sertraline Hcl) 50 Mg Tablet 50 Mg PO DAILY Ranitidine Hcl 150 Mg Capsule 150 Mg PO HS Potassium Chloride 10 Meq Tablet.er 10 Meq PO DAILY Metoprolol Succinate ( Xl ) (Metoprolol Succinate) 50 Mg Tab.er.24h 50 Mg PO DAILY Namenda (Memantine Hcl) 10 Mg Tablet 10 Mg PO DAILY Hydrochlorothiazide Tablet (Hydrochlorothiazide) 12.5 Mg Tablet 12.5 Mg PO DAILY Cymbalta (Duloxetine Hcl) 20 Mg Capsule.dr 20 Mg PO DAILY 26 Days Donepezil Hcl 10 Mg Tablet 10 Mg PO DAILY Desitin (Zinc Oxide) 57 Gm Cream..g. 1 Appful TP BID Cetirizine Hcl 10 Mg Tablet 10 Mg PO DAILY Atorvastatin Calcium 20 Mg Tablet 20 Mg PO QHS Aspir-Low (Aspirin) 81 Mg Tablet.dr 81 Mg PO DAILY I have reviewed the current psychotropics carefully including drug interactions. Risk benefit ratio favors no change other than as noted in my dictated progress note. Diagnosis: Problems: (1) Anxiety disorder (2) Impulse control disorder (3) Dementia, vascular, with depression (4) Dementia, vascular, with delusions (5) Dementia with behavioral disturbance (6) Dementia in Alzheimer's disease with depression (7) Dementia in Alzheimer's disease with delusions LIANA MCKENZIE MD Mar 06, 2018 20:58
--- NOTE | 2018-03-07 01:54 | PN ---
DATE: 03/05/2018 PSYCHIATRIC PROGRESS NOTE This is a late entry for 03/05/2018, covers elements not covered in my initial note. SUBJECTIVE: I met with the patient in the evening. The patient slept 7-1/2 hours previous evening. She has been sliding herself out of the chair, appears helpless, needs help feeding herself even though she can do this. Oriented just to herself. REVIEW OF SYSTEMS: Ambulation impaired, in wheelchair. No CV, , pulmonary, eye, ENT system symptoms on review. Reliability poor. MENTAL STATUS EXAM: Oriented to herself. Insight, judgment, recent and remote memory, attention, concentration, fund of knowledge poor, consistent with her diagnosis mentioned in my initial note. IMPRESSION: Major neurocognitive disorder, Alzheimer, vascular with depression, delusion, behavioral disturbance; anxiety disorder, unspecified; impulse control disorder, unspecified. The patient slept 7-1/2 hours previous evening. LABORATORY DATA: Reviewed. PLAN: Continue psychotropics from initial note, Aricept, Namenda, Zoloft, trazodone, Wellbutrin, Seroquel, and Megace for appetite stimulation. MAN Tracie MCKENZIE MD DR: REMINGTON/brad JOB#: [id number] / [id number]
[2018-03-07 06:29] VITALS: BP 139/68
[2018-03-07] MEDS: CETIRIZINE HCL 10 MG TABLET PO SCH (08:01)
[2018-03-07] MEDS: MEMANTINE 10 MG TABLET. PO SCH ×2 (08:01→19:28)
[2018-03-07] MEDS: ASPIRIN ENTERIC COATED 81 MG TABLET.DR. PO SCH (08:01)
[2018-03-07] MEDS: DONEPEZIL HCL 10 MG TABLET PO SCH (08:01)
[2018-03-07] MEDS: AMOXICILLIN 250 MG CAPSULE PO SCH ×3 (08:01→19:27)
[2018-03-07] MEDS: LACTOBACILLUS RHAMNOSUS GG 1 CAPSULE. PO SCH ×2 (08:01→19:27)
[2018-03-07] MEDS: ACETAMINOPHEN 500 MG TABLET PO SCH ×2 (08:01→19:26)
[2018-03-07] MEDS: POTASSIUM CHLORIDE 20 MEQ TABLET.ER. PO SCH ×3 (08:02→19:27)
[2018-03-07] MEDS: MEGESTROL 40 MG TABLET. PO SCH ×3 (08:02→17:15)
[2018-03-07] MEDS: buPROPion XL 300 MG TAB.ER.24H. PO SCH (08:02)
[2018-03-07] MEDS: METOPROLOL SUCC 24HR ER 50 MG TAB.ER.24H. PO SCH (08:03)
[2018-03-07] MEDS: NYSTATIN TOPICAL POWDER 15GM BOTTLE. TP SCH (08:03)
[2018-03-07] MEDS: SERTRALINE 50 MG TABLET. PO SCH (17:15)
[2018-03-07] MEDS: ATORVASTATIN CALCIUM 20 MG TABLET PO SCH (19:26)
[2018-03-07] MEDS: PRIMIDONE 50 MG TABLET PO SCH (19:26)
[2018-03-07] MEDS: QUEtiapine 25 MG TABLET. PO SCH (19:27)
[2018-03-07] MEDS: FAMOTIDINE 20 MG TABLET PO SCH (19:28)
--- NOTE | 2018-03-07 20:56 | PDOC ---
Exam Note: Kobe Note: Please also refer to the separate dictated note~for this date of service dictated separately.~Patient seen individually. Discussed the patient with Nursing staff reviewed the chart.~Reviewed interim history and current functioning. Reviewed vital signs,~Labs/ Radiology~and current medications noted below. Continue current treatment with the changes noted in the dictated addendum note Assessment: Vital Signs: Vital Signs Date Time Temp Pulse Resp B/P (MAP) Pulse Ox O2 Delivery O2 Flow Rate FiO2 03/07/18 08:03 95 139/68 03/07/18 06:29 98.1 17 99 03/05/18 16:20 Room Air I&O Intake and Output 03/07/18 07:00 Intake Total 480 ml Output Total 1 ml Balance 479 ml Intake Oral 480 ml Output Urine Total 1 ml Current Medications: Meds: Current Medications Potassium Chloride (Klor-Con) 40 meq 1X ONCE PO Last administered on at 10:13; Start 02/08/18 at 10:15; Stop 02/08/18 at 10:16; Status DC Acetaminophen (Tylenol) 650 mg PRN Q6HRS PRN PO PAIN / TEMP; Start 02/08/18 at 14:30; Status Cancel Multi-Ingredient Ointment (Analgesic [place]) 1 savanah PRN QID PRN TP MUSCLE PAIN; Start 02/08/18 at 14:30 Al Hydroxide/Mg Hydroxide (Mylanta Plus Xs) 15 ml PRN AFTMEALHC PRN PO DYSPEPSIA; Start 02/08/18 at 14:30 Magnesium Hydroxide (Milk Of Magnesia) 2,400 mg PRN QHS PRN PO CONSTIPATION Last administered on 02/26/18at 09:32; Start 02/08/18 at 14:30 Atorvastatin Calcium (Lipitor) 20 mg QHS PO Last administered on 03/07/18at 19: 26; Start 02/08/18 at 21:00 Sertraline HCl (Zoloft) 50 mg DAILY PO ; Start 02/09/18 at 09:00; Stop 02/09/18 at 09:00; Status DC Acetaminophen (Tylenol) 500 mg BID PO Last administered on 03/07/18at 19:26; Start 02/08/18 at 21:00 Acetaminophen (Tylenol) 500 mg PRN Q8HRS PRN PO PAIN / TEMP; Start 02/08/18 at 15:00 Aspirin (Aspirin Enteric Coated) 81 mg DAILY PO Last administered on 03/07/18 08:01; Start 02/09/18 at 09:00 Cetirizine HCl (ZyrTEC) 10 mg DAILY PO Last administered on 03/07/18at 08:01; Start 02/09/18 at 09:00 Donepezil HCl (Aricept) 10 mg DAILY PO Last administered on 03/07/18at 08:01; Start 02/09/18 at 09:00 Duloxetine HCl (Cymbalta) 20 mg DAILY PO ; Start 02/09/18 at 09:00; Stop at 09:00; Status DC Furosemide (Lasix) 40 mg PRN DAILY PRN PO FOR EDEMA; Start 02/09/18 at 09:00; Stop 02/09/18 at 16:07; Status DC Hydrochlorothiazide (Microzide) 12.5 mg DAILY PO Last administered on at 07:50; Start 02/09/18 at 09:00; Stop 02/09/18 at 16:03; Status DC Memantine (Namenda) 10 mg DAILY PO Last administered on 02/12/18at 08:03; Start 02/09/18 at 09:00; Stop 02/12/18 at 18:40; Status DC Metoprolol Succinate (Toprol Xl) 50 mg DAILY PO Last administered on 03/07/18at 08:03; Start 02/09/18 at 09:00 Potassium Chloride (Klor-Con) 10 meq DAILY PO Last administered on 02/09/18at 07 :43; Start 02/09/18 at 09:00; Stop 02/09/18 at 16:07; Status DC Famotidine (Pepcid) 20 mg QHS PO Last administered on 03/07/18 19:28; Start at 21:00 Zinc Oxide (Desitin Diaper Rash 40%) 1 savanah BID TP Last administered on at 19:48; Start 02/08/18 at 21:00; Stop 02/10/18 at 07:47; Status DC Non-Formulary Medication (Zinc Oxide (Desitin)) 1 applic PRN PRN TP irritation; Start 02/08/18 at 15:00; Status UNV Sertraline HCl (Zoloft) 75 mg DAILY PO Last administered on 02/12/18at 08:03; Start 02/09/18 at 09:00; Stop 02/12/18 at 18:40; Status DC Trazodone HCl (Desyrel) 25 mg PRN QHS PRN PO INSOMNIA, MAY REPEAT X2 Last administered on 02/17/18at 20:49; Start 02/08/18 at 19:30 Potassium Chloride (Klor-Con) 40 meq 1X ONCE PO Last administered on at 17:50; Start 02/09/18 at 16:30; Stop 02/09/18 at 16:31; Status DC Furosemide (Lasix) 40 mg DAILY PO Last administered on 02/23/18at 07:50; Start 02/10/18 at 09:00; Stop 02/23/18 at 13:24; Status DC Potassium Chloride (Klor-Con) 20 meq BID PO Last administered on 02/23/18at 07: 49; Start 02/09/18 at 21:00; Stop 02/23/18 at 13:24; Status DC Nystatin (Nystop) 1 savanah BID TP Last administered on 03/07/18at 08:03; Start at 09:00 Sertraline HCl (Zoloft) 100 mg DAILY PO ; Start 02/14/18 at 09:00; Stop at 09:00; Status DC Memantine (Namenda) 10 mg HS PO Last administered on 03/07/18at 19:28; Start at 21:00 Sertraline HCl (Zoloft) 100 mg DAILY10 PO Last administered on 02/16/18at 07:14 ; Start 02/14/18 at 10:00; Stop 02/16/18 at 07:16; Status DC Sertraline HCl (Zoloft) 75 mg DAILY10 PO Last administered on 02/13/18at 10:58; Start 02/13/18 at 10:00; Stop 02/13/18 at 11:00; Status DC Memantine (Namenda) 5 mg DAILY PO Last administered on 02/18/18at 08:45; Start 02/13/18 at 09:00; Stop 02/18/18 at 18:43; Status DC Bupropion HCl (Wellbutrin Xl) 150 mg DAILY PO Last administered on 02/18/18at 08 :44; Start 02/15/18 at 09:00; Stop 02/18/18 at 18:43; Status DC Sertraline HCl (Zoloft) 100 mg DAILY PO ; Start 02/17/18 at 09:00; Stop at 09:00; Status DC Sertraline HCl (Zoloft) 100 mg DAILY PO Last administered on 02/18/18at 08:45; Start 02/17/18 at 09:00; Stop 02/18/18 at 18:43; Status DC Sertraline HCl (Zoloft) 25 mg DAILY PO Last administered on 02/18/18at 08:45; Start 02/17/18 at 09:00; Stop 02/18/18 at 18:43; Status DC Bupropion HCl (Wellbutrin Xl) 300 mg DAILY PO Last administered on 03/07/18at 08 :02; Start 02/19/18 at 09:00 Memantine (Namenda) 10 mg DAILY PO Last administered on 03/07/18at 08:01; Start 02/19/18 at 09:00 Sertraline HCl (Zoloft) 100 mg DAILYWSUP PO ; Start 02/19/18 at 17:00; Stop at 17:00; Status DC Sertraline HCl (Zoloft) 100 mg DAILYWSUP PO Last administered on 02/21/18at 16: 52; Start 02/19/18 at 17:00; Stop 02/21/18 at 18:33; Status DC Quetiapine Fumarate (SEROquel) 12.5 mg BID PO Last administered on 02/21/18at 09 :37; Start 02/19/18 at 21:00; Stop 02/21/18 at 18:33; Status DC Quetiapine Fumarate (SEROquel) 12.5 mg QHS PO Last administered on 02/21/18at 19 :29; Start 02/21/18 at 21:00; Stop 02/22/18 at 18:23; Status DC Sertraline HCl (Zoloft) 50 mg DAILYWSUP PO Last administered on 03/07/18at 17:15 ; Start 02/22/18 at 17:00 Primidone (Mysoline) 25 mg QHS PO Last administered on 02/23/18 20:08; Start 02/21/18 at 21:00; Stop 02/24/18 at 15:09; Status DC Quetiapine Fumarate (SEROquel) 12.5 mg DAILY@1700 PO Last administered on 17:01; Start 02/23/18 at 17:00; Stop 02/28/18 at 15:38; Status DC Megestrol Acetate (Megace) 40 mg TIDAC PO Last administered on 03/07/18 17:15 ; Start 02/24/18 at 07:30 Dextrose 1,000 ml @ 100 mls/hr Q10H IV Last administered on 02/25/18 08:42; Start 02/24/18 at 09:00; Stop 02/25/18 at 15:46; Status DC Primidone (Mysoline) 50 mg QHS PO Last administered on 03/07/18 19:26; Start 02/24/18 at 21:00 Potassium Chloride/Dextrose 1,000 ml @ 100 mls/hr Q10H IV Last administered on 02/26/18 12:31; Start 02/25/18 at 16:00; Stop 02/26/18 at 14:32; Status DC Potassium Chloride (Klor-Con) 20 meq TID PO Last administered on 03/07/18 19: 27; Start 02/25/18 at 21:00 Quetiapine Fumarate (SEROquel) 12.5 mg BID PO Last administered on 03/02/18at 07: 53; Start 02/28/18 at 21:00; Stop 03/02/18 at 18:46; Status DC Amoxicillin (Amoxil) 250 mg [id number] PO ; Start 03/10/18 at 21:00; Stop 03/10/18 at 21:00; Status DC Amoxicillin (Amoxil) 250 mg [id number] PO Last administered on 03/07/18 19:27; Start 02/28/18 at 21:00; Stop 03/07/18 at 21:01 Lactobacillus Rhamnosus (Culturelle) 1 cap BID PO Last administered on 19:27; Start 02/28/18 at 21:00 Quetiapine Fumarate (SEROquel) 12.5 mg QHS PO Last administered on 03/07/18at 19 :27; Start 03/02/18 at 21:00 Active Scripts Active Reported Acetaminophen 500 Mg Tablet 500 Mg PO BID Desitin (Zinc Oxide) 57 Gm Cream..g. 1 Applic TP PRN PRN Acetaminophen 500 Mg Tablet 500 Mg PO PRN Q8HRS PRN Furosemide 40 Mg Tablet 40 Mg PO PRN DAILY PRN Zoloft (Sertraline Hcl) 50 Mg Tablet 50 Mg PO DAILY Ranitidine Hcl 150 Mg Capsule 150 Mg PO HS Potassium Chloride 10 Meq Tablet.er 10 Meq PO DAILY Metoprolol Succinate ( Xl ) (Metoprolol Succinate) 50 Mg Tab.er.24h 50 Mg PO DAILY Namenda (Memantine Hcl) 10 Mg Tablet 10 Mg PO DAILY Hydrochlorothiazide Tablet (Hydrochlorothiazide) 12.5 Mg Tablet 12.5 Mg PO DAILY Cymbalta (Duloxetine Hcl) 20 Mg Capsule.dr 20 Mg PO DAILY 26 Days Donepezil Hcl 10 Mg Tablet 10 Mg PO DAILY Desitin (Zinc Oxide) 57 Gm Cream..g. 1 Appful TP BID Cetirizine Hcl 10 Mg Tablet 10 Mg PO DAILY Atorvastatin Calcium 20 Mg Tablet 20 Mg PO QHS Aspir-Low (Aspirin) 81 Mg Tablet.dr 81 Mg PO DAILY I have reviewed the current psychotropics carefully including drug interactions. Risk benefit ratio favors no change other than as noted in my dictated progress note. Diagnosis: Problems: (1) Anxiety disorder (2) Impulse control disorder (3) Dementia, vascular, with depression (4) Dementia, vascular, with delusions (5) Dementia with behavioral disturbance (6) Dementia in Alzheimer's disease with depression (7) Dementia in Alzheimer's disease with delusions LIANA MCKENZIE MD Mar 07, 2018 20:56
[2018-03-08] MEDS: NYSTATIN TOPICAL POWDER 15GM BOTTLE. TP SCH ×3 (05:35→21:00)
[2018-03-08 06:32] VITALS: BP 138/88
[2018-03-08] MEDS: MEGESTROL 40 MG TABLET. PO SCH ×3 (08:45→16:29)
[2018-03-08] MEDS: MEMANTINE 10 MG TABLET. PO SCH ×2 (08:46→20:07)
[2018-03-08] MEDS: ASPIRIN ENTERIC COATED 81 MG TABLET.DR. PO SCH (08:46)
[2018-03-08] MEDS: POTASSIUM CHLORIDE 20 MEQ TABLET.ER. PO SCH ×3 (08:46→20:08)
[2018-03-08] MEDS: LACTOBACILLUS RHAMNOSUS GG 1 CAPSULE. PO SCH ×2 (08:46→20:07)
[2018-03-08] MEDS: DONEPEZIL HCL 10 MG TABLET PO SCH (08:46)
[2018-03-08] MEDS: METOPROLOL SUCC 24HR ER 50 MG TAB.ER.24H. PO SCH (08:47)
[2018-03-08] MEDS: CETIRIZINE HCL 10 MG TABLET PO SCH (08:47)
[2018-03-08] MEDS: ACETAMINOPHEN 500 MG TABLET PO SCH ×2 (08:47→20:07)
[2018-03-08] MEDS: buPROPion XL 300 MG TAB.ER.24H. PO SCH (08:47)
[2018-03-08] MEDS: SERTRALINE 50 MG TABLET. PO SCH (16:29)
[2018-03-08 16:47] VITALS: BP 136/67
[2018-03-08] MEDS: PRIMIDONE 50 MG TABLET PO SCH (20:07)
[2018-03-08] MEDS: ATORVASTATIN CALCIUM 20 MG TABLET PO SCH (20:07)
[2018-03-08] MEDS: FAMOTIDINE 20 MG TABLET PO SCH (20:08)
[2018-03-08] MEDS: QUEtiapine 25 MG TABLET. PO SCH (20:08)
[2018-03-08 20:14] LABS: BASO # 0.1 x10^3/uL (0.0-0.2); BASO % 1 % (0-3); EOS # 0.2 x10^3/uL (0.0-0.7); EOS % 2 % (0-3); HEMATOCRIT 41.6 % (36.0-47.0); HEMOGLOBIN 13.9 g/dL (12.0-15.5); LYMPH # 1.5 x10^3/uL (1.0-4.8); LYMPH % 18 % (24-48); MEAN CORPUSCULAR HEMOGLOBIN 31 pg (25-35); MEAN CORPUSCULAR HGB CONC 33 g/dL (31-37); MEAN CORPUSCULAR VOLUME 92 fL (79-100); MONO # 0.7 x10^3/uL (0.0-1.1); MONO % 9 % (0-9); NEUT % 71 % (31-73); PLATELET COUNT 240 x10^3/uL (140-400); RED BLOOD COUNT 4.51 x10^6/uL (3.50-5.40); RED CELL DISTRIBUTION WIDTH 14.3 % (11.5-14.5); WHITE BLOOD COUNT 8.5 x10^3/uL (4.0-11.0)
[2018-03-08 20:27] LABS: ALBUMIN 3.1 g/dL (3.4-5.0); ALBUMIN/GLOBULIN RATIO 0.7 (1.0-1.7); CALCIUM 9.5 mg/dL (8.5-10.1); CREATININE 1.1 mg/dL (0.6-1.0); GFR 48.3; TOTAL BILIRUBIN 0.3 mg/dL (0.2-1.0); TOTAL PROTEIN 7.4 g/dL (6.4-8.2)
--- NOTE | 2018-03-08 22:57 | PN ---
DATE: 03/06/2018 This is a late entry for 03/06/2018 covers elements not covered in my initial note. SUBJECTIVE: I met with the patient in the evening. The patient slept 6 hours previous night. She had not had any urination the day before and bladder scan showed 265 mL. We will defer all this to Dr. Sun. She was drowsy in the morning, not aggressive, has to be assisted while being fed. REVIEW OF SYSTEMS: Ambulation impaired, in wheelchair. No CV, , pulmonary, eye, ENT system symptoms on review. Reliability poor. MENTAL STATUS EXAM: Oriented to herself. Insight, judgment, recent and remote memory, attention, concentration, fund of knowledge poor, consistent with her diagnosis mentioned in my initial note. PLAN: Continue current psychotropics. We will follow labs for dehydration, encourage oral intake. I am trying to minimize any sedative psychotropics as well. MAN Tracie MCKENZIE MD DR: REMINGTON/brad JOB#: [id number] / [id number]
--- NOTE | 2018-03-08 23:02 | PN ---
DATE: 03/07/2018 PSYCHIATRIC PROGRESS NOTE This late entry 03/07/2018 covers elements not covered in my initial note of 03/07/2018. SUBJECTIVE: Met with the patient in the evening, staffed at treatment team meeting with the entire team in the morning and the patient's daughter, Juan, attended the conference. We had a lengthy discussion about the patient's diagnoses, progress, current psychotropics, continued mood symptoms withdrawal, not pushing herself to ambulate or do other things including feeding herself, which she is capable of doing. She is sleeping 6-8 hours. Her appetite is 50%, somewhat withdrawn. During activity group, she is doing better with one-on-one interaction, better with music group. Fluids are being pushed as she is dehydrated and slides herself out of the chair. REVIEW OF SYSTEMS: Ambulation is impaired. No CV, , pulmonary, eye, ENT system symptoms on review. MENTAL STATUS EXAM: Oriented to herself. Insight, judgment, recent, remote memory, attention, concentration, fund of knowledge is poor consistent with her diagnoses mentioned in my initial note. PLAN: Continue psychotropics from initial note. MAN Tracie MCKENZIE MD DR: REMINGTON/brad JOB#: [id number] / [id number]
--- NOTE | 2018-03-08 23:10 | PDOC ---
Exam Note: Kobe Note: Please also refer to the separate dictated note~for this date of service dictated separately.~Patient seen individually. Discussed the patient with Nursing staff reviewed the chart.~Reviewed interim history and current functioning. Reviewed vital signs,~Labs/ Radiology~and current medications noted below. Continue current treatment with the changes noted in the dictated addendum note Assessment: Vital Signs: Vital Signs Date Time Temp Pulse Resp B/P (MAP) Pulse Ox O2 Delivery O2 Flow Rate FiO2 03/08/18 16:47 98.4 89 24 136/67 (90) 93 03/05/18 16:20 Room Air I&O Intake and Output 03/08/18 07:00 Intake Total 540 ml Balance 540 ml Intake Oral 540 ml Labs: Laboratory Tests Test 03/08/18 20:00 White Blood Count 8.5 x10^3/uL (4.0-11.0) Red Blood Count 4.51 x10^6/uL (3.50-5.40) Hemoglobin 13.9 g/dL (12.0-15.5) Hematocrit 41.6 % (36.0-47.0) Mean Corpuscular Volume 92 fL (79-100) Mean Corpuscular Hemoglobin 31 pg (25-35) Mean Corpuscular Hemoglobin Concent 33 g/dL (31-37) Red Cell Distribution Width 14.3 % (11.5-14.5) Platelet Count 240 x10^3/uL (140-400) Neutrophils (%) (Auto) 71 % (31-73) Lymphocytes (%) (Auto) 18 % (24-48) L Monocytes (%) (Auto) 9 % (0-9) Eosinophils (%) (Auto) 2 % (0-3) Basophils (%) (Auto) 1 % (0-3) Neutrophils # (Auto) 6.0 x10^3uL (1.8-7.7) Lymphocytes # (Auto) 1.5 x10^3/uL (1.0-4.8) Monocytes # (Auto) 0.7 x10^3/uL (0.0-1.1) Eosinophils # (Auto) 0.2 x10^3/uL (0.0-0.7) Basophils # (Auto) 0.1 x10^3/uL (0.0-0.2) Sodium Level 146 mmol/L (136-145) H Potassium Level 4.0 mmol/L (3.5-5.1) Chloride Level 111 mmol/L (98-107) H Carbon Dioxide Level 27 mmol/L (21-32) Anion Gap 8 (6-14) Blood Urea Nitrogen 30 mg/dL (7-20) H Creatinine 1.1 mg/dL (0.6-1.0) H Estimated GFR (Cockcroft-Gault) 48.3 BUN/Creatinine Ratio 27 (6-20) H Glucose Level 93 mg/dL (70-99) Calcium Level 9.5 mg/dL (8.5-10.1) Total Bilirubin 0.3 mg/dL (0.2-1.0) Aspartate Amino Transferase (AST) 27 U/L (15-37) Alanine Aminotransferase (ALT) 25 U/L (14-59) Alkaline Phosphatase 135 U/L (46-116) H Total Protein 7.4 g/dL (6.4-8.2) Albumin 3.1 g/dL (3.4-5.0) L Albumin/Globulin Ratio 0.7 (1.0-1.7) L Current Medications: Meds: Current Medications Potassium Chloride (Klor-Con) 40 meq 1X ONCE PO Last administered on at 10:13; Start 02/08/18 at 10:15; Stop 02/08/18 at 10:16; Status DC Acetaminophen (Tylenol) 650 mg PRN Q6HRS PRN PO PAIN / TEMP; Start 02/08/18 at 14:30; Status Cancel Multi-Ingredient Ointment (Analgesic [place]) 1 savanah PRN QID PRN TP MUSCLE PAIN; Start 02/08/18 at 14:30 Al Hydroxide/Mg Hydroxide (Mylanta Plus Xs) 15 ml PRN AFTMEALHC PRN PO DYSPEPSIA; Start 02/08/18 at 14:30 Magnesium Hydroxide (Milk Of Magnesia) 2,400 mg PRN QHS PRN PO CONSTIPATION Last administered on 02/26/18at 09:32; Start 02/08/18 at 14:30 Atorvastatin Calcium (Lipitor) 20 mg QHS PO Last administered on 03/08/18at 20: 07; Start 02/08/18 at 21:00 Sertraline HCl (Zoloft) 50 mg DAILY PO ; Start 02/09/18 at 09:00; Stop 02/09/18 at 09:00; Status DC Acetaminophen (Tylenol) 500 mg BID PO Last administered on 03/08/18at 20:07; Start 02/08/18 at 21:00 Acetaminophen (Tylenol) 500 mg PRN Q8HRS PRN PO PAIN / TEMP; Start 02/08/18 at 15:00 Aspirin (Aspirin Enteric Coated) 81 mg DAILY PO Last administered on 03/08/18at 08:46; Start 02/09/18 at 09:00 Cetirizine HCl (ZyrTEC) 10 mg DAILY PO Last administered on 03/08/18 08:47; Start 02/09/18 at 09:00 Donepezil HCl (Aricept) 10 mg DAILY PO Last administered on 03/08/18at 08:46; Start 02/09/18 at 09:00 Duloxetine HCl (Cymbalta) 20 mg DAILY PO ; Start 02/09/18 at 09:00; Stop at 09:00; Status DC Furosemide (Lasix) 40 mg PRN DAILY PRN PO FOR EDEMA; Start 02/09/18 at 09:00; Stop 02/09/18 at 16:07; Status DC Hydrochlorothiazide (Microzide) 12.5 mg DAILY PO Last administered on at 07:50; Start 02/09/18 at 09:00; Stop 02/09/18 at 16:03; Status DC Memantine (Namenda) 10 mg DAILY PO Last administered on 02/12/18at 08:03; Start 02/09/18 at 09:00; Stop 02/12/18 at 18:40; Status DC Metoprolol Succinate (Toprol Xl) 50 mg DAILY PO Last administered on 03/08/18at 08:47; Start 02/09/18 at 09:00 Potassium Chloride (Klor-Con) 10 meq DAILY PO Last administered on 02/09/18at 07 :43; Start 02/09/18 at 09:00; Stop 02/09/18 at 16:07; Status DC Famotidine (Pepcid) 20 mg QHS PO Last administered on 03/08/18at 20:08; Start at 21:00 Zinc Oxide (Desitin Diaper Rash 40%) 1 savanah BID TP Last administered on 19:48; Start 02/08/18 at 21:00; Stop 02/10/18 at 07:47; Status DC Non-Formulary Medication (Zinc Oxide (Desitin)) 1 applic PRN PRN TP irritation; Start 02/08/18 at 15:00; Status UNV Sertraline HCl (Zoloft) 75 mg DAILY PO Last administered on 02/12/18at 08:03; Start 02/09/18 at 09:00; Stop 02/12/18 at 18:40; Status DC Trazodone HCl (Desyrel) 25 mg PRN QHS PRN PO INSOMNIA, MAY REPEAT X2 Last administered on 02/17/18at 20:49; Start 02/08/18 at 19:30 Potassium Chloride (Klor-Con) 40 meq 1X ONCE PO Last administered on at 17:50; Start 02/09/18 at 16:30; Stop 02/09/18 at 16:31; Status DC Furosemide (Lasix) 40 mg DAILY PO Last administered on 02/23/18 07:50; Start 02/10/18 at 09:00; Stop 02/23/18 at 13:24; Status DC Potassium Chloride (Klor-Con) 20 meq BID PO Last administered on 02/23/18 07: 49; Start 02/09/18 at 21:00; Stop 02/23/18 at 13:24; Status DC Nystatin (Nystop) 1 savanah BID TP Last administered on 03/08/18at 08:48; Start at 09:00 Sertraline HCl (Zoloft) 100 mg DAILY PO ; Start 02/14/18 at 09:00; Stop at 09:00; Status DC Memantine (Namenda) 10 mg HS PO Last administered on 03/08/18at 20:07; Start at 21:00 Sertraline HCl (Zoloft) 100 mg DAILY10 PO Last administered on 02/16/18at 07:14 ; Start 02/14/18 at 10:00; Stop 02/16/18 at 07:16; Status DC Sertraline HCl (Zoloft) 75 mg DAILY10 PO Last administered on 02/13/18at 10:58; Start 02/13/18 at 10:00; Stop 02/13/18 at 11:00; Status DC Memantine (Namenda) 5 mg DAILY PO Last administered on 02/18/18at 08:45; Start 02/13/18 at 09:00; Stop 02/18/18 at 18:43; Status DC Bupropion HCl (Wellbutrin Xl) 150 mg DAILY PO Last administered on 02/18/18at 08 :44; Start 02/15/18 at 09:00; Stop 02/18/18 at 18:43; Status DC Sertraline HCl (Zoloft) 100 mg DAILY PO ; Start 02/17/18 at 09:00; Stop at 09:00; Status DC Sertraline HCl (Zoloft) 100 mg DAILY PO Last administered on 02/18/18at 08:45; Start 02/17/18 at 09:00; Stop 02/18/18 at 18:43; Status DC Sertraline HCl (Zoloft) 25 mg DAILY PO Last administered on 02/18/18at 08:45; Start 02/17/18 at 09:00; Stop 02/18/18 at 18:43; Status DC Bupropion HCl (Wellbutrin Xl) 300 mg DAILY PO Last administered on 03/08/18at 08 :47; Start 02/19/18 at 09:00 Memantine (Namenda) 10 mg DAILY PO Last administered on 03/08/18at 08:46; Start 02/19/18 at 09:00 Sertraline HCl (Zoloft) 100 mg DAILYWSUP PO ; Start 02/19/18 at 17:00; Stop at 17:00; Status DC Sertraline HCl (Zoloft) 100 mg DAILYWSUP PO Last administered on 02/21/18at 16: 52; Start 02/19/18 at 17:00; Stop 02/21/18 at 18:33; Status DC Quetiapine Fumarate (SEROquel) 12.5 mg BID PO Last administered on 02/21/18at 09 :37; Start 02/19/18 at 21:00; Stop 02/21/18 at 18:33; Status DC Quetiapine Fumarate (SEROquel) 12.5 mg QHS PO Last administered on 02/21/18 19 :29; Start 02/21/18 at 21:00; Stop 02/22/18 at 18:23; Status DC Sertraline HCl (Zoloft) 50 mg DAILYWSUP PO Last administered on 03/08/18 16:29 ; Start 02/22/18 at 17:00 Primidone (Mysoline) 25 mg QHS PO Last administered on 02/23/18at 20:08; Start 02/21/18 at 21:00; Stop 02/24/18 at 15:09; Status DC Quetiapine Fumarate (SEROquel) 12.5 mg DAILY@1700 PO Last administered on 17:01; Start 02/23/18 at 17:00; Stop 02/28/18 at 15:38; Status DC Megestrol Acetate (Megace) 40 mg TIDAC PO Last administered on 03/08/18 16:29 ; Start 02/24/18 at 07:30 Dextrose 1,000 ml @ 100 mls/hr Q10H IV Last administered on 02/25/18at 08:42; Start 02/24/18 at 09:00; Stop 02/25/18 at 15:46; Status DC Primidone (Mysoline) 50 mg QHS PO Last administered on 03/08/18 20:07; Start 02/24/18 at 21:00 Potassium Chloride/Dextrose 1,000 ml @ 100 mls/hr Q10H IV Last administered on 02/26/18at 12:31; Start 02/25/18 at 16:00; Stop 02/26/18 at 14:32; Status DC Potassium Chloride (Klor-Con) 20 meq TID PO Last administered on 03/08/18 20: 08; Start 02/25/18 at 21:00 Quetiapine Fumarate (SEROquel) 12.5 mg BID PO Last administered on 03/02/18at 07: 53; Start 02/28/18 at 21:00; Stop 03/02/18 at 18:46; Status DC Amoxicillin (Amoxil) 250 mg [id number] PO ; Start 03/10/18 at 21:00; Stop 03/10/18 at 21:00; Status DC Amoxicillin (Amoxil) 250 mg [id number] PO Last administered on 03/07/18at 19:27; Start 02/28/18 at 21:00; Stop 03/07/18 at 21:01; Status DC Lactobacillus Rhamnosus (Culturelle) 1 cap BID PO Last administered on at 20:07; Start 02/28/18 at 21:00 Quetiapine Fumarate (SEROquel) 12.5 mg QHS PO Last administered on 03/08/18at 20 :08; Start 03/02/18 at 21:00 Active Scripts Active Reported Acetaminophen 500 Mg Tablet 500 Mg PO BID Desitin (Zinc Oxide) 57 Gm Cream..g. 1 Applic TP PRN PRN Acetaminophen 500 Mg Tablet 500 Mg PO PRN Q8HRS PRN Furosemide 40 Mg Tablet 40 Mg PO PRN DAILY PRN Zoloft (Sertraline Hcl) 50 Mg Tablet 50 Mg PO DAILY Ranitidine Hcl 150 Mg Capsule 150 Mg PO HS Potassium Chloride 10 Meq Tablet.er 10 Meq PO DAILY Metoprolol Succinate ( Xl ) (Metoprolol Succinate) 50 Mg Tab.er.24h 50 Mg PO DAILY Namenda (Memantine Hcl) 10 Mg Tablet 10 Mg PO DAILY Hydrochlorothiazide Tablet (Hydrochlorothiazide) 12.5 Mg Tablet 12.5 Mg PO DAILY Cymbalta (Duloxetine Hcl) 20 Mg Capsule.dr 20 Mg PO DAILY 26 Days Donepezil Hcl 10 Mg Tablet 10 Mg PO DAILY Desitin (Zinc Oxide) 57 Gm Cream..g. 1 Appful TP BID Cetirizine Hcl 10 Mg Tablet 10 Mg PO DAILY Atorvastatin Calcium 20 Mg Tablet 20 Mg PO QHS Aspir-Low (Aspirin) 81 Mg Tablet.dr 81 Mg PO DAILY I have reviewed the current psychotropics carefully including drug interactions. Risk benefit ratio favors no change other than as noted in my dictated progress note. Diagnosis: Problems: (1) Anxiety disorder (2) Impulse control disorder (3) Dementia, vascular, with depression (4) Dementia, vascular, with delusions (5) Dementia with behavioral disturbance (6) Dementia in Alzheimer's disease with depression (7) Dementia in Alzheimer's disease with delusions LIANA MCKENZIE MD Mar 08, 2018 23:10
[2018-03-09 05:52] VITALS: BP 122/73
[2018-03-09] MEDS: DONEPEZIL HCL 10 MG TABLET PO SCH (07:54)
[2018-03-09] MEDS: buPROPion XL 300 MG TAB.ER.24H. PO SCH (07:54)
[2018-03-09] MEDS: CETIRIZINE HCL 10 MG TABLET PO SCH (07:54)
[2018-03-09] MEDS: POTASSIUM CHLORIDE 20 MEQ TABLET.ER. PO SCH ×3 (07:54→19:39)
[2018-03-09] MEDS: NYSTATIN TOPICAL POWDER 15GM BOTTLE. TP SCH ×2 (07:54→19:45)
[2018-03-09] MEDS: ACETAMINOPHEN 500 MG TABLET PO SCH ×2 (07:55→19:39)
[2018-03-09] MEDS: MEMANTINE 10 MG TABLET. PO SCH ×2 (07:55→19:39)
[2018-03-09] MEDS: LACTOBACILLUS RHAMNOSUS GG 1 CAPSULE. PO SCH ×2 (07:55→19:39)
[2018-03-09] MEDS: ASPIRIN ENTERIC COATED 81 MG TABLET.DR. PO SCH (07:55)
[2018-03-09] MEDS: MEGESTROL 40 MG TABLET. PO SCH ×3 (07:55→16:56)
[2018-03-09] MEDS: METOPROLOL SUCC 24HR ER 50 MG TAB.ER.24H. PO SCH (07:55)
[2018-03-09 16:01] VITALS: BP 127/80
[2018-03-09] MEDS: SERTRALINE 50 MG TABLET. PO SCH (16:56)
[2018-03-09] MEDS ORDERED: MAG355OR12 PO (17:44)
[2018-03-09] MEDS ORDERED: MAGN2400 PO (17:45)
[2018-03-09] MEDS ORDERED: MEGE40TA PO (17:46)
[2018-03-09] MEDS ORDERED: MENT113G6 TP (17:47)
[2018-03-09] MEDS ORDERED: POTA20TA4 PO (17:48)
[2018-03-09] MEDS ORDERED: NYST15PO9 TP (17:48)
[2018-03-09] MEDS ORDERED: PRIM50TA PO (17:49)
[2018-03-09] MEDS ORDERED: QUET25TA5 PO (17:50)
[2018-03-09] MEDS ORDERED: BUPR300T4 PO (17:52)
[2018-03-09] MEDS ORDERED: TRAZ-85 PO (17:52)
[2018-03-09] MEDS: FAMOTIDINE 20 MG TABLET PO SCH (19:39)
[2018-03-09] MEDS: QUEtiapine 25 MG TABLET. PO SCH (19:39)
[2018-03-09] MEDS: PRIMIDONE 50 MG TABLET PO SCH (19:39)
[2018-03-09] MEDS: ATORVASTATIN CALCIUM 20 MG TABLET PO SCH (19:39)
--- NOTE | 2018-03-09 23:05 | PDOC ---
Exam Note: Kobe Note: Please also refer to the separate dictated note~for this date of service dictated separately.~Patient seen individually. Discussed the patient with Nursing staff reviewed the chart.~Reviewed interim history and current functioning. Reviewed vital signs,~Labs/ Radiology~and current medications noted below. Continue current treatment with the changes noted in the dictated addendum note Assessment: Vital Signs: Vital Signs Date Time Temp Pulse Resp B/P (MAP) Pulse Ox O2 Delivery O2 Flow Rate FiO2 03/09/18 16:01 98.6 88 18 127/80 (96) 98 03/05/18 16:20 Room Air I&O Intake and Output 03/09/18 06:59 Intake Total 660 ml Balance 660 ml Intake Oral 660 ml Current Medications: Meds: Current Medications Potassium Chloride (Klor-Con) 40 meq 1X ONCE PO Last administered on at 10:13; Start 02/08/18 at 10:15; Stop 02/08/18 at 10:16; Status DC Acetaminophen (Tylenol) 650 mg PRN Q6HRS PRN PO PAIN / TEMP; Start 02/08/18 at 14:30; Status Cancel Multi-Ingredient Ointment (Analgesic [place]) 1 hermelindo PRN QID PRN TP MUSCLE PAIN; Start 02/08/18 at 14:30 Al Hydroxide/Mg Hydroxide (Mylanta Plus Xs) 15 ml PRN AFTMEALHC PRN PO DYSPEPSIA; Start 02/08/18 at 14:30 Magnesium Hydroxide (Milk Of Magnesia) 2,400 mg PRN QHS PRN PO CONSTIPATION Last administered on 02/26/18at 09:32; Start 02/08/18 at 14:30 Atorvastatin Calcium (Lipitor) 20 mg QHS PO Last administered on 03/09/18at 19: 39; Start 02/08/18 at 21:00 Sertraline HCl (Zoloft) 50 mg DAILY PO ; Start 02/09/18 at 09:00; Stop 02/09/18 at 09:00; Status DC Acetaminophen (Tylenol) 500 mg BID PO Last administered on 03/09/18at 19:39; Start 02/08/18 at 21:00 Acetaminophen (Tylenol) 500 mg PRN Q8HRS PRN PO PAIN / TEMP; Start 02/08/18 at 15:00 Aspirin (Aspirin Enteric Coated) 81 mg DAILY PO Last administered on 03/09/18at 07:55; Start 02/09/18 at 09:00 Cetirizine HCl (ZyrTEC) 10 mg DAILY PO Last administered on 03/09/18at 07:54; Start 02/09/18 at 09:00 Donepezil HCl (Aricept) 10 mg DAILY PO Last administered on 03/09/18at 07:54; Start 02/09/18 at 09:00 Duloxetine HCl (Cymbalta) 20 mg DAILY PO ; Start 02/09/18 at 09:00; Stop at 09:00; Status DC Furosemide (Lasix) 40 mg PRN DAILY PRN PO FOR EDEMA; Start 02/09/18 at 09:00; Stop 02/09/18 at 16:07; Status DC Hydrochlorothiazide (Microzide) 12.5 mg DAILY PO Last administered on at 07:50; Start 02/09/18 at 09:00; Stop 02/09/18 at 16:03; Status DC Memantine (Namenda) 10 mg DAILY PO Last administered on 02/12/18at 08:03; Start 02/09/18 at 09:00; Stop 02/12/18 at 18:40; Status DC Metoprolol Succinate (Toprol Xl) 50 mg DAILY PO Last administered on 03/09/18at 07:55; Start 02/09/18 at 09:00 Potassium Chloride (Klor-Con) 10 meq DAILY PO Last administered on 02/09/18at 07 :43; Start 02/09/18 at 09:00; Stop 02/09/18 at 16:07; Status DC Famotidine (Pepcid) 20 mg QHS PO Last administered on 03/09/18at 19:39; Start at 21:00 Zinc Oxide (Desitin Diaper Rash 40%) 1 hermelindo BID TP Last administered on at 19:48; Start 02/08/18 at 21:00; Stop 02/10/18 at 07:47; Status DC Non-Formulary Medication (Zinc Oxide (Desitin)) 1 applic PRN PRN TP irritation; Start 02/08/18 at 15:00; Status UNV Sertraline HCl (Zoloft) 75 mg DAILY PO Last administered on 02/12/18at 08:03; Start 02/09/18 at 09:00; Stop 02/12/18 at 18:40; Status DC Trazodone HCl (Desyrel) 25 mg PRN QHS PRN PO INSOMNIA, MAY REPEAT X2 Last administered on 02/17/18at 20:49; Start 02/08/18 at 19:30 Potassium Chloride (Klor-Con) 40 meq 1X ONCE PO Last administered on at 17:50; Start 02/09/18 at 16:30; Stop 02/09/18 at 16:31; Status DC Furosemide (Lasix) 40 mg DAILY PO Last administered on 02/23/18at 07:50; Start 02/10/18 at 09:00; Stop 02/23/18 at 13:24; Status DC Potassium Chloride (Klor-Con) 20 meq BID PO Last administered on 02/23/18at 07: 49; Start 02/09/18 at 21:00; Stop 02/23/18 at 13:24; Status DC Nystatin (Nystop) 1 hermelindo BID TP Last administered on 03/09/18at 19:45; Start at 09:00 Sertraline HCl (Zoloft) 100 mg DAILY PO ; Start 02/14/18 at 09:00; Stop at 09:00; Status DC Memantine (Namenda) 10 mg HS PO Last administered on 03/09/18at 19:39; Start at 21:00 Sertraline HCl (Zoloft) 100 mg DAILY10 PO Last administered on 02/16/18at 07:14 ; Start 02/14/18 at 10:00; Stop 02/16/18 at 07:16; Status DC Sertraline HCl (Zoloft) 75 mg DAILY10 PO Last administered on 02/13/18at 10:58; Start 02/13/18 at 10:00; Stop 02/13/18 at 11:00; Status DC Memantine (Namenda) 5 mg DAILY PO Last administered on 02/18/18at 08:45; Start 02/13/18 at 09:00; Stop 02/18/18 at 18:43; Status DC Bupropion HCl (Wellbutrin Xl) 150 mg DAILY PO Last administered on 02/18/18at 08 :44; Start 02/15/18 at 09:00; Stop 02/18/18 at 18:43; Status DC Sertraline HCl (Zoloft) 100 mg DAILY PO ; Start 02/17/18 at 09:00; Stop at 09:00; Status DC Sertraline HCl (Zoloft) 100 mg DAILY PO Last administered on 02/18/18at 08:45; Start 02/17/18 at 09:00; Stop 02/18/18 at 18:43; Status DC Sertraline HCl (Zoloft) 25 mg DAILY PO Last administered on 02/18/18at 08:45; Start 02/17/18 at 09:00; Stop 02/18/18 at 18:43; Status DC Bupropion HCl (Wellbutrin Xl) 300 mg DAILY PO Last administered on 03/09/18at 07 :54; Start 02/19/18 at 09:00 Memantine (Namenda) 10 mg DAILY PO Last administered on 03/09/18at 07:55; Start 02/19/18 at 09:00 Sertraline HCl (Zoloft) 100 mg DAILYWSUP PO ; Start 02/19/18 at 17:00; Stop at 17:00; Status DC Sertraline HCl (Zoloft) 100 mg DAILYWSUP PO Last administered on 02/21/18at 16: 52; Start 02/19/18 at 17:00; Stop 02/21/18 at 18:33; Status DC Quetiapine Fumarate (SEROquel) 12.5 mg BID PO Last administered on 02/21/18at 09 :37; Start 02/19/18 at 21:00; Stop 02/21/18 at 18:33; Status DC Quetiapine Fumarate (SEROquel) 12.5 mg QHS PO Last administered on 02/21/18at 19 :29; Start 02/21/18 at 21:00; Stop 02/22/18 at 18:23; Status DC Sertraline HCl (Zoloft) 50 mg DAILYWSUP PO Last administered on 03/09/18at 16:56 ; Start 02/22/18 at 17:00 Primidone (Mysoline) 25 mg QHS PO Last administered on 02/23/18 20:08; Start 02/21/18 at 21:00; Stop 02/24/18 at 15:09; Status DC Quetiapine Fumarate (SEROquel) 12.5 mg DAILY@1700 PO Last administered on 17:01; Start 02/23/18 at 17:00; Stop 02/28/18 at 15:38; Status DC Megestrol Acetate (Megace) 40 mg TIDAC PO Last administered on 03/09/18 16:56 ; Start 02/24/18 at 07:30 Dextrose 1,000 ml @ 100 mls/hr Q10H IV Last administered on 02/25/18 08:42; Start 02/24/18 at 09:00; Stop 02/25/18 at 15:46; Status DC Primidone (Mysoline) 50 mg QHS PO Last administered on 03/09/18 19:39; Start 02/24/18 at 21:00 Potassium Chloride/Dextrose 1,000 ml @ 100 mls/hr Q10H IV Last administered on 02/26/18 12:31; Start 02/25/18 at 16:00; Stop 02/26/18 at 14:32; Status DC Potassium Chloride (Klor-Con) 20 meq TID PO Last administered on 03/09/18 19: 39; Start 02/25/18 at 21:00 Quetiapine Fumarate (SEROquel) 12.5 mg BID PO Last administered on 03/02/18 07: 53; Start 02/28/18 at 21:00; Stop 03/02/18 at 18:46; Status DC Amoxicillin (Amoxil) 250 mg [id number] PO ; Start 03/10/18 at 21:00; Stop 03/10/18 at 21:00; Status DC Amoxicillin (Amoxil) 250 mg [id number] PO Last administered on 03/07/18 19:27; Start 02/28/18 at 21:00; Stop 03/07/18 at 21:01; Status DC Lactobacillus Rhamnosus (Culturelle) 1 cap BID PO Last administered on 19:39; Start 02/28/18 at 21:00 Quetiapine Fumarate (SEROquel) 12.5 mg QHS PO Last administered on 7/14/18at 19 :39; Start 03/02/18 at 21:00 Active Scripts Active Reported Trazodone Hcl 50 Mg Tablet 25 Mg PO PRN QHS PRN Bupropion Xl (Bupropion Hcl) 300 Mg Tab.er.24h 300 Mg PO DAILY Seroquel (Quetiapine Fumarate) 25 Mg Tablet 12.5 Mg PO HS Primidone 50 Mg Tablet 50 Mg PO HS Klor-Con M20 (Potassium Chloride) 20 Meq Tab.er.prt 20 Meq PO TID Nystatin 15 Gm Powder 1 Hermelindo TP BID [place] (Menthol) 113 Gm Gel..gram. 1 Hermelindo TP PRN QID PRN Megestrol Acetate 40 Mg Tablet 40 Mg PO TIDAC Milk Of Magnesia (Magnesium Hydroxide) 2,400 Mg/10 Ml Oral.susp 2,400 Mg PO PRN QHS PRN Maalox Maximum Strength Susp (Mag Hydrox/Al Hydrox/Simeth) 355 Ml Oral.susp 15 Ml PO PRN AFTMEALHC PRN Acetaminophen 500 Mg Tablet 500 Mg PO BID Desitin (Zinc Oxide) 57 Gm Cream..g. 1 Applic TP PRN PRN Acetaminophen 500 Mg Tablet 500 Mg PO PRN Q8HRS PRN Furosemide 40 Mg Tablet 40 Mg PO PRN DAILY PRN Zoloft (Sertraline Hcl) 50 Mg Tablet 50 Mg PO DAILY Ranitidine Hcl 150 Mg Capsule 150 Mg PO HS Potassium Chloride 10 Meq Tablet.er 10 Meq PO DAILY Metoprolol Succinate ( Xl ) (Metoprolol Succinate) 50 Mg Tab.er.24h 50 Mg PO DAILY Namenda (Memantine Hcl) 10 Mg Tablet 10 Mg PO DAILY Hydrochlorothiazide Tablet (Hydrochlorothiazide) 12.5 Mg Tablet 12.5 Mg PO DAILY Cymbalta (Duloxetine Hcl) 20 Mg Capsule.dr 20 Mg PO DAILY 26 Days Donepezil Hcl 10 Mg Tablet 10 Mg PO DAILY Desitin (Zinc Oxide) 57 Gm Cream..g. 1 Appful TP BID Cetirizine Hcl 10 Mg Tablet 10 Mg PO DAILY Atorvastatin Calcium 20 Mg Tablet 20 Mg PO QHS Aspir-Low (Aspirin) 81 Mg Tablet.dr 81 Mg PO DAILY I have reviewed the current psychotropics carefully including drug interactions. Risk benefit ratio favors no change other than as noted in my dictated progress note. Diagnosis: Problems: (1) Anxiety disorder (2) Impulse control disorder (3) Dementia, vascular, with depression (4) Dementia, vascular, with delusions (5) Dementia with behavioral disturbance (6) Dementia in Alzheimer's disease with depression (7) Dementia in Alzheimer's disease with delusions LIANA MCKENZIE MD Mar 09, 2018 23:05
[2018-03-10 05:56] VITALS: BP 152/64
[2018-03-10] MEDS: MEGESTROL 40 MG TABLET. PO SCH ×3 (07:30→16:10)
[2018-03-10] MEDS: METOPROLOL SUCC 24HR ER 50 MG TAB.ER.24H. PO SCH (08:01)
[2018-03-10] MEDS: MEMANTINE 10 MG TABLET. PO SCH ×2 (08:01→19:45)
[2018-03-10] MEDS: DONEPEZIL HCL 10 MG TABLET PO SCH (08:01)
[2018-03-10] MEDS: ASPIRIN ENTERIC COATED 81 MG TABLET.DR. PO SCH (08:01)
[2018-03-10] MEDS: POTASSIUM CHLORIDE 20 MEQ TABLET.ER. PO SCH ×3 (08:01→19:45)
[2018-03-10] MEDS: LACTOBACILLUS RHAMNOSUS GG 1 CAPSULE. PO SCH ×2 (08:01→19:44)
[2018-03-10] MEDS: CETIRIZINE HCL 10 MG TABLET PO SCH (08:02)
[2018-03-10] MEDS: buPROPion XL 300 MG TAB.ER.24H. PO SCH (08:02)
[2018-03-10] MEDS: NYSTATIN TOPICAL POWDER 15GM BOTTLE. TP SCH ×2 (08:02→22:38)
[2018-03-10] MEDS: ACETAMINOPHEN 500 MG TABLET PO SCH ×2 (08:02→19:45)
[2018-03-10 16:04] VITALS: BP 130/65
[2018-03-10] MEDS: SERTRALINE 50 MG TABLET. PO SCH (16:10)
--- NOTE | 2018-03-10 17:55 | PN ---
DATE: 03/08/2018 PSYCHIATRIC PROGRESS NOTE This note has been provided at the request of the patient's daughter. The patient has diagnosis of major neurocognitive disorder, Alzheimer, vascular with depression. The patient's capacity cognitively to make decisions for herself for financial and health reasons is compromised as a consequence of her diagnosis and her designated power of tax associate attorney should be activated. Her condition is chronic and she is not likely to recover her capacity to make decisions in these areas in the future. MAN Tracie MCKENZIE MD DR: REMINGTON/brad JOB#: [id number] / [id number]
--- NOTE | 2018-03-10 18:45 | PN ---
DATE: 03/09/2018 This is a late entry, 03/09/2018, covers the elements not covered in my initial note. SUBJECTIVE: I met with the patient in the evening. The patient slept 7-3/4 hours the previous evening. The patient remains somewhat withdrawn. Oral intake is poor and I tried to have a drink a bottle of Gatorade as I met with her. Appetite is poor, takes her meds in Boost. BUN 30, creatinine 1.1. We will defer medical management to Dr. Sun/Dr. Razo. REVIEW OF SYSTEMS: Ambulation impaired in a wheelchair. No CV, , pulmonary, eye, ENT system symptoms on review. Reliability poor. MENTAL STATUS EXAM: Oriented to herself. Insight, judgment, recent and remote memory, attention, concentration, fund of knowledge poor, consistent with her diagnosis as mentioned in my initial note. IMPRESSION: Major neurocognitive disorder, Alzheimer, vascular with delusion, depression. PLAN: Continue psychotropics from initial note, Aricept, Namenda, Zoloft, Wellbutrin to augment the Zoloft together with Seroquel 12.5 mg at bedtime, Megace 40 mg three times a day to stimulate appetite. LIANA MCKENZIE MD DR: REMINGTON/brad JOB#: [id number] / [id number]
[2018-03-10] MEDS: FAMOTIDINE 20 MG TABLET PO SCH (19:44)
[2018-03-10] MEDS: ATORVASTATIN CALCIUM 20 MG TABLET PO SCH (19:45)
[2018-03-10] MEDS: PRIMIDONE 50 MG TABLET PO SCH (19:45)
--- NOTE | 2018-03-10 20:06 | PN ---
DATE: 03/08/2018 This late entry, 03/08/2018, covers elements not covered in my initial note. SUBJECTIVE: I met with the patient in the evening. The patient slept 6-3/4 hours previous evening. Her oral intake and fluid intake is somewhat low with raised BUN and creatinine. We will defer to Dr. Sun/Dr. Schrader. Chloride is elevated as well. She is otherwise pleasant. REVIEW OF SYSTEMS: Ambulation impaired, in wheelchair. No CV, , pulmonary, eye, ENT system symptoms on review. Reliability poor, not very verbal. MENTAL STATUS EXAM: Oriented to herself. Insight, judgment, recent and remote memory, attention, concentration, fund of knowledge poor consistent with her diagnosis. IMPRESSION: Major neurocognitive disorder, Alzheimer, vascular with delusion; depression; behavioral disturbance; poor oral intake; dehydration. Rest unchanged. PLAN: Continue current psychotropics per initial note including Megace for appetite stimulation. I have received a message that the patient's daughter would like a statement stating that due to her deficits in capacity to make decisions for financial and health reasons for herself, the power of environmental attorney should be activated. I am dictating a note to this effect. MAN Tracie MCKENZIE MD DR: REMINGTON/brad JOB#: [id number] / [id number]
[2018-03-10] MEDS ORDERED: AMOXICILLIN 250 MG CAPSULE PO SCH (21:00)
--- NOTE | 2018-03-10 21:01 | PDOC ---
Exam Note: Kobe Note: Please also refer to the separate dictated note~for this date of service dictated separately.~Patient seen individually. Discussed the patient with Nursing staff reviewed the chart.~Reviewed interim history and current functioning. Reviewed vital signs,~Labs/ Radiology~and current medications noted below. Continue current treatment with the changes noted in the dictated addendum note Assessment: Vital Signs: Vital Signs Date Time Temp Pulse Resp B/P (MAP) Pulse Ox O2 Delivery O2 Flow Rate FiO2 03/10/18 16:04 98.2 86 18 130/65 (86) 95 03/05/18 16:20 Room Air I&O Intake and Output 03/10/18 06:59 Intake Total 960 ml Balance 960 ml Intake Oral 960 ml Current Medications: Meds: Current Medications Potassium Chloride (Klor-Con) 40 meq 1X ONCE PO Last administered on at 10:13; Start 02/08/18 at 10:15; Stop 02/08/18 at 10:16; Status DC Acetaminophen (Tylenol) 650 mg PRN Q6HRS PRN PO PAIN / TEMP; Start 02/08/18 at 14:30; Status Cancel Multi-Ingredient Ointment (Analgesic [place]) 1 hermelindo PRN QID PRN TP MUSCLE PAIN; Start 02/08/18 at 14:30 Al Hydroxide/Mg Hydroxide (Mylanta Plus Xs) 15 ml PRN AFTMEALHC PRN PO DYSPEPSIA; Start 02/08/18 at 14:30 Magnesium Hydroxide (Milk Of Magnesia) 2,400 mg PRN QHS PRN PO CONSTIPATION Last administered on 02/26/18at 09:32; Start 02/08/18 at 14:30 Atorvastatin Calcium (Lipitor) 20 mg QHS PO Last administered on 03/10/18at 19: 45; Start 02/08/18 at 21:00 Sertraline HCl (Zoloft) 50 mg DAILY PO ; Start 02/09/18 at 09:00; Stop 02/09/18 at 09:00; Status DC Acetaminophen (Tylenol) 500 mg BID PO Last administered on 03/10/18at 19:45; Start 02/08/18 at 21:00 Acetaminophen (Tylenol) 500 mg PRN Q8HRS PRN PO PAIN / TEMP; Start 02/08/18 at 15:00 Aspirin (Aspirin Enteric Coated) 81 mg DAILY PO Last administered on 03/10/18at 08:01; Start 02/09/18 at 09:00 Cetirizine HCl (ZyrTEC) 10 mg DAILY PO Last administered on 03/10/18at 08:02; Start 02/09/18 at 09:00 Donepezil HCl (Aricept) 10 mg DAILY PO Last administered on 03/10/18at 08:01; Start 02/09/18 at 09:00 Duloxetine HCl (Cymbalta) 20 mg DAILY PO ; Start 02/09/18 at 09:00; Stop at 09:00; Status DC Furosemide (Lasix) 40 mg PRN DAILY PRN PO FOR EDEMA; Start 02/09/18 at 09:00; Stop 02/09/18 at 16:07; Status DC Hydrochlorothiazide (Microzide) 12.5 mg DAILY PO Last administered on at 07:50; Start 02/09/18 at 09:00; Stop 02/09/18 at 16:03; Status DC Memantine (Namenda) 10 mg DAILY PO Last administered on 02/12/18at 08:03; Start 02/09/18 at 09:00; Stop 02/12/18 at 18:40; Status DC Metoprolol Succinate (Toprol Xl) 50 mg DAILY PO Last administered on 03/10/18at 08:01; Start 02/09/18 at 09:00 Potassium Chloride (Klor-Con) 10 meq DAILY PO Last administered on 02/09/18at 07 :43; Start 02/09/18 at 09:00; Stop 02/09/18 at 16:07; Status DC Famotidine (Pepcid) 20 mg QHS PO Last administered on 03/10/18at 19:44; Start at 21:00 Zinc Oxide (Desitin Diaper Rash 40%) 1 hermelindo BID TP Last administered on at 19:48; Start 02/08/18 at 21:00; Stop 02/10/18 at 07:47; Status DC Non-Formulary Medication (Zinc Oxide (Desitin)) 1 applic PRN PRN TP irritation; Start 02/08/18 at 15:00; Status UNV Sertraline HCl (Zoloft) 75 mg DAILY PO Last administered on 02/12/18at 08:03; Start 02/09/18 at 09:00; Stop 02/12/18 at 18:40; Status DC Trazodone HCl (Desyrel) 25 mg PRN QHS PRN PO INSOMNIA, MAY REPEAT X2 Last administered on 02/17/18at 20:49; Start 02/08/18 at 19:30 Potassium Chloride (Klor-Con) 40 meq 1X ONCE PO Last administered on at 17:50; Start 02/09/18 at 16:30; Stop 02/09/18 at 16:31; Status DC Furosemide (Lasix) 40 mg DAILY PO Last administered on 02/23/18at 07:50; Start 02/10/18 at 09:00; Stop 02/23/18 at 13:24; Status DC Potassium Chloride (Klor-Con) 20 meq BID PO Last administered on 02/23/18at 07: 49; Start 02/09/18 at 21:00; Stop 02/23/18 at 13:24; Status DC Nystatin (Nystop) 1 hermelindo BID TP Last administered on 03/10/18at 08:02; Start at 09:00 Sertraline HCl (Zoloft) 100 mg DAILY PO ; Start 02/14/18 at 09:00; Stop at 09:00; Status DC Memantine (Namenda) 10 mg HS PO Last administered on 03/10/18at 19:45; Start at 21:00 Sertraline HCl (Zoloft) 100 mg DAILY10 PO Last administered on 02/16/18at 07:14 ; Start 02/14/18 at 10:00; Stop 02/16/18 at 07:16; Status DC Sertraline HCl (Zoloft) 75 mg DAILY10 PO Last administered on 02/13/18at 10:58; Start 02/13/18 at 10:00; Stop 02/13/18 at 11:00; Status DC Memantine (Namenda) 5 mg DAILY PO Last administered on 02/18/18at 08:45; Start 02/13/18 at 09:00; Stop 02/18/18 at 18:43; Status DC Bupropion HCl (Wellbutrin Xl) 150 mg DAILY PO Last administered on 02/18/18at 08 :44; Start 02/15/18 at 09:00; Stop 02/18/18 at 18:43; Status DC Sertraline HCl (Zoloft) 100 mg DAILY PO ; Start 02/17/18 at 09:00; Stop at 09:00; Status DC Sertraline HCl (Zoloft) 100 mg DAILY PO Last administered on 02/18/18at 08:45; Start 02/17/18 at 09:00; Stop 02/18/18 at 18:43; Status DC Sertraline HCl (Zoloft) 25 mg DAILY PO Last administered on 02/18/18at 08:45; Start 02/17/18 at 09:00; Stop 02/18/18 at 18:43; Status DC Bupropion HCl (Wellbutrin Xl) 300 mg DAILY PO Last administered on 03/10/18at 08 :02; Start 02/19/18 at 09:00 Memantine (Namenda) 10 mg DAILY PO Last administered on 03/10/18at 08:01; Start 02/19/18 at 09:00 Sertraline HCl (Zoloft) 100 mg DAILYWSUP PO ; Start 02/19/18 at 17:00; Stop at 17:00; Status DC Sertraline HCl (Zoloft) 100 mg DAILYWSUP PO Last administered on 02/21/18at 16: 52; Start 02/19/18 at 17:00; Stop 02/21/18 at 18:33; Status DC Quetiapine Fumarate (SEROquel) 12.5 mg BID PO Last administered on 02/21/18at 09 :37; Start 02/19/18 at 21:00; Stop 02/21/18 at 18:33; Status DC Quetiapine Fumarate (SEROquel) 12.5 mg QHS PO Last administered on 02/21/18at 19 :29; Start 02/21/18 at 21:00; Stop 02/22/18 at 18:23; Status DC Sertraline HCl (Zoloft) 50 mg DAILYWSUP PO Last administered on 03/10/18at 16:10 ; Start 02/22/18 at 17:00 Primidone (Mysoline) 25 mg QHS PO Last administered on 02/23/18 20:08; Start 02/21/18 at 21:00; Stop 02/24/18 at 15:09; Status DC Quetiapine Fumarate (SEROquel) 12.5 mg DAILY@1700 PO Last administered on 17:01; Start 02/23/18 at 17:00; Stop 02/28/18 at 15:38; Status DC Megestrol Acetate (Megace) 40 mg TIDAC PO Last administered on 03/10/18 16:10 ; Start 02/24/18 at 07:30 Dextrose 1,000 ml @ 100 mls/hr Q10H IV Last administered on 02/25/18 08:42; Start 02/24/18 at 09:00; Stop 02/25/18 at 15:46; Status DC Primidone (Mysoline) 50 mg QHS PO Last administered on 03/10/18 19:45; Start 02/24/18 at 21:00 Potassium Chloride/Dextrose 1,000 ml @ 100 mls/hr Q10H IV Last administered on 02/26/18 12:31; Start 02/25/18 at 16:00; Stop 02/26/18 at 14:32; Status DC Potassium Chloride (Klor-Con) 20 meq TID PO Last administered on 03/10/18 19: 45; Start 02/25/18 at 21:00 Quetiapine Fumarate (SEROquel) 12.5 mg BID PO Last administered on 03/02/18 07: 53; Start 02/28/18 at 21:00; Stop 03/02/18 at 18:46; Status DC Amoxicillin (Amoxil) 250 mg [id number] PO ; Start 03/10/18 at 21:00; Stop 03/10/18 at 21:00; Status DC Amoxicillin (Amoxil) 250 mg [id number] PO Last administered on 03/07/18 19:27; Start 02/28/18 at 21:00; Stop 03/07/18 at 21:01; Status DC Lactobacillus Rhamnosus (Culturelle) 1 cap BID PO Last administered on 19:44; Start 02/28/18 at 21:00 Quetiapine Fumarate (SEROquel) 12.5 mg QHS PO Last administered on 7/14/18at 19 :39; Start 03/02/18 at 21:00 Active Scripts Active Reported Trazodone Hcl 50 Mg Tablet 25 Mg PO PRN QHS PRN Bupropion Xl (Bupropion Hcl) 300 Mg Tab.er.24h 300 Mg PO DAILY Seroquel (Quetiapine Fumarate) 25 Mg Tablet 12.5 Mg PO HS Primidone 50 Mg Tablet 50 Mg PO HS Klor-Con M20 (Potassium Chloride) 20 Meq Tab.er.prt 20 Meq PO TID Nystatin 15 Gm Powder 1 Hermelindo TP BID [place] (Menthol) 113 Gm Gel..gram. 1 Hermelindo TP PRN QID PRN Megestrol Acetate 40 Mg Tablet 40 Mg PO TIDAC Milk Of Magnesia (Magnesium Hydroxide) 2,400 Mg/10 Ml Oral.susp 2,400 Mg PO PRN QHS PRN Maalox Maximum Strength Susp (Mag Hydrox/Al Hydrox/Simeth) 355 Ml Oral.susp 15 Ml PO PRN AFTMEALHC PRN Acetaminophen 500 Mg Tablet 500 Mg PO BID Desitin (Zinc Oxide) 57 Gm Cream..g. 1 Applic TP PRN PRN Acetaminophen 500 Mg Tablet 500 Mg PO PRN Q8HRS PRN Furosemide 40 Mg Tablet 40 Mg PO PRN DAILY PRN Zoloft (Sertraline Hcl) 50 Mg Tablet 50 Mg PO DAILY Ranitidine Hcl 150 Mg Capsule 150 Mg PO HS Potassium Chloride 10 Meq Tablet.er 10 Meq PO DAILY Metoprolol Succinate ( Xl ) (Metoprolol Succinate) 50 Mg Tab.er.24h 50 Mg PO DAILY Namenda (Memantine Hcl) 10 Mg Tablet 10 Mg PO DAILY Hydrochlorothiazide Tablet (Hydrochlorothiazide) 12.5 Mg Tablet 12.5 Mg PO DAILY Cymbalta (Duloxetine Hcl) 20 Mg Capsule.dr 20 Mg PO DAILY 26 Days Donepezil Hcl 10 Mg Tablet 10 Mg PO DAILY Desitin (Zinc Oxide) 57 Gm Cream..g. 1 Appful TP BID Cetirizine Hcl 10 Mg Tablet 10 Mg PO DAILY Atorvastatin Calcium 20 Mg Tablet 20 Mg PO QHS Aspir-Low (Aspirin) 81 Mg Tablet.dr 81 Mg PO DAILY I have reviewed the current psychotropics carefully including drug interactions. Risk benefit ratio favors no change other than as noted in my dictated progress note. Diagnosis: Problems: (1) Anxiety disorder (2) Impulse control disorder (3) Dementia, vascular, with depression (4) Dementia, vascular, with delusions (5) Dementia with behavioral disturbance (6) Dementia in Alzheimer's disease with depression (7) Dementia in Alzheimer's disease with delusions LIANA MKCENZIE MD Mar 10, 2018 21:01
[2018-03-10] MEDS: QUEtiapine 25 MG TABLET. PO SCH (21:17)
[2018-03-11 06:11] VITALS: BP 134/74
[2018-03-11] MEDS: ACETAMINOPHEN 500 MG TABLET PO SCH ×2 (08:08→19:31)
[2018-03-11] MEDS: DONEPEZIL HCL 10 MG TABLET PO SCH (08:08)
[2018-03-11] MEDS: CETIRIZINE HCL 10 MG TABLET PO SCH (08:08)
[2018-03-11] MEDS: ASPIRIN ENTERIC COATED 81 MG TABLET.DR. PO SCH (08:08)
[2018-03-11] MEDS: MEGESTROL 40 MG TABLET. PO SCH ×3 (08:09→17:26)
[2018-03-11] MEDS: POTASSIUM CHLORIDE 20 MEQ TABLET.ER. PO SCH ×3 (08:09→19:30)
[2018-03-11] MEDS: MEMANTINE 10 MG TABLET. PO SCH ×2 (08:09→19:30)
[2018-03-11] MEDS: LACTOBACILLUS RHAMNOSUS GG 1 CAPSULE. PO SCH ×2 (08:09→19:30)
[2018-03-11] MEDS: METOPROLOL SUCC 24HR ER 50 MG TAB.ER.24H. PO SCH (08:11)
[2018-03-11] MEDS: NYSTATIN TOPICAL POWDER 15GM BOTTLE. TP SCH ×2 (08:12→21:00)
[2018-03-11] MEDS: buPROPion XL 300 MG TAB.ER.24H. PO SCH (08:12)
[2018-03-11 16:06] VITALS: BP 109/76
[2018-03-11] MEDS: SERTRALINE 50 MG TABLET. PO SCH (17:26)
[2018-03-11] MEDS: ATORVASTATIN CALCIUM 20 MG TABLET PO SCH (19:30)
[2018-03-11] MEDS: PRIMIDONE 50 MG TABLET PO SCH (19:30)
[2018-03-11] MEDS: FAMOTIDINE 20 MG TABLET PO SCH (19:30)
[2018-03-11] MEDS: QUEtiapine 25 MG TABLET. PO SCH (19:35)
--- NOTE | 2018-03-11 20:30 | PDOC ---
Exam Note: Kobe Note: Please also refer to the separate dictated note~for this date of service dictated separately.~Patient seen individually. Discussed the patient with Nursing staff reviewed the chart.~Reviewed interim history and current functioning. Reviewed vital signs,~Labs/ Radiology~and current medications noted below. Continue current treatment with the changes noted in the dictated addendum note Assessment: Vital Signs: Vital Signs Date Time Temp Pulse Resp B/P (MAP) Pulse Ox O2 Delivery O2 Flow Rate FiO2 03/11/18 16:06 97.5 86 20 109/76 (87) 95 03/11/18 06:11 Room Air I&O Intake and Output 03/11/18 06:59 Intake Total 660 ml Balance 660 ml Intake Oral 660 ml # Bowel Movements 1 Current Medications: Meds: Current Medications Potassium Chloride (Klor-Con) 40 meq 1X ONCE PO Last administered on at 10:13; Start 02/08/18 at 10:15; Stop 02/08/18 at 10:16; Status DC Acetaminophen (Tylenol) 650 mg PRN Q6HRS PRN PO PAIN / TEMP; Start 02/08/18 at 14:30; Status Cancel Multi-Ingredient Ointment (Analgesic [place]) 1 hermelindo PRN QID PRN TP MUSCLE PAIN; Start 02/08/18 at 14:30 Al Hydroxide/Mg Hydroxide (Mylanta Plus Xs) 15 ml PRN AFTMEALHC PRN PO DYSPEPSIA; Start 02/08/18 at 14:30 Magnesium Hydroxide (Milk Of Magnesia) 2,400 mg PRN QHS PRN PO CONSTIPATION Last administered on 02/26/18at 09:32; Start 02/08/18 at 14:30 Atorvastatin Calcium (Lipitor) 20 mg QHS PO Last administered on 03/11/18at 19: 30; Start 02/08/18 at 21:00 Sertraline HCl (Zoloft) 50 mg DAILY PO ; Start 02/09/18 at 09:00; Stop 02/09/18 at 09:00; Status DC Acetaminophen (Tylenol) 500 mg BID PO Last administered on 03/11/18at 19:31; Start 02/08/18 at 21:00 Acetaminophen (Tylenol) 500 mg PRN Q8HRS PRN PO PAIN / TEMP; Start 02/08/18 at 15:00 Aspirin (Aspirin Enteric Coated) 81 mg DAILY PO Last administered on 03/11/18at 08:08; Start 02/09/18 at 09:00 Cetirizine HCl (ZyrTEC) 10 mg DAILY PO Last administered on 03/11/18at 08:08; Start 02/09/18 at 09:00 Donepezil HCl (Aricept) 10 mg DAILY PO Last administered on 03/11/18at 08:08; Start 02/09/18 at 09:00 Duloxetine HCl (Cymbalta) 20 mg DAILY PO ; Start 02/09/18 at 09:00; Stop at 09:00; Status DC Furosemide (Lasix) 40 mg PRN DAILY PRN PO FOR EDEMA; Start 02/09/18 at 09:00; Stop 02/09/18 at 16:07; Status DC Hydrochlorothiazide (Microzide) 12.5 mg DAILY PO Last administered on at 07:50; Start 02/09/18 at 09:00; Stop 02/09/18 at 16:03; Status DC Memantine (Namenda) 10 mg DAILY PO Last administered on 02/12/18at 08:03; Start 02/09/18 at 09:00; Stop 02/12/18 at 18:40; Status DC Metoprolol Succinate (Toprol Xl) 50 mg DAILY PO Last administered on 03/11/18at 08:11; Start 02/09/18 at 09:00 Potassium Chloride (Klor-Con) 10 meq DAILY PO Last administered on 02/09/18at 07 :43; Start 02/09/18 at 09:00; Stop 02/09/18 at 16:07; Status DC Famotidine (Pepcid) 20 mg QHS PO Last administered on 03/11/18at 19:30; Start at 21:00 Zinc Oxide (Desitin Diaper Rash 40%) 1 hermelindo BID TP Last administered on at 19:48; Start 02/08/18 at 21:00; Stop 02/10/18 at 07:47; Status DC Non-Formulary Medication (Zinc Oxide (Desitin)) 1 applic PRN PRN TP irritation; Start 02/08/18 at 15:00; Status UNV Sertraline HCl (Zoloft) 75 mg DAILY PO Last administered on 02/12/18at 08:03; Start 02/09/18 at 09:00; Stop 02/12/18 at 18:40; Status DC Trazodone HCl (Desyrel) 25 mg PRN QHS PRN PO INSOMNIA, MAY REPEAT X2 Last administered on 02/17/18at 20:49; Start 02/08/18 at 19:30 Potassium Chloride (Klor-Con) 40 meq 1X ONCE PO Last administered on at 17:50; Start 02/09/18 at 16:30; Stop 02/09/18 at 16:31; Status DC Furosemide (Lasix) 40 mg DAILY PO Last administered on 02/23/18at 07:50; Start 02/10/18 at 09:00; Stop 02/23/18 at 13:24; Status DC Potassium Chloride (Klor-Con) 20 meq BID PO Last administered on 02/23/18at 07: 49; Start 02/09/18 at 21:00; Stop 02/23/18 at 13:24; Status DC Nystatin (Nystop) 1 hermelindo BID TP Last administered on 03/11/18at 08:12; Start at 09:00 Sertraline HCl (Zoloft) 100 mg DAILY PO ; Start 02/14/18 at 09:00; Stop at 09:00; Status DC Memantine (Namenda) 10 mg HS PO Last administered on 03/11/18at 19:30; Start at 21:00 Sertraline HCl (Zoloft) 100 mg DAILY10 PO Last administered on 02/16/18at 07:14 ; Start 02/14/18 at 10:00; Stop 02/16/18 at 07:16; Status DC Sertraline HCl (Zoloft) 75 mg DAILY10 PO Last administered on 02/13/18at 10:58; Start 02/13/18 at 10:00; Stop 02/13/18 at 11:00; Status DC Memantine (Namenda) 5 mg DAILY PO Last administered on 02/18/18at 08:45; Start 02/13/18 at 09:00; Stop 02/18/18 at 18:43; Status DC Bupropion HCl (Wellbutrin Xl) 150 mg DAILY PO Last administered on 02/18/18at 08 :44; Start 02/15/18 at 09:00; Stop 02/18/18 at 18:43; Status DC Sertraline HCl (Zoloft) 100 mg DAILY PO ; Start 02/17/18 at 09:00; Stop at 09:00; Status DC Sertraline HCl (Zoloft) 100 mg DAILY PO Last administered on 02/18/18at 08:45; Start 02/17/18 at 09:00; Stop 02/18/18 at 18:43; Status DC Sertraline HCl (Zoloft) 25 mg DAILY PO Last administered on 02/18/18at 08:45; Start 02/17/18 at 09:00; Stop 02/18/18 at 18:43; Status DC Bupropion HCl (Wellbutrin Xl) 300 mg DAILY PO Last administered on 03/11/18at 08 :12; Start 02/19/18 at 09:00 Memantine (Namenda) 10 mg DAILY PO Last administered on 03/11/18at 08:09; Start 02/19/18 at 09:00 Sertraline HCl (Zoloft) 100 mg DAILYWSUP PO ; Start 02/19/18 at 17:00; Stop at 17:00; Status DC Sertraline HCl (Zoloft) 100 mg DAILYWSUP PO Last administered on 02/21/18at 16: 52; Start 02/19/18 at 17:00; Stop 02/21/18 at 18:33; Status DC Quetiapine Fumarate (SEROquel) 12.5 mg BID PO Last administered on 02/21/18at 09 :37; Start 02/19/18 at 21:00; Stop 02/21/18 at 18:33; Status DC Quetiapine Fumarate (SEROquel) 12.5 mg QHS PO Last administered on 02/21/18at 19 :29; Start 02/21/18 at 21:00; Stop 02/22/18 at 18:23; Status DC Sertraline HCl (Zoloft) 50 mg DAILYWSUP PO Last administered on 03/11/18at 17:26 ; Start 02/22/18 at 17:00 Primidone (Mysoline) 25 mg QHS PO Last administered on 02/23/18 20:08; Start 02/21/18 at 21:00; Stop 02/24/18 at 15:09; Status DC Quetiapine Fumarate (SEROquel) 12.5 mg DAILY@1700 PO Last administered on 17:01; Start 02/23/18 at 17:00; Stop 02/28/18 at 15:38; Status DC Megestrol Acetate (Megace) 40 mg TIDAC PO Last administered on 03/11/18 17:26 ; Start 02/24/18 at 07:30 Dextrose 1,000 ml @ 100 mls/hr Q10H IV Last administered on 02/25/18 08:42; Start 02/24/18 at 09:00; Stop 02/25/18 at 15:46; Status DC Primidone (Mysoline) 50 mg QHS PO Last administered on 03/11/18 19:30; Start 02/24/18 at 21:00 Potassium Chloride/Dextrose 1,000 ml @ 100 mls/hr Q10H IV Last administered on 02/26/18 12:31; Start 02/25/18 at 16:00; Stop 02/26/18 at 14:32; Status DC Potassium Chloride (Klor-Con) 20 meq TID PO Last administered on 03/11/18 19: 30; Start 02/25/18 at 21:00 Quetiapine Fumarate (SEROquel) 12.5 mg BID PO Last administered on 03/02/18 07: 53; Start 02/28/18 at 21:00; Stop 03/02/18 at 18:46; Status DC Amoxicillin (Amoxil) 250 mg [id number] PO ; Start 03/10/18 at 21:00; Stop 03/10/18 at 21:00; Status DC Amoxicillin (Amoxil) 250 mg [id number] PO Last administered on 03/07/18 19:27; Start 02/28/18 at 21:00; Stop 03/07/18 at 21:01; Status DC Lactobacillus Rhamnosus (Culturelle) 1 cap BID PO Last administered on 19:30; Start 02/28/18 at 21:00 Quetiapine Fumarate (SEROquel) 12.5 mg QHS PO Last administered on 7/16/18at 19 :35; Start 03/02/18 at 21:00 Active Scripts Active Reported Trazodone Hcl 50 Mg Tablet 25 Mg PO PRN QHS PRN Bupropion Xl (Bupropion Hcl) 300 Mg Tab.er.24h 300 Mg PO DAILY Seroquel (Quetiapine Fumarate) 25 Mg Tablet 12.5 Mg PO HS Primidone 50 Mg Tablet 50 Mg PO HS Klor-Con M20 (Potassium Chloride) 20 Meq Tab.er.prt 20 Meq PO TID Nystatin 15 Gm Powder 1 Hermelindo TP BID [place] (Menthol) 113 Gm Gel..gram. 1 Hermelindo TP PRN QID PRN Megestrol Acetate 40 Mg Tablet 40 Mg PO TIDAC Milk Of Magnesia (Magnesium Hydroxide) 2,400 Mg/10 Ml Oral.susp 2,400 Mg PO PRN QHS PRN Maalox Maximum Strength Susp (Mag Hydrox/Al Hydrox/Simeth) 355 Ml Oral.susp 15 Ml PO PRN AFTMEALHC PRN Acetaminophen 500 Mg Tablet 500 Mg PO BID Desitin (Zinc Oxide) 57 Gm Cream..g. 1 Applic TP PRN PRN Acetaminophen 500 Mg Tablet 500 Mg PO PRN Q8HRS PRN Furosemide 40 Mg Tablet 40 Mg PO PRN DAILY PRN Zoloft (Sertraline Hcl) 50 Mg Tablet 50 Mg PO DAILY Ranitidine Hcl 150 Mg Capsule 150 Mg PO HS Potassium Chloride 10 Meq Tablet.er 10 Meq PO DAILY Metoprolol Succinate ( Xl ) (Metoprolol Succinate) 50 Mg Tab.er.24h 50 Mg PO DAILY Namenda (Memantine Hcl) 10 Mg Tablet 10 Mg PO DAILY Hydrochlorothiazide Tablet (Hydrochlorothiazide) 12.5 Mg Tablet 12.5 Mg PO DAILY Cymbalta (Duloxetine Hcl) 20 Mg Capsule.dr 20 Mg PO DAILY 26 Days Donepezil Hcl 10 Mg Tablet 10 Mg PO DAILY Desitin (Zinc Oxide) 57 Gm Cream..g. 1 Appful TP BID Cetirizine Hcl 10 Mg Tablet 10 Mg PO DAILY Atorvastatin Calcium 20 Mg Tablet 20 Mg PO QHS Aspir-Low (Aspirin) 81 Mg Tablet.dr 81 Mg PO DAILY I have reviewed the current psychotropics carefully including drug interactions. Risk benefit ratio favors no change other than as noted in my dictated progress note. Diagnosis: Problems: (1) Anxiety disorder (2) Impulse control disorder (3) Dementia, vascular, with depression (4) Dementia, vascular, with delusions (5) Dementia with behavioral disturbance (6) Dementia in Alzheimer's disease with depression (7) Dementia in Alzheimer's disease with delusions LIANA MCKENZIE MD Mar 11, 2018 20:30
[2018-03-11 21:37] LABS: BASO # 0.1 x10^3/uL (0.0-0.2); BASO % 1 % (0-3); EOS # 0.1 x10^3/uL (0.0-0.7); EOS % 2 % (0-3); HEMATOCRIT 41.8 % (36.0-47.0); HEMOGLOBIN 13.7 g/dL (12.0-15.5); LYMPH # 1.4 x10^3/uL (1.0-4.8); LYMPH % 15 % (24-48); MEAN CORPUSCULAR HEMOGLOBIN 30 pg (25-35); MEAN CORPUSCULAR HGB CONC 33 g/dL (31-37); MEAN CORPUSCULAR VOLUME 92 fL (79-100); MONO # 0.7 x10^3/uL (0.0-1.1); MONO % 7 % (0-9); NEUT # 7.2 x10^3uL (1.8-7.7); NEUT % 75 % (31-73); PLATELET COUNT 231 x10^3/uL (140-400); RED BLOOD COUNT 4.54 x10^6/uL (3.50-5.40); WHITE BLOOD COUNT 9.6 x10^3/uL (4.0-11.0)
[2018-03-11 21:49] LABS: ALBUMIN 2.9 g/dL (3.4-5.0); ALBUMIN/GLOBULIN RATIO 0.6 (1.0-1.7); CALCIUM 9.6 mg/dL (8.5-10.1); CREATININE 1.1 mg/dL (0.6-1.0); GFR 48.3; POTASSIUM 4.4 mmol/L (3.5-5.1); TOTAL BILIRUBIN 0.3 mg/dL (0.2-1.0); TOTAL PROTEIN 7.5 g/dL (6.4-8.2)
--- NOTE | 2018-03-11 23:10 | PN ---
DATE: 03/10/2018 PSYCHIATRIC PROGRESS NOTE This is a late entry 03/10/2018, covers elements not covered in my initial note. SUBJECTIVE: I met with the patient in the evening. The patient slept 6-1/4 hours previous evening, has overall had a better day. Fluids are being pushed. She remains confused. REVIEW OF SYSTEMS: Ambulation impaired, in wheelchair. No CV, , pulmonary, eye, ENT system symptoms on review. Reliability poor. MENTAL STATUS EXAM: Oriented to herself. Insight, judgment, recent and remote memory, attention, concentration, fund of knowledge poor, consistent with her diagnosis mentioned in my initial note. PLAN: Continue psychotropics from initial note. Push fluids. Adjust further as clinically indicated. MAN Tracie MCKENZIE MD DR: REMINGTON/brad JOB#: [id number] / [id number]
[2018-03-12 06:35] VITALS: BP 131/69
[2018-03-12] MEDS: NYSTATIN TOPICAL POWDER 15GM BOTTLE. TP SCH (09:00)
[2018-03-12 09:40] VITALS: BP 131/69
[2018-03-12] MEDS: METOPROLOL SUCC 24HR ER 50 MG TAB.ER.24H. PO SCH (09:40)
[2018-03-12] MEDS: POTASSIUM CHLORIDE 20 MEQ TABLET.ER. PO SCH (09:40)
[2018-03-12] MEDS: MEMANTINE 10 MG TABLET. PO SCH (09:40)
[2018-03-12] MEDS: buPROPion XL 300 MG TAB.ER.24H. PO SCH (09:40)
[2018-03-12] MEDS: LACTOBACILLUS RHAMNOSUS GG 1 CAPSULE. PO SCH (09:41)
[2018-03-12] MEDS: ASPIRIN ENTERIC COATED 81 MG TABLET.DR. PO SCH (09:41)
[2018-03-12] MEDS: ACETAMINOPHEN 500 MG TABLET PO SCH (09:41)
[2018-03-12] MEDS: CETIRIZINE HCL 10 MG TABLET PO SCH (09:41)
[2018-03-12] MEDS: MEGESTROL 40 MG TABLET. PO SCH (09:41)
[2018-03-12] MEDS: DONEPEZIL HCL 10 MG TABLET PO SCH (09:41)
--- NOTE | 2018-03-12 15:21 | PN ---
DATE: 03/11/2018 PSYCHIATRIC PROGRESS NOTE This is a late entry 03/11/2018, covers elements not covered in my initial note. SUBJECTIVE: I met with the patient in the evening. The patient slept 6-3/4 hours previous evening. Oral intake is poor and we will be checking CBC, CMP morning of 03/12/2018 to assess for dehydration before her transition back to the assisted. She has not been combative with cares or aggressive, which is what prompted her initial hospitalization. REVIEW OF SYSTEMS: Ambulation impaired, in wheelchair. No CV, , pulmonary, eye, ENT system symptoms on review. Reliability poor. MENTAL STATUS EXAM: Oriented to herself. Insight, judgment, recent and remote memory, attention, concentration, fund of knowledge poor, consistent with her diagnosis mentioned in my initial note. PLAN: Continue current psychotropics. Push fluids. Rest unchanged for now. MAN Tracie MCKENZIE MD DR: REMINGTON/brad JOB#: [id number] / [id number]
--- NOTE | 2018-03-12 18:41 | PDOC ---
Exam Note: Kobe Note: Please also refer to the separate dictated note~for this date of service dictated separately.~Patient seen individually. Discussed the patient with Nursing staff reviewed the chart.~Reviewed interim history and current functioning. Reviewed vital signs,~Labs/ Radiology~and current medications noted below. Continue current treatment with the changes noted in the dictated addendum note Assessment: Vital Signs: Vital Signs Date Time Temp Pulse Resp B/P (MAP) Pulse Ox O2 Delivery O2 Flow Rate FiO2 03/12/18 09:40 99 131/69 03/12/18 06:35 98.2 20 92 03/11/18 06:11 Room Air I&O Intake and Output 03/12/18 07:00 Intake Total 480 ml Balance 480 ml Intake Oral 480 ml Labs: Laboratory Tests Test 03/11/18 21:34 White Blood Count 9.6 x10^3/uL (4.0-11.0) Red Blood Count 4.54 x10^6/uL (3.50-5.40) Hemoglobin 13.7 g/dL (12.0-15.5) Hematocrit 41.8 % (36.0-47.0) Mean Corpuscular Volume 92 fL (79-100) Mean Corpuscular Hemoglobin 30 pg (25-35) Mean Corpuscular Hemoglobin Concent 33 g/dL (31-37) Red Cell Distribution Width 14.0 % (11.5-14.5) Platelet Count 231 x10^3/uL (140-400) Neutrophils (%) (Auto) 75 % (31-73) H Lymphocytes (%) (Auto) 15 % (24-48) L Monocytes (%) (Auto) 7 % (0-9) Eosinophils (%) (Auto) 2 % (0-3) Basophils (%) (Auto) 1 % (0-3) Neutrophils # (Auto) 7.2 x10^3uL (1.8-7.7) Lymphocytes # (Auto) 1.4 x10^3/uL (1.0-4.8) Monocytes # (Auto) 0.7 x10^3/uL (0.0-1.1) Eosinophils # (Auto) 0.1 x10^3/uL (0.0-0.7) Basophils # (Auto) 0.1 x10^3/uL (0.0-0.2) Sodium Level 142 mmol/L (136-145) Potassium Level 4.4 mmol/L (3.5-5.1) Chloride Level 110 mmol/L (98-107) H Carbon Dioxide Level 24 mmol/L (21-32) Anion Gap 8 (6-14) Blood Urea Nitrogen 31 mg/dL (7-20) H Creatinine 1.1 mg/dL (0.6-1.0) H Estimated GFR (Cockcroft-Gault) 48.3 BUN/Creatinine Ratio 28 (6-20) H Glucose Level 104 mg/dL (70-99) H Calcium Level 9.6 mg/dL (8.5-10.1) Total Bilirubin 0.3 mg/dL (0.2-1.0) Aspartate Amino Transferase (AST) 17 U/L (15-37) Alanine Aminotransferase (ALT) 23 U/L (14-59) Alkaline Phosphatase 127 U/L (46-116) H Total Protein 7.5 g/dL (6.4-8.2) Albumin 2.9 g/dL (3.4-5.0) L Albumin/Globulin Ratio 0.6 (1.0-1.7) L Current Medications: Meds: Current Medications Potassium Chloride (Klor-Con) 40 meq 1X ONCE PO Last administered on at 10:13; Start 02/08/18 at 10:15; Stop 02/08/18 at 10:16; Status DC Acetaminophen (Tylenol) 650 mg PRN Q6HRS PRN PO PAIN / TEMP; Start 02/08/18 at 14:30; Status Cancel Multi-Ingredient Ointment (Analgesic [place]) 1 hermelindo PRN QID PRN TP MUSCLE PAIN; Start 02/08/18 at 14:30; Stop 03/12/18 at 10:42; Status DC Al Hydroxide/Mg Hydroxide (Mylanta Plus Xs) 15 ml PRN AFTMEALHC PRN PO DYSPEPSIA; Start 02/08/18 at 14:30; Stop 03/12/18 at 10:42; Status DC Magnesium Hydroxide (Milk Of Magnesia) 2,400 mg PRN QHS PRN PO CONSTIPATION Last administered on 02/26/18at 09:32; Start 02/08/18 at 14:30; Stop 03/12/18 at 10:42; Status DC Atorvastatin Calcium (Lipitor) 20 mg QHS PO Last administered on 03/11/18at 19: 30; Start 02/08/18 at 21:00; Stop 03/12/18 at 10:42; Status DC Sertraline HCl (Zoloft) 50 mg DAILY PO ; Start 02/09/18 at 09:00; Stop 02/09/18 at 09:00; Status DC Acetaminophen (Tylenol) 500 mg BID PO Last administered on 03/12/18at 09:41; Start 02/08/18 at 21:00; Stop 03/12/18 at 10:42; Status DC Acetaminophen (Tylenol) 500 mg PRN Q8HRS PRN PO PAIN / TEMP; Start 02/08/18 at 15:00; Stop 03/12/18 at 10:42; Status DC Aspirin (Aspirin Enteric Coated) 81 mg DAILY PO Last administered on 03/12/18at 09:41; Start 02/09/18 at 09:00; Stop 03/12/18 at 10:42; Status DC Cetirizine HCl (ZyrTEC) 10 mg DAILY PO Last administered on 03/12/18at 09:41; Start 02/09/18 at 09:00; Stop 03/12/18 at 10:42; Status DC Donepezil HCl (Aricept) 10 mg DAILY PO Last administered on 03/12/18at 09:41; Start 02/09/18 at 09:00; Stop 03/12/18 at 10:42; Status DC Duloxetine HCl (Cymbalta) 20 mg DAILY PO ; Start 02/09/18 at 09:00; Stop at 09:00; Status DC Furosemide (Lasix) 40 mg PRN DAILY PRN PO FOR EDEMA; Start 02/09/18 at 09:00; Stop 02/09/18 at 16:07; Status DC Hydrochlorothiazide (Microzide) 12.5 mg DAILY PO Last administered on at 07:50; Start 02/09/18 at 09:00; Stop 02/09/18 at 16:03; Status DC Memantine (Namenda) 10 mg DAILY PO Last administered on 02/12/18at 08:03; Start 02/09/18 at 09:00; Stop 02/12/18 at 18:40; Status DC Metoprolol Succinate (Toprol Xl) 50 mg DAILY PO Last administered on 03/12/18at 09:40; Start 02/09/18 at 09:00; Stop 03/12/18 at 10:42; Status DC Potassium Chloride (Klor-Con) 10 meq DAILY PO Last administered on 02/09/18at 07 :43; Start 02/09/18 at 09:00; Stop 02/09/18 at 16:07; Status DC Famotidine (Pepcid) 20 mg QHS PO Last administered on 03/11/18at 19:30; Start at 21:00; Stop 03/12/18 at 10:42; Status DC Zinc Oxide (Desitin Diaper Rash 40%) 1 hermelindo BID TP Last administered on at 19:48; Start 02/08/18 at 21:00; Stop 02/10/18 at 07:47; Status DC Non-Formulary Medication (Zinc Oxide (Desitin)) 1 applic PRN PRN TP irritation; Start 02/08/18 at 15:00; Status UNV Sertraline HCl (Zoloft) 75 mg DAILY PO Last administered on 02/12/18at 08:03; Start 02/09/18 at 09:00; Stop 02/12/18 at 18:40; Status DC Trazodone HCl (Desyrel) 25 mg PRN QHS PRN PO INSOMNIA, MAY REPEAT X2 Last administered on 02/17/18at 20:49; Start 02/08/18 at 19:30; Stop 03/12/18 at 10:42 ; Status DC Potassium Chloride (Klor-Con) 40 meq 1X ONCE PO Last administered on at 17:50; Start 02/09/18 at 16:30; Stop 02/09/18 at 16:31; Status DC Furosemide (Lasix) 40 mg DAILY PO Last administered on 02/23/18at 07:50; Start 02/10/18 at 09:00; Stop 02/23/18 at 13:24; Status DC Potassium Chloride (Klor-Con) 20 meq BID PO Last administered on 02/23/18at 07: 49; Start 02/09/18 at 21:00; Stop 02/23/18 at 13:24; Status DC Nystatin (Nystop) 1 hermelindo BID TP Last administered on 03/12/18at 09:00; Start at 09:00; Stop 03/12/18 at 10:42; Status DC Sertraline HCl (Zoloft) 100 mg DAILY PO ; Start 02/14/18 at 09:00; Stop at 09:00; Status DC Memantine (Namenda) 10 mg HS PO Last administered on 03/11/18at 19:30; Start at 21:00; Stop 03/12/18 at 10:42; Status DC Sertraline HCl (Zoloft) 100 mg DAILY10 PO Last administered on 02/16/18at 07:14 ; Start 02/14/18 at 10:00; Stop 02/16/18 at 07:16; Status DC Sertraline HCl (Zoloft) 75 mg DAILY10 PO Last administered on 02/13/18at 10:58; Start 02/13/18 at 10:00; Stop 02/13/18 at 11:00; Status DC Memantine (Namenda) 5 mg DAILY PO Last administered on 02/18/18at 08:45; Start 02/13/18 at 09:00; Stop 02/18/18 at 18:43; Status DC Bupropion HCl (Wellbutrin Xl) 150 mg DAILY PO Last administered on 02/18/18at 08 :44; Start 02/15/18 at 09:00; Stop 02/18/18 at 18:43; Status DC Sertraline HCl (Zoloft) 100 mg DAILY PO ; Start 02/17/18 at 09:00; Stop at 09:00; Status DC Sertraline HCl (Zoloft) 100 mg DAILY PO Last administered on 02/18/18at 08:45; Start 02/17/18 at 09:00; Stop 02/18/18 at 18:43; Status DC Sertraline HCl (Zoloft) 25 mg DAILY PO Last administered on 02/18/18at 08:45; Start 02/17/18 at 09:00; Stop 02/18/18 at 18:43; Status DC Bupropion HCl (Wellbutrin Xl) 300 mg DAILY PO Last administered on 03/12/18at 09 :40; Start 02/19/18 at 09:00; Stop 03/12/18 at 10:42; Status DC Memantine (Namenda) 10 mg DAILY PO Last administered on 03/12/18at 09:40; Start 02/19/18 at 09:00; Stop 03/12/18 at 10:42; Status DC Sertraline HCl (Zoloft) 100 mg DAILYWSUP PO ; Start 02/19/18 at 17:00; Stop at 17:00; Status DC Sertraline HCl (Zoloft) 100 mg DAILYWSUP PO Last administered on 02/21/18at 16: 52; Start 02/19/18 at 17:00; Stop 02/21/18 at 18:33; Status DC Quetiapine Fumarate (SEROquel) 12.5 mg BID PO Last administered on 02/21/18at 09 :37; Start 02/19/18 at 21:00; Stop 02/21/18 at 18:33; Status DC Quetiapine Fumarate (SEROquel) 12.5 mg QHS PO Last administered on 02/21/18at 19 :29; Start 02/21/18 at 21:00; Stop 02/22/18 at 18:23; Status DC Sertraline HCl (Zoloft) 50 mg DAILYWSUP PO Last administered on 03/11/18at 17:26 ; Start 02/22/18 at 17:00; Stop 03/12/18 at 10:42; Status DC Primidone (Mysoline) 25 mg QHS PO Last administered on 02/23/18at 20:08; Start 02/21/18 at 21:00; Stop 02/24/18 at 15:09; Status DC Quetiapine Fumarate (SEROquel) 12.5 mg DAILY@1700 PO Last administered on at 17:01; Start 02/23/18 at 17:00; Stop 02/28/18 at 15:38; Status DC Megestrol Acetate (Megace) 40 mg TIDAC PO Last administered on 03/12/18at 09:41 ; Start 02/24/18 at 07:30; Stop 03/12/18 at 10:42; Status DC Dextrose 1,000 ml @ 100 mls/hr Q10H IV Last administered on 02/25/18at 08:42; Start 02/24/18 at 09:00; Stop 02/25/18 at 15:46; Status DC Primidone (Mysoline) 50 mg QHS PO Last administered on 03/11/18 19:30; Start 02/24/18 at 21:00; Stop 03/12/18 at 10:42; Status DC Potassium Chloride/Dextrose 1,000 ml @ 100 mls/hr Q10H IV Last administered on 02/26/18at 12:31; Start 02/25/18 at 16:00; Stop 02/26/18 at 14:32; Status DC Potassium Chloride (Klor-Con) 20 meq TID PO Last administered on 03/12/18at 09: 40; Start 02/25/18 at 21:00; Stop 03/12/18 at 10:42; Status DC Quetiapine Fumarate (SEROquel) 12.5 mg BID PO Last administered on 03/02/18at 07: 53; Start 02/28/18 at 21:00; Stop 03/02/18 at 18:46; Status DC Amoxicillin (Amoxil) 250 mg [id number] PO ; Start 03/10/18 at 21:00; Stop 03/10/18 at 21:00; Status DC Amoxicillin (Amoxil) 250 mg [id number] PO Last administered on 03/07/18at 19:27; Start 02/28/18 at 21:00; Stop 03/07/18 at 21:01; Status DC Lactobacillus Rhamnosus (Culturelle) 1 cap BID PO Last administered on at 09:41; Start 02/28/18 at 21:00; Stop 03/12/18 at 10:42; Status DC Quetiapine Fumarate (SEROquel) 12.5 mg QHS PO Last administered on 03/11/18at 19 :35; Start 03/02/18 at 21:00; Stop 03/12/18 at 10:42; Status DC Active Scripts Active Reported Trazodone Hcl 50 Mg Tablet 25 Mg PO PRN QHS PRN Bupropion Xl (Bupropion Hcl) 300 Mg Tab.er.24h 300 Mg PO DAILY Seroquel (Quetiapine Fumarate) 25 Mg Tablet 12.5 Mg PO HS Primidone 50 Mg Tablet 50 Mg PO HS Klor-Con M20 (Potassium Chloride) 20 Meq Tab.er.prt 20 Meq PO TID Nystatin 15 Gm Powder 1 Hermelindo TP BID [place] (Menthol) 113 Gm Gel..gram. 1 Hermelindo TP PRN QID PRN Megestrol Acetate 40 Mg Tablet 40 Mg PO TIDAC Milk Of Magnesia (Magnesium Hydroxide) 2,400 Mg/10 Ml Oral.susp 2,400 Mg PO PRN QHS PRN Maalox Maximum Strength Susp (Mag Hydrox/Al Hydrox/Simeth) 355 Ml Oral.susp 15 Ml PO PRN AFTMEALHC PRN Acetaminophen 500 Mg Tablet 500 Mg PO BID Acetaminophen 500 Mg Tablet 500 Mg PO PRN Q8HRS PRN Zoloft (Sertraline Hcl) 50 Mg Tablet 50 Mg PO DAILYWSUP Ranitidine Hcl 150 Mg Capsule 150 Mg PO HS Metoprolol Succinate ( Xl ) (Metoprolol Succinate) 50 Mg Tab.er.24h 50 Mg PO DAILY Namenda (Memantine Hcl) 10 Mg Tablet 10 Mg PO BID Donepezil Hcl 10 Mg Tablet 10 Mg PO DAILY Cetirizine Hcl 10 Mg Tablet 10 Mg PO DAILY Atorvastatin Calcium 20 Mg Tablet 20 Mg PO QHS Aspir-Low (Aspirin) 81 Mg Tablet. 81 Mg PO DAILYBFRSUP I have reviewed the current psychotropics carefully including drug interactions. Risk benefit ratio favors no change other than as noted in my dictated progress note. Diagnosis: Problems: (1) Dementia in Alzheimer's disease with delusions (2) Dementia in Alzheimer's disease with depression (3) Dementia with behavioral disturbance (4) Dementia, vascular, with delusions (5) Dementia, vascular, with depression (6) Impulse control disorder (7) Anxiety disorder LIANA MCKENZIE MD Mar 12, 2018 18:41
--- NOTE | 2018-03-13 18:42 | DS ---
DATE OF DISCHARGE: 03/12/2018 DISCHARGE SUMMARY/PSYCHIATRIC PROGRESS NOTE This is a late entry, 03/12/2018, covers the elements not covered in my initial note, 03/12/2018. IDENTIFYING DATA: The patient is a 78-year-old female who is referred to us from [facility] on account of worsening confusion, depression, refusing to walk, lying herself on the floor, refusing ADLs, combative with care, slapping and pinching staff. Behaviors were deemed unmanageable, out of control, referred for inpatient psychiatric stabilization. She did have a UTI on admission and this was treated on Amoxil. SIGNIFICANT FINDINGS AND CLINICAL COURSE: Following admission, the patient was seen daily individually by myself, followed medically per Dr. Sun/Dr. Razo. UTI was treated. She remained extremely labile, withdrawn, refusing to ambulate or feed herself. She is extremely confused. Adjustments were made in her psychotropics. She seemed to respond to a combination of Aricept 10 mg a day, Namenda 10 mg daily, Zoloft 50 mg p.m., trazodone 25 mg at bedtime p.r.n. may repeat x 2 for insomnia, Wellbutrin-XL 300 mg a day, Seroquel 12.5 mg at bedtime, Megace was added 40 mg t.i.d. a.c., for appetite stimulation. At one point, she was refusing to eat and drink, became dehydrated, received IV fluids and then was much better. CONDITION AT DISCHARGE: Improved. REVIEW OF SYSTEMS: Ambulation impaired, poor appetite. No CV, , pulmonary, eye system symptoms on review. MENTAL STATUS EXAM: Oriented to herself. Insight, judgment, recent and remote memory, attention, concentration, fund of knowledge poor, consistent with her diagnosis. CONDITION AT DISCHARGE: Improved. FINAL DIAGNOSES: Major neurocognitive disorder, Alzheimer, vascular with delusion, depression, behavioral disturbance; anxiety disorder, unspecified; impulse control disorder, unspecified; status post urinary tract infection; status post dehydration. Rest unchanged from admission. DISCHARGE MEDICATIONS: Please refer to the EMRAD. DISCHARGE INSTRUCTIONS: Outpatient psychiatric and medical followup at the senior living. Time for discharge day management greater than 30 minutes. MAN Tracie MCKENZIE MD DR: REMINGTON/brad JOB#: [id number] / [id number]
== END 2018-03-12 10:42 | DRG 57 ==
LOC: ER 08:47 → GEROPSY 11:02
PROVIDERS: ADMIT Psychiatry & Neurology Psychiatry; ATTEND Psychiatry & Neurology Psychiatry
DX: G30.9 Alzheimer's disease, unspecified (principal); F01.51 Vascular dementia, unspecified severity, with behavioral disturbance; F02.81 Dementia in other diseases classified elsewhere, unspecified severity, with behavioral disturbance; D72.829 Elevated white blood cell count, unspecified; E03.9 Hypothyroidism, unspecified; E61.1 Iron deficiency; E78.00 Pure hypercholesterolemia, unspecified; E78.5 Hyperlipidemia, unspecified; E86.0 Dehydration; E87.6 Hypokalemia; F32.9 Major depressive disorder, single episode, unspecified; F41.9 Anxiety disorder, unspecified; F63.9 Impulse disorder, unspecified; K21.9 Gastro-esophageal reflux disease without esophagitis; I25.10 Atherosclerotic heart disease of native coronary artery without angina pectoris; I10 Essential (primary) hypertension; Z53.20 Procedure and treatment not carried out because of patient's decision for unspecified reasons; Z85.3 Personal history of malignant neoplasm of breast; Z79.899 Other long term (current) drug therapy; Z87.440 Personal history of urinary (tract) infections; Z90.49 Acquired absence of other specified parts of digestive tract; Z91.14 Patient's other noncompliance with medication regimen
CPT/HCPCS: 36415; 71045; 74018; 80048; 80053; 80061; 81001; 82306; 82607; 83036; 83540; 83550; 83605; 83615; 83690; 83735; 84436; 84443; 84480; 85025; 86592; 87086; 87186; 93005; J7042; 97110; 97116; 97530; 97535; 99285-25